=== PATIENT | male | born 1940 | race Caucasian/White ===

== ENCOUNTER 2016-06-05 10:30 | Outpatient (CLI) | payer MEDICARE, OTHER ==
[~2016-06-05 10:30] MED LIST: ALBU17IN2 PO; ALPHA PROTEINASE INHIBITOR IV ONE; ASPI1TAB PO; ATRO0.06; CALCTAB97 PO; CARD4TAB2 PO; DILUENT IV ONE; FURO20TA2 PO; NEXI1CAP4 PO; NITR4TASL SL; SING10TA32 PO; SODI5OPD OD; SODIUM CHLORIDE 0.9% INJ 10 ML SYR IV SCH; TIZA4CAP3 PO; ZOCO20TA PO; ZYRT10CA PO
== END 2016-06-05 11:30 | disposition home or self-care (01) ==
LOC: M INFU 10:30
PROVIDERS: ATTEND Internal Medicine Pulmonary Disease
DX: E88.01 Alpha-1-antitrypsin deficiency (principal)
CPT/HCPCS: 96374; J0256

== ENCOUNTER 2016-06-12 09:55 | Outpatient (CLI) | payer MEDICARE, OTHER | END 2016-06-12 10:45 | disposition home or self-care (01) | LOC: M INFU 09:55 | PROVIDERS: ATTEND Internal Medicine Pulmonary Disease | DX: E88.01 Alpha-1-antitrypsin deficiency (principal) | CPT/HCPCS: 96365; J0256 ==

== ENCOUNTER 2016-06-19 10:48 | Outpatient (CLI) | payer MEDICARE, OTHER ==
[~2016-06-19 10:48] MED LIST changes: -ALPHA PROTEINASE INHIBITOR IV ONE; -DILUENT IV ONE; +SODIUM CHLORIDE 0.9% INJ 10 ML SYR IV PRN
[2016-06-19] MEDS ORDERED: DILUENT IV ONE (11:00)
[2016-06-19] MEDS ORDERED: ALPHA PROTEINASE INHIBITOR IV ONE (11:00)
== END 2016-06-19 12:00 | disposition home or self-care (01) ==
LOC: M INFU 10:48
PROVIDERS: ATTEND Internal Medicine Pulmonary Disease
DX: E88.01 Alpha-1-antitrypsin deficiency (principal)
CPT/HCPCS: 96365; J0256

== ENCOUNTER 2016-06-26 10:49 | Outpatient (CLI) | payer MEDICARE ==
[2016-06-26] MEDS ORDERED: DILUENT IV ONE (11:00)
[2016-06-26] MEDS ORDERED: ALPHA PROTEINASE INHIBITOR IV ONE (11:00)
== END 2016-06-26 11:55 | disposition home or self-care (01) ==
LOC: M INFU 10:49
PROVIDERS: ATTEND Internal Medicine Pulmonary Disease
DX: E88.01 Alpha-1-antitrypsin deficiency (principal)
CPT/HCPCS: 96365; J0256

== ENCOUNTER 2016-07-03 10:53 | Outpatient (CLI) | payer MEDICARE ==
[~2016-07-03 10:53] MED LIST changes: +ALPHA PROTEINASE INHIBITOR IV ONE; +DILUENT IV ONE
== END 2016-07-03 11:45 | disposition home or self-care (01) ==
LOC: M INFU 10:53
PROVIDERS: ATTEND Internal Medicine Pulmonary Disease
DX: E88.01 Alpha-1-antitrypsin deficiency (principal)
CPT/HCPCS: 96365; J0256

== ENCOUNTER 2016-07-10 10:42 | Outpatient (CLI) | payer MEDICARE ==
[~2016-07-10] VITALS: Ht 170.2 cm; Wt 77.6 kg
[~2016-07-10 10:42] MED LIST changes: -SODIUM CHLORIDE 0.9% INJ 10 ML SYR IV PRN
== END 2016-07-10 11:45 | disposition home or self-care (01) ==
LOC: M INFU 10:42
PROVIDERS: ATTEND Internal Medicine Pulmonary Disease
DX: E88.01 Alpha-1-antitrypsin deficiency (principal)
CPT/HCPCS: 96365; J0256

== ENCOUNTER → 2016-07-14 | Outpatient (CLI) | payer MEDICARE, OTHER ==
[~2016-07-14] MED LIST changes: -ALPHA PROTEINASE INHIBITOR IV ONE; -DILUENT IV ONE; -SODIUM CHLORIDE 0.9% INJ 10 ML SYR IV SCH
--- NOTE | 2016-07-15 08:33 | REP ---
CHEST PA AND LATERAL: 07/14/2016. Clinical history: Acute bronchitis, unspecified. Known interstitial lung disease. Comparison 05/10/2015, portable chest 04/26/2015. Findings: Indwelling left subclavian catheter port with tip in SVC. Lungs are hyperinflated showing no pleural effusion. There is some fibrotic change in the mid and lower lung zones and some bullous emphysematous changes in the upper lung zones. Less severe bullous changes in the lower lung zones. I see no dense consolidation, parenchymal mass, pleural thickening, apical scarring or pneumothorax. No nodule or mass. The heart is not grossly enlarged on the frontal view but the left ventricle appears prominent on the lateral projection. Calcified tortuous aorta without aneurysm noted. Airway intact. There is no mediastinal or hilar mass. Pulmonary hypertension noted. Bones without acute compression deformity or focal lesion. Impression: 1. Some hyperinflation with COPD and fibrosis, pulmonary hypertension and an indwelling port catheter. No effusion, dense consolidation, parenchymal mass or other acute lung finding. 2. No gross cardiomegaly with some left ventricular enlargement on the lateral view. There is no venous hypertension, effusion or edema. 3. Calcified tortuous aorta at the arch without aneurysm. Signed by Han Whitlock MD 07/15/2016 06:53 P
== END ==
LOC: M WUC 14:21
PROVIDERS: ATTEND Physician Assistant
DX: J44.0 Chronic obstructive pulmonary disease with (acute) lower respiratory infection (principal); J84.112 Idiopathic pulmonary fibrosis

== ENCOUNTER 2016-07-17 10:57 | Outpatient (CLI) | payer MEDICARE ==
[~2016-07-17 10:57] MED LIST changes: +SODIUM CHLORIDE 0.9% INJ 10 ML SYR IV SCH
[2016-07-17] MEDS ORDERED: ALPHA PROTEINASE INHIBITOR IV ONE (11:00)
[2016-07-17] MEDS ORDERED: DILUENT IV ONE (11:00)
== END 2016-07-17 12:00 | disposition home or self-care (01) ==
LOC: M INFU 10:57
PROVIDERS: ATTEND Internal Medicine Pulmonary Disease
DX: E88.01 Alpha-1-antitrypsin deficiency (principal)
CPT/HCPCS: 96365; J0256

== ENCOUNTER 2016-07-24 10:54 | Outpatient (CLI) | payer MEDICARE ==
[~2016-07-24] VITALS: Ht 170.2 cm; Wt 77.6 kg
[~2016-07-24 10:54] MED LIST changes: +ALPHA PROTEINASE INHIBITOR IV ONE; +DILUENT IV ONE
== END 2016-07-24 11:45 | disposition home or self-care (01) ==
LOC: M INFU 10:54
PROVIDERS: ATTEND Internal Medicine Pulmonary Disease
DX: E88.01 Alpha-1-antitrypsin deficiency (principal)
CPT/HCPCS: 96365; J0256

== ENCOUNTER 2016-07-31 11:07 | Outpatient (CLI) | payer MEDICARE ==
[~2016-07-31] VITALS: Ht 170.2 cm; Wt 77.6 kg
== END 2016-07-31 11:50 | disposition home or self-care (01) ==
LOC: M INFU 11:07
PROVIDERS: ATTEND Internal Medicine Pulmonary Disease
DX: E88.01 Alpha-1-antitrypsin deficiency (principal)
CPT/HCPCS: 96365; J0256

== ENCOUNTER 2016-08-07 10:34 | Outpatient (CLI) | payer MEDICARE ==
[~2016-08-07] VITALS: Ht 170.2 cm; Wt 77.6 kg
== END 2016-08-07 11:15 | disposition home or self-care (01) ==
LOC: M INFU 10:34
PROVIDERS: ATTEND Internal Medicine Pulmonary Disease
DX: E88.01 Alpha-1-antitrypsin deficiency (principal)
CPT/HCPCS: 96365; J0256

== ENCOUNTER 2016-08-14 08:27 | Outpatient (CLI) | payer MEDICARE ==
[~2016-08-14] VITALS: Ht 170.2 cm; Wt 77.6 kg
[~2016-08-14 08:27] MED LIST changes: -SODIUM CHLORIDE 0.9% INJ 10 ML SYR IV SCH
[2016-08-14] MEDS ORDERED: SODIUM CHLORIDE 0.9% INJ 10 ML SYR IV SCH (09:00)
== END 2016-08-14 09:40 | disposition home or self-care (01) ==
LOC: M INFU 08:27
PROVIDERS: ATTEND Internal Medicine Pulmonary Disease
DX: Z00.00 Encounter for general adult medical examination without abnormal findings (principal); E88.01 Alpha-1-antitrypsin deficiency; E78.4 Other hyperlipidemia; E03.8 Other specified hypothyroidism; E55.9 Vitamin D deficiency, unspecified
CPT/HCPCS: 36591; 80053; 80061; 82306; 84439; 84443; 85025; 96365; J0256

== ENCOUNTER 2016-08-14 13:37 | Outpatient (CLI) | payer MEDICARE ==
[2016-08-14 09:14] LABS: BASO % 0.4 % (0.0-1.0); EOS # 0.1 K/mm3 (0.0-0.50); EOS % 1.1 % (0.0-3.0); LARGE UNSTAINED CELL # 0.2 K/mm3 (0.0-0.4); LYMPH # 4.3 K/mm3 (1.5-4.5); LYMPH % 40.7 % (24.0-44.0); MEAN CORPUSCULAR HEMOGLOBIN 32.1 pg (27.0-33.0); MEAN CORPUSCULAR HGB CONC 35.9 g/dl (32.0-36.5); MEAN CORPUSCULAR VOLUME 89.4 fl (80.0-96.0); MONO # 0.6 K/mm3 (0.0-0.8); MONO % 5.6 % (0.0-5.0); NEUTROPHILS # 5.3 K/mm3 (1.8-7.7); NEUTROPHILS % 50.2 % (36.0-66.0); PLATELET COUNT, AUTOMATED 246 k/mm3 (150-450); RED CELL DISTRIBUTION WIDTH 13.4 % (11.5-14.5); WHITE BLOOD COUNT 10.6 K/mm3 (4.0-10.0)
[2016-08-14 10:18] LABS: ALBUMIN 3.8 GM/DL (3.2-5.2); ALBUMIN/GLOBULIN RATIO 1.41 (1.00-1.93); ALKALINE PHOSPHATASE 58 U/L (45-117); ALT/SGPT 23 U/L (12-78); ANION GAP 10 MEQ/L (8-16); AST/SGOT 23 U/L (15-37); BILIRUBIN,TOTAL 0.4 MG/DL (0.2-1.0); BLOOD UREA NITROGEN 16 MG/DL (7-18); CALCIUM LEVEL 8.5 MG/DL (8.8-10.2); CARBON DIOXIDE LEVEL 28 MEQ/L (21-32); CHLORIDE LEVEL 106 MEQ/L (98-107); CHOLESTEROL LEVEL 177 MG/DL (<200); CREATININE FOR GFR 1.15 MG/DL (0.70-1.30); FREE T4 1.28 NG/DL (0.76-1.46); GLOMERULAR FILTRATION RATE > 60.0 (>42); GLUCOSE, FASTING 99 MG/DL (83-110); POTASSIUM SERUM 3.4 MEQ/L (3.5-5.1); SODIUM LEVEL 144 MEQ/L (136-145); TOTAL PROTEIN 6.5 GM/DL (6.4-8.2); TRIGLYCERIDES LEVEL 123 MG/DL (<150)
[~2016-08-14 13:37] MED LIST changes: -ALPHA PROTEINASE INHIBITOR IV ONE; -DILUENT IV ONE
== END 2016-08-14 13:42 | disposition home or self-care (01) ==
LOC: M INFU 13:37
PROVIDERS: ATTEND Family Medicine
DX: Z00.00 Encounter for general adult medical examination without abnormal findings (principal); E78.4 Other hyperlipidemia; E03.8 Other specified hypothyroidism; E55.9 Vitamin D deficiency, unspecified

== ENCOUNTER 2016-08-21 11:33 | Outpatient (CLI) | payer MEDICARE ==
[~2016-08-21] VITALS: Ht 170.2 cm; Wt 77.1 kg
[~2016-08-21 11:33] MED LIST changes: +ALPHA PROTEINASE INHIBITOR IV ONE; +DILUENT IV ONE; +SODIUM CHLORIDE 0.9% INJ 10 ML SYR IV SCH
== END 2016-08-21 12:15 | disposition home or self-care (01) ==
LOC: M INFU 11:33
PROVIDERS: ATTEND Internal Medicine Pulmonary Disease
DX: E88.01 Alpha-1-antitrypsin deficiency (principal)
CPT/HCPCS: 96365; J0256

== ENCOUNTER 2016-08-28 11:30 | Outpatient (CLI) | payer MEDICARE | END 2016-08-28 12:30 | disposition home or self-care (01) | LOC: M INFU 11:30 | PROVIDERS: ATTEND Internal Medicine Pulmonary Disease | DX: E88.01 Alpha-1-antitrypsin deficiency (principal) | CPT/HCPCS: 96365; J0256 ==

== ENCOUNTER 2016-09-04 12:15 | Emergency (ER) | payer MEDICARE ==
[~2016-09-04] VITALS: Ht 172.7 cm; Wt 72.6 kg
[~2016-09-04 12:15] MED LIST changes: -ALPHA PROTEINASE INHIBITOR IV ONE; -AZIT25TA PO; -BREO1INH INH; -CALC600T10 PO; -DALI1TAB2 PO; -DILUENT IV ONE; -ESOM1CAP5 PO; -FLON50SP; -HYDR12.55 PO; -HYDR25TAB PO; -INCR1INH INH; -IPRA6SP; -IPRASOL4 INH; -LEVA500T PO; -LEVO75TA4 PO; -NEUR300C PO; -SODIUM CHLORIDE 0.9% INJ 10 ML SYR IV SCH
[2016-09-04] MEDS ORDERED: INCR1INH INH (12:54)
[2016-09-04] MEDS ORDERED: HYDR12.55 PO (12:54)
[2016-09-04] MEDS ORDERED: NEUR300C PO (12:54)
[2016-09-04] MEDS ORDERED: LEVO75TA4 PO (12:54)
[2016-09-04] MEDS ORDERED: BREO1INH INH (12:54)
[2016-09-04] MEDS ORDERED: IPRATROPIUM 0.5MG/ALBUTEROL 2.5MG INH SOL UD 3ML (DUONEB)(J7620) NEB ONE (14:15)
--- NOTE | 2016-09-04 14:52 | REP ---
Chest two views HISTORY: Cough Comparison: 07/14/2016 The lungs are hyperinflated. An increase in interstitial markings is present in the lungs. Bullae are present in the upper lobes. The heart is normal in size. The pulmonary vasculature is normal in appearance. The bony structure is intact. An Zwbsjs-M-Ugib catheter is present. IMPRESSION: COPD. Signed by Brandt Fair MD 09/04/2016 02:43 P
[2016-09-04 15:25] VITALS: BP 140/71
--- NOTE | 2016-09-04 15:40 | REP ---
INGUINAL ULTRASOUND: Real-time sonographic evaluation of the inguinal regions performed both at rest and with the Valsalva maneuver. No inguinal hernia is seen bilaterally. There is no mass or fluid collection in either inguinal region. IMPRESSION: No sonographic evidence of inguinal hernia bilaterally. Signed by Panda Pillai MD 09/04/2016 04:42 P
== END 2016-09-04 15:28 | disposition home or self-care (01) ==
LOC: M ED 14:14
DX: J44.1 Chronic obstructive pulmonary disease with (acute) exacerbation (principal); R10.30 Lower abdominal pain, unspecified; R50.9 Fever, unspecified; I10 Essential (primary) hypertension; I51.9 Heart disease, unspecified; E78.5 Hyperlipidemia, unspecified; Z88.2 Allergy status to sulfonamides; Z79.82 Long term (current) use of aspirin; Z79.899 Other long term (current) drug therapy; Z79.51 Long term (current) use of inhaled steroids

== ENCOUNTER → 2016-09-04 | Outpatient (CLI) | payer MEDICARE ==
[~2016-09-04] MED LIST changes: +ALBU17IN2 INH; -ALBU17IN2 PO; +AZIT25TA PO; +BREO1INH INH; +CALC600T10 PO; +DALI1TAB2 PO; +ESOM1CAP5 PO; +FLON50SP; +HYDR12.55 PO; +HYDR25TAB PO; +INCR1INH INH; +IPRA6SP; +IPRASOL4 INH; +LEVA500T PO; +LEVO75TA4 PO; +NEUR300C PO
== END ==
LOC: M INFU 08:00
PROVIDERS: ATTEND Internal Medicine Pulmonary Disease
DX: E88.01 Alpha-1-antitrypsin deficiency (principal); Z53.8 Procedure and treatment not carried out for other reasons

== ENCOUNTER 2016-09-11 10:53 | Outpatient (CLI) | payer MEDICARE ==
[~2016-09-11] VITALS: Ht 170.2 cm; Wt 77.7 kg
[~2016-09-11 10:53] MED LIST changes: +BREO1INH INH; +HYDR12.55 PO; +INCR1INH INH; +LEVO75TA4 PO; +NEUR300C PO; +SODIUM CHLORIDE 0.9% INJ 10 ML SYR IV SCH
[2016-09-11] MEDS ORDERED: DILUENT IV ONE ×2 (11:15→11:26)
[2016-09-11] MEDS ORDERED: ALPHA PROTEINASE INHIBITOR IV ONE ×2 (11:15→11:26)
[2016-09-11] MEDS ORDERED: HYDR25TAB PO (14:55)
[2016-09-11] MEDS ORDERED: IPRA6SP (14:55)
[2016-09-11] MEDS ORDERED: ESOM1CAP5 PO (14:55)
[2016-09-11] MEDS ORDERED: CALC600T10 PO (14:55)
[2016-09-11] MEDS ORDERED: IPRASOL4 INH (14:55)
[2016-09-11] MEDS ORDERED: AZIT25TA PO (14:55)
[2016-09-11] MEDS ORDERED: FLON50SP (14:57)
[2016-09-11] MEDS ORDERED: DALI1TAB2 PO (14:57)
== END 2016-09-11 12:25 | disposition home or self-care (01) ==
LOC: M INFU 10:53
PROVIDERS: ATTEND Internal Medicine Pulmonary Disease
DX: E88.01 Alpha-1-antitrypsin deficiency (principal)

== ENCOUNTER 2016-09-11 12:39 | Inpatient (IN) | payer MEDICARE ==
[~2016-09-11] VITALS: Ht 172.7 cm; Wt 73.3 kg
[~2016-09-11 12:39] MED LIST changes: -SODIUM CHLORIDE 0.9% INJ 10 ML SYR IV SCH
[2016-09-11 13:36] LABS: BASO # 0.1 K/mm3 (0.0-0.2); BASO % 0.3 % (0.0-1.0); EOS # 0.1 K/mm3 (0.0-0.50); EOS % 0.6 % (0.0-3.0); LARGE UNSTAINED CELL # 0.2 K/mm3 (0.0-0.4); LARGE UNSTAINED CELL % 1.1 % (0.0-4.0); MEAN CORPUSCULAR HEMOGLOBIN 29.5 pg (27.0-33.0); MEAN CORPUSCULAR HGB CONC 33.6 g/dl (32.0-36.5); MEAN CORPUSCULAR VOLUME 87.8 fl (80.0-96.0); MONO % 4.5 % (0.0-5.0); NEUTROPHILS # 15.4 K/mm3 (1.8-7.7); NEUTROPHILS % 71.6 % (36.0-66.0); PLATELET COUNT, AUTOMATED 308 k/mm3 (150-450); RED CELL DISTRIBUTION WIDTH 13.4 % (11.5-14.5)
[2016-09-11 13:38] LABS: WHITE BLOOD COUNT 21.5 K/mm3 (4.0-10.0)
[2016-09-11 14:00] LABS: ANION GAP 5 MEQ/L (8-16); BLOOD UREA NITROGEN 18 MG/DL (7-18); CALCIUM LEVEL 8.7 MG/DL (8.8-10.2); CARBON DIOXIDE LEVEL 34 MEQ/L (21-32); CHLORIDE LEVEL 100 MEQ/L (98-107); CREATININE FOR GFR 1.07 MG/DL (0.70-1.30); GLOMERULAR FILTRATION RATE > 60.0 (>42); GLUCOSE, FASTING 101 MG/DL (83-110); POTASSIUM SERUM 3.1 MEQ/L (3.5-5.1); SODIUM LEVEL 139 MEQ/L (136-145)
[2016-09-11] MEDS ORDERED: ALBUTEROL SULFATE 2.5 MG/0.5 ML INH NEB SOLN INH ONE (14:15)
[2016-09-11] MEDS ORDERED: methylPREDNISolone INJ 125 MG/2 ML VIAL (J2930) IV ONE (14:15)
[2016-09-11] MEDS ORDERED: IPRATROPIUM 0.5MG/ALBUTEROL 2.5MG INH SOL UD 3ML (DUONEB)(J7620) NEB ONE (14:15)
[2016-09-11 14:17] LABS: ABG BASE EXCESS 6.9 (-2.0-2.0); ABG HCO3 30.3 MEQ/L (22.0-26.0); ABG PARTIAL PRESSURE CO2 38.7 mmHg (35.0-45.0); ABG PARTIAL PRESSURE O2 77.9 mmHg (75.0-100.0); ABG STANDARD HCO3 30.7 MEQ/L (22.0-26.0); ABG TOTAL CO2 31.4 MEQ/L (23.0-31.0); ABG pH (ARTERIAL) 7.511 UNITS (7.350-7.450)
[2016-09-11] MEDS ORDERED: ESOM1CAP5 PO (14:55)
[2016-09-11] MEDS ORDERED: IPRASOL4 INH (14:55)
[2016-09-11] MEDS ORDERED: CALC600T10 PO (14:55)
[2016-09-11] MEDS ORDERED: HYDR25TAB PO (14:55)
[2016-09-11] MEDS ORDERED: AZIT25TA PO (14:55)
[2016-09-11] MEDS ORDERED: IPRA6SP (14:55)
[2016-09-11] MEDS ORDERED: FLON50SP (14:57)
[2016-09-11] MEDS ORDERED: DALI1TAB2 PO (14:57)
[2016-09-11] MEDS ORDERED: VANCOMYCIN HCL 1,000 MG, VIAL MATE ADAPTER 1 EACH in D5W 250 ML IV ONE (15:00)
[2016-09-11] MEDS ORDERED: PIPERACILLIN/TAZOBACTAM SOD 3.375 GM in D5W MINI-BAG PLUS 50 ML IV ONE (15:00)
--- NOTE | 2016-09-11 15:24 | HPEPDOC ---
Medical History and Physical Date of Admission 09/11/16 History and Physical ATTENDING: Dr. Tirado PCP: Dr Eber Yanes Pulmonary: Dr Quan CC: Sob HPI: 75yoM with a past medical history significant for alpha 1 1 antitrypsin deficiency who follows with Dr. Quan. Patient states he was treated for a sinus infection approximately 1 month ago with Zithromax and has not been feeling well since then. He reports chest congestion, cough productive of whitish sputum, feeling feverish with temperature of 99, chills, and generalized fatigue. He has been feeling wheezy. He follows with pulmonary, Dr. Quan for also one anti-trypsin deficiency and receives infusions of alpha-1 proteinase inhibitor. He was at the infusion center today when he was not feeling well and subsequently came to the emergency department for evaluation. He states he is feeling better since he received nebulizer treatment in the emergency department. Denies any VILLANUEVA, palpitations, abdominal pain, N/V/D or changes in bowel or bladder habits. Upon presentation to the hospital the patient was found to have shortness of breath and wheezing, thus the hospitalist team was consulted. PMHx: Alpha-1 antitrypsin deficiency. Alpha-1 proteinase inhibitor infusion as per Dr. Quan COPD Allergic rhinitis Hypertension GERD Hyperlipidemia Lower extremity pain/peripheral neuropathy Hypothyroidism PSHX: Right inguinal hernia repair Port left chest SOCHX: Resides in: [facility] Marital Status: Kids: 5 Employment: Retired [employer] Tobacco use: Denies ETOH: Denies Illicit Drugs: Denies Recent travel: None Advanced directives: None FAMHX: Mother: , old age Father: , MVA Siblings: One brother [place] Children: Alive, one daughter with alpha-1 antitrypsin deficiency Unexpected deaths due to medical reasons: None. ROS: As noted in HPI, otherwise 11pt ROS of systems reviewed and unremarkable. PE: GEN: 75yoM, appears stated age. Well-nourished, well developed. No acute distress. Alert and oriented x 3. Pleasant, interactive. HEENT: Normocephalic, atraumatic. Pupils are equal, round, and reactive to light. Extraocular movements are intact. No nystagmus appreciated. Sclera are nonicteric. Conjunctiva without injection. Nose midline. Nasal turbinates without bogginess. EACs both patent BL. TMs both visualized and pace with good cone of light, no bulging or erythema. No facial asymmetry. Moist mucous membranes. Dentition fair. Pharynx pink and moist. Neck supple, trachea midline. No lymphadenopathy or thyromegaly appreciated. CHEST: Regular rate and rhythm, +S1, +S2 LUNGS: Decreased breath sounds bilaterally. Scattered expiratory wheezes noted bilaterally. No rales, or rhonchi. Breathing appears symmetric and easy. Patient is speaking in full sentences. No accessory muscle use. ABD: Round, soft, non-tender, non-distended. +Bowel sounds throughout. No rebound or guarding. No costovertebral angle tenderness. EXT: Pulses 2+ bilaterally dorsalis pedis and radial. No lower extremity edema appreciated. SKIN: [place], dry, warm. Capillary refill <2sec. No rashes. NEURO: Alert and oriented x 3. Cranial nerves III-XII are intact. No focal deficits appreciated. CXR: report pending EKG: Sinus rhythm, marked LAD, 93 bpm. BLOOD CULTURES: 2 pending Rapid flu negative. A&P: 75yoM with a past medical history significant for alpha 1 1 antitrypsin deficiency who follows with Dr. Quan. Patient states he was treated for a sinus infection approximately 1 month ago with Zithromax and has not been feeling well since then. He reports chest congestion, cough productive of whitish sputum, feeling feverish with temperature of 99, chills, and generalized fatigue. He has been feeling wheezy. He follows with pulmonary, Dr. Quan for also one anti-trypsin deficiency and receives infusions of alpha-1 proteinase inhibitor. He was at the infusion center today when he was not feeling well and subsequently came to the emergency department for evaluation. The patient will be admitted to / for at least [address] Tirado's service. Shortness of breath/ likely Pneumonia. BC/SC pending. Lactic acid pending. CXR report pending. IV Zosyn/Vanco initiated in the emergency department, to continue. O2/nebulizers. COPD/Asthma. Continue Singulair, Daliresp, nebulizers. Hypokalemia. Supplement by mouth 1. Recheck BMP at 8 PM. Check magnesium level. Alpha-1 antitrypsin deficiency. Patient follows with Dr. Quan. Receives routine infusions with alpha-1 proteinase inhibitor. Hypertension. Continue Cardura with hold parameters. Lasix/HCTZ on hold for now. GERD. Continue PPI. Hyperlipidemia. Continue statin Peripheral neuropathy. Continue gabapentin Hypothyroidism. Continue supplement DVT prophylaxis. The patient is a full code Vital Signs Vital Signs Date Time Temp Pulse Resp B/P Pulse Ox O2 Delivery O2 Flow Rate FiO2 09/11/16 14:25 97 16 09/11/16 13:35 Nasal Cannula 3 09/11/16 12:39 99.0 129/65 91 Laboratory Data Labs 24H Laboratory Tests 2 09/11/16 13:27: Anion Gap 5L, B-Type Natriuretic Peptide 32.5, White Blood Count 21.5H, Red Blood Count 3.92L, Hemoglobin 11.6L, Hematocrit 34.4L, Mean Corpuscular Volume 87.8, Mean Corpuscular Hemoglobin 29.5, Mean Corpuscular Hemoglobin Concent 33.6 , Red Cell Distribution Width 13.4, Platelet Count 308, Neutrophils (%) (Auto) 71.6H, Lymphocytes (%) (Auto) 22.0L, Monocytes (%) (Auto) 4.5, Eosinophils (%) ( Auto) 0.6, Basophils (%) (Auto) 0.3, Neutrophils # (Auto) 15.4H, Lymphocytes # ( Auto) 5.0H, Monocytes # (Auto) 1.0H, Eosinophils # (Auto) 0.1, Basophils # (Auto ) 0.1, Blood Urea Nitrogen 18, Creatinine 1.07, Sodium Level 139, Potassium Level 3.1L, Chloride Level 100, Carbon Dioxide Level 34H, Calcium Level 8.7L, Glomerular Filtration Rate > 60.0, Large Unclassified Cells # 0.2, Large Unclassified Cells % 1.1 09/11/16 14:06: Arterial Blood pH 7.511H, Arterial Blood Partial Pressure CO2 38.7, Arterial Blood Partial Pressure O2 77.9, Arterial Blood Total CO2 31.4H, Arterial Blood HCO3 30.3H, Arterial Blood Base Excess 6.9H, Arterial Blood Oxygen Saturation 95.9, Blood Gas Bicarbonate Standard 30.7H CBC/BMP Laboratory Tests 09/11/16 13:27 Calcium Level 8.7 L, Red Blood Count 3.92 L, Mean Corpuscular Volume 87.8, Mean Corpuscular Hemoglobin 29.5, Mean Corpuscular Hemoglobin Concent 33.6, Red Cell Distribution Width 13.4, Neutrophils (%) (Auto) 71.6 H, Lymphocytes (%) (Auto) 22.0 L, Monocytes (%) (Auto) 4.5, Eosinophils (%) (Auto) 0.6, Basophils (%) ( Auto) 0.3, Neutrophils # (Auto) 15.4 H, Lymphocytes # (Auto) 5.0 H, Monocytes # (Auto) 1.0 H, Eosinophils # (Auto) 0.1, Basophils # (Auto) 0.1 Microbiology Microbiology 09/11/16 Blood Culture, Received Pending 09/11/16 Blood Culture, Received Pending 09/11/16 Influenza Virus Type A Antigen - Final, Complete 09/11/16 Influenza Virus Type B Antigen - Final, Complete Home Medications Scheduled (Incruse Ellipta) 62.5 Mcg/Inh Inh 62.5 MCG INH DAILY (Esomeprazole Magnesium) 40 Mg Cap 40 MG PO DAILY (Flonase Allergy Relief Ch) 50 Mcg/Act Spr 2 SPRAYS NA QPM Aspirin (Aspirin 81) 81 Mg Tab 81 MG PO DAILY Azithromycin (Azithromycin) 250 Mg Tab 250 MG PO 2XW MON, THURS Calcium (Calcium) 600 Mg Tab 600 MG PO QPM Cetirizine HCl (Zyrtec Allergy) 10 Mg Cap 10 MG PO QPM Doxazosin Mesylate (Cardura) 4 Mg Tab 4 MG PO BID Fluticasone/Vilanterol (Breo Ellipta 100-25 Mcg/INH) 1 Inh Inh 1 PUFF INH DAILY Furosemide (Furosemide) 20 Mg Tab 20 MG PO QPM Gabapentin (Neurontin) 300 Mg Cap 600 MG PO QPM Hydrochlorothiazide (Hydrochlorothiazide) 25 Mg Tab 25 MG PO DAILY Ipratropium [place] (Ipratropium [place]) 165 [place]/15 Ml Naspr 2 SPRAY NA DAILY Levothyroxine Sodium (Synthroid) 75 Mcg Tab 75 MCG PO DAILY Montelukast Sodium (Singulair) 10 Mg Tab 10 MG PO QPM Roflumilast (Daliresp) 500 Mcg Tab 500 MCG PO DAILY Simvastatin (Zocor) 20 Mg Tab 20 MG PO QPM Tizanidine Hydrochloride (Tizanidine HCl) 4 Mg Cap 4 MG PO QPM Scheduled PRN Albuterol Sulfate (Proventil Hfa) 167 Puff/6.7 Gm Aers 2 PUFFS INH QID PRN PRN SHORTNESS OF BREATH Albuterol/Ipratropium (Ipratropium [place]/Albut 0.5-2.5 (3) mg/3Ml) 1 Maria Esther Maria Esther 1 MARIA ESTHER INH QID PRN PRN SHORTNESS OF BREATH Nitroglycerin (Nitrostat) 0.4 Mg Subl 0.4 MG SL Q5MP PRN PRN CHEST PAIN Allergies Coded Allergies: Sulfa Antibiotics (Verified Allergy, Unknown, 04/26/15) Sulfadiazine (Verified Allergy, Unknown, 07/26/15) Ashlee Leyva Sep 11, 2016 15:24
--- NOTE | 2016-09-11 15:37 | REP ---
Portable chest x-ray: Single view. History: Dyspnea and cough. Comparison chest x-ray September 04, 2016. Findings: A left subclavian Vokhzi-V-Fioi catheter is seen with its tip in the expected location of the superior vena cava. EKG monitoring electrodes and oxygen delivery tubing are seen. There are bibasilar linear opacities consistent with plate-like atelectasis. These are new when compared with the prior study. Interstitial markings are somewhat prominent in the bases as well suggesting some degree of interstitial fibrosis. Heart is not enlarged. Impression: Bibasilar plate-like atelectasis and prominent bibasilar interstitial markings. Wbvbuq-O-Gogq catheter in place. Signed by Ari Eldridge MD 09/11/2016 03:54 P
[2016-09-11] MEDS ORDERED: IPRATROPIUM 0.5MG/ALBUTEROL 2.5MG INH SOL UD 3ML (DUONEB)(J7620) NEB PRN (15:45)
[2016-09-11] MEDS: IPRATROPIUM 0.5MG/ALBUTEROL 2.5MG INH SOL UD 3ML (DUONEB)(J7620) NEB SCH ×2 (16:00→22:03)
[2016-09-11] MEDS ORDERED: POTASSIUM CHLORIDE 10 MEQ SR TABLET PO ONE (17:00)
--- NOTE | 2016-09-11 17:02 | ECGEPIP ---
Stationary ECG Study [facility] - ED Test Date: 2016-09-11 Pat Name: JOHN OROURKE Department: Room: - Gender: M Workers Compensation Claims Analyst: ct : 1940 Requested By: SHIKHA Gonzalez Order Number: [id number] Reading MD: Marianna Florez Measurements Intervals D[place]key Rate: 93 P: 62 VT: 148 QRS: -33 QRSD: 101 T: 49 QT: 357 QTc: 445 Interpretive Statements SINUS RHYTHM MARKED LEFT AXIS DEVIATION INFERIOR INFARCT, ?AGE NSTTW ABNORMALITY Electronically Signed On 09-11-2016 17:02:08 EDT by Marianna Florez
[2016-09-11 18:30] VITALS: BP 158/79
--- NOTE | 2016-09-11 18:50 | PHACANCOPD ---
PHARMACY VANCOMYCIN DOSING Pt Demographics Demographics Patient Age:75 , Weight:72.570 , Gender: male Adjusted Body Weight Date: 09/11/16, Adjusted Body Weight: [72.6] Kg Events Past 24 Hours Events Past 24 Hours: NO: Change in CrCl, Dialysis, Diuretic Therapy, Elevation in WBC, Fever, Other, Pending Diagnostics, Pending Procedures Vancomycin Vancomycin indication: PNEUMONIA Vancomycin Target Ranges: 15-20 mcg/ml Vancomycin Load Y/N: Yes Load Dose Date Time Vancomycin Load Dose: 1.5G Date: 09/11/16 Time: 15:30&1900 Vancomycin Dose Date: 09/11/16. Current Vancomycin Dose: [1G Q24H @ 15] Intermittent Dosing?: No Labs Labs Item Value Date Time White Blood Count 21.5 K/mm3 H 09/11/16 1327 Creatinine 1.07 MG/DL 09/11/16 1327 Micro Microbiology 09/11/16 Blood Culture, Received Pending 09/11/16 Blood Culture, Received Pending 09/11/16 Gram Stain, Received Pending 09/11/16 Sputum Culture, Received Pending 09/11/16 Influenza Virus Type A Antigen - Final, Complete 09/11/16 Influenza Virus Type B Antigen - Final, Complete Creatinine Clearance Date:09/11/16. Creatinine Clearance: [56.8ML/MIN]. Pending Labs GRAM STAIN, BLOOD CULTURE Assessment and Plan Maintaining Current Dose?: Yes Reason for dose change: No Dose Change Pharmacist Note Pharmacist Note Date: 09/11/16. Pharmacist note: PT is a 75 year old male being treated for pneumonia with no history of vancomycin therapy at [facility]. Pt was gave 1g in er at 15:30, then 500mg on the floor @19 to load pt. Maintenance dosing will begin @1500 1g iv q24h trough set for 09/14 @1400. We will continue to monitor pt and adjust dose as needed. ROSSY WIN [facility]ARMAC[facility] Sep 11, 2016 18:50
[2016-09-11] MEDS ORDERED: VANCOMYCIN HCL 500 MG in D5W MINI-BAG PLUS 100 ML IV ONE (19:00)
[2016-09-11] MEDS: SIMVASTATIN 20 MG TAB PO SCH (20:23)
[2016-09-11] MEDS: GABAPENTIN 300 MG CAP PO SCH (20:23)
[2016-09-11] MEDS: MONTELUKAST 10 MG TAB PO SCH (20:23)
[2016-09-11] MEDS: DOXAZOSIN MESYLATE 4 MG TAB PO SCH (20:24)
[2016-09-11] MEDS: tiZANidine 4 MG TAB PO SCH (20:24)
[2016-09-11] MEDS: PIPERACILLIN/TAZOBACTAM SOD 3.375 GM in D5W MINI-BAG PLUS 50 ML IV SCH (20:25)
[2016-09-11] MEDS: CETIRIZINE (ZyrTEC) 10 MG TAB PO SCH (20:25)
[2016-09-11] MEDS: FLUTICASONE PROP 0.05% NASAL SPRAY 16 GM (FLONASE) SCH (20:25)
[2016-09-11 21:10] LABS: INR 0.99
[2016-09-11 21:13] LABS: ALBUMIN 2.8 GM/DL (3.2-5.2); ALBUMIN/GLOBULIN RATIO 0.85 (1.00-1.93); ALKALINE PHOSPHATASE 68 U/L (45-117); ALT/SGPT 19 U/L (12-78); ANION GAP 12 MEQ/L (8-16); AST/SGOT 16 U/L (15-37); BILIRUBIN,TOTAL 0.4 MG/DL (0.2-1.0); BLOOD UREA NITROGEN 18 MG/DL (7-18); CALCIUM LEVEL 8.7 MG/DL (8.8-10.2); CARBON DIOXIDE LEVEL 27 MEQ/L (21-32); CHLORIDE LEVEL 98 MEQ/L (98-107); CREATININE FOR GFR 1.31 MG/DL (0.70-1.30); GLOMERULAR FILTRATION RATE 56.6 (>42); GLUCOSE, FASTING 244 MG/DL (83-110); MAGNESIUM LEVEL 2.3 MG/DL (1.8-2.4); POTASSIUM SERUM 3.7 MEQ/L (3.5-5.1); SODIUM LEVEL 137 MEQ/L (136-145); TOTAL PROTEIN 6.1 GM/DL (6.4-8.2)
[2016-09-11 21:14] LABS: BILIRUBIN,DIRECT < 0.1 MG/DL (0.0-0.2)
[2016-09-11 22:00] VITALS: BP 137/65
[2016-09-11] MEDS: SODIUM CHLORIDE 0.9% INJ 10 ML SYR IV PRN (23:06)
[2016-09-12 02:00] VITALS: BP 122/68
[2016-09-12] MEDS: PIPERACILLIN/TAZOBACTAM SOD 3.375 GM in D5W MINI-BAG PLUS 50 ML IV SCH ×4 (02:29→21:29)
[2016-09-12] MEDS: IPRATROPIUM 0.5MG/ALBUTEROL 2.5MG INH SOL UD 3ML (DUONEB)(J7620) NEB SCH ×6 (03:44→23:36)
[2016-09-12] MEDS: LEVOTHYROXINE 0.075 MG TAB (75 MCG) PO SCH (05:21)
[2016-09-12] MEDS: SODIUM CHLORIDE 0.9% INJ 10 ML SYR IV PRN ×2 (05:23→15:07)
[2016-09-12 05:35] LABS: MEAN CORPUSCULAR HEMOGLOBIN 29.8 pg (27.0-33.0); MEAN CORPUSCULAR HGB CONC 33.8 g/dl (32.0-36.5); MEAN CORPUSCULAR VOLUME 88.3 fl (80.0-96.0); RED CELL DISTRIBUTION WIDTH 13.1 % (11.5-14.5); WHITE BLOOD COUNT 17.9 K/mm3 (4.0-10.0)
[2016-09-12 06:00] VITALS: BP 132/82
[2016-09-12 06:38] LABS: ALBUMIN 2.7 GM/DL (3.2-5.2); ALBUMIN/GLOBULIN RATIO 0.79 (1.00-1.93); ALKALINE PHOSPHATASE 62 U/L (45-117); ALT/SGPT 19 U/L (12-78); ANION GAP 10 MEQ/L (8-16); AST/SGOT 15 U/L (15-37); BILIRUBIN,TOTAL 0.5 MG/DL (0.2-1.0); BLOOD UREA NITROGEN 18 MG/DL (7-18); CALCIUM LEVEL 8.3 MG/DL (8.8-10.2); CARBON DIOXIDE LEVEL 28 MEQ/L (21-32); CHLORIDE LEVEL 100 MEQ/L (98-107); CREATININE FOR GFR 1.07 MG/DL (0.70-1.30); GLOMERULAR FILTRATION RATE > 60.0 (>42); GLUCOSE, FASTING 155 MG/DL (83-110); MAGNESIUM LEVEL 2.4 MG/DL (1.8-2.4); POTASSIUM SERUM 3.9 MEQ/L (3.5-5.1); SODIUM LEVEL 138 MEQ/L (136-145); TOTAL PROTEIN 6.1 GM/DL (6.4-8.2)
[2016-09-12] MEDS: PANTOPRAZOLE 40MG TAB (PROTONIX) PO SCH (09:45)
[2016-09-12] MEDS: ASPIRIN 81 MG ENTERIC TAB PO SCH (09:45)
[2016-09-12] MEDS: DOXAZOSIN MESYLATE 4 MG TAB PO SCH ×2 (09:46→21:28)
[2016-09-12] MEDS: ROFLUMILAST 500 MCG TAB (DALIRESP) PO SCH (09:46)
[2016-09-12] MEDS: SODIUM CHLORIDE 0.9% INJ 10 ML SYR IV SCH (09:46)
[2016-09-12 10:00] VITALS: BP 139/64
[2016-09-12] MEDS: FIBER-CON 625 MG TAB PO SCH ×2 (12:39→21:28)
[2016-09-12] MEDS: IPRATROPIUM 0.06% NASAL SPRAY 15 ML (ATROVENT) SCH (12:39)
[2016-09-12 14:00] VITALS: BP 121/56
[2016-09-12] MEDS: VANCOMYCIN HCL 1,000 MG, VIAL MATE ADAPTER 1 EACH in D5W 250 ML IV SCH (15:07)
--- NOTE | 2016-09-12 15:30 | IPNPDOC ---
Text Note Date of Service The patient was seen on 09/12/16. NOTE Subjective: Patient is a 75 year old male with a PMHx of Alpha-1 antitrypsin deficiency (w/ A1 proteinase inhibitor infusions with Dr. Quan), COPD on 3L O2 , Allergic rhinitis, HTN, Hypothyroidism, DLP, Neuropathy and GERD who presented to the ER with complaints of shortness of breath, productive sputum, and chest congestion. He noted that he was treated for a sinus infection 1 month ago with Azithromycin. Patient has been admitted for a possible pneumonia. Patient was seen and examined at the bedside. Denies any new problems. Objective: Vitals (See below) General: Lying in bed, no acute distress, comfortable, AAOx3 HEENT: NC, AT CVS: RRR, +S1S2 Lungs: Poor inspiratory effort, mild wheezing on expiration, Abdomen: Soft, ND, NT, +BSx4 Extremities: +PPx4, - Edema, - Calf tenderness Assessment and plan: 1. Dyspnea - likely 2/2 pneumonia, less likely 2/2 COPD exacerbation - Presented with shortness of breath, productive cough - Physical reveals wheezing and decreased air entry bilaterally - Leukocytosis; mild improvement - CXR 09/11: Bibasilar plate-like atelectasis and prominent bibasilar interstitial markings. Jcfulb-E-Ptqq catheter in place. - Influenza negative, Blood cultures negative at 24 hours, Sputum cultures pending - c/w Vancomycin and Zosyn (Day #2) - c/w Duoneb inhaled therapy 2. COPD / Asthma - c/w inhaled therapy, Daliresp, Singulair, Duoneb 3. s/p Hypokalemia 4. Alpha-1 antitrypsin deficiency - follows with Dr. Quan as an outpatient - goes to infusion center for A1 protease inhibitor infusions 5. HTN - BP well controlled - c/w home meds with holding parameters 6. DLP - c/w simvastatin 7. Neuropathy - c/w gabapentin 8. Hypothyroidism - c/w levothyroxine 9. GERD - c/w protonix 10. DVT prophylaxis - Will start Heparin VS,Fishbone, I+O VS, Fishbone, I+O Laboratory Tests 09/11/16 20:19 09/12/16 05:17 Calcium Level 8.3 L, Aspartate Amino Transf (AST/SGOT) 15, Alanine Aminotransferase (ALT/SGPT) 19, Alkaline Phosphatase 62, Total Bilirubin 0.5, Total Protein 6.1 L, Albumin 2.7 L, Red Blood Count 3.70 L, Mean Corpuscular Volume 88.3, Mean Corpuscular Hemoglobin 29.8, Mean Corpuscular Hemoglobin Concent 33.8, Red Cell Distribution Width 13.1 Vital Signs Date Time Temp Pulse Resp B/P Pulse Ox O2 Delivery O2 Flow Rate FiO2 09/12/16 14:00 98.1 79 18 121/56 98 Nasal Cannula 3.0 I&O- Last 24 Hours up to 6 AM 09/12/16 06:00 Intake Total 830 ml Output Total 0 ml Balance 830 ml SAHIL PACE MD Sep 12, 2016 15:30
[2016-09-12] MEDS: HEPARIN SOD (PORCINE) 5000 UNITS/ML VIAL SQ SCH ×2 (16:15→21:27)
[2016-09-12 18:00] VITALS: BP 132/62
[2016-09-12] MEDS: CETIRIZINE (ZyrTEC) 10 MG TAB PO SCH (21:27)
[2016-09-12] MEDS: MONTELUKAST 10 MG TAB PO SCH (21:27)
[2016-09-12] MEDS: tiZANidine 4 MG TAB PO SCH (21:28)
[2016-09-12] MEDS: GABAPENTIN 300 MG CAP PO SCH (21:28)
[2016-09-12] MEDS: SIMVASTATIN 20 MG TAB PO SCH (21:28)
[2016-09-12] MEDS: FLUTICASONE PROP 0.05% NASAL SPRAY 16 GM (FLONASE) SCH (21:28)
[2016-09-12 22:00] VITALS: BP 137/63
[2016-09-13 02:00] VITALS: BP 130/71
[2016-09-13] MEDS: PIPERACILLIN/TAZOBACTAM SOD 3.375 GM in D5W MINI-BAG PLUS 50 ML IV SCH ×4 (02:41→20:59)
[2016-09-13] MEDS: IPRATROPIUM 0.5MG/ALBUTEROL 2.5MG INH SOL UD 3ML (DUONEB)(J7620) NEB SCH ×6 (03:58→23:49)
[2016-09-13] MEDS: SODIUM CHLORIDE 0.9% INJ 10 ML SYR IV PRN (05:26)
[2016-09-13] MEDS: HEPARIN SOD (PORCINE) 5000 UNITS/ML VIAL SQ SCH ×3 (05:26→21:00)
[2016-09-13] MEDS: LEVOTHYROXINE 0.075 MG TAB (75 MCG) PO SCH (05:26)
[2016-09-13 05:56] LABS: MEAN CORPUSCULAR HEMOGLOBIN 29.7 pg (27.0-33.0); MEAN CORPUSCULAR HGB CONC 33.7 g/dl (32.0-36.5); RED CELL DISTRIBUTION WIDTH 13.2 % (11.5-14.5); WHITE BLOOD COUNT 17.8 K/mm3 (4.0-10.0)
[2016-09-13 06:00] VITALS: BP 119/61
[2016-09-13 06:30] LABS: ALBUMIN 2.6 GM/DL (3.2-5.2); ALKALINE PHOSPHATASE 58 U/L (45-117); ALT/SGPT 28 U/L (12-78); ANION GAP 10 MEQ/L (8-16); AST/SGOT 25 U/L (15-37); BILIRUBIN,TOTAL 0.5 MG/DL (0.2-1.0); BLOOD UREA NITROGEN 17 MG/DL (7-18); CALCIUM LEVEL 8.6 MG/DL (8.8-10.2); CARBON DIOXIDE LEVEL 28 MEQ/L (21-32); CHLORIDE LEVEL 104 MEQ/L (98-107); CREATININE FOR GFR 1.13 MG/DL (0.70-1.30); GLOMERULAR FILTRATION RATE > 60.0 (>42); GLUCOSE, FASTING 91 MG/DL (83-110); MAGNESIUM LEVEL 2.5 MG/DL (1.8-2.4); POTASSIUM SERUM 3.6 MEQ/L (3.5-5.1); SODIUM LEVEL 142 MEQ/L (136-145); TOTAL PROTEIN 5.5 GM/DL (6.4-8.2)
[2016-09-13] MEDS: ROFLUMILAST 500 MCG TAB (DALIRESP) PO SCH (08:55)
[2016-09-13] MEDS: DOXAZOSIN MESYLATE 4 MG TAB PO SCH ×2 (08:55→21:05)
[2016-09-13] MEDS: PANTOPRAZOLE 40MG TAB (PROTONIX) PO SCH (08:55)
[2016-09-13] MEDS: FIBER-CON 625 MG TAB PO SCH ×2 (08:55→21:00)
[2016-09-13] MEDS: ASPIRIN 81 MG ENTERIC TAB PO SCH (08:55)
[2016-09-13] MEDS: IPRATROPIUM 0.06% NASAL SPRAY 15 ML (ATROVENT) SCH (08:56)
[2016-09-13] MEDS: SODIUM CHLORIDE 0.9% INJ 10 ML SYR IV SCH (08:56)
[2016-09-13 10:00] VITALS: BP 134/60
--- NOTE | 2016-09-13 11:57 | IPNPDOC ---
Text Note Date of Service The patient was seen on 09/13/16. NOTE Subjective: Patient is a 75 year old male with a PMHx of Alpha-1 antitrypsin deficiency (w/ A1 proteinase inhibitor infusions with Dr. Quan), COPD on 3L O2 , Allergic rhinitis, HTN, Hypothyroidism, DLP, Neuropathy and GERD who presented to the ER with complaints of shortness of breath, productive sputum, and chest congestion. He noted that he was treated for a sinus infection 1 month ago with Azithromycin. Patient has been admitted for a possible pneumonia. Patient was seen and examined at the bedside. Patient notes that he has still been having a productive cough. No shortness of breath or chest pain. Objective: Vitals (See below) General: Lying in bed, no acute distress, comfortable, AAOx3 HEENT: NC, AT CVS: RRR, +S1S2 Lungs: Poor inspiratory effort, mild wheezing on expiration, Abdomen: Soft, ND, NT, +BSx4 Extremities: +PPx4, - Edema, - Calf tenderness Assessment and plan: 1. Dyspnea - likely 2/2 pneumonia, less likely 2/2 COPD exacerbation - Presented with shortness of breath, productive cough - Physical reveals wheezing and decreased air entry bilaterally - Leukocytosis has been stable; will continue to monitor - CXR 09/11: Bibasilar plate-like atelectasis and prominent bibasilar interstitial markings. Hqayza-M-Zket catheter in place. - Influenza negative, Blood cultures negative at 24 hours, Sputum cultures pending - c/w Vancomycin and Zosyn (Day #3) - c/w Duoneb inhaled therapy 2. COPD / Asthma - c/w inhaled therapy, Daliresp, Singulair, Duoneb 3. s/p Hypokalemia 4. Alpha-1 antitrypsin deficiency - follows with Dr. Quan as an outpatient - goes to infusion center for A1 protease inhibitor infusions 5. HTN - BP well controlled - c/w home meds with holding parameters 6. DLP - c/w simvastatin 7. Neuropathy - c/w gabapentin 8. Hypothyroidism - c/w levothyroxine 9. GERD - c/w protonix 10. DVT prophylaxis - c/w Heparin Disposition: - Will wait for leukocytosis to improve prior to transitioning to oral antibiotics VS,Fishbone, I+O VS, Fishbone, I+O Laboratory Tests 09/13/16 05:29 Calcium Level 8.6 L, Aspartate Amino Transf (AST/SGOT) 25, Alanine Aminotransferase (ALT/SGPT) 28, Alkaline Phosphatase 58, Total Bilirubin 0.5, Total Protein 5.5 L, Albumin 2.6 L, Red Blood Count 3.68 L, Mean Corpuscular Volume 88.0, Mean Corpuscular Hemoglobin 29.7, Mean Corpuscular Hemoglobin Concent 33.7, Red Cell Distribution Width 13.2 Vital Signs Date Time Temp Pulse Resp B/P Pulse Ox O2 Delivery O2 Flow Rate FiO2 09/13/16 08:55 127/62 09/13/16 06:00 99.1 73 16 98 Room Air 09/12/16 21:30 3.0 I&O- Last 24 Hours up to 6 AM 09/13/16 06:00 Intake Total 1550 ml Output Total 2000 ml Balance -450 ml SAHIL PACE MD Sep 13, 2016 11:57
[2016-09-13 14:00] VITALS: BP 120/83
[2016-09-13] MEDS: VANCOMYCIN HCL 1,000 MG, VIAL MATE ADAPTER 1 EACH in D5W 250 ML IV SCH (14:37)
[2016-09-13 18:00] VITALS: BP 137/63
[2016-09-13] MEDS: GABAPENTIN 300 MG CAP PO SCH (21:00)
[2016-09-13] MEDS: SIMVASTATIN 20 MG TAB PO SCH (21:01)
[2016-09-13] MEDS: MONTELUKAST 10 MG TAB PO SCH (21:01)
[2016-09-13] MEDS: tiZANidine 4 MG TAB PO SCH (21:01)
[2016-09-13] MEDS: CETIRIZINE (ZyrTEC) 10 MG TAB PO SCH (21:02)
[2016-09-13] MEDS: FLUTICASONE PROP 0.05% NASAL SPRAY 16 GM (FLONASE) SCH (21:07)
[2016-09-13 22:00] VITALS: BP 139/60
[2016-09-14] VITALS (7 sets, daily range): BP systolic 119–145; BP diastolic 59–70
[2016-09-14] MEDS: PIPERACILLIN/TAZOBACTAM SOD 3.375 GM in D5W MINI-BAG PLUS 50 ML IV SCH ×4 (02:58→21:06)
[2016-09-14] MEDS: IPRATROPIUM 0.5MG/ALBUTEROL 2.5MG INH SOL UD 3ML (DUONEB)(J7620) NEB SCH ×6 (03:54→23:11)
[2016-09-14] MEDS: LEVOTHYROXINE 0.075 MG TAB (75 MCG) PO SCH (05:30)
[2016-09-14] MEDS: SODIUM CHLORIDE 0.9% INJ 10 ML SYR IV PRN ×3 (05:30→17:31)
[2016-09-14] MEDS: HEPARIN SOD (PORCINE) 5000 UNITS/ML VIAL SQ SCH ×3 (05:30→21:00)
[2016-09-14 06:09] LABS: MEAN CORPUSCULAR HEMOGLOBIN 29.9 pg (27.0-33.0); MEAN CORPUSCULAR HGB CONC 33.3 g/dl (32.0-36.5); MEAN CORPUSCULAR VOLUME 89.8 fl (80.0-96.0); RED CELL DISTRIBUTION WIDTH 13.3 % (11.5-14.5); WHITE BLOOD COUNT 17.1 K/mm3 (4.0-10.0)
[2016-09-14 06:52] LABS: ALBUMIN 2.5 GM/DL (3.2-5.2); ALBUMIN/GLOBULIN RATIO 0.86 (1.00-1.93); ALKALINE PHOSPHATASE 59 U/L (45-117); ALT/SGPT 30 U/L (12-78); ANION GAP 8 MEQ/L (8-16); AST/SGOT 20 U/L (15-37); BILIRUBIN,TOTAL 0.5 MG/DL (0.2-1.0); BLOOD UREA NITROGEN 14 MG/DL (7-18); CALCIUM LEVEL 8.4 MG/DL (8.8-10.2); CARBON DIOXIDE LEVEL 29 MEQ/L (21-32); CHLORIDE LEVEL 106 MEQ/L (98-107); GLOMERULAR FILTRATION RATE > 60.0 (>42); GLUCOSE, FASTING 90 MG/DL (83-110); MAGNESIUM LEVEL 2.3 MG/DL (1.8-2.4); POTASSIUM SERUM 3.4 MEQ/L (3.5-5.1); SODIUM LEVEL 143 MEQ/L (136-145); TOTAL PROTEIN 5.4 GM/DL (6.4-8.2)
[2016-09-14] MEDS ORDERED: POTASSIUM CHLORIDE 10 MEQ SR TABLET PO ONE (08:00)
[2016-09-14] MEDS: ROFLUMILAST 500 MCG TAB (DALIRESP) PO SCH (09:17)
[2016-09-14] MEDS: DOXAZOSIN MESYLATE 4 MG TAB PO SCH ×2 (09:17→21:06)
[2016-09-14] MEDS: PANTOPRAZOLE 40MG TAB (PROTONIX) PO SCH (09:17)
[2016-09-14] MEDS: ASPIRIN 81 MG ENTERIC TAB PO SCH (09:18)
[2016-09-14] MEDS: IPRATROPIUM 0.06% NASAL SPRAY 15 ML (ATROVENT) SCH (09:19)
[2016-09-14] MEDS: SODIUM CHLORIDE 0.9% INJ 10 ML SYR IV SCH (09:20)
[2016-09-14] MEDS: FIBER-CON 625 MG TAB PO SCH ×2 (09:29→21:05)
--- NOTE | 2016-09-14 10:36 | REP ---
Portable chest x-ray: Single view. History: Question worsening infiltrate. Comparison chest x-ray September 11, 2016. Comparison is also made with September 04, 2016 prior radiograph. Findings: There is a left subclavian vein Bzogkq-Z-Flct. Interstitial markings are increased in both bases. These are a little more prominent than on the September 04, 2016 study. No new infiltrate compared to the most recent study of September 11, 2016. Heart is not enlarged. Lungs are somewhat hyperinflated. Impression: Bibasilar increased interstitial markings essentially unchanged from the most recent prior study. Signed by Ari Eldridge MD 09/14/2016 11:22 A
--- NOTE | 2016-09-14 10:54 | IPNPDOC ---
Text Note Date of Service The patient was seen on 09/14/16. NOTE Subjective: Patient is a 75 year old male with a PMHx of Alpha-1 antitrypsin deficiency (w/ A1 proteinase inhibitor infusions with Dr. Quan), COPD on 3L O2 , Allergic rhinitis, HTN, Hypothyroidism, DLP, Neuropathy and GERD who presented to the ER with complaints of shortness of breath, productive sputum, and chest congestion. He noted that he was treated for a sinus infection 1 month ago with Azithromycin. Patient has been admitted for a possible pneumonia. Patient was seen and examined at the bedside. Reports improvement in cough and shortness of breath. No dysuria or diarrhea noted. Objective: Vitals (See below) General: Lying in bed, no acute distress, comfortable, AAOx3 HEENT: NC, AT CVS: RRR, +S1S2 Lungs: Poor inspiratory effort, no wheezing / rhonchi / rales appreciated Abdomen: Soft, ND, NT, +BSx4 Extremities: +PPx4, - Edema, - Calf tenderness Assessment and plan: 1. Dyspnea - likely 2/2 pneumonia, less likely 2/2 COPD exacerbation - Presented with shortness of breath, productive cough - Physical dose not reveal and wheezing / rhonchi - Leukocytosis has remained unchanged; will continue to monitor - CXR 09/17: Bibasilar increased interstitial markings essentially unchanged from the most recent prior study - Influenza negative, Blood cultures negative at 48 hours, Sputum cultures reveal no growth - c/w Vancomycin and Zosyn (Day #4) - c/w Duoneb inhaled therapy - Will consider transitioning antibiotics to oral by tomorrow 2. COPD / Asthma - c/w inhaled therapy, Daliresp, Singulair, Duoneb 3. s/p Hypokalemia 4. Alpha-1 antitrypsin deficiency - follows with Dr. Quan as an outpatient - goes to infusion center for A1 protease inhibitor infusions 5. HTN - BP well controlled - c/w home meds with holding parameters 6. DLP - c/w simvastatin 7. Neuropathy - c/w gabapentin 8. Hypothyroidism - c/w levothyroxine 9. GERD - c/w protonix 10. DVT prophylaxis - c/w Heparin Disposition: - Repeat imaging does not reveal any change in infiltrate - c/w IV Abx - Will transition to oral antibiotics for discharge home; likely tomorrow VS,[place], I+O VS, Fishbone, I+O Laboratory Tests 09/14/16 05:31 Calcium Level 8.4 L, Aspartate Amino Transf (AST/SGOT) 20, Alanine Aminotransferase (ALT/SGPT) 30, Alkaline Phosphatase 59, Total Bilirubin 0.5, Total Protein 5.4 L, Albumin 2.5 L, Red Blood Count 3.59 L, Mean Corpuscular Volume 89.8, Mean Corpuscular Hemoglobin 29.9, Mean Corpuscular Hemoglobin Concent 33.3, Red Cell Distribution Width 13.3 Vital Signs Date Time Temp Pulse Resp B/P Pulse Ox O2 Delivery O2 Flow Rate FiO2 09/14/16 10:00 99.6 96 20 122/66 95 Nasal Cannula 2.0 I&O- Last 24 Hours up to 6 AM 09/14/16 06:00 Intake Total 1670 ml Output Total 1600 ml Balance 70 ml SAHIL PACE MD Sep 14, 2016 10:54
[2016-09-14] MEDS: VANCOMYCIN HCL 1,000 MG, VIAL MATE ADAPTER 1 EACH in D5W 250 ML IV SCH (14:59)
[2016-09-14] MEDS: GABAPENTIN 300 MG CAP PO SCH (21:05)
[2016-09-14] MEDS: SIMVASTATIN 20 MG TAB PO SCH (21:06)
[2016-09-14] MEDS: tiZANidine 4 MG TAB PO SCH (21:06)
[2016-09-14] MEDS: CETIRIZINE (ZyrTEC) 10 MG TAB PO SCH (21:06)
[2016-09-14] MEDS: FLUTICASONE PROP 0.05% NASAL SPRAY 16 GM (FLONASE) SCH (21:07)
[2016-09-14] MEDS: MONTELUKAST 10 MG TAB PO SCH (21:07)
[2016-09-15] MEDS: PIPERACILLIN/TAZOBACTAM SOD 3.375 GM in D5W MINI-BAG PLUS 50 ML IV SCH ×2 (02:57→09:07)
[2016-09-15] MEDS: IPRATROPIUM 0.5MG/ALBUTEROL 2.5MG INH SOL UD 3ML (DUONEB)(J7620) NEB SCH ×3 (04:06→11:15)
[2016-09-15] MEDS: HEPARIN SOD (PORCINE) 5000 UNITS/ML VIAL SQ SCH (05:54)
[2016-09-15] MEDS: SODIUM CHLORIDE 0.9% INJ 10 ML SYR IV PRN (05:54)
[2016-09-15] MEDS: LEVOTHYROXINE 0.075 MG TAB (75 MCG) PO SCH (05:54)
[2016-09-15 06:21] LABS: MEAN CORPUSCULAR HEMOGLOBIN 28.7 pg (27.0-33.0); MEAN CORPUSCULAR HGB CONC 31.8 g/dl (32.0-36.5); MEAN CORPUSCULAR VOLUME 90.2 fl (80.0-96.0); RED CELL DISTRIBUTION WIDTH 13.3 % (11.5-14.5); WHITE BLOOD COUNT 16.3 K/mm3 (4.0-10.0)
[2016-09-15 07:13] LABS: ALKALINE PHOSPHATASE 60 U/L (45-117); ALT/SGPT 34 U/L (12-78); AST/SGOT 19 U/L (15-37); BILIRUBIN,TOTAL 0.4 MG/DL (0.2-1.0); BLOOD UREA NITROGEN 12 MG/DL (7-18); CALCIUM LEVEL 8.4 MG/DL (8.8-10.2); CARBON DIOXIDE LEVEL 26 MEQ/L (21-32); CHLORIDE LEVEL 82 MEQ/L (98-107); CREATININE FOR GFR 1.05 MG/DL (0.70-1.30); GLUCOSE, FASTING 97 MG/DL (83-110); MAGNESIUM LEVEL 2.1 MG/DL (1.8-2.4); TOTAL PROTEIN 5.3 GM/DL (6.4-8.2)
[2016-09-15 07:17] LABS: ANION GAP 38 MEQ/L (8-16); POTASSIUM SERUM 3.6 MEQ/L (3.5-5.1); SODIUM LEVEL 146 MEQ/L (136-145)
[2016-09-15 07:39] LABS: ALBUMIN 2.5 GM/DL (3.2-5.2); ALBUMIN/GLOBULIN RATIO 0.89 (1.00-1.93)
[2016-09-15] MEDS: IPRATROPIUM 0.06% NASAL SPRAY 15 ML (ATROVENT) SCH (09:00)
[2016-09-15] MEDS: PANTOPRAZOLE 40MG TAB (PROTONIX) PO SCH (09:07)
[2016-09-15] MEDS: FIBER-CON 625 MG TAB PO SCH (09:07)
[2016-09-15 09:08] VITALS: BP 132/67
[2016-09-15] MEDS: SODIUM CHLORIDE 0.9% INJ 10 ML SYR IV SCH (09:08)
[2016-09-15] MEDS: DOXAZOSIN MESYLATE 4 MG TAB PO SCH (09:08)
[2016-09-15] MEDS: ROFLUMILAST 500 MCG TAB (DALIRESP) PO SCH (09:08)
[2016-09-15] MEDS: ASPIRIN 81 MG ENTERIC TAB PO SCH (09:08)
[2016-09-15] MEDS ORDERED: LEVA500T PO (09:15)
[2016-09-15 10:00] VITALS: BP 134/60
[2016-09-15] MEDS ORDERED: VANCOMYCIN HCL 1,000 MG, VIAL MATE ADAPTER 1 EACH in D5W 250 ML IV SCH (10:00)
--- NOTE | 2016-09-15 12:57 | DSES ---
DATE OF ADMISSION: 09/11/2016 DATE OF DISCHARGE: 09/15/2016 ATTENDING PHYSICIAN; Dr. Georgiana Tirado PRIMARY CARE PHYSICIAN: Dr. Paula Dinh REFERRING PHYSICIAN: None. CONSULTING PHYSICIAN: None. CONDITION ON DISCHARGE: Stable. FINAL DIAGNOSIS: Health care associated pneumonia. PROCEDURES: None. HISTORY OF PRESENT ILLNESS: The patient is a 75-year-old male with a past medical history of alpha-1 antitrypsin deficiency with A1 proteinase inhibitor infusion s with Dr. Quan, chronic obstructive pulmonary disease (COPD) on 3 liters of oxygen at home, allergic rhinitis, hypertension, hypothyroidism, dyslipidemia, neuropathy and gastroesophageal reflux disease (GERD) who presented to the emergency room complaining of shortness of breath and productive cough as well as chest congestion. He noted that he was treated for a sinus infection one month ago with azithromycin. The patient had been admitted for possible pneumonia. HOSPITAL COURSE: 1. Dyspnea likely secondary to pneumonia and less likely secondary to chronic obstructive pulmonary disease (COPD) exacerbation. He presented with shortness of breath and productive cough. Physical does not reveal any wheezing or rhonchi. Leukocytosis has improved initially, but has remained stable. Chest x-ray on 09/17/2016 revealed bibasilar increased interstitial markings, essentially unchanged from most recent prior study. Influenza negative. Blood cultures negative at 48 hours. Sputum cultures revealed no growth. He has been on vancomycin and Zosyn for five days duration. He has been put on DuoNeb therapy. The patient has been transitioned to Levaquin by mouth. His QTc has been noted to be 445. He will complete an antibiotic course of 5 additional days for a total duration of 10 days. 2. COPD/asthma. Continue with inhaled therapy, Daliresp and Singulair, as well as DuoNeb inhaled therapy. 3. Status post hypokalemia. 4. Alpha-1 antitrypsin deficiency. Follows with Dr. Quan as an outpatient. Goes to the infusion center for A1 proteinase inhibitor infusions. 5. Hypertension. Blood pressure remains well controlled. Continue with home medication with hold parameters. 6. Dyslipidemia. Continue with simvastatin. 7. Neuropathy. Continue with gabapentin. 8. Hypothyroidism. Continue with levothyroxine. 9. GERD. Continue with Protonix. 10. Deep vein thrombosis prophylaxis. Continue with heparin. DISCHARGE MEDICATIONS: Patient will be discharged on the following medication list - albuterol 2 puffs inhaled four times a day as needed shortness of breath - aspirin 81 mg by mouth daily - calcium 600 mg by mouth every p.m. - cetirizine 10 mg by mouth every p.m. - doxazosin 4 mg by mouth twice a day - esomeprazole 40 mg by mouth daily - Flonase 2 sprays in each nostril every p.m. - fluticasone 1 puff inhaled daily - gabapentin 600 mg by mouth every p.m. - Incruse Ellipta 62.5 mcg inhaled daily - ipratropium bromide 2 sprays in each nostril daily - levothyroxine 75 mcg by mouth daily - Montelukast 10 mg by mouth every p.m. - nitroglycerin 0.4 mg sublingual to be taken as directed - Daliresp 500 mcg by mouth daily - simvastatin 20 mg by mouth every p.m. - tizanidine 4 mg by mouth every p.m. Stopped medications include azithromycin 250 mg by mouth twice a week, furosemide 20 mg by mouth every p.m., hydrochlorothiazide 25 mg by mouth daily. New medications include levofloxacin 500 mg by mouth daily for the next 5 days. DISCHARGE INSTRUCTIONS: Patient has been advised to follow up with his primary care provider and pulmonary within the next 3-5 days. He has been advised to remain compliant with treatment and medications and return to the emergency room if he experiences any problems. TIME SPENT ON DISCHARGE: 35 minutes.
== END 2016-09-15 11:36 | disposition home or self-care (01) | DRG 195 ==
LOC: M ED 14:13 → M ED INP 16:49 → M MSPAV 18:20
PROVIDERS: ADMIT Internal Medicine; ATTEND Internal Medicine
DX: J18.9 Pneumonia, unspecified organism (principal); E88.01 Alpha-1-antitrypsin deficiency; J44.9 Chronic obstructive pulmonary disease, unspecified; J30.9 Allergic rhinitis, unspecified; I10 Essential (primary) hypertension; K21.9 Gastro-esophageal reflux disease without esophagitis; E78.5 Hyperlipidemia, unspecified; E03.9 Hypothyroidism, unspecified; G62.9 Polyneuropathy, unspecified; E87.6 Hypokalemia; Z79.82 Long term (current) use of aspirin; Z79.899 Other long term (current) drug therapy; Z88.2 Allergy status to sulfonamides

== ENCOUNTER 2016-09-18 11:27 | Outpatient (CLI) | payer MEDICARE ==
[~2016-09-18] VITALS: Ht 170.2 cm; Wt 77.7 kg
[~2016-09-18 11:27] MED LIST changes: +AZIT25TA PO; +CALC600T10 PO; +DALI1TAB2 PO; +ESOM1CAP5 PO; +FLON50SP; +HYDR25TAB PO; +IPRA6SP; +IPRASOL4 INH; +LEVA500T PO; +SODIUM CHLORIDE 0.9% INJ 10 ML SYR IV SCH
[2016-09-18] MEDS ORDERED: DILUENT IV ONE (11:45)
[2016-09-18] MEDS ORDERED: ALPHA PROTEINASE INHIBITOR IV ONE (11:45)
== END 2016-09-18 12:45 | disposition home or self-care (01) ==
LOC: M INFU 11:27
PROVIDERS: ATTEND Internal Medicine Pulmonary Disease
DX: E88.01 Alpha-1-antitrypsin deficiency (principal)
CPT/HCPCS: 96365; J0256

== ENCOUNTER 2016-09-27 10:29 | Outpatient (CLI) | payer MEDICARE ==
[2016-09-27] MEDS ORDERED: ALPHA PROTEINASE INHIBITOR IV ONE (10:45)
[2016-09-27] MEDS ORDERED: DILUENT IV ONE (10:45)
== END 2016-09-27 11:45 | disposition home or self-care (01) ==
LOC: M INFU 10:29
PROVIDERS: ATTEND Internal Medicine Pulmonary Disease
DX: E88.01 Alpha-1-antitrypsin deficiency (principal)
CPT/HCPCS: 96365; J0256

== ENCOUNTER 2016-10-02 11:27 | Outpatient (CLI) | payer MEDICARE ==
[~2016-10-02] VITALS: Ht 170.2 cm; Wt 77.6 kg
[2016-10-02] MEDS ORDERED: DILUENT IV ONE (12:00)
[2016-10-02] MEDS ORDERED: ALPHA PROTEINASE INHIBITOR IV ONE (12:00)
[2016-10-02 12:11] LABS: BASO % 0.2 % (0.0-1.0); EOS # 0.1 K/mm3 (0.0-0.50); EOS % 0.6 % (0.0-3.0); LARGE UNSTAINED CELL # 0.3 K/mm3 (0.0-0.4); LARGE UNSTAINED CELL % 1.7 % (0.0-4.0); LYMPH % 25.9 % (24.0-44.0); MEAN CORPUSCULAR HEMOGLOBIN 30.2 pg (27.0-33.0); MEAN CORPUSCULAR HGB CONC 32.6 g/dl (32.0-36.5); MEAN CORPUSCULAR VOLUME 92.7 fl (80.0-96.0); MONO # 0.9 K/mm3 (0.0-0.8); MONO % 5.6 % (0.0-5.0); NEUTROPHILS # 10.2 K/mm3 (1.8-7.7); PLATELET COUNT, AUTOMATED 361 k/mm3 (150-450); RED CELL DISTRIBUTION WIDTH 14.2 % (11.5-14.5); WHITE BLOOD COUNT 15.4 K/mm3 (4.0-10.0)
[2016-10-02 12:42] LABS: ANION GAP 10 MEQ/L (8-16); BLOOD UREA NITROGEN 18 MG/DL (7-18); CARBON DIOXIDE LEVEL 29 MEQ/L (21-32); CHLORIDE LEVEL 99 MEQ/L (98-107); CREATININE FOR GFR 1.21 MG/DL (0.70-1.30); GLOMERULAR FILTRATION RATE > 60.0 (>42); GLUCOSE, FASTING 104 MG/DL (83-110); POTASSIUM SERUM 3.5 MEQ/L (3.5-5.1); SODIUM LEVEL 138 MEQ/L (136-145); TOTAL IRON BINDING CAPACITY 307 UG/DL (250-450)
[2016-10-02 13:21] LABS: VITAMIN B12 LEVEL 566 PG/ML
[2016-10-02 13:22] LABS: FOLATE > 24.0 NG/ML
== END 2016-10-02 12:50 | disposition home or self-care (01) ==
LOC: M INFU 11:27
PROVIDERS: ATTEND Internal Medicine Pulmonary Disease
DX: E88.01 Alpha-1-antitrypsin deficiency (principal); D64.9 Anemia, unspecified
CPT/HCPCS: 36591; 80048; 82607; 82746; 83550; 85025; 96365; J0256

== ENCOUNTER 2016-10-09 11:24 | Outpatient (CLI) | payer MEDICARE ==
[~2016-10-09] VITALS: Ht 172.7 cm; Wt 77.7 kg
[~2016-10-09 11:24] MED LIST changes: +ALPHA PROTEINASE INHIBITOR IV ONE; +DILUENT IV ONE
== END 2016-10-09 12:25 | disposition home or self-care (01) ==
LOC: M INFU 11:24
PROVIDERS: ATTEND Internal Medicine Pulmonary Disease
DX: E88.01 Alpha-1-antitrypsin deficiency (principal)
CPT/HCPCS: 96365; J0256

== ENCOUNTER 2016-10-16 10:53 | Outpatient (CLI) | payer MEDICARE | END 2016-10-16 11:45 | disposition home or self-care (01) | LOC: M INFU 10:53 | PROVIDERS: ATTEND Internal Medicine Pulmonary Disease | DX: E88.01 Alpha-1-antitrypsin deficiency (principal) | CPT/HCPCS: 96365; J0256 ==

== ENCOUNTER 2016-10-23 10:21 | Outpatient (CLI) | payer MEDICARE ==
[~2016-10-23] VITALS: Ht 170.2 cm; Wt 77.6 kg
== END 2016-10-23 11:20 | disposition home or self-care (01) ==
LOC: M INFU 10:21
PROVIDERS: ATTEND Internal Medicine Pulmonary Disease
DX: E88.01 Alpha-1-antitrypsin deficiency (principal)
CPT/HCPCS: 96365; J0256

== ENCOUNTER 2016-10-30 10:59 | Outpatient (CLI) | payer MEDICARE ==
[~2016-10-30 10:59] MED LIST changes: -ALPHA PROTEINASE INHIBITOR IV ONE; -DILUENT IV ONE
[2016-10-30] MEDS ORDERED: ALPHA PROTEINASE INHIBITOR IV ONE (11:00)
[2016-10-30] MEDS ORDERED: DILUENT IV ONE (11:00)
== END 2016-10-30 12:00 | disposition home or self-care (01) ==
LOC: M INFU 10:59
PROVIDERS: ATTEND Internal Medicine Pulmonary Disease
DX: E88.01 Alpha-1-antitrypsin deficiency (principal)
CPT/HCPCS: 96365; J0256

== ENCOUNTER 2016-11-06 11:19 | Outpatient (CLI) | payer MEDICARE ==
[~2016-11-06 11:19] MED LIST changes: +ALPHA PROTEINASE INHIBITOR IV ONE; +DILUENT IV ONE
== END 2016-11-06 12:25 | disposition home or self-care (01) ==
LOC: M INFU 11:19
PROVIDERS: ATTEND Internal Medicine Pulmonary Disease
DX: E88.01 Alpha-1-antitrypsin deficiency (principal)
CPT/HCPCS: 96365; J0256

== ENCOUNTER 2016-11-13 10:19 | Outpatient (CLI) | payer MEDICARE | END 2016-11-13 11:10 | disposition home or self-care (01) | LOC: M INFU 10:19 | PROVIDERS: ATTEND Internal Medicine Pulmonary Disease | DX: E88.01 Alpha-1-antitrypsin deficiency (principal) | CPT/HCPCS: 96365; J0256 ==

== ENCOUNTER 2016-11-20 10:23 | Outpatient (CLI) | payer MEDICARE ==
[~2016-11-20 10:23] MED LIST changes: -ALPHA PROTEINASE INHIBITOR IV ONE; -DILUENT IV ONE
[2016-11-20] MEDS ORDERED: DILUENT IV ONE (11:00)
[2016-11-20] MEDS ORDERED: ALPHA PROTEINASE INHIBITOR IV ONE (11:00)
== END 2016-11-20 11:30 | disposition home or self-care (01) ==
LOC: M INFU 10:23
PROVIDERS: ATTEND Internal Medicine Pulmonary Disease
DX: E88.01 Alpha-1-antitrypsin deficiency (principal); Z79.899 Other long term (current) drug therapy; Z79.82 Long term (current) use of aspirin; Z88.2 Allergy status to sulfonamides; Z88.1 Allergy status to other antibiotic agents
CPT/HCPCS: 96365; J0256

== ENCOUNTER 2016-11-27 10:51 | Outpatient (CLI) | payer MEDICARE ==
[~2016-11-27 10:51] MED LIST changes: +AZIT250T8 PO; -AZIT25TA PO; -CALC600T10 PO; +CALC600T31 PO; +LEVA1TAB2 PO; -LEVA500T PO
[2016-11-27] MEDS ORDERED: ALPHA PROTEINASE INHIBITOR IV ONE (11:00)
[2016-11-27] MEDS ORDERED: DILUENT IV ONE (11:00)
== END 2016-11-27 11:40 | disposition home or self-care (01) ==
LOC: M INFU 10:51
PROVIDERS: ATTEND Internal Medicine Pulmonary Disease
DX: E88.01 Alpha-1-antitrypsin deficiency (principal)
CPT/HCPCS: 96365; J0256

== ENCOUNTER 2016-12-05 10:24 | Outpatient (CLI) | payer MEDICARE ==
[2016-12-05] MEDS ORDERED: DILUENT IV ONE (11:00)
[2016-12-05] MEDS ORDERED: ALPHA PROTEINASE INHIBITOR IV ONE (11:00)
== END 2016-12-05 11:30 | disposition home or self-care (01) ==
LOC: M INFU 10:24
PROVIDERS: ATTEND Internal Medicine Pulmonary Disease
DX: E88.01 Alpha-1-antitrypsin deficiency (principal)
CPT/HCPCS: 96374; J0256

== ENCOUNTER 2016-12-11 11:26 | Outpatient (CLI) | payer MEDICARE ==
[~2016-12-11] VITALS: Ht 170.2 cm; Wt 77.7 kg
[~2016-12-11 11:26] MED LIST changes: +ALPHA PROTEINASE INHIBITOR IV ONE; +DILUENT IV ONE
== END 2016-12-11 12:40 | disposition home or self-care (01) ==
LOC: M INFU 11:26
PROVIDERS: ATTEND Internal Medicine Pulmonary Disease
DX: E88.01 Alpha-1-antitrypsin deficiency (principal); Z88.2 Allergy status to sulfonamides; Z88.1 Allergy status to other antibiotic agents; Z85.828 Personal history of other malignant neoplasm of skin; Z79.82 Long term (current) use of aspirin; Z79.899 Other long term (current) drug therapy
CPT/HCPCS: 96365; J0256

== ENCOUNTER 2016-12-18 10:26 | Outpatient (CLI) | payer MEDICARE | END 2016-12-18 11:25 | disposition home or self-care (01) | LOC: M INFU 10:26 | PROVIDERS: ATTEND Internal Medicine Pulmonary Disease | DX: E88.01 Alpha-1-antitrypsin deficiency (principal); Z85.828 Personal history of other malignant neoplasm of skin; Z88.2 Allergy status to sulfonamides; Z88.1 Allergy status to other antibiotic agents; Z79.82 Long term (current) use of aspirin; Z79.899 Other long term (current) drug therapy | CPT/HCPCS: 96365; J0256 ==

== ENCOUNTER → 2016-12-21 | Outpatient (REF) | payer MEDICARE ==
[~2016-12-21] MED LIST changes: -ALPHA PROTEINASE INHIBITOR IV ONE; -DILUENT IV ONE; -SODIUM CHLORIDE 0.9% INJ 10 ML SYR IV SCH
== END ==
LOC: M LAB REF 15:57
PROVIDERS: ATTEND Physician Assistant
DX: D48.5 Neoplasm of uncertain behavior of skin (principal)

== ENCOUNTER 2016-12-25 10:52 | Outpatient (CLI) | payer MEDICARE ==
[~2016-12-25] VITALS: Ht 170.2 cm; Wt 77.6 kg
[~2016-12-25 10:52] MED LIST changes: +SODIUM CHLORIDE 0.9% INJ 10 ML SYR IV PRN
[2016-12-25] MEDS ORDERED: DILUENT IV ONE (11:00)
[2016-12-25] MEDS ORDERED: ALPHA PROTEINASE INHIBITOR IV ONE (11:00)
[2016-12-26] MEDS ORDERED: SODIUM CHLORIDE 0.9% INJ 10 ML SYR IV SCH (09:00)
== END 2016-12-25 12:00 | disposition home or self-care (01) ==
LOC: M INFU 10:52
PROVIDERS: ATTEND Internal Medicine Pulmonary Disease
DX: E88.01 Alpha-1-antitrypsin deficiency (principal); Z88.2 Allergy status to sulfonamides; Z88.1 Allergy status to other antibiotic agents; Z79.899 Other long term (current) drug therapy
CPT/HCPCS: 96365; J0256

== ENCOUNTER 2017-01-01 09:57 | Outpatient (CLI) | payer MEDICARE ==
[~2017-01-01] VITALS: Ht 170.2 cm; Wt 78.0 kg
[~2017-01-01 09:57] MED LIST changes: -SODIUM CHLORIDE 0.9% INJ 10 ML SYR IV PRN; +SODIUM CHLORIDE 0.9% INJ 10 ML SYR IV SCH
[2017-01-01] MEDS ORDERED: ALPHA PROTEINASE INHIBITOR IV ONE (10:00)
[2017-01-01] MEDS ORDERED: DILUENT IV ONE (10:00)
== END 2017-01-01 11:00 | disposition home or self-care (01) ==
LOC: M INFU 09:57
PROVIDERS: ATTEND Internal Medicine Pulmonary Disease
DX: E88.01 Alpha-1-antitrypsin deficiency (principal); Z85.828 Personal history of other malignant neoplasm of skin; Z88.2 Allergy status to sulfonamides; Z88.1 Allergy status to other antibiotic agents; Z79.899 Other long term (current) drug therapy; Z79.82 Long term (current) use of aspirin
CPT/HCPCS: 96365; J0256

== ENCOUNTER 2017-01-08 10:25 | Outpatient (CLI) | payer MEDICARE ==
[~2017-01-08] VITALS: Ht 170.2 cm; Wt 77.6 kg
[~2017-01-08 10:25] MED LIST changes: +ALPHA PROTEINASE INHIBITOR IV ONE; +DILUENT IV ONE
== END 2017-01-08 11:30 | disposition home or self-care (01) ==
LOC: M INFU 10:25
PROVIDERS: ATTEND Internal Medicine Pulmonary Disease
DX: E88.01 Alpha-1-antitrypsin deficiency (principal); Z88.2 Allergy status to sulfonamides; Z88.1 Allergy status to other antibiotic agents; Z85.828 Personal history of other malignant neoplasm of skin; Z79.899 Other long term (current) drug therapy
CPT/HCPCS: 96365; J0256

== ENCOUNTER 2017-01-15 10:20 | Outpatient (CLI) | payer MEDICARE | END 2017-01-15 11:10 | disposition home or self-care (01) | LOC: M INFU 10:20 | PROVIDERS: ATTEND Internal Medicine Pulmonary Disease | DX: E88.01 Alpha-1-antitrypsin deficiency (principal); Z88.2 Allergy status to sulfonamides; Z88.1 Allergy status to other antibiotic agents; Z85.828 Personal history of other malignant neoplasm of skin; Z79.82 Long term (current) use of aspirin; Z79.899 Other long term (current) drug therapy | CPT/HCPCS: 96365; J0256 ==

== ENCOUNTER 2017-01-22 10:29 | Outpatient (CLI) | payer MEDICARE ==
[~2017-01-22 10:29] MED LIST changes: -ALPHA PROTEINASE INHIBITOR IV ONE; -DILUENT IV ONE
[2017-01-22] MEDS ORDERED: ALPHA PROTEINASE INHIBITOR IV ONE (11:00)
[2017-01-22] MEDS ORDERED: DILUENT IV ONE (11:00)
== END 2017-01-22 11:25 | disposition home or self-care (01) ==
LOC: M INFU 10:29
PROVIDERS: ATTEND Internal Medicine Pulmonary Disease
DX: E88.01 Alpha-1-antitrypsin deficiency (principal); Z85.828 Personal history of other malignant neoplasm of skin; Z88.2 Allergy status to sulfonamides; Z88.1 Allergy status to other antibiotic agents; Z79.82 Long term (current) use of aspirin; Z79.899 Other long term (current) drug therapy
CPT/HCPCS: 96365; J0256

== ENCOUNTER 2017-01-29 13:50 | Outpatient (CLI) | payer MEDICARE ==
[~2017-01-29] VITALS: Ht 170.2 cm; Wt 77.6 kg
[~2017-01-29 13:50] MED LIST changes: +ALPHA PROTEINASE INHIBITOR IV ONE; +DILUENT IV ONE
== END 2017-01-29 14:45 | disposition home or self-care (01) ==
LOC: M INFU 13:50
PROVIDERS: ATTEND Internal Medicine Pulmonary Disease
DX: E88.01 Alpha-1-antitrypsin deficiency (principal); Z85.828 Personal history of other malignant neoplasm of skin; Z88.2 Allergy status to sulfonamides; Z88.1 Allergy status to other antibiotic agents; Z79.82 Long term (current) use of aspirin; Z79.899 Other long term (current) drug therapy
CPT/HCPCS: 96365; J0256

== ENCOUNTER 2017-02-05 10:19 | Outpatient (CLI) | payer MEDICARE ==
[~2017-02-05 10:19] MED LIST changes: -ALPHA PROTEINASE INHIBITOR IV ONE; -DILUENT IV ONE
[2017-02-05] MEDS ORDERED: ALPHA PROTEINASE INHIBITOR IV ONE (11:00)
[2017-02-05] MEDS ORDERED: DILUENT IV ONE (11:00)
== END 2017-02-05 11:30 | disposition home or self-care (01) ==
LOC: M INFU 10:19
PROVIDERS: ATTEND Internal Medicine Pulmonary Disease
DX: E88.01 Alpha-1-antitrypsin deficiency (principal); I10 Essential (primary) hypertension; E78.00 Pure hypercholesterolemia, unspecified; J45.909 Unspecified asthma, uncomplicated; J43.9 Emphysema, unspecified; K21.9 Gastro-esophageal reflux disease without esophagitis; M19.90 Unspecified osteoarthritis, unspecified site; M54.2 Cervicalgia; Z88.2 Allergy status to sulfonamides; Z88.1 Allergy status to other antibiotic agents; Z79.82 Long term (current) use of aspirin; Z79.899 Other long term (current) drug therapy
CPT/HCPCS: 96365; J0256

== ENCOUNTER 2017-02-12 10:24 | Outpatient (CLI) | payer MEDICARE ==
[~2017-02-12] VITALS: Ht 170.2 cm; Wt 77.6 kg
[2017-02-12] MEDS ORDERED: DILUENT IV ONE (11:00)
[2017-02-12] MEDS ORDERED: ALPHA PROTEINASE INHIBITOR IV ONE (11:00)
== END 2017-02-12 11:35 | disposition home or self-care (01) ==
LOC: M INFU 10:24
PROVIDERS: ATTEND Internal Medicine Pulmonary Disease
DX: E88.01 Alpha-1-antitrypsin deficiency (principal); Z88.2 Allergy status to sulfonamides; Z88.1 Allergy status to other antibiotic agents; Z85.828 Personal history of other malignant neoplasm of skin; Z79.82 Long term (current) use of aspirin; Z79.899 Other long term (current) drug therapy
CPT/HCPCS: 96365; J0256

== ENCOUNTER 2017-02-19 08:26 | Outpatient (CLI) | payer MEDICARE ==
[~2017-02-19 08:26] MED LIST changes: +ALPHA PROTEINASE INHIBITOR IV ONE; +DILUENT IV ONE
[2017-02-19] MEDS ORDERED: SODIUM CHLORIDE 0.9% INJ 10 ML SYR IV SCH (09:00)
[2017-02-19 09:38] LABS: BASO % 0.2 % (0.0-1.0); EOS # 0.2 K/mm3 (0.0-0.50); EOS % 1.6 % (0.0-3.0); LARGE UNSTAINED CELL # 0.2 K/mm3 (0.0-0.4); LYMPH # 4.1 K/mm3 (1.5-4.5); LYMPH % 37.9 % (24.0-44.0); MEAN CORPUSCULAR HEMOGLOBIN 29.9 pg (27.0-33.0); MEAN CORPUSCULAR HGB CONC 34.8 g/dl (32.0-36.5); MEAN CORPUSCULAR VOLUME 85.9 fl (80.0-96.0); MONO # 0.6 K/mm3 (0.0-0.8); MONO % 5.4 % (0.0-5.0); NEUTROPHILS # 5.7 K/mm3 (1.8-7.7); PLATELET COUNT, AUTOMATED 264 k/mm3 (150-450); RED CELL DISTRIBUTION WIDTH 14.3 % (11.5-14.5); WHITE BLOOD COUNT 10.8 K/mm3 (4.0-10.0)
[2017-02-19 09:56] LABS: ANION GAP 10 MEQ/L (8-16); BLOOD UREA NITROGEN 15 MG/DL (7-18); CALCIUM LEVEL 9.1 MG/DL (8.8-10.2); CARBON DIOXIDE LEVEL 29 MEQ/L (21-32); CHLORIDE LEVEL 103 MEQ/L (98-107); CREATININE FOR GFR 0.99 MG/DL (0.70-1.30); GLOMERULAR FILTRATION RATE > 60.0 (>42); GLUCOSE, FASTING 95 MG/DL (83-110); PERCENT SATURATION 40.8 % (19.7-50.0); POTASSIUM SERUM 3.5 MEQ/L (3.5-5.1); SODIUM LEVEL 142 MEQ/L (136-145); TOTAL IRON BINDING CAPACITY 282 UG/DL (250-450)
[2017-02-19 10:00] LABS: FOLATE 16.7 NG/ML; VITAMIN B12 LEVEL 634 PG/ML
== END 2017-02-19 09:30 | disposition home or self-care (01) ==
LOC: M INFU 08:26
PROVIDERS: ATTEND Internal Medicine Pulmonary Disease
DX: E88.01 Alpha-1-antitrypsin deficiency (principal); D64.9 Anemia, unspecified; J44.9 Chronic obstructive pulmonary disease, unspecified; R05 Cough; Z88.2 Allergy status to sulfonamides; Z88.1 Allergy status to other antibiotic agents; Z79.82 Long term (current) use of aspirin; Z79.899 Other long term (current) drug therapy
CPT/HCPCS: 36415; 80048; 82607; 82746; 83550; 85025; 86331; 86602; 86606; 86671; 96365; J0256

== ENCOUNTER → 2017-02-19 | Outpatient (CLI) | payer MEDICARE ==
[~2017-02-19] MED LIST changes: -SODIUM CHLORIDE 0.9% INJ 10 ML SYR IV SCH
[2017-03-01 00:07] LABS: AUREOBASIDIUM PULLULANS Negative (Negative); MICROPOLYSPORA FAENI AB Negative (Negative); PIGEON SERUM AB Negative (Negative); THERMOACTINOMYCES SACCHARI Negative (Negative); THERMOACTINOMYCES VULGARIS Negative (Negative)
== END ==
LOC: M LAB 08:34
PROVIDERS: ATTEND Allergy & Immunology Allergy
DX: J44.9 Chronic obstructive pulmonary disease, unspecified (principal); R05 Cough

== ENCOUNTER 2017-02-26 10:25 | Outpatient (CLI) | payer MEDICARE ==
[~2017-02-26] VITALS: Ht 170.2 cm; Wt 77.6 kg
[~2017-02-26 10:25] MED LIST changes: +SODIUM CHLORIDE 0.9% INJ 10 ML SYR IV SCH
== END 2017-02-26 11:25 | disposition home or self-care (01) ==
LOC: M INFU 10:25
PROVIDERS: ATTEND Internal Medicine Pulmonary Disease
DX: E88.01 Alpha-1-antitrypsin deficiency (principal); M54.9 Dorsalgia, unspecified; M19.90 Unspecified osteoarthritis, unspecified site; Z85.828 Personal history of other malignant neoplasm of skin; Z79.82 Long term (current) use of aspirin; Z79.899 Other long term (current) drug therapy; Z88.2 Allergy status to sulfonamides; Z88.1 Allergy status to other antibiotic agents
CPT/HCPCS: 96365; J0256

== ENCOUNTER 2017-03-05 10:30 | Outpatient (CLI) | payer MEDICARE ==
[~2017-03-05] VITALS: Ht 170.2 cm; Wt 77.6 kg
[~2017-03-05 10:30] MED LIST changes: -ALPHA PROTEINASE INHIBITOR IV ONE; +ALPHA PROTEINASE INHIBITOR IV SCH; -DILUENT IV ONE; +DILUENT IV SCH
== END 2017-03-05 11:30 | disposition home or self-care (01) ==
LOC: M INFU 10:30
PROVIDERS: ATTEND Internal Medicine Pulmonary Disease
DX: E88.01 Alpha-1-antitrypsin deficiency (principal); E78.00 Pure hypercholesterolemia, unspecified; M54.9 Dorsalgia, unspecified; Z79.82 Long term (current) use of aspirin; Z79.899 Other long term (current) drug therapy; Z88.2 Allergy status to sulfonamides; Z88.1 Allergy status to other antibiotic agents
CPT/HCPCS: 96365; J0256

== ENCOUNTER 2017-03-12 10:54 | Outpatient (CLI) | payer MEDICARE | END 2017-03-12 11:55 | disposition home or self-care (01) | LOC: M INFU 10:54 | PROVIDERS: ATTEND Internal Medicine Pulmonary Disease | DX: E88.01 Alpha-1-antitrypsin deficiency (principal); Z85.828 Personal history of other malignant neoplasm of skin; Z88.2 Allergy status to sulfonamides; Z88.1 Allergy status to other antibiotic agents; Z79.82 Long term (current) use of aspirin; Z79.899 Other long term (current) drug therapy | CPT/HCPCS: 96365; J0256 ==

== ENCOUNTER 2017-03-19 10:58 | Outpatient (CLI) | payer MEDICARE ==
[~2017-03-19] VITALS: Ht 172.7 cm; Wt 77.7 kg
[~2017-03-19 10:58] MED LIST changes: -ALPHA PROTEINASE INHIBITOR IV SCH; -DILUENT IV SCH; -SODIUM CHLORIDE 0.9% INJ 10 ML SYR IV SCH
[2017-03-19] MEDS: ALPHA PROTEINASE INHIBITOR IV SCH (11:09)
[2017-03-19] MEDS: DILUENT IV SCH (11:09)
[2017-03-19] MEDS: SODIUM CHLORIDE 0.9% INJ 10 ML SYR IV SCH (11:13)
== END 2017-03-19 11:55 | disposition home or self-care (01) ==
LOC: M INFU 10:58
PROVIDERS: ATTEND Internal Medicine Pulmonary Disease
DX: E88.01 Alpha-1-antitrypsin deficiency (principal); Z85.828 Personal history of other malignant neoplasm of skin; Z88.2 Allergy status to sulfonamides; Z88.1 Allergy status to other antibiotic agents; Z79.82 Long term (current) use of aspirin; Z79.899 Other long term (current) drug therapy
CPT/HCPCS: 96365; J0256

== ENCOUNTER 2017-03-26 08:58 | Outpatient (CLI) | payer MEDICARE ==
[~2017-03-26] VITALS: Ht 170.2 cm; Wt 77.6 kg
[2017-03-26] MEDS ORDERED: ALPHA PROTEINASE INHIBITOR IV ONE (09:00)
[2017-03-26] MEDS ORDERED: SODIUM CHLORIDE 0.9% INJ 10 ML SYR IV SCH (09:00)
[2017-03-26] MEDS ORDERED: DILUENT IV ONE (09:00)
== END 2017-03-26 10:00 | disposition home or self-care (01) ==
LOC: M INFU 08:58
PROVIDERS: ATTEND Internal Medicine Pulmonary Disease
DX: E88.01 Alpha-1-antitrypsin deficiency (principal); M19.90 Unspecified osteoarthritis, unspecified site; M54.2 Cervicalgia; K21.9 Gastro-esophageal reflux disease without esophagitis; Z85.828 Personal history of other malignant neoplasm of skin; I10 Essential (primary) hypertension; E78.00 Pure hypercholesterolemia, unspecified; J45.909 Unspecified asthma, uncomplicated; J43.9 Emphysema, unspecified; Z79.82 Long term (current) use of aspirin; Z79.899 Other long term (current) drug therapy; Z88.1 Allergy status to other antibiotic agents; Z88.2 Allergy status to sulfonamides
CPT/HCPCS: 84154; 96365; J0256

== ENCOUNTER → 2017-03-26 | Outpatient (CLI) | payer MEDICARE ==
[2017-03-28 00:07] LABS: PSA % FREE 18.4 % (.); PSA FREE 0.81 ng/mL; PSA TOTAL 4.4 ng/mL (0.0-4.0)
== END ==
LOC: M LAB 09:53
PROVIDERS: ATTEND Urology
DX: D40.0 Neoplasm of uncertain behavior of prostate (principal)

== ENCOUNTER 2017-04-16 10:55 | Outpatient (CLI) | payer MEDICARE ==
[~2017-04-16] VITALS: Ht 170.2 cm; Wt 77.6 kg
[~2017-04-16 10:55] MED LIST changes: +SODIUM CHLORIDE 0.9% INJ 10 ML SYR IV SCH
[2017-04-16] MEDS ORDERED: DILUENT IV ONE (11:00)
[2017-04-16] MEDS ORDERED: ALPHA PROTEINASE INHIBITOR IV ONE (11:00)
== END 2017-04-16 11:55 | disposition home or self-care (01) ==
LOC: M INFU 10:55
PROVIDERS: ATTEND Internal Medicine Pulmonary Disease
DX: E88.01 Alpha-1-antitrypsin deficiency (principal); Z88.2 Allergy status to sulfonamides; Z88.1 Allergy status to other antibiotic agents; Z85.828 Personal history of other malignant neoplasm of skin; Z79.82 Long term (current) use of aspirin; Z79.899 Other long term (current) drug therapy
CPT/HCPCS: 96365; J0256

== ENCOUNTER 2017-04-24 10:00 | Outpatient (CLI) | payer MEDICARE ==
[~2017-04-24] VITALS: Ht 170.2 cm; Wt 77.6 kg
[2017-04-24] MEDS ORDERED: ALPHA PROTEINASE INHIBITOR IV ONE (11:00)
[2017-04-24] MEDS ORDERED: DILUENT IV ONE (11:00)
== END 2017-04-24 11:15 | disposition home or self-care (01) ==
LOC: M INFU 10:00
PROVIDERS: ATTEND Internal Medicine Pulmonary Disease
DX: E88.01 Alpha-1-antitrypsin deficiency (principal); Z85.828 Personal history of other malignant neoplasm of skin; Z88.2 Allergy status to sulfonamides; Z79.82 Long term (current) use of aspirin; Z79.899 Other long term (current) drug therapy
CPT/HCPCS: 96365; J0256

== ENCOUNTER 2017-04-30 09:59 | Outpatient (CLI) | payer MEDICARE ==
[~2017-04-30] VITALS: Ht 170.2 cm; Wt 77.6 kg
[~2017-04-30 09:59] MED LIST changes: +ALPHA PROTEINASE INHIBITOR IV SCH; +DILUENT IV SCH
== END 2017-04-30 11:10 | disposition home or self-care (01) ==
LOC: M INFU 09:59
PROVIDERS: ATTEND Internal Medicine Pulmonary Disease
DX: E88.01 Alpha-1-antitrypsin deficiency (principal); Z85.828 Personal history of other malignant neoplasm of skin; Z88.2 Allergy status to sulfonamides; Z88.1 Allergy status to other antibiotic agents; Z79.82 Long term (current) use of aspirin; Z79.899 Other long term (current) drug therapy
CPT/HCPCS: 96365; J0256

== ENCOUNTER 2017-05-07 10:29 | Outpatient (CLI) | payer MEDICARE | END 2017-05-07 11:25 | disposition home or self-care (01) | LOC: M INFU 10:29 | PROVIDERS: ATTEND Internal Medicine Pulmonary Disease | DX: E88.01 Alpha-1-antitrypsin deficiency (principal); Z85.828 Personal history of other malignant neoplasm of skin; Z88.2 Allergy status to sulfonamides; Z79.82 Long term (current) use of aspirin; Z79.899 Other long term (current) drug therapy | CPT/HCPCS: 96365; J0256 ==

== ENCOUNTER 2017-05-14 14:01 | Outpatient (CLI) | payer MEDICARE ==
[~2017-05-14] VITALS: Ht 170.2 cm; Wt 77.7 kg
[~2017-05-14 14:01] MED LIST changes: -ALPHA PROTEINASE INHIBITOR IV SCH; -DILUENT IV SCH
[2017-05-14] MEDS ORDERED: DILUENT IV ONE (14:30)
[2017-05-14] MEDS ORDERED: ALPHA PROTEINASE INHIBITOR IV ONE (14:30)
[2017-05-21] MEDS ORDERED: SODIUM CHLORIDE 0.9% INJ 10 ML SYR IV PRN (08:30)
== END 2017-05-14 15:20 | disposition home or self-care (01) ==
LOC: M INFU 14:01
PROVIDERS: ATTEND Internal Medicine Pulmonary Disease
DX: E88.01 Alpha-1-antitrypsin deficiency (principal); Z85.828 Personal history of other malignant neoplasm of skin; Z88.2 Allergy status to sulfonamides; Z88.1 Allergy status to other antibiotic agents; Z79.82 Long term (current) use of aspirin; Z79.899 Other long term (current) drug therapy
CPT/HCPCS: 96365; J0256

== ENCOUNTER 2017-05-21 08:53 | Outpatient (CLI) | payer MEDICARE ==
[~2017-05-21] VITALS: Ht 170.2 cm; Wt 77.6 kg
[~2017-05-21 08:53] MED LIST changes: -SODIUM CHLORIDE 0.9% INJ 10 ML SYR IV SCH
[2017-05-21] MEDS ORDERED: SODIUM CHLORIDE 0.9% INJ 10 ML SYR IV SCH (09:00)
[2017-05-21] MEDS ORDERED: DILUENT IV ONE (09:00)
[2017-05-21] MEDS ORDERED: SODIUM CHLORIDE 0.9% INJ 10 ML SYR IV PRN (09:00)
[2017-05-21] MEDS ORDERED: ALPHA PROTEINASE INHIBITOR IV ONE (09:00)
[2017-05-21 09:20] LABS: BASO % 0.3 % (0.0-1.0); EOS % 0.2 % (0.0-3.0); IMMATURE GRANULOCYTE % 0.3 % (0-0); LYMPH # 2.4 10^3/uL (1.5-4.5); LYMPH % 22.3 % (24.0-44.0); MEAN CORPUSCULAR HEMOGLOBIN 28.3 pg (27.0-33.0); MEAN CORPUSCULAR HGB CONC 32.7 g/dl (32.0-36.5); MEAN CORPUSCULAR VOLUME 86.7 fl (80.0-96.0); MONO # 1.3 10^3/uL (0.0-0.8); MONO % 11.7 % (0.0-5.0); NEUTROPHILS # 7.1 10^3/uL (1.8-7.7); NEUTROPHILS % 65.2 % (36.0-66.0); PLATELET COUNT, AUTOMATED 224 10^3/uL (150-450); RED CELL DISTRIBUTION WIDTH 15.5 % (11.5-14.5); WHITE BLOOD COUNT 10.9 10^3/uL (4.0-10.0)
[2017-05-21 09:58] LABS: ALBUMIN 3.8 GM/DL (3.2-5.2); ALBUMIN/GLOBULIN RATIO 1.41 (1.00-1.93); BILIRUBIN,TOTAL 0.3 MG/DL (0.2-1.0); CALCIUM LEVEL 8.4 MG/DL (8.8-10.2); CREATININE FOR GFR 1.25 MG/DL (0.70-1.30); GLOMERULAR FILTRATION RATE 59.6 (>42); POTASSIUM SERUM 3.6 MEQ/L (3.5-5.1); TOTAL PROTEIN 6.5 GM/DL (6.4-8.2)
== END 2017-05-21 10:00 | disposition home or self-care (01) ==
LOC: M INFU 08:53
PROVIDERS: ATTEND Internal Medicine Pulmonary Disease
DX: E88.01 Alpha-1-antitrypsin deficiency (principal); Z85.828 Personal history of other malignant neoplasm of skin; Z88.2 Allergy status to sulfonamides; Z88.1 Allergy status to other antibiotic agents; Z79.82 Long term (current) use of aspirin; Z79.899 Other long term (current) drug therapy
CPT/HCPCS: 80053; 80061; 85025; 96365; J0256

== ENCOUNTER 2017-05-30 13:42 | Outpatient (CLI) | payer MEDICARE ==
[2017-05-30] MEDS: DILUENT IV (14:21)
[2017-05-30] MEDS: ALPHA PROTEINASE INHIBITOR IV (14:21)
[2017-05-30] MEDS: SODIUM CHLORIDE 0.9% INJ 10 ML SYR IV (14:47)
== END 2017-05-30 14:55 | disposition home or self-care (01) ==
LOC: M INFU 13:42
DX: E88.01 Alpha-1-antitrypsin deficiency (principal); Z85.828 Personal history of other malignant neoplasm of skin; Z88.2 Allergy status to sulfonamides; Z79.82 Long term (current) use of aspirin; Z79.899 Other long term (current) drug therapy
CPT/HCPCS: 96365

== ENCOUNTER 2017-06-04 09:57 | Outpatient (CLI) | payer MEDICARE ==
[2017-06-04] MEDS: DILUENT IV (10:37)
[2017-06-04] MEDS: ALPHA PROTEINASE INHIBITOR IV (10:37)
[2017-06-04] MEDS: SODIUM CHLORIDE 0.9% INJ 10 ML SYR IV ×2 (11:13)
== END 2017-06-04 11:20 | disposition home or self-care (01) ==
LOC: M INFU 09:57
DX: E88.01 Alpha-1-antitrypsin deficiency (principal)
CPT/HCPCS: 96365

== ENCOUNTER 2017-06-11 10:30 | Outpatient (CLI) | payer MEDICARE ==
[~2017-06-11 10:30] MED LIST changes: -ALBU17IN2 INH; +ALPHA PROTEINASE INHIBITOR IV; -ASPI1TAB PO; -ATRO0.06; -AZIT250T8 PO; -BREO1INH INH; -CALC600T31 PO; -CALCTAB97 PO; -CARD4TAB2 PO; -DALI1TAB2 PO; +DILUENT IV; -ESOM1CAP5 PO; -FLON50SP; -FURO20TA2 PO; -HYDR12.55 PO; -HYDR25TAB PO; -INCR1INH INH; -IPRA6SP; -IPRASOL4 INH; -LEVA1TAB2 PO; -LEVO75TA4 PO; -NEUR300C PO; -NEXI1CAP4 PO; -NITR4TASL SL; -SING10TA32 PO; -SODI5OPD OD; -TIZA4CAP3 PO; -ZOCO20TA PO; -ZYRT10CA PO
[2017-06-11] MEDS: SODIUM CHLORIDE 0.9% INJ 10 ML SYR IV (11:03)
[2017-06-11] MEDS: ALPHA PROTEINASE INHIBITOR IV (11:10)
[2017-06-11] MEDS: DILUENT IV (11:10)
== END 2017-06-11 11:45 | disposition home or self-care (01) ==
LOC: M INFU 10:30
DX: E88.01 Alpha-1-antitrypsin deficiency (principal); Z79.899 Other long term (current) drug therapy; Z79.82 Long term (current) use of aspirin; Z88.1 Allergy status to other antibiotic agents; Z88.2 Allergy status to sulfonamides
CPT/HCPCS: 96365

== ENCOUNTER 2017-06-18 11:57 | Outpatient (CLI) | payer MEDICARE ==
[2017-06-18] MEDS: SODIUM CHLORIDE 0.9% INJ 10 ML SYR IV (12:39)
[2017-06-18] MEDS: ALPHA PROTEINASE INHIBITOR IV (12:41)
[2017-06-18] MEDS: DILUENT IV (12:41)
== END 2017-06-18 13:30 | disposition home or self-care (01) ==
LOC: M INFU 11:57
DX: E88.01 Alpha-1-antitrypsin deficiency (principal); I10 Essential (primary) hypertension; E78.00 Pure hypercholesterolemia, unspecified; K21.9 Gastro-esophageal reflux disease without esophagitis; M19.90 Unspecified osteoarthritis, unspecified site; J98.4 Other disorders of lung; Z79.82 Long term (current) use of aspirin; Z79.899 Other long term (current) drug therapy; Z88.2 Allergy status to sulfonamides; Z88.1 Allergy status to other antibiotic agents
CPT/HCPCS: 96365

== ENCOUNTER 2017-06-25 10:01 | Outpatient (CLI) | payer MEDICARE ==
[2017-06-25] MEDS: ALPHA PROTEINASE INHIBITOR IV (10:22)
[2017-06-25] MEDS: DILUENT IV (10:22)
[2017-06-25] MEDS: SODIUM CHLORIDE 0.9% INJ 10 ML SYR IV (10:27)
== END 2017-06-25 11:00 | disposition home or self-care (01) ==
LOC: M INFU 10:01
DX: E88.01 Alpha-1-antitrypsin deficiency (principal); Z85.828 Personal history of other malignant neoplasm of skin; Z88.2 Allergy status to sulfonamides; Z88.1 Allergy status to other antibiotic agents; Z79.82 Long term (current) use of aspirin; Z79.899 Other long term (current) drug therapy
CPT/HCPCS: 96365

== ENCOUNTER 2017-07-02 13:01 | Outpatient (CLI) | payer MEDICARE ==
[2017-07-02] MEDS: ALPHA PROTEINASE INHIBITOR IV (13:26)
[2017-07-02] MEDS: DILUENT IV (13:26)
[2017-07-02] MEDS: SODIUM CHLORIDE 0.9% INJ 10 ML SYR IV (13:30)
== END 2017-07-02 14:05 | disposition home or self-care (01) ==
LOC: M INFU 13:01
DX: E88.01 Alpha-1-antitrypsin deficiency (principal); Z85.828 Personal history of other malignant neoplasm of skin; Z88.2 Allergy status to sulfonamides; Z79.82 Long term (current) use of aspirin; Z79.899 Other long term (current) drug therapy
CPT/HCPCS: 96365

== ENCOUNTER 2017-07-09 09:56 | Outpatient (CLI) | payer MEDICARE ==
[2017-07-09] MEDS: DILUENT IV (10:41)
[2017-07-09] MEDS: ALPHA PROTEINASE INHIBITOR IV (10:41)
[2017-07-09] MEDS: SODIUM CHLORIDE 0.9% INJ 10 ML SYR IV ×2 (10:56)
== END 2017-07-09 11:30 | disposition home or self-care (01) ==
LOC: M INFU 09:56
DX: E88.01 Alpha-1-antitrypsin deficiency (principal); Z79.82 Long term (current) use of aspirin; Z79.899 Other long term (current) drug therapy; Z88.2 Allergy status to sulfonamides
CPT/HCPCS: J0256

== ENCOUNTER 2017-07-16 11:27 | Outpatient (CLI) | payer MEDICARE ==
[2017-07-16] MEDS: DILUENT IV (11:42)
[2017-07-16] MEDS: ALPHA PROTEINASE INHIBITOR IV (11:42)
[2017-07-16] MEDS: SODIUM CHLORIDE 0.9% INJ 10 ML SYR IV (12:12)
== END 2017-07-16 12:25 | disposition home or self-care (01) ==
LOC: M INFU 11:27
DX: E88.01 Alpha-1-antitrypsin deficiency (principal); Z79.82 Long term (current) use of aspirin; Z79.899 Other long term (current) drug therapy
CPT/HCPCS: J0256

== ENCOUNTER 2017-07-23 10:38 | Outpatient (CLI) | payer MEDICARE ==
[2017-07-23] MEDS: ALPHA PROTEINASE INHIBITOR IV (10:56)
[2017-07-23] MEDS: DILUENT IV (10:56)
[2017-07-23] MEDS: SODIUM CHLORIDE 0.9% INJ 10 ML SYR IV (11:16)
== END 2017-07-23 11:40 | disposition home or self-care (01) ==
LOC: M INFU 10:38
DX: E88.01 Alpha-1-antitrypsin deficiency (principal); J44.9 Chronic obstructive pulmonary disease, unspecified; M12.9 Arthropathy, unspecified; Z79.82 Long term (current) use of aspirin; Z79.899 Other long term (current) drug therapy; Z88.1 Allergy status to other antibiotic agents; Z88.2 Allergy status to sulfonamides
CPT/HCPCS: J0256

== ENCOUNTER 2017-07-30 11:24 | Outpatient (CLI) | payer MEDICARE ==
[2017-07-30] MEDS: ALPHA PROTEINASE INHIBITOR IV (12:03)
[2017-07-30] MEDS: DILUENT IV (12:03)
[2017-07-30] MEDS: SODIUM CHLORIDE 0.9% INJ 10 ML SYR IV (12:08)
== END 2017-07-30 12:40 | disposition home or self-care (01) ==
LOC: M INFU 11:24
DX: E88.01 Alpha-1-antitrypsin deficiency (principal); J44.9 Chronic obstructive pulmonary disease, unspecified; M12.9 Arthropathy, unspecified; Z79.82 Long term (current) use of aspirin; Z79.899 Other long term (current) drug therapy; Z88.2 Allergy status to sulfonamides; Z88.1 Allergy status to other antibiotic agents
CPT/HCPCS: J0256

== ENCOUNTER 2017-08-06 09:00 | Outpatient (CLI) | payer MEDICARE ==
[2017-08-06] MEDS: SODIUM CHLORIDE 0.9% INJ 10 ML SYR IV (09:18)
[2017-08-06] MEDS: ALPHA PROTEINASE INHIBITOR IV (09:18)
[2017-08-06] MEDS: DILUENT IV (09:18)
== END 2017-08-06 10:00 | disposition home or self-care (01) ==
LOC: M INFU 09:00
DX: E88.01 Alpha-1-antitrypsin deficiency (principal); Z88.2 Allergy status to sulfonamides; Z79.82 Long term (current) use of aspirin; Z79.899 Other long term (current) drug therapy
CPT/HCPCS: J0256

== ENCOUNTER 2017-08-13 10:55 | Outpatient (CLI) | payer MEDICARE ==
[2017-08-13] MEDS: ALPHA PROTEINASE INHIBITOR IV (11:17)
[2017-08-13] MEDS: DILUENT IV (11:17)
[2017-08-13] MEDS: SODIUM CHLORIDE 0.9% INJ 10 ML SYR IV (13:50)
[2017-08-14] MEDS ORDERED: SODIUM CHLORIDE 0.9% INJ 10 ML SYR IV (09:00)
[2017-09-12] MEDS ORDERED: SODIUM CHLORIDE 0.9% INJ 10 ML SYR IV (09:00)
== END 2017-08-13 12:05 | disposition home or self-care (01) ==
LOC: M INFU 10:55
DX: E88.01 Alpha-1-antitrypsin deficiency (principal); J44.9 Chronic obstructive pulmonary disease, unspecified; M54.9 Dorsalgia, unspecified; M54.2 Cervicalgia; M12.9 Arthropathy, unspecified; Z79.82 Long term (current) use of aspirin; Z79.899 Other long term (current) drug therapy; Z88.8 Allergy status to other drugs, medicaments and biological substances
CPT/HCPCS: J0256

== ENCOUNTER 2017-08-20 10:30 | Outpatient (CLI) | payer MEDICARE ==
[2017-08-20] MEDS: ALPHA PROTEINASE INHIBITOR IV (10:54)
[2017-08-20] MEDS: DILUENT IV (10:54)
[2017-08-20] MEDS: SODIUM CHLORIDE 0.9% INJ 10 ML SYR IV (11:07)
[2017-08-20 11:10] LABS: BASO % 0.3 % (0.0-1.0); EOS # 0.2 10^3/uL (0.0-0.50); EOS % 1.2 % (0.0-3.0); HEMATOCRIT 39.1 % (42.0-52.0); IMMATURE GRANULOCYTE % 0.4 % (0-3.0); LYMPH # 4.4 10^3/uL (1.5-4.5); LYMPH % 34.2 % (24.0-44.0); MEAN CORPUSCULAR HEMOGLOBIN 29.2 pg (27.0-33.0); MEAN CORPUSCULAR HGB CONC 33.2 g/dl (32.0-36.5); MEAN CORPUSCULAR VOLUME 87.9 fl (80.0-96.0); MONO # 1.2 10^3/uL (0.0-0.8); NEUTROPHILS % 54.9 % (36.0-66.0); PLATELET COUNT, AUTOMATED 228 10^3/uL (150-450); RED BLOOD COUNT 4.45 10^6/uL (4.30-6.10); RED CELL DISTRIBUTION WIDTH 14.1 % (11.5-14.5); WHITE BLOOD COUNT 12.8 10^3/uL (4.0-10.0)
[2017-08-20 11:46] LABS: ALBUMIN 3.8 GM/DL (3.2-5.2); ALBUMIN/GLOBULIN RATIO 1.46 (1.00-1.93); ALKALINE PHOSPHATASE 58 U/L (45-117); ALT/SGPT 28 U/L (12-78); ANION GAP 9 MEQ/L (8-16); AST/SGOT 21 U/L (7-37); BILIRUBIN,TOTAL 0.3 MG/DL (0.2-1.0); BLOOD UREA NITROGEN 13 MG/DL (7-18); CALCIUM LEVEL 8.5 MG/DL (8.8-10.2); CARBON DIOXIDE LEVEL 28 MEQ/L (21-32); CHLORIDE LEVEL 103 MEQ/L (98-107); CHOLESTEROL LEVEL 198 MG/DL (<200); CHOLESTEROL RISK RATIO 5.823 (<5); CREATININE FOR GFR 1.01 MG/DL (0.70-1.30); GLOMERULAR FILTRATION RATE > 60.0 (>42); GLUCOSE, FASTING 102 MG/DL (70-100); HDL CHOLESTEROL 34 MG/DL (>40); LDL CHOLESTEROL 116.8 MG/DL (<100); NON-HDL-C 164 MG/DL; SODIUM LEVEL 140 MEQ/L (136-145); TOTAL PROTEIN 6.4 GM/DL (6.4-8.2); TRIGLYCERIDES LEVEL 236 MG/DL (<150)
== END 2017-08-20 11:45 | disposition home or self-care (01) ==
LOC: M INFU 10:30
DX: E88.01 Alpha-1-antitrypsin deficiency (principal); I27.89 Other specified pulmonary heart diseases; D63.8 Anemia in other chronic diseases classified elsewhere; Z88.2 Allergy status to sulfonamides; Z88.1 Allergy status to other antibiotic agents; Z79.82 Long term (current) use of aspirin; Z79.899 Other long term (current) drug therapy
CPT/HCPCS: J0256

== ENCOUNTER 2017-08-27 11:54 | Outpatient (CLI) | payer MEDICARE ==
[2017-08-27] MEDS: ALPHA PROTEINASE INHIBITOR IV (12:14)
[2017-08-27] MEDS: DILUENT IV (12:14)
[2017-08-27] MEDS: SODIUM CHLORIDE 0.9% INJ 10 ML SYR IV (12:15)
== END 2017-08-27 13:00 | disposition home or self-care (01) ==
LOC: M INFU 11:54
DX: E88.01 Alpha-1-antitrypsin deficiency (principal); J44.9 Chronic obstructive pulmonary disease, unspecified; I10 Essential (primary) hypertension; E78.00 Pure hypercholesterolemia, unspecified; K21.9 Gastro-esophageal reflux disease without esophagitis; Z79.82 Long term (current) use of aspirin; Z79.899 Other long term (current) drug therapy; Z88.8 Allergy status to other drugs, medicaments and biological substances
CPT/HCPCS: J0256

== ENCOUNTER 2017-09-17 11:23 | Outpatient (CLI) | payer MEDICARE ==
[2017-09-17] MEDS: DILUENT IV (11:41)
[2017-09-17] MEDS: SODIUM CHLORIDE 0.9% INJ 10 ML SYR IV (11:41)
[2017-09-17] MEDS: ALPHA PROTEINASE INHIBITOR IV (11:41)
== END 2017-09-17 12:20 | disposition home or self-care (01) ==
LOC: M INFU 11:23
DX: E88.01 Alpha-1-antitrypsin deficiency (principal); Z79.82 Long term (current) use of aspirin; Z79.899 Other long term (current) drug therapy; Z88.8 Allergy status to other drugs, medicaments and biological substances
CPT/HCPCS: J0256

== ENCOUNTER 2017-09-24 11:24 | Outpatient (CLI) | payer MEDICARE ==
[~2017-09-24 11:24] MED LIST changes: -ALPHA PROTEINASE INHIBITOR IV; -DILUENT IV; +SODIUM CHLORIDE 0.9% INJ 10 ML SYR IV
[2017-09-24] MEDS: DILUENT IV (11:39)
[2017-09-24] MEDS: ALPHA PROTEINASE INHIBITOR IV (11:39)
[2017-09-24] MEDS: SODIUM CHLORIDE 0.9% INJ 10 ML SYR IV (11:40)
== END 2017-09-24 12:30 | disposition home or self-care (01) ==
LOC: M INFU 11:24
DX: E88.01 Alpha-1-antitrypsin deficiency (principal); I10 Essential (primary) hypertension; J45.909 Unspecified asthma, uncomplicated; M12.9 Arthropathy, unspecified; Z79.82 Long term (current) use of aspirin; Z79.899 Other long term (current) drug therapy
CPT/HCPCS: J0256

== ENCOUNTER 2017-10-01 09:27 | Outpatient (CLI) | payer MEDICARE ==
[2017-10-01] MEDS: DILUENT IV (09:53)
[2017-10-01] MEDS: SODIUM CHLORIDE 0.9% INJ 10 ML SYR IV (09:53)
[2017-10-01] MEDS: ALPHA PROTEINASE INHIBITOR IV (09:53)
== END 2017-10-01 10:25 | disposition home or self-care (01) ==
LOC: M INFU 09:27
DX: E88.01 Alpha-1-antitrypsin deficiency (principal); I10 Essential (primary) hypertension; J45.909 Unspecified asthma, uncomplicated; M12.9 Arthropathy, unspecified; Z79.82 Long term (current) use of aspirin; Z79.899 Other long term (current) drug therapy; Z88.8 Allergy status to other drugs, medicaments and biological substances
CPT/HCPCS: J0256

== ENCOUNTER 2017-10-08 11:18 | Outpatient (CLI) | payer MEDICARE ==
[2017-10-08] MEDS: DILUENT IV (11:36)
[2017-10-08] MEDS: ALPHA PROTEINASE INHIBITOR IV (11:36)
[2017-10-08] MEDS: SODIUM CHLORIDE 0.9% INJ 10 ML SYR IV (11:42)
== END 2017-10-08 12:20 | disposition home or self-care (01) ==
LOC: M INFU 11:18
DX: E88.01 Alpha-1-antitrypsin deficiency (principal); I10 Essential (primary) hypertension; J45.909 Unspecified asthma, uncomplicated; M12.9 Arthropathy, unspecified; Z79.899 Other long term (current) drug therapy; Z79.82 Long term (current) use of aspirin; Z88.8 Allergy status to other drugs, medicaments and biological substances
CPT/HCPCS: J0256

== ENCOUNTER 2017-10-15 11:21 | Outpatient (CLI) | payer MEDICARE ==
[2017-10-15] MEDS: DILUENT IV (12:09)
[2017-10-15] MEDS: ALPHA PROTEINASE INHIBITOR IV (12:09)
[2017-10-15] MEDS: SODIUM CHLORIDE 0.9% INJ 10 ML SYR IV (12:14)
== END 2017-10-15 12:55 | disposition home or self-care (01) ==
LOC: M INFU 11:21
DX: E88.01 Alpha-1-antitrypsin deficiency (principal); J45.909 Unspecified asthma, uncomplicated; K21.9 Gastro-esophageal reflux disease without esophagitis; M12.9 Arthropathy, unspecified; M54.2 Cervicalgia; Z79.82 Long term (current) use of aspirin; Z79.899 Other long term (current) drug therapy; Z88.8 Allergy status to other drugs, medicaments and biological substances; Z85.828 Personal history of other malignant neoplasm of skin
CPT/HCPCS: J0256

== ENCOUNTER 2017-10-22 11:22 | Outpatient (CLI) | payer MEDICARE ==
[2017-10-22] MEDS: ALPHA PROTEINASE INHIBITOR IV (11:42)
[2017-10-22] MEDS: DILUENT IV (11:42)
[2017-10-22] MEDS: SODIUM CHLORIDE 0.9% INJ 10 ML SYR IV (12:11)
== END 2017-10-22 12:30 | disposition home or self-care (01) ==
LOC: M INFU 11:22
DX: E88.01 Alpha-1-antitrypsin deficiency (principal); I10 Essential (primary) hypertension; J45.909 Unspecified asthma, uncomplicated; M12.9 Arthropathy, unspecified; Z79.82 Long term (current) use of aspirin; Z79.899 Other long term (current) drug therapy; Z88.8 Allergy status to other drugs, medicaments and biological substances
CPT/HCPCS: J0256

== ENCOUNTER 2017-10-29 11:56 | Outpatient (CLI) | payer MEDICARE ==
[2017-10-29] MEDS: DILUENT IV (12:09)
[2017-10-29] MEDS: ALPHA PROTEINASE INHIBITOR IV (12:09)
== END 2017-10-29 12:40 | disposition home or self-care (01) ==
LOC: M INFU 11:56
DX: E88.01 Alpha-1-antitrypsin deficiency (principal); Z85.828 Personal history of other malignant neoplasm of skin; Z88.2 Allergy status to sulfonamides; Z79.899 Other long term (current) drug therapy
CPT/HCPCS: J0256

== ENCOUNTER 2017-11-05 10:25 | Outpatient (CLI) | payer MEDICARE ==
[2017-11-05] MEDS: SODIUM CHLORIDE 0.9% INJ 10 ML SYR IV (10:44)
[2017-11-05] MEDS: ALPHA PROTEINASE INHIBITOR IV (10:44)
[2017-11-05] MEDS: DILUENT IV (10:44)
== END 2017-11-05 11:30 | disposition home or self-care (01) ==
LOC: M INFU 10:25
DX: E88.01 Alpha-1-antitrypsin deficiency (principal); I10 Essential (primary) hypertension; J45.909 Unspecified asthma, uncomplicated; M12.9 Arthropathy, unspecified; Z79.82 Long term (current) use of aspirin; Z79.899 Other long term (current) drug therapy; Z88.8 Allergy status to other drugs, medicaments and biological substances
CPT/HCPCS: J0256

== ENCOUNTER 2017-11-12 10:33 | Outpatient (CLI) | payer MEDICARE ==
[2017-11-12] MEDS: ALPHA PROTEINASE INHIBITOR IV (11:22)
[2017-11-12] MEDS: DILUENT IV (11:22)
[2017-11-12] MEDS: SODIUM CHLORIDE 0.9% INJ 10 ML SYR IV (12:00)
== END 2017-11-12 12:15 | disposition home or self-care (01) ==
LOC: M INFU 10:33
DX: E88.01 Alpha-1-antitrypsin deficiency (principal); Z85.828 Personal history of other malignant neoplasm of skin; Z88.2 Allergy status to sulfonamides; Z79.82 Long term (current) use of aspirin; Z79.899 Other long term (current) drug therapy
CPT/HCPCS: J0256

== ENCOUNTER 2017-11-19 10:52 | Outpatient (CLI) | payer MEDICARE ==
[2017-11-19] MEDS: ALPHA PROTEINASE INHIBITOR IV (11:08)
[2017-11-19] MEDS: DILUENT IV (11:08)
[2017-11-19] MEDS: SODIUM CHLORIDE 0.9% INJ 10 ML SYR IV (11:09)
== END 2017-11-19 12:00 | disposition home or self-care (01) ==
LOC: M INFU 10:52
DX: E88.01 Alpha-1-antitrypsin deficiency (principal); I10 Essential (primary) hypertension; M12.9 Arthropathy, unspecified; Z79.82 Long term (current) use of aspirin; Z79.899 Other long term (current) drug therapy; Z88.8 Allergy status to other drugs, medicaments and biological substances
CPT/HCPCS: J0256

== ENCOUNTER 2017-11-26 08:59 | Outpatient (CLI) | payer MEDICARE ==
[2017-11-26] MEDS: DILUENT IV (09:18)
[2017-11-26] MEDS: SODIUM CHLORIDE 0.9% INJ 10 ML SYR IV (09:18)
[2017-11-26] MEDS: ALPHA PROTEINASE INHIBITOR IV (09:18)
[2017-11-26 09:23] LABS: HEMATOCRIT 39.2 % (42.0-52.0); MEAN CORPUSCULAR HEMOGLOBIN 29.2 pg (27.0-33.0); MEAN CORPUSCULAR HGB CONC 33.2 g/dl (32.0-36.5); MEAN CORPUSCULAR VOLUME 88.1 fl (80.0-96.0); PLATELET COUNT, AUTOMATED 244 10^3/uL (150-450); RED BLOOD COUNT 4.45 10^6/uL (4.30-6.10); RED CELL DISTRIBUTION WIDTH 13.8 % (11.5-14.5)
[2017-11-26 09:29] LABS: ADD MANUAL DIFFER YES; DIFF SLIDE NUMBER 169; POSITIVE DIFF POS FLAG; WHITE BLOOD COUNT 12.8 10^3/uL (4.0-10.0)
[2017-11-26 10:06] LABS: VITAMIN B12 LEVEL 687 PG/ML
[2017-11-26 10:07] LABS: ALBUMIN 3.8 GM/DL (3.2-5.2); ALBUMIN/GLOBULIN RATIO 1.36 (1.00-1.93); ALKALINE PHOSPHATASE 67 U/L (45-117); ALT/SGPT 32 U/L (12-78); ANION GAP 9 MEQ/L (8-16); AST/SGOT 20 U/L (7-37); ATYPICAL LYMPH 5 % (0-5); BASOPHILS 1 % (0-4); BILIRUBIN,TOTAL 0.5 MG/DL (0.2-1.0); BLOOD UREA NITROGEN 16 MG/DL (7-18); CALCIUM LEVEL 8.5 MG/DL (8.8-10.2); CARBON DIOXIDE LEVEL 29 MEQ/L (21-32); CHLORIDE LEVEL 104 MEQ/L (98-107); CHOLESTEROL LEVEL 192 MG/DL (<200); CHOLESTEROL RISK RATIO 4.465 (<5); EOSINOPHILS 2 % (0-5); FERRITIN 113 NG/ML (26-388); FOLATE 16.5 NG/ML; FREE T4 1.06 NG/DL (0.76-1.46); GLOMERULAR FILTRATION RATE > 60.0 (>42); GLUCOSE, FASTING 101 MG/DL (70-100); HDL CHOLESTEROL 43 MG/DL (>40); IRON (FE) 82 UG/DL (65-175); LDL CHOLESTEROL 119.4 MG/DL (<100); LYMPHOCYTES 32 % (16-52); MONOCYTES 8 % (0-8); NEUTROPHILS 52 % (35-75); NON-HDL-C 149 MG/DL; PERCENT SATURATION 30.3 % (19.7-50.0); PLATELET ESTIMATE NORMAL (NORMAL); POTASSIUM SERUM 3.6 MEQ/L (3.5-5.1); SODIUM LEVEL 142 MEQ/L (136-145); TOTAL IRON BINDING CAPACITY 271 UG/DL (250-450); TOTAL PROTEIN 6.6 GM/DL (6.4-8.2); TRIGLYCERIDES LEVEL 148 MG/DL (<150)
== END 2017-11-26 10:05 | disposition home or self-care (01) ==
LOC: M INFU 08:59
DX: E88.01 Alpha-1-antitrypsin deficiency (principal); D64.9 Anemia, unspecified; E78.2 Mixed hyperlipidemia; J44.0 Chronic obstructive pulmonary disease with (acute) lower respiratory infection; E03.9 Hypothyroidism, unspecified; Z85.828 Personal history of other malignant neoplasm of skin; Z88.2 Allergy status to sulfonamides; Z79.82 Long term (current) use of aspirin; Z79.899 Other long term (current) drug therapy
CPT/HCPCS: J0256

== ENCOUNTER 2017-12-09 10:00 | Outpatient (CLI) | payer MEDICARE ==
[2017-12-09] MEDS: SODIUM CHLORIDE 0.9% INJ 10 ML SYR IV (09:00)
[2017-12-09] MEDS: DILUENT IV (10:28)
[2017-12-09] MEDS: ALPHA PROTEINASE INHIBITOR IV (10:28)
== END 2017-12-09 11:00 | disposition home or self-care (01) ==
LOC: M INFU 10:00
DX: E88.01 Alpha-1-antitrypsin deficiency (principal); M85.88 Other specified disorders of bone density and structure, other site; M50.30 Other cervical disc degeneration, unspecified cervical region; M25.78 Osteophyte, vertebrae; M85.811 Other specified disorders of bone density and structure, right shoulder; M19.011 Primary osteoarthritis, right shoulder; M25.511 Pain in right shoulder; S16.1XXA Strain of muscle, fascia and tendon at neck level, initial encounter; X58.XXXA Exposure to other specified factors, initial encounter; Y92.9 Unspecified place or not applicable
CPT/HCPCS: J0256

== ENCOUNTER → 2017-12-09 | Outpatient (CLI) | payer MEDICARE | LOC: M WUC 12:40 | DX: M85.88 Other specified disorders of bone density and structure, other site (principal); M50.30 Other cervical disc degeneration, unspecified cervical region; M25.78 Osteophyte, vertebrae; M85.811 Other specified disorders of bone density and structure, right shoulder; M19.011 Primary osteoarthritis, right shoulder; M25.511 Pain in right shoulder; S16.1XXA Strain of muscle, fascia and tendon at neck level, initial encounter; X58.XXXA Exposure to other specified factors, initial encounter; Y92.9 Unspecified place or not applicable ==

== ENCOUNTER 2017-12-17 13:55 | Outpatient (CLI) | payer MEDICARE ==
[2017-12-17] MEDS: ALPHA PROTEINASE INHIBITOR IV (15:04)
[2017-12-17] MEDS: DILUENT IV (15:04)
[2017-12-17] MEDS: SODIUM CHLORIDE 0.9% INJ 10 ML SYR IV (15:09)
== END 2017-12-17 15:40 | disposition home or self-care (01) ==
LOC: M INFU 13:55
DX: E88.01 Alpha-1-antitrypsin deficiency (principal); Z85.828 Personal history of other malignant neoplasm of skin; Z88.2 Allergy status to sulfonamides; Z79.82 Long term (current) use of aspirin; Z79.899 Other long term (current) drug therapy
CPT/HCPCS: J0256

== ENCOUNTER 2017-12-24 11:34 | Outpatient (CLI) | payer MEDICARE ==
[2017-12-24] MEDS: DILUENT IV (11:44)
[2017-12-24] MEDS: ALPHA PROTEINASE INHIBITOR IV (11:44)
== END 2017-12-24 12:30 | disposition home or self-care (01) ==
LOC: M INFU 11:34
DX: E88.01 Alpha-1-antitrypsin deficiency (principal); Z79.899 Other long term (current) drug therapy; Z79.82 Long term (current) use of aspirin; Z88.8 Allergy status to other drugs, medicaments and biological substances
CPT/HCPCS: J0256

== ENCOUNTER 2017-12-31 11:51 | Outpatient (CLI) | payer MEDICARE ==
[2017-12-31] MEDS: ALPHA PROTEINASE INHIBITOR IV (12:16)
[2017-12-31] MEDS: DILUENT IV (12:16)
== END 2017-12-31 12:45 ==
LOC: M INFU 11:51
DX: E88.01 Alpha-1-antitrypsin deficiency (principal); Z85.828 Personal history of other malignant neoplasm of skin; Z88.2 Allergy status to sulfonamides; Z79.899 Other long term (current) drug therapy; Z79.82 Long term (current) use of aspirin
CPT/HCPCS: J0256

== ENCOUNTER 2018-01-07 10:59 | Outpatient (CLI) | payer MEDICARE ==
[2018-01-07] MEDS ORDERED: DILUENT IV (11:00)
[2018-01-07] MEDS ORDERED: ALPHA PROTEINASE INHIBITOR IV (11:00)
== END 2018-01-07 11:55 | disposition home or self-care (01) ==
LOC: M INFU 10:59
DX: E88.01 Alpha-1-antitrypsin deficiency (principal); Z85.828 Personal history of other malignant neoplasm of skin; Z88.2 Allergy status to sulfonamides; Z79.82 Long term (current) use of aspirin; Z79.899 Other long term (current) drug therapy
CPT/HCPCS: 96365

== ENCOUNTER 2018-01-14 11:18 | Outpatient (CLI) | payer MEDICARE ==
[2018-01-14] MEDS: SODIUM CHLORIDE 0.9% INJ 10 ML SYR IV (11:46)
[2018-01-14] MEDS: ALPHA PROTEINASE INHIBITOR IV (11:47)
[2018-01-14] MEDS: DILUENT IV (11:47)
== END 2018-01-14 12:30 | disposition home or self-care (01) ==
LOC: M INFU 11:18
DX: E88.01 Alpha-1-antitrypsin deficiency (principal); Z85.828 Personal history of other malignant neoplasm of skin; Z88.2 Allergy status to sulfonamides; Z79.82 Long term (current) use of aspirin; Z79.899 Other long term (current) drug therapy
CPT/HCPCS: J0256

== ENCOUNTER 2018-01-21 11:19 | Outpatient (CLI) | payer MEDICARE ==
[2018-01-21] MEDS: SODIUM CHLORIDE 0.9% INJ 10 ML SYR IV (09:00)
[2018-01-21] MEDS: DILUENT IV (12:15)
[2018-01-21] MEDS: ALPHA PROTEINASE INHIBITOR IV (12:15)
== END 2018-01-21 13:15 | disposition home or self-care (01) ==
LOC: M INFU 11:19
DX: E88.01 Alpha-1-antitrypsin deficiency (principal); Z88.2 Allergy status to sulfonamides; Z79.82 Long term (current) use of aspirin; Z79.899 Other long term (current) drug therapy
CPT/HCPCS: J0256

== ENCOUNTER 2018-01-28 10:54 | Outpatient (CLI) | payer MEDICARE ==
[2018-01-28] MEDS: ALPHA PROTEINASE INHIBITOR IV (11:31)
[2018-01-28] MEDS: DILUENT IV (11:31)
[2018-01-28] MEDS: SODIUM CHLORIDE 0.9% INJ 10 ML SYR IV (11:32)
== END 2018-01-28 12:15 | disposition home or self-care (01) ==
LOC: M INFU 10:54
DX: E88.01 Alpha-1-antitrypsin deficiency (principal); E78.00 Pure hypercholesterolemia, unspecified; I10 Essential (primary) hypertension; J45.909 Unspecified asthma, uncomplicated; J44.9 Chronic obstructive pulmonary disease, unspecified; K21.9 Gastro-esophageal reflux disease without esophagitis; E03.9 Hypothyroidism, unspecified; M19.90 Unspecified osteoarthritis, unspecified site; Z88.2 Allergy status to sulfonamides; Z79.899 Other long term (current) drug therapy; Z79.82 Long term (current) use of aspirin
CPT/HCPCS: J0256

== ENCOUNTER 2018-02-04 10:51 | Outpatient (CLI) | payer MEDICARE ==
[2018-02-04] MEDS: ALPHA PROTEINASE INHIBITOR IV (11:08)
[2018-02-04] MEDS: DILUENT IV (11:08)
== END 2018-02-04 11:50 | disposition home or self-care (01) ==
LOC: M INFU 10:51
DX: E88.01 Alpha-1-antitrypsin deficiency (principal)
CPT/HCPCS: J0256

== ENCOUNTER 2018-02-11 14:21 | Outpatient (CLI) | payer MEDICARE ==
[2018-02-11] MEDS: ALPHA PROTEINASE INHIBITOR IV (15:19)
[2018-02-11] MEDS: DILUENT IV (15:19)
[2018-02-11] MEDS: SODIUM CHLORIDE 0.9% INJ 10 ML SYR IV (16:12)
== END 2018-02-11 16:25 | disposition home or self-care (01) ==
LOC: M INFU 14:21
DX: E88.01 Alpha-1-antitrypsin deficiency (principal); I10 Essential (primary) hypertension; E78.00 Pure hypercholesterolemia, unspecified; J44.9 Chronic obstructive pulmonary disease, unspecified; Z79.82 Long term (current) use of aspirin; Z79.899 Other long term (current) drug therapy; Z88.8 Allergy status to other drugs, medicaments and biological substances
CPT/HCPCS: J0256

== ENCOUNTER 2018-02-18 08:52 | Outpatient (CLI) | payer MEDICARE ==
[2018-02-18] MEDS: DILUENT IV (09:57)
[2018-02-18] MEDS: ALPHA PROTEINASE INHIBITOR IV (09:57)
[2018-02-18] MEDS: SODIUM CHLORIDE 0.9% INJ 10 ML SYR IV ×2 (10:08)
== END 2018-02-18 10:40 | disposition home or self-care (01) ==
LOC: M INFU 08:52
DX: E88.01 Alpha-1-antitrypsin deficiency (principal); J44.9 Chronic obstructive pulmonary disease, unspecified; E78.00 Pure hypercholesterolemia, unspecified; I10 Essential (primary) hypertension; K21.9 Gastro-esophageal reflux disease without esophagitis; E03.9 Hypothyroidism, unspecified; Z79.82 Long term (current) use of aspirin; Z79.899 Other long term (current) drug therapy; Z88.1 Allergy status to other antibiotic agents; Z88.2 Allergy status to sulfonamides; J30.89 Other allergic rhinitis
CPT/HCPCS: J0256

== ENCOUNTER 2018-02-25 10:54 | Outpatient (CLI) | payer MEDICARE ==
[2018-02-25] MEDS: DILUENT IV (11:50)
[2018-02-25] MEDS: ALPHA PROTEINASE INHIBITOR IV (11:50)
[2018-02-25] MEDS: SODIUM CHLORIDE 0.9% INJ 10 ML SYR IV (11:54)
== END 2018-02-25 12:20 | disposition home or self-care (01) ==
LOC: M INFU 10:54
DX: E88.01 Alpha-1-antitrypsin deficiency (principal)
CPT/HCPCS: J0256

== ENCOUNTER 2018-03-04 13:22 | Outpatient (CLI) | payer MEDICARE ==
[2018-03-04] MEDS: ALPHA PROTEINASE INHIBITOR IV (14:09)
[2018-03-04] MEDS: DILUENT IV (14:09)
[2018-03-04] MEDS: SODIUM CHLORIDE 0.9% INJ 10 ML SYR IV (14:14)
== END 2018-03-04 14:45 | disposition home or self-care (01) ==
LOC: M INFU 13:22
DX: E88.01 Alpha-1-antitrypsin deficiency (principal); E78.00 Pure hypercholesterolemia, unspecified; E03.9 Hypothyroidism, unspecified; I10 Essential (primary) hypertension; J44.9 Chronic obstructive pulmonary disease, unspecified; M12.9 Arthropathy, unspecified; Z79.899 Other long term (current) drug therapy; Z79.82 Long term (current) use of aspirin; J30.89 Other allergic rhinitis; Z88.8 Allergy status to other drugs, medicaments and biological substances
CPT/HCPCS: J0256

== ENCOUNTER 2018-03-11 10:50 | Outpatient (CLI) | payer MEDICARE ==
[2018-03-11] MEDS: ALPHA PROTEINASE INHIBITOR IV (11:39)
[2018-03-11] MEDS: SODIUM CHLORIDE 0.9% INJ 10 ML SYR IV (11:39)
[2018-03-11] MEDS: DILUENT IV (11:39)
== END 2018-03-11 12:30 | disposition home or self-care (01) ==
LOC: M INFU 10:50
DX: E88.01 Alpha-1-antitrypsin deficiency (principal)
CPT/HCPCS: J0256

== ENCOUNTER 2018-03-18 10:59 | Outpatient (CLI) | payer MEDICARE ==
[2018-03-18] MEDS: ALPHA PROTEINASE INHIBITOR IV (12:09)
[2018-03-18] MEDS: DILUENT IV (12:09)
== END 2018-03-18 13:00 | disposition home or self-care (01) ==
LOC: M INFU 10:59
DX: E88.01 Alpha-1-antitrypsin deficiency (principal)
CPT/HCPCS: J0256

== ENCOUNTER 2018-03-25 11:09 | Outpatient (CLI) | payer MEDICARE ==
[2018-03-25] MEDS: DILUENT IV (12:18)
[2018-03-25] MEDS: ALPHA PROTEINASE INHIBITOR IV (12:18)
[2018-03-25] MEDS: SODIUM CHLORIDE 0.9% INJ 10 ML SYR IV (12:57)
== END 2018-03-25 13:05 | disposition home or self-care (01) ==
LOC: M INFU 11:09
DX: E88.01 Alpha-1-antitrypsin deficiency (principal); Z79.82 Long term (current) use of aspirin; Z88.8 Allergy status to other drugs, medicaments and biological substances; J30.89 Other allergic rhinitis
CPT/HCPCS: J0256

== ENCOUNTER 2018-03-26 14:54 | Emergency (ER) | payer MEDICARE | END 2018-03-26 18:25 | disposition home or self-care (01) | LOC: M ED 14:54 | DX: S46.911A Strain of unspecified muscle, fascia and tendon at shoulder and upper arm level, right arm, initial encounter (principal); S41.101A Unspecified open wound of right upper arm, initial encounter; V89.0XXA Person injured in unspecified motor-vehicle accident, nontraffic, initial encounter; Y92.093 Driveway of other non-institutional residence as the place of occurrence of the external cause; Y93.9 Activity, unspecified; Y99.9 Unspecified external cause status; I10 Essential (primary) hypertension; E78.5 Hyperlipidemia, unspecified; K21.9 Gastro-esophageal reflux disease without esophagitis; E03.9 Hypothyroidism, unspecified; J44.9 Chronic obstructive pulmonary disease, unspecified; J30.89 Other allergic rhinitis; Z79.82 Long term (current) use of aspirin; Z79.899 Other long term (current) drug therapy; Z88.2 Allergy status to sulfonamides | CPT/HCPCS: 71111 ==

== ENCOUNTER 2018-04-01 11:18 | Outpatient (CLI) | payer MEDICARE ==
[2018-04-01] MEDS: SODIUM CHLORIDE 0.9% INJ 10 ML SYR IV (09:00)
[2018-04-01] MEDS: ALPHA PROTEINASE INHIBITOR IV (12:30)
[2018-04-01] MEDS: DILUENT IV (12:30)
== END 2018-04-01 13:00 | disposition home or self-care (01) ==
LOC: M INFU 11:18
DX: E88.01 Alpha-1-antitrypsin deficiency (principal)
CPT/HCPCS: J0256

== ENCOUNTER 2018-04-08 10:58 | Outpatient (CLI) | payer MEDICARE ==
[2018-04-08] MEDS: SODIUM CHLORIDE 0.9% INJ 10 ML SYR IV (09:00)
[2018-04-08] MEDS: DILUENT IV (11:40)
[2018-04-08] MEDS: ALPHA PROTEINASE INHIBITOR IV (11:40)
== END 2018-04-08 12:15 | disposition home or self-care (01) ==
LOC: M INFU 10:58
DX: E88.01 Alpha-1-antitrypsin deficiency (principal); Z79.82 Long term (current) use of aspirin; Z79.899 Other long term (current) drug therapy; Z88.2 Allergy status to sulfonamides; J30.89 Other allergic rhinitis
CPT/HCPCS: J0256

== ENCOUNTER 2018-04-15 11:01 | Outpatient (CLI) | payer MEDICARE ==
[2018-04-15] MEDS: ALPHA PROTEINASE INHIBITOR IV (12:20)
[2018-04-15] MEDS: DILUENT IV (12:20)
== END 2018-04-15 13:00 | disposition home or self-care (01) ==
LOC: M INFU 11:01
DX: E88.01 Alpha-1-antitrypsin deficiency (principal); Z79.82 Long term (current) use of aspirin; Z79.899 Other long term (current) drug therapy; J30.89 Other allergic rhinitis; Z88.8 Allergy status to other drugs, medicaments and biological substances
CPT/HCPCS: J0256

== ENCOUNTER 2018-04-22 11:18 | Outpatient (CLI) | payer MEDICARE ==
[2018-04-22] MEDS: ALPHA PROTEINASE INHIBITOR IV (12:14)
[2018-04-22] MEDS: DILUENT IV (12:14)
== END 2018-04-22 13:10 | disposition home or self-care (01) ==
LOC: M INFU 11:18
DX: E88.01 Alpha-1-antitrypsin deficiency (principal)
CPT/HCPCS: J0256

== ENCOUNTER 2018-04-29 10:55 | Outpatient (CLI) | payer MEDICARE ==
[2018-04-29] MEDS: DILUENT IV (11:42)
[2018-04-29] MEDS: ALPHA PROTEINASE INHIBITOR IV (11:42)
== END 2018-04-29 12:30 | disposition home or self-care (01) ==
LOC: M INFU 10:55
DX: E88.01 Alpha-1-antitrypsin deficiency (principal)
CPT/HCPCS: J0256

== ENCOUNTER 2018-05-06 10:02 | Outpatient (CLI) | payer MEDICARE ==
[2018-05-06] MEDS: DILUENT IV (10:40)
[2018-05-06] MEDS: ALPHA PROTEINASE INHIBITOR IV (10:40)
[2018-05-06] MEDS: SODIUM CHLORIDE 0.9% INJ 10 ML SYR IV (10:41)
== END 2018-05-06 11:20 | disposition home or self-care (01) ==
LOC: M INFU 10:02
DX: E88.01 Alpha-1-antitrypsin deficiency (principal)
CPT/HCPCS: J0256

== ENCOUNTER 2018-05-13 11:08 | Outpatient (CLI) | payer MEDICARE ==
[2018-05-13] MEDS: SODIUM CHLORIDE 0.9% INJ 10 ML SYR IV (09:00)
[2018-05-13] MEDS: DILUENT IV (12:21)
[2018-05-13] MEDS: ALPHA PROTEINASE INHIBITOR IV (12:21)
== END 2018-05-13 13:00 | disposition home or self-care (01) ==
LOC: M INFU 11:08
DX: E88.01 Alpha-1-antitrypsin deficiency (principal)
CPT/HCPCS: J0256

== ENCOUNTER 2018-05-20 11:22 | Outpatient (CLI) | payer MEDICARE ==
[~2018-05-20] VITALS: Ht 170.2 cm; Wt 78.6 kg
[~2018-05-20 11:22] MED LIST changes: +ALBU17IN2 INH; +ASPI1TAB PO; +ATRO0.06; +AZIT-10 PO; +BREO1INH INH; +CALC600T31 PO; +CALCTAB97 PO; +CARD4TAB2 PO; +DALI1TAB2 PO; +ESOM1CAP5 PO; +FLON50SP; +FURO20TA2 PO; +HYDR12.55 PO; +HYDR25TAB PO; +INCR1INH INH; +IPRA0.00 INH; +IPRA6SP; +LEVA1TAB2 PO; +LEVO75TA4 PO; +NEUR300C PO; +NEXI1CAP4 PO; +NITR4TASL SL; +SING10TA32 PO; +SODI5OPD OD; -SODIUM CHLORIDE 0.9% INJ 10 ML SYR IV; +SODIUM CHLORIDE 0.9% INJ 10 ML SYR IV SCH; +TIZA4CAP PO; +ZOCO20TA PO; +ZYRT10CA PO
[2018-05-20 11:34] VITALS: BP 141/66
[2018-05-20] MEDS ORDERED: DILUENT IV ONE (12:00)
[2018-05-20] MEDS ORDERED: ALPHA PROTEINASE INHIBITOR IV ONE (12:00)
[2018-05-20 13:04] VITALS: BP 160/65
== END 2018-05-20 13:00 | disposition home or self-care (01) ==
LOC: M INFU 11:22
PROVIDERS: ATTEND Internal Medicine Pulmonary Disease
DX: E88.01 Alpha-1-antitrypsin deficiency (principal)
CPT/HCPCS: 96365; J0256

== ENCOUNTER 2018-05-28 09:00 | Outpatient (CLI) | payer MEDICARE ==
[~2018-05-28] VITALS: Ht 170.2 cm; Wt 78.7 kg
[~2018-05-28 09:00] MED LIST changes: +ALPHA PROTEINASE INHIBITOR IV ONE; +DILUENT IV ONE
[2018-05-28 09:05] VITALS: BP 162/67
[2018-05-28 09:38] LABS: HEMATOCRIT 38.5 % (42.0-52.0); HEMOGLOBIN 12.6 g/dl (13.5-17.5); MEAN CORPUSCULAR HEMOGLOBIN 29.2 pg (27.0-33.0); MEAN CORPUSCULAR HGB CONC 32.7 g/dl (32.0-36.5); MEAN CORPUSCULAR VOLUME 89.3 fl (80.0-96.0); PLATELET COUNT, AUTOMATED 221 10^3/uL (150-450); RED BLOOD COUNT 4.31 10^6/uL (4.30-6.10); WHITE BLOOD COUNT 13.6 10^3/uL (4.0-10.0)
[2018-05-28 10:10] VITALS: BP 148/66
[2018-05-28 10:14] LABS: ATYPICAL LYMPH 2 % (0-5); EOSINOPHILS 1 % (0-5); LYMPHOCYTES 30 % (16-52); MONOCYTES 10 % (0-8); MYELOCYTES 1 % (0-0); NEUTROPHILS 56 % (35-75)
[2018-05-28 10:15] LABS: PLATELET ESTIMATE NORMAL (NORMAL)
[2018-05-28 10:16] LABS: ANISOCYTOSIS 1+; HYPOCHROMASIA 1+; MICROCYTOSIS 1+
[2018-05-28 10:19] LABS: ALBUMIN 3.7 GM/DL (3.2-5.2); ALT/SGPT 25 U/L (12-78); BILIRUBIN,TOTAL 0.4 MG/DL (0.2-1.0); BLOOD UREA NITROGEN 18 MG/DL (7-18); CALCIUM LEVEL 8.3 MG/DL (8.8-10.2); CARBON DIOXIDE LEVEL 30 MEQ/L (21-32); CHLORIDE LEVEL 104 MEQ/L (98-107); CHOLESTEROL LEVEL 170 MG/DL (<200); CHOLESTEROL RISK RATIO 4.146 (<5); CREATININE FOR GFR 1.06 MG/DL (0.70-1.30); FERRITIN 175 NG/ML (26-388); FREE T4 1.06 NG/DL (0.76-1.46); GLOMERULAR FILTRATION RATE > 60.0 (>42); GLUCOSE, FASTING 102 MG/DL (70-100); HDL CHOLESTEROL 41 MG/DL (>40); IRON (FE) 36 UG/DL (65-175); LDL CHOLESTEROL 109 MG/DL (<100); NON-HDL-C 129 MG/DL; PERCENT SATURATION 13.9 % (19.7-50.0); POTASSIUM SERUM 3.8 MEQ/L (3.5-5.1); SODIUM LEVEL 141 MEQ/L (136-145); TOTAL IRON BINDING CAPACITY 259 UG/DL (250-450); TOTAL PROTEIN 6.6 GM/DL (6.4-8.2); TRIGLYCERIDES LEVEL 98 MG/DL (<150)
[2018-05-29 14:13] LABS: PSA TOTAL 3.4 ng/mL (0.0-4.0)
== END 2018-05-28 10:10 | disposition home or self-care (01) ==
LOC: M INFU 09:00
PROVIDERS: ATTEND Internal Medicine Pulmonary Disease
DX: E88.01 Alpha-1-antitrypsin deficiency (principal)
CPT/HCPCS: 36415; 80053; 80061; 82728; 83550; 84154; 84439; 84443; 85025; 96365; J0256

== ENCOUNTER 2018-06-04 11:05 | Outpatient (CLI) | payer MEDICARE ==
[~2018-06-04] VITALS: Ht 170.2 cm; Wt 78.6 kg
[~2018-06-04 11:05] MED LIST changes: -ALPHA PROTEINASE INHIBITOR IV ONE; -DILUENT IV ONE
[2018-06-04 11:10] VITALS: BP 146/67
[2018-06-04] MEDS ORDERED: DILUENT IV ONE (12:00)
[2018-06-04] MEDS ORDERED: ALPHA PROTEINASE INHIBITOR IV ONE (12:00)
[2018-06-04 12:35] VITALS: BP 150/71
== END 2018-06-04 12:35 | disposition home or self-care (01) ==
LOC: M INFU 11:05
PROVIDERS: ATTEND Internal Medicine Pulmonary Disease
DX: E88.01 Alpha-1-antitrypsin deficiency (principal)
CPT/HCPCS: 96365; J0256

== ENCOUNTER 2018-06-10 11:14 | Outpatient (CLI) | payer MEDICARE ==
[~2018-06-10] VITALS: Ht 170.2 cm; Wt 78.6 kg
[~2018-06-10 11:14] MED LIST changes: +ALPHA PROTEINASE INHIBITOR IV ONE; +DILUENT IV ONE
[2018-06-10 11:31] VITALS: BP 143/66
[2018-06-10 12:40] VITALS: BP 158/73
== END 2018-06-10 12:40 | disposition home or self-care (01) ==
LOC: M INFU 11:14
PROVIDERS: ATTEND Internal Medicine Pulmonary Disease
DX: E88.01 Alpha-1-antitrypsin deficiency (principal)
CPT/HCPCS: 96365; J0256

== ENCOUNTER 2018-06-17 10:55 | Outpatient (CLI) | payer MEDICARE ==
[~2018-06-17] VITALS: Ht 170.2 cm; Wt 78.5 kg
[~2018-06-17 10:55] MED LIST changes: -ALPHA PROTEINASE INHIBITOR IV ONE; -DILUENT IV ONE
[2018-06-17 11:05] VITALS: BP 132/61
[2018-06-17] MEDS ORDERED: DILUENT IV ONE (12:00)
[2018-06-17] MEDS ORDERED: ALPHA PROTEINASE INHIBITOR IV ONE (12:00)
[2018-06-17 13:00] VITALS: BP 156/69
== END 2018-06-17 13:00 | disposition home or self-care (01) ==
LOC: M INFU 10:55
PROVIDERS: ATTEND Internal Medicine Pulmonary Disease
DX: E88.01 Alpha-1-antitrypsin deficiency (principal)
CPT/HCPCS: 96365; J0256

== ENCOUNTER 2018-06-24 10:55 | Outpatient (CLI) | payer MEDICARE ==
[~2018-06-24] VITALS: Ht 170.2 cm; Wt 77.7 kg
[~2018-06-24 10:55] MED LIST changes: +ALPHA PROTEINASE INHIBITOR IV ONE; +DILUENT IV ONE
[2018-06-24 11:00] VITALS: BP 159/64
[2018-06-24 12:30] VITALS: BP 142/66
== END 2018-06-24 12:30 | disposition home or self-care (01) ==
LOC: M INFU 10:55
PROVIDERS: ATTEND Internal Medicine Pulmonary Disease
DX: E88.01 Alpha-1-antitrypsin deficiency (principal)
CPT/HCPCS: 96365; J0256

== ENCOUNTER 2018-07-01 12:32 | Outpatient (CLI) | payer MEDICARE ==
[~2018-07-01] VITALS: Ht 165.1 cm; Wt 78.6 kg
[2018-07-01 12:30] VITALS: BP 149/59
[2018-07-01 14:14] VITALS: BP 145/67
== END 2018-07-01 14:15 | disposition home or self-care (01) ==
LOC: M INFU 12:32
PROVIDERS: ATTEND Internal Medicine Pulmonary Disease
DX: E88.01 Alpha-1-antitrypsin deficiency (principal)
CPT/HCPCS: 96365; J0256

== ENCOUNTER 2018-07-08 10:48 | Outpatient (CLI) | payer MEDICARE ==
[~2018-07-08] VITALS: Ht 170.2 cm; Wt 78.6 kg
[2018-07-08 11:00] VITALS: BP 129/64
[2018-07-08 13:00] VITALS: BP 126/70
== END 2018-07-08 13:00 | disposition home or self-care (01) ==
LOC: M INFU 10:48
PROVIDERS: ATTEND Internal Medicine Pulmonary Disease
DX: E88.01 Alpha-1-antitrypsin deficiency (principal)
CPT/HCPCS: 96365; J0256

== ENCOUNTER 2018-07-15 11:03 | Outpatient (CLI) | payer MEDICARE ==
[~2018-07-15] VITALS: Ht 167.6 cm; Wt 78.6 kg
[2018-07-15 11:16] VITALS: BP 149/70
[2018-07-15 12:31] VITALS: BP 152/70
== END 2018-07-15 12:30 | disposition home or self-care (01) ==
LOC: M INFU 11:03
PROVIDERS: ATTEND Internal Medicine Pulmonary Disease
DX: E88.01 Alpha-1-antitrypsin deficiency (principal); Z88.2 Allergy status to sulfonamides; J30.89 Other allergic rhinitis; Z79.82 Long term (current) use of aspirin; Z79.899 Other long term (current) drug therapy
CPT/HCPCS: 96365; J0256

== ENCOUNTER 2018-07-22 10:55 | Outpatient (CLI) | payer MEDICARE ==
[~2018-07-22] VITALS: Ht 170.2 cm; Wt 78.6 kg
[~2018-07-22 10:55] MED LIST changes: -ALPHA PROTEINASE INHIBITOR IV ONE; -DILUENT IV ONE
[2018-07-22 11:00] VITALS: BP 144/88
[2018-07-22] MEDS ORDERED: DILUENT IV ONE (11:30)
[2018-07-22] MEDS ORDERED: ALPHA PROTEINASE INHIBITOR IV ONE (11:30)
[2018-07-22 12:30] VITALS: BP 157/70
== END 2018-07-22 12:30 | disposition home or self-care (01) ==
LOC: M INFU 10:55
PROVIDERS: ATTEND Internal Medicine Pulmonary Disease
DX: E88.01 Alpha-1-antitrypsin deficiency (principal)
CPT/HCPCS: 96365; J0256

== ENCOUNTER 2018-07-29 10:56 | Outpatient (CLI) | payer MEDICARE ==
[~2018-07-29] VITALS: Ht 170.2 cm; Wt 78.5 kg
[2018-07-29 11:15] VITALS: BP 139/67
[2018-07-29] MEDS ORDERED: ALPHA PROTEINASE INHIBITOR IV ONE (11:30)
[2018-07-29] MEDS ORDERED: DILUENT IV ONE (11:30)
[2018-07-29 12:29] VITALS: BP 160/70
== END 2018-07-29 12:45 | disposition home or self-care (01) ==
LOC: M INFU 10:56
PROVIDERS: ATTEND Internal Medicine Pulmonary Disease
DX: E88.01 Alpha-1-antitrypsin deficiency (principal); Z88.2 Allergy status to sulfonamides
CPT/HCPCS: 96365; J0256

== ENCOUNTER 2018-08-05 10:59 | Outpatient (CLI) | payer MEDICARE ==
[~2018-08-05] VITALS: Ht 170.2 cm; Wt 78.6 kg
[2018-08-05 11:25] VITALS: BP 138/65
[2018-08-05] MEDS ORDERED: ALPHA PROTEINASE INHIBITOR IV ONE (11:30)
[2018-08-05] MEDS ORDERED: DILUENT IV ONE (11:30)
[2018-08-05] MEDS ORDERED: [UNRECOGNIZED DRUG - SUPPLY] XX ONE (11:30)
[2018-08-05 13:02] VITALS: BP 155/79
== END 2018-08-05 13:00 | disposition home or self-care (01) ==
LOC: M INFU 10:59
PROVIDERS: ATTEND Internal Medicine Pulmonary Disease
DX: E88.01 Alpha-1-antitrypsin deficiency (principal)
CPT/HCPCS: 96365; J0256

== ENCOUNTER 2018-08-12 10:52 | Outpatient (CLI) | payer MEDICARE ==
[~2018-08-12] VITALS: Ht 170.2 cm; Wt 78.5 kg
[2018-08-12 11:00] VITALS: BP 141/61
[2018-08-12] MEDS ORDERED: DILUENT IV ONE (11:30)
[2018-08-12] MEDS ORDERED: [UNRECOGNIZED DRUG - SUPPLY] XX ONE (11:30)
[2018-08-12] MEDS ORDERED: ALPHA PROTEINASE INHIBITOR IV ONE (11:30)
[2018-08-12 12:30] VITALS: BP 141/61
== END 2018-08-12 12:30 | disposition home or self-care (01) ==
LOC: M INFU 10:52
PROVIDERS: ATTEND Internal Medicine Pulmonary Disease
DX: E88.01 Alpha-1-antitrypsin deficiency (principal); Z88.2 Allergy status to sulfonamides
CPT/HCPCS: 96365; J0256

== ENCOUNTER 2018-09-02 08:56 | Outpatient (CLI) | payer MEDICARE ==
[~2018-09-02] VITALS: Ht 165.1 cm; Wt 78.6 kg
[~2018-09-02 08:56] MED LIST changes: -ASPI1TAB PO; +ASPI81TA26 PO; -SODIUM CHLORIDE 0.9% INJ 10 ML SYR IV SCH
[2018-09-02] MEDS ORDERED: SODIUM CHLORIDE 0.9% INJ 10 ML SYR IV SCH (09:00)
[2018-09-02 09:15] VITALS: BP 131/61
[2018-09-02] MEDS ORDERED: [UNRECOGNIZED DRUG - SUPPLY] XX ONE (09:15)
[2018-09-02] MEDS ORDERED: DILUENT IV ONE (09:15)
[2018-09-02] MEDS ORDERED: ALPHA PROTEINASE INHIBITOR IV ONE (09:15)
[2018-09-02 09:34] LABS: HEMATOCRIT 36.2 % (42.0-52.0); HEMOGLOBIN 11.8 g/dl (13.5-17.5); MEAN CORPUSCULAR HEMOGLOBIN 28.6 pg (27.0-33.0); MEAN CORPUSCULAR HGB CONC 32.6 g/dl (32.0-36.5); MEAN CORPUSCULAR VOLUME 87.9 fl (80.0-96.0); PLATELET COUNT, AUTOMATED 280 10^3/uL (150-450); RED BLOOD COUNT 4.12 10^6/uL (4.30-6.10); WHITE BLOOD COUNT 18.9 10^3/uL (4.0-10.0)
[2018-09-02 10:15] VITALS: BP 137/65
[2018-09-02 10:17] LABS: ALBUMIN 3.6 GM/DL (3.2-5.2); ALT/SGPT 24 U/L (12-78); ATYPICAL LYMPH 2 % (0-5); BILIRUBIN,TOTAL 0.6 MG/DL (0.2-1.0); BLOOD UREA NITROGEN 15 MG/DL (7-18); CALCIUM LEVEL 8.6 MG/DL (8.8-10.2); CARBON DIOXIDE LEVEL 28 MEQ/L (21-32); CHLORIDE LEVEL 105 MEQ/L (98-107); CHOLESTEROL LEVEL 153 MG/DL (<200); CHOLESTEROL RISK RATIO 3.477 (<5); CREATININE FOR GFR 1.06 MG/DL (0.70-1.30); EOSINOPHILS 1 % (0-5); GLOMERULAR FILTRATION RATE > 60.0 (>42); GLUCOSE, FASTING 102 MG/DL (70-100); HDL CHOLESTEROL 44 MG/DL (>40); LDL CHOLESTEROL 87 MG/DL (<100); LYMPHOCYTES 18 % (16-52); MONOCYTES 5 % (0-8); NEUTROPHILS 74 % (35-75); NON-HDL-C 109 MG/DL; PLATELET ESTIMATE NORMAL (NORMAL); POTASSIUM SERUM 3.5 MEQ/L (3.5-5.1); SODIUM LEVEL 140 MEQ/L (136-145); TOTAL PROTEIN 6.4 GM/DL (6.4-8.2); TRIGLYCERIDES LEVEL 111 MG/DL (<150)
[2018-09-02 10:18] LABS: ANISOCYTOSIS 1+; HYPOCHROMASIA 1+
== END 2018-09-02 10:15 | disposition home or self-care (01) ==
LOC: M INFU 08:56
PROVIDERS: ATTEND Internal Medicine Pulmonary Disease
DX: E88.01 Alpha-1-antitrypsin deficiency (principal); J30.89 Other allergic rhinitis; Z88.1 Allergy status to other antibiotic agents; Z88.2 Allergy status to sulfonamides; E03.9 Hypothyroidism, unspecified; E78.5 Hyperlipidemia, unspecified
CPT/HCPCS: 36591; 80053; 80061; 84439; 84443; 85025; 96365; J0256

== ENCOUNTER → 2018-09-05 | Outpatient (REF) | payer MEDICARE | LOC: M LAB REF 16:02 | PROVIDERS: ATTEND Physician Assistant | DX: E88.01 Alpha-1-antitrypsin deficiency (principal) ==

== ENCOUNTER → 2018-09-25 | Outpatient (CLI) | payer MEDICARE ==
[2018-09-25 13:45] LABS: HEMATOCRIT 39.9 % (42.0-52.0); HEMOGLOBIN 12.7 g/dl (13.5-17.5); MEAN CORPUSCULAR HEMOGLOBIN 28.7 pg (27.0-33.0); MEAN CORPUSCULAR HGB CONC 31.8 g/dl (32.0-36.5); MEAN CORPUSCULAR VOLUME 90.3 fl (80.0-96.0); PLATELET COUNT, AUTOMATED 279 10^3/uL (150-450); RED BLOOD COUNT 4.42 10^6/uL (4.30-6.10)
[2018-09-25 13:52] LABS: WHITE BLOOD COUNT 15.7 10^3/uL (4.0-10.0)
[2018-09-25 14:47] LABS: ATYPICAL LYMPH 9 % (0-5); EOSINOPHILS 1 % (0-5); LYMPHOCYTES 31 % (16-52); MONOCYTES 5 % (0-8); NEUTROPHILS 54 % (35-75)
[2018-09-25 14:48] LABS: ANISOCYTOSIS 1+; OVALOCYTES 1+; PLATELET ESTIMATE NORMAL (NORMAL); POIKILOCYTOSIS 1+
[2018-09-25 14:49] LABS: SMUDGE CELLS 1+
== END ==
LOC: M SMT 10:14
PROVIDERS: ATTEND Physician Assistant
DX: J43.1 Panlobular emphysema (principal)

== ENCOUNTER 2018-09-30 10:53 | Outpatient (CLI) | payer MEDICARE ==
[~2018-09-30] VITALS: Ht 170.2 cm; Wt 78.6 kg
[~2018-09-30 10:53] MED LIST changes: +SODIUM CHLORIDE 0.9% INJ 10 ML SYR IV SCH
[2018-09-30 10:55] VITALS: BP 144/67
[2018-09-30] MEDS ORDERED: DILUENT IV ONE (11:15)
[2018-09-30] MEDS ORDERED: [UNRECOGNIZED DRUG - SUPPLY] XX ONE (11:15)
[2018-09-30] MEDS ORDERED: ALPHA PROTEINASE INHIBITOR IV ONE (11:15)
[2018-09-30 12:25] VITALS: BP 136/62
== END 2018-09-30 12:30 | disposition home or self-care (01) ==
LOC: M INFU 10:53
PROVIDERS: ATTEND Internal Medicine Pulmonary Disease
DX: E88.01 Alpha-1-antitrypsin deficiency (principal)
CPT/HCPCS: 96365; J0256

== ENCOUNTER 2018-10-07 10:53 | Outpatient (CLI) | payer MEDICARE ==
[~2018-10-07] VITALS: Ht 170.2 cm; Wt 78.0 kg
[2018-10-07 11:00] VITALS: BP 160/85
[2018-10-07] MEDS ORDERED: DILUENT IV ONE (12:00)
[2018-10-07] MEDS ORDERED: [UNRECOGNIZED DRUG - SUPPLY] XX ONE (12:00)
[2018-10-07] MEDS ORDERED: ALPHA PROTEINASE INHIBITOR IV ONE (12:00)
[2018-10-07 12:05] VITALS: BP 147/70
== END 2018-10-07 12:35 | disposition home or self-care (01) ==
LOC: M INFU 10:53
PROVIDERS: ATTEND Internal Medicine Pulmonary Disease
DX: E88.01 Alpha-1-antitrypsin deficiency (principal)
CPT/HCPCS: 96365; J0256

== ENCOUNTER 2018-10-14 10:50 | Outpatient (CLI) | payer MEDICARE ==
[~2018-10-14] VITALS: Ht 165.1 cm; Wt 78.2 kg
[2018-10-14 11:10] VITALS: BP 138/63
[2018-10-14] MEDS ORDERED: [UNRECOGNIZED DRUG - SUPPLY] XX ONE (11:15)
[2018-10-14] MEDS ORDERED: ALPHA PROTEINASE INHIBITOR IV ONE (12:00)
[2018-10-14] MEDS ORDERED: DILUENT IV ONE (12:00)
[2018-10-14 12:15] VITALS: BP 152/79
== END 2018-10-14 12:35 | disposition home or self-care (01) ==
LOC: M INFU 10:50
PROVIDERS: ATTEND Internal Medicine Pulmonary Disease
DX: E88.01 Alpha-1-antitrypsin deficiency (principal)
CPT/HCPCS: 96365; J0256

== ENCOUNTER 2018-10-21 10:49 | Outpatient (CLI) | payer MEDICARE ==
[~2018-10-21] VITALS: Ht 170.2 cm; Wt 78.1 kg
[2018-10-21 11:00] VITALS: BP 130/63
[2018-10-21] MEDS ORDERED: ALPHA PROTEINASE INHIBITOR IV ONE ×2 (11:00→11:30)
[2018-10-21] MEDS ORDERED: [UNRECOGNIZED DRUG - SUPPLY] XX ONE (11:00)
[2018-10-21] MEDS ORDERED: DILUENT IV ONE ×2 (11:00→11:30)
[2018-10-21 12:50] VITALS: BP 143/67
== END 2018-10-21 12:50 | disposition home or self-care (01) ==
LOC: M INFU 10:49
PROVIDERS: ATTEND Internal Medicine Pulmonary Disease
DX: E88.1 Lipodystrophy, not elsewhere classified (principal)
CPT/HCPCS: 96365; J0256

== ENCOUNTER 2018-10-28 10:50 | Outpatient (CLI) | payer MEDICARE ==
[~2018-10-28] VITALS: Ht 170.2 cm; Wt 78.0 kg
[2018-10-28 11:08] VITALS: BP 143/64
[2018-10-28 11:20] VITALS: BP 133/71
[2018-10-28 12:00] VITALS: BP 143/63
[2018-10-28] MEDS ORDERED: DILUENT IV ONE (12:00)
[2018-10-28] MEDS ORDERED: [UNRECOGNIZED DRUG - SUPPLY] XX ONE (12:00)
[2018-10-28] MEDS ORDERED: ALPHA PROTEINASE INHIBITOR IV ONE (12:00)
[2018-10-28 12:30] VITALS: BP 141/67
== END 2018-10-28 12:30 | disposition home or self-care (01) ==
LOC: M INFU 10:50
PROVIDERS: ATTEND Internal Medicine Pulmonary Disease
DX: E88.01 Alpha-1-antitrypsin deficiency (principal)
CPT/HCPCS: 96365; J0256

== ENCOUNTER 2018-11-04 10:53 | Outpatient (CLI) | payer MEDICARE ==
[~2018-11-04] VITALS: Ht 170.2 cm; Wt 78.1 kg
[2018-11-04 11:00] VITALS: BP 139/65
[2018-11-04] MEDS ORDERED: DILUENT IV ONE (11:15)
[2018-11-04] MEDS ORDERED: [UNRECOGNIZED DRUG - SUPPLY] XX ONE (11:15)
[2018-11-04] MEDS ORDERED: ALPHA PROTEINASE INHIBITOR IV ONE (11:15)
[2018-11-04 12:20] VITALS: BP 133/63
== END 2018-11-04 12:25 | disposition home or self-care (01) ==
LOC: M INFU 10:53
PROVIDERS: ATTEND Internal Medicine Pulmonary Disease
DX: E88.01 Alpha-1-antitrypsin deficiency (principal)
CPT/HCPCS: 96365; J0256

== ENCOUNTER 2018-11-11 11:05 | Outpatient (CLI) | payer MEDICARE ==
[~2018-11-11] VITALS: Ht 172.7 cm; Wt 78.2 kg
[2018-11-11 11:10] VITALS: BP 136/60
[2018-11-11] MEDS ORDERED: [UNRECOGNIZED DRUG - SUPPLY] XX ONE (11:30)
[2018-11-11] MEDS ORDERED: DILUENT IV ONE (11:30)
[2018-11-11] MEDS ORDERED: ALPHA PROTEINASE INHIBITOR IV ONE (11:30)
[2018-11-11 12:51] VITALS: BP 167/70
== END 2018-11-11 13:00 | disposition home or self-care (01) ==
LOC: M INFU 11:05
PROVIDERS: ATTEND Internal Medicine Pulmonary Disease
DX: E88.01 Alpha-1-antitrypsin deficiency (principal)
CPT/HCPCS: 96365; J0256

== ENCOUNTER 2018-11-18 10:48 | Outpatient (CLI) | payer MEDICARE ==
[~2018-11-18] VITALS: Ht 170.2 cm; Wt 78.0 kg
[2018-11-18 10:50] VITALS: BP 118/65
[2018-11-18] MEDS ORDERED: DILUENT IV ONE (12:00)
[2018-11-18] MEDS ORDERED: ALPHA PROTEINASE INHIBITOR IV ONE (12:00)
== END 2018-11-18 13:10 | disposition home or self-care (01) ==
LOC: M INFU 10:48
PROVIDERS: ATTEND Internal Medicine Pulmonary Disease
DX: E88.01 Alpha-1-antitrypsin deficiency (principal)
CPT/HCPCS: 96365; J0256

== ENCOUNTER 2018-11-25 10:49 | Outpatient (CLI) | payer MEDICARE ==
[~2018-11-25] VITALS: Ht 170.2 cm; Wt 78.1 kg
[2018-11-25 10:58] VITALS: BP 125/62
[2018-11-25] MEDS ORDERED: DILUENT IV ONE (12:00)
[2018-11-25] MEDS ORDERED: ALPHA PROTEINASE INHIBITOR IV ONE (12:00)
[2018-11-25 12:25] VITALS: BP 147/65
== END 2018-11-25 12:25 | disposition home or self-care (01) ==
LOC: M INFU 10:49
PROVIDERS: ATTEND Internal Medicine Pulmonary Disease
DX: E88.01 Alpha-1-antitrypsin deficiency (principal)
CPT/HCPCS: 96365; J0256

== ENCOUNTER 2018-12-02 10:53 | Outpatient (CLI) | payer MEDICARE ==
[~2018-12-02] VITALS: Ht 170.2 cm; Wt 78.2 kg
[2018-12-02] MEDS: SODIUM CHLORIDE 0.9% INJ 10 ML SYR IV SCH ×2 (09:00→12:13)
[~2018-12-02 10:53] MED LIST changes: -SODIUM CHLORIDE 0.9% INJ 10 ML SYR IV SCH
[2018-12-02] MEDS ORDERED: ALPHA PROTEINASE INHIBITOR IV ONE (11:00)
[2018-12-02] MEDS ORDERED: DILUENT IV ONE (11:00)
[2018-12-02] MEDS ORDERED: [UNRECOGNIZED DRUG - SUPPLY] XX ONE (11:00)
[2018-12-02] MEDS ORDERED: SYMB80INH INH (11:01)
[2018-12-02 11:03] VITALS: BP 124/57
[2018-12-02 12:25] VITALS: BP 137/64
== END 2018-12-02 12:25 | disposition home or self-care (01) ==
LOC: M INFU 10:53
PROVIDERS: ATTEND Internal Medicine Pulmonary Disease
DX: E88.01 Alpha-1-antitrypsin deficiency (principal)
CPT/HCPCS: 96365; J0256

== ENCOUNTER → 2018-12-04 | Outpatient (REF) | payer MEDICARE ==
[~2018-12-04] MED LIST changes: +SYMB80INH INH
== END ==
LOC: M LAB REF 11:11
PROVIDERS: ATTEND Family Medicine
DX: J44.0 Chronic obstructive pulmonary disease with (acute) lower respiratory infection (principal)

== ENCOUNTER 2018-12-09 10:53 | Outpatient (CLI) | payer MEDICARE ==
[~2018-12-09] VITALS: Ht 170.2 cm; Wt 78.2 kg
[~2018-12-09 10:53] MED LIST changes: +SODIUM CHLORIDE 0.9% INJ 10 ML SYR IV SCH
[2018-12-09 10:55] VITALS: BP 127/60
[2018-12-09] MEDS ORDERED: [UNRECOGNIZED DRUG - SUPPLY] XX ONE (11:30)
[2018-12-09] MEDS ORDERED: DILUENT IV ONE (11:30)
[2018-12-09] MEDS ORDERED: ALPHA PROTEINASE INHIBITOR IV ONE (11:30)
[2018-12-09 12:10] VITALS: BP 139/71
== END 2018-12-09 12:30 | disposition home or self-care (01) ==
LOC: M INFU 10:53
PROVIDERS: ATTEND Internal Medicine Pulmonary Disease
DX: E88.01 Alpha-1-antitrypsin deficiency (principal)
CPT/HCPCS: 96365; J0256

== ENCOUNTER → 2018-12-11 | Outpatient (CLI) | payer MEDICARE ==
[~2018-12-11] MED LIST changes: -SODIUM CHLORIDE 0.9% INJ 10 ML SYR IV SCH
--- NOTE | 2018-12-11 16:18 | REP ---
Chest x-ray: Two views: History: Yanez lobular emphysema. Comparison chest x-rays from March 26, 2018. Findings: There is a left-sided Ohorqf-W-[id number] catheter again noted in place. The lungs are symmetrically aerated. There is mild bibasilar interstitial fibrosis unchanged. No acute infiltrate is seen. The heart is not enlarged. Pulmonary vasculature is not increased. There are degenerative changes in the thoracic spine and aorta. Impression: Mild bibasilar fibrosis changes. [id number] catheter in place. Otherwise no acute disease. Electronically Signed by Ari Eldridge MD 12/11/2018 05:15 P
== END ==
LOC: M SMT 10:16
PROVIDERS: ATTEND Physician Assistant
DX: J43.1 Panlobular emphysema (principal)

== ENCOUNTER 2018-12-16 10:55 | Outpatient (CLI) | payer MEDICARE ==
[~2018-12-16] VITALS: Ht 170.2 cm; Wt 72.8 kg
[~2018-12-16 10:55] MED LIST changes: +ALPHA PROTEINASE INHIBITOR IV ONE; +SODIUM CHLORIDE 0.9% INJ 10 ML SYR IV SCH; +[UNRECOGNIZED DRUG - SUPPLY] XX ONE
[2018-12-16 11:00] VITALS: BP 130/69
[2018-12-16 12:32] VITALS: BP 150/66
== END 2018-12-16 12:30 | disposition home or self-care (01) ==
LOC: M INFU 10:55
PROVIDERS: ATTEND Internal Medicine Pulmonary Disease
DX: E88.01 Alpha-1-antitrypsin deficiency (principal)
CPT/HCPCS: 96365; J0256

== ENCOUNTER 2018-12-23 10:47 | Outpatient (CLI) | payer MEDICARE ==
[~2018-12-23] VITALS: Ht 170.2 cm; Wt 78.2 kg
[~2018-12-23 10:47] MED LIST changes: -ALPHA PROTEINASE INHIBITOR IV ONE; -[UNRECOGNIZED DRUG - SUPPLY] XX ONE
[2018-12-23] MEDS ORDERED: [UNRECOGNIZED DRUG - SUPPLY] XX ONE (11:00)
[2018-12-23] MEDS ORDERED: DILUENT IV ONE (11:00)
[2018-12-23] MEDS ORDERED: ALPHA PROTEINASE INHIBITOR IV ONE (11:00)
[2018-12-23 11:14] VITALS: BP 134/64
[2018-12-23 12:30] VITALS: BP 162/69
== END 2018-12-23 12:30 | disposition home or self-care (01) ==
LOC: M INFU 10:47
PROVIDERS: ATTEND Internal Medicine Pulmonary Disease
DX: E88.01 Alpha-1-antitrypsin deficiency (principal)
CPT/HCPCS: 96365; J0256

== ENCOUNTER 2018-12-30 10:53 | Outpatient (CLI) | payer MEDICARE ==
[~2018-12-30] VITALS: Ht 170.2 cm; Wt 78.2 kg
[~2018-12-30 10:53] MED LIST changes: +ALPHA PROTEINASE INHIBITOR IV ONE; +DILUENT IV ONE; +SODIUM CHLORIDE 0.9% INJ 10 ML SYR IV SCH; +[UNRECOGNIZED DRUG - SUPPLY] XX ONE
[2018-12-30 11:00] VITALS: BP 120/60
[2018-12-30 11:50] VITALS: BP 132/61
[2018-12-30 12:30] VITALS: BP 155/67
== END 2018-12-30 12:30 | disposition home or self-care (01) ==
LOC: M INFU 10:53
PROVIDERS: ATTEND Internal Medicine Pulmonary Disease
DX: E88.01 Alpha-1-antitrypsin deficiency (principal); I27.23 Pulmonary hypertension due to lung diseases and hypoxia
CPT/HCPCS: 36415; 80048; 96365; J0256

== ENCOUNTER → 2018-12-30 | Outpatient (CLI) | payer MEDICARE ==
[~2018-12-30] MED LIST changes: -SODIUM CHLORIDE 0.9% INJ 10 ML SYR IV SCH
[2018-12-30 12:17] LABS: BLOOD UREA NITROGEN 25 MG/DL (7-18); CALCIUM LEVEL 8.6 MG/DL (8.8-10.2); CARBON DIOXIDE LEVEL 33 MEQ/L (21-32); CHLORIDE LEVEL 92 MEQ/L (98-107); CREATININE FOR GFR 1.08 MG/DL (0.70-1.30); GLOMERULAR FILTRATION RATE > 60.0 (>42); GLUCOSE, FASTING 119 MG/DL (70-100); POTASSIUM SERUM 2.9 MEQ/L (3.5-5.1); SODIUM LEVEL 133 MEQ/L (136-145)
== END ==
LOC: M LAB 11:03
PROVIDERS: ATTEND Family Medicine
DX: I27.23 Pulmonary hypertension due to lung diseases and hypoxia (principal)

== ENCOUNTER 2019-01-06 10:51 | Outpatient (CLI) | payer MEDICARE ==
[~2019-01-06] VITALS: Ht 170.2 cm; Wt 78.1 kg
[~2019-01-06 10:51] MED LIST changes: +SODIUM CHLORIDE 0.9% INJ 10 ML SYR IV SCH
[2019-01-06 11:00] VITALS: BP 133/63
[2019-01-06] MEDS ORDERED: [UNRECOGNIZED DRUG - SUPPLY] XX ONE (11:00)
[2019-01-06] MEDS ORDERED: DILUENT IV ONE (11:00)
[2019-01-06] MEDS ORDERED: ALPHA PROTEINASE INHIBITOR IV ONE (11:00)
[2019-01-06 12:00] VITALS: BP 148/65
== END 2019-01-06 12:30 ==
LOC: M INFU 10:51
PROVIDERS: ATTEND Internal Medicine Pulmonary Disease
DX: E88.01 Alpha-1-antitrypsin deficiency (principal); E87.6 Hypokalemia
CPT/HCPCS: 36415; 80048; 83735; 96365; J0256

== ENCOUNTER → 2019-01-06 | Outpatient (CLI) | payer MEDICARE ==
[~2019-01-06] MED LIST changes: -ALPHA PROTEINASE INHIBITOR IV ONE; -DILUENT IV ONE; -SODIUM CHLORIDE 0.9% INJ 10 ML SYR IV SCH; -[UNRECOGNIZED DRUG - SUPPLY] XX ONE
[2019-01-06 17:38] LABS: BLOOD UREA NITROGEN 17 MG/DL (7-18); CALCIUM LEVEL 8.7 MG/DL (8.8-10.2); CARBON DIOXIDE LEVEL 35 MEQ/L (21-32); CHLORIDE LEVEL 100 MEQ/L (98-107); CREATININE FOR GFR 0.88 MG/DL (0.70-1.30); GLOMERULAR FILTRATION RATE > 60.0 (>42); GLUCOSE, FASTING 83 MG/DL (70-100); MAGNESIUM LEVEL 2.1 MG/DL (1.8-2.4); POTASSIUM SERUM 3.7 MEQ/L (3.5-5.1); SODIUM LEVEL 140 MEQ/L (136-145)
== END ==
LOC: M SMT 14:40
PROVIDERS: ATTEND Family Medicine
DX: E87.6 Hypokalemia (principal)

== ENCOUNTER 2019-01-13 10:51 | Outpatient (CLI) | payer MEDICARE ==
[~2019-01-13] VITALS: Ht 170.2 cm; Wt 78.0 kg
[2019-01-13 11:15] VITALS: BP 110/55
[2019-01-13] MEDS ORDERED: DILUENT IV ONE (11:45)
[2019-01-13] MEDS ORDERED: [UNRECOGNIZED DRUG - SUPPLY] XX ONE (11:45)
[2019-01-13] MEDS ORDERED: ALPHA PROTEINASE INHIBITOR IV ONE (11:45)
[2019-01-13 12:26] VITALS: BP 142/65
== END 2019-01-13 12:30 | disposition home or self-care (01) ==
LOC: M INFU 10:51
PROVIDERS: ATTEND Internal Medicine Pulmonary Disease
DX: E88.01 Alpha-1-antitrypsin deficiency (principal)
CPT/HCPCS: 96365; J0256

== ENCOUNTER 2019-01-20 10:52 | Outpatient (CLI) | payer MEDICARE ==
[~2019-01-20] VITALS: Ht 170.2 cm; Wt 75.3 kg
[~2019-01-20 10:52] MED LIST changes: -SODIUM CHLORIDE 0.9% INJ 10 ML SYR IV SCH
[2019-01-20 10:55] VITALS: BP 127/60
[2019-01-20] MEDS: ALPHA PROTEINASE INHIBITOR IV ONE (11:29)
[2019-01-20] MEDS: DILUENT IV ONE (11:29)
[2019-01-20] MEDS: SODIUM CHLORIDE 0.9% INJ 10 ML SYR IV SCH (11:58)
[2019-01-20] MEDS: [UNRECOGNIZED DRUG - SUPPLY] XX ONE (11:58)
[2019-01-20 12:15] VITALS: BP 145/67
== END 2019-01-20 12:15 | disposition home or self-care (01) ==
LOC: M INFU 10:52
PROVIDERS: ATTEND Internal Medicine Pulmonary Disease
DX: E88.01 Alpha-1-antitrypsin deficiency (principal); Z79.82 Long term (current) use of aspirin; Z79.899 Other long term (current) drug therapy
CPT/HCPCS: 96365; J0256

== ENCOUNTER 2019-01-27 10:52 | Outpatient (CLI) | payer MEDICARE ==
[~2019-01-27] VITALS: Ht 170.2 cm; Wt 75.5 kg
[~2019-01-27 10:52] MED LIST changes: +SODIUM CHLORIDE 0.9% INJ 10 ML SYR IV SCH
[2019-01-27 11:00] VITALS: BP 139/60
[2019-01-27] MEDS ORDERED: ALPHA PROTEINASE INHIBITOR IV ONE (11:00)
[2019-01-27] MEDS ORDERED: [UNRECOGNIZED DRUG - SUPPLY] XX ONE (11:30)
[2019-01-27 12:15] VITALS: BP 133/64
== END 2019-01-27 12:15 | disposition home or self-care (01) ==
LOC: M INFU 10:52
PROVIDERS: ATTEND Internal Medicine Pulmonary Disease
DX: E88.01 Alpha-1-antitrypsin deficiency (principal); Z79.899 Other long term (current) drug therapy
CPT/HCPCS: 96365; J0256

== ENCOUNTER 2019-02-03 10:58 | Outpatient (CLI) | payer MEDICARE ==
[~2019-02-03] VITALS: Ht 170.2 cm; Wt 75.4 kg
[2019-02-03 11:00] VITALS: BP 149/68
[2019-02-03] MEDS ORDERED: ALPHA PROTEINASE INHIBITOR IV ONE (11:00)
[2019-02-03] MEDS ORDERED: DILUENT IV ONE (11:00)
[2019-02-03] MEDS ORDERED: [UNRECOGNIZED DRUG - SUPPLY] XX ONE (11:00)
[2019-02-03 12:30] VITALS: BP 146/70
== END 2019-02-03 12:30 | disposition home or self-care (01) ==
LOC: M INFU 10:58
PROVIDERS: ATTEND Internal Medicine Pulmonary Disease
DX: E88.01 Alpha-1-antitrypsin deficiency (principal); Z79.82 Long term (current) use of aspirin; Z79.899 Other long term (current) drug therapy
CPT/HCPCS: 96365; J0256

== ENCOUNTER → 2019-02-06 | Outpatient (CLI) | payer MEDICARE ==
[~2019-02-06] MED LIST changes: -SODIUM CHLORIDE 0.9% INJ 10 ML SYR IV SCH
[2019-02-06 18:44] LABS: HEMATOCRIT 39.4 % (42.0-52.0); HEMOGLOBIN 12.4 g/dl (13.5-17.5); MEAN CORPUSCULAR HEMOGLOBIN 29.6 pg (27.0-33.0); MEAN CORPUSCULAR HGB CONC 31.5 g/dl (32.0-36.5); PLATELET COUNT, AUTOMATED 237 10^3/uL (150-450); RED BLOOD COUNT 4.19 10^6/uL (4.30-6.10)
[2019-02-06 18:48] LABS: ALBUMIN 3.9 GM/DL (3.2-5.2); ALT/SGPT 29 U/L (12-78); AMYLASE 83 U/L (25-115); BILIRUBIN,TOTAL 0.3 MG/DL (0.2-1.0); BLOOD UREA NITROGEN 19 MG/DL (7-18); CALCIUM LEVEL 9.4 MG/DL (8.8-10.2); CARBON DIOXIDE LEVEL 33 MEQ/L (21-32); CHLORIDE LEVEL 100 MEQ/L (98-107); GLOMERULAR FILTRATION RATE > 60.0 (>42); GLUCOSE, FASTING 88 MG/DL (70-100); LIPASE 194 U/L (73-393); POTASSIUM SERUM 4.2 MEQ/L (3.5-5.1); SODIUM LEVEL 138 MEQ/L (136-145); TOTAL PROTEIN 6.9 GM/DL (6.4-8.2)
[2019-02-06 19:39] LABS: ATYPICAL LYMPH 4 % (0-5); EOSINOPHILS 2 % (0-3); LYMPHOCYTES 50 % (16-44); MONOCYTES 4 % (0-5); NEUTROPHILS 39 % (28-66); PLATELET ESTIMATE NORMAL (NORMAL)
[2019-02-06 19:40] LABS: ANISOCYTOSIS 1+
== END ==
LOC: M SMT 14:20
PROVIDERS: ATTEND Family Medicine
DX: R10.32 Left lower quadrant pain (principal)

== ENCOUNTER 2019-02-10 10:47 | Outpatient (CLI) | payer MEDICARE ==
[~2019-02-10] VITALS: Ht 170.2 cm; Wt 75.5 kg
[~2019-02-10 10:47] MED LIST changes: +SODIUM CHLORIDE 0.9% INJ 10 ML SYR IV SCH; +[UNRECOGNIZED DRUG - SUPPLY] XX ONE
[2019-02-10 10:57] VITALS: BP 125/82
[2019-02-10] MEDS ORDERED: DILUENT IV ONE (11:00)
[2019-02-10] MEDS ORDERED: ALPHA PROTEINASE INHIBITOR IV ONE (11:00)
[2019-02-10 12:12] VITALS: BP 135/63
== END 2019-02-10 12:15 | disposition home or self-care (01) ==
LOC: M INFU 10:47
PROVIDERS: ATTEND Internal Medicine Pulmonary Disease
DX: E88.01 Alpha-1-antitrypsin deficiency (principal); Z79.82 Long term (current) use of aspirin; Z79.899 Other long term (current) drug therapy
CPT/HCPCS: 96365; J0256

== ENCOUNTER 2019-02-17 10:48 | Outpatient (CLI) | payer MEDICARE ==
[~2019-02-17] VITALS: Ht 170.2 cm; Wt 75.4 kg
[~2019-02-17 10:48] MED LIST changes: -[UNRECOGNIZED DRUG - SUPPLY] XX ONE
[2019-02-17 10:50] VITALS: BP 134/61
[2019-02-17] MEDS ORDERED: ALPHA PROTEINASE INHIBITOR IV ONE (11:00)
[2019-02-17] MEDS ORDERED: [UNRECOGNIZED DRUG - SUPPLY] XX ONE (11:00)
[2019-02-17 12:15] VITALS: BP 137/65
== END 2019-02-17 12:15 | disposition home or self-care (01) ==
LOC: M INFU 10:48
PROVIDERS: ATTEND Internal Medicine Pulmonary Disease
DX: E88.01 Alpha-1-antitrypsin deficiency (principal)
CPT/HCPCS: 96365; J0256

== ENCOUNTER 2019-02-24 10:56 | Outpatient (CLI) | payer MEDICARE ==
[~2019-02-24] VITALS: Ht 170.2 cm; Wt 75.5 kg
[2019-02-24 11:00] VITALS: BP 135/64
[2019-02-24] MEDS ORDERED: ALPHA PROTEINASE INHIBITOR IV ONE (11:00)
[2019-02-24] MEDS ORDERED: [UNRECOGNIZED DRUG - SUPPLY] XX ONE (11:00)
[2019-02-24] MEDS ORDERED: DILUENT IV ONE (11:00)
[2019-02-24 12:30] VITALS: BP 156/68
== END 2019-02-24 12:30 | disposition home or self-care (01) ==
LOC: M INFU 10:56
PROVIDERS: ATTEND Internal Medicine Pulmonary Disease
DX: E88.01 Alpha-1-antitrypsin deficiency (principal)
CPT/HCPCS: 96365; J0256

== ENCOUNTER 2019-03-03 10:49 | Outpatient (CLI) | payer MEDICARE ==
[~2019-03-03] VITALS: Ht 170.2 cm; Wt 75.4 kg
[~2019-03-03 10:49] MED LIST changes: +ALPHA PROTEINASE INHIBITOR IV ONE; +[UNRECOGNIZED DRUG - SUPPLY] XX ONE
[2019-03-03 10:55] VITALS: BP 136/63
[2019-03-03 13:10] VITALS: BP 142/70
== END 2019-03-03 13:10 | disposition home or self-care (01) ==
LOC: M INFU 10:49
PROVIDERS: ATTEND Internal Medicine Pulmonary Disease
DX: E88.01 Alpha-1-antitrypsin deficiency (principal); Z79.82 Long term (current) use of aspirin; Z79.899 Other long term (current) drug therapy
CPT/HCPCS: 96365; J0256

== ENCOUNTER 2019-03-10 10:50 | Outpatient (CLI) | payer MEDICARE ==
[~2019-03-10] VITALS: Ht 170.2 cm; Wt 75.0 kg
[~2019-03-10 10:50] MED LIST changes: -ALPHA PROTEINASE INHIBITOR IV ONE; -[UNRECOGNIZED DRUG - SUPPLY] XX ONE
[2019-03-10 10:55] VITALS: BP 133/65
[2019-03-10] MEDS ORDERED: ALPHA PROTEINASE INHIBITOR IV ONE (11:30)
[2019-03-10] MEDS ORDERED: [UNRECOGNIZED DRUG - SUPPLY] XX ONE (11:30)
[2019-03-10 12:15] VITALS: BP 137/80
== END 2019-03-10 12:15 | disposition home or self-care (01) ==
LOC: M INFU 10:50
PROVIDERS: ATTEND Internal Medicine Pulmonary Disease
DX: E88.01 Alpha-1-antitrypsin deficiency (principal); Z79.82 Long term (current) use of aspirin; Z79.899 Other long term (current) drug therapy; Z88.1 Allergy status to other antibiotic agents; Z88.2 Allergy status to sulfonamides
CPT/HCPCS: 96365; J0256

== ENCOUNTER 2019-03-17 10:50 | Outpatient (CLI) | payer MEDICARE ==
[~2019-03-17] VITALS: Ht 170.2 cm; Wt 75.5 kg
[2019-03-17 11:00] VITALS: BP 149/67
[2019-03-17] MEDS ORDERED: [UNRECOGNIZED DRUG - SUPPLY] XX ONE (11:15)
[2019-03-17] MEDS ORDERED: ALPHA PROTEINASE INHIBITOR IV ONE (11:30)
[2019-03-17 12:00] VITALS: BP 148/72
[2019-03-17 12:39] LABS: BLOOD UREA NITROGEN 18 MG/DL (7-18); CALCIUM LEVEL 8.5 MG/DL (8.8-10.2); CARBON DIOXIDE LEVEL 28 MEQ/L (21-32); CHLORIDE LEVEL 105 MEQ/L (98-107); CREATININE FOR GFR 1.17 MG/DL (0.70-1.30); GLOMERULAR FILTRATION RATE > 60.0 (>42); GLUCOSE, FASTING 99 MG/DL (70-100); POTASSIUM SERUM 4.5 MEQ/L (3.5-5.1); SODIUM LEVEL 138 MEQ/L (136-145)
== END 2019-03-17 12:00 | disposition home or self-care (01) ==
LOC: M INFU 10:50
PROVIDERS: ATTEND Internal Medicine Pulmonary Disease
DX: E88.01 Alpha-1-antitrypsin deficiency (principal); Z79.82 Long term (current) use of aspirin; Z79.899 Other long term (current) drug therapy; Z88.1 Allergy status to other antibiotic agents; Z88.2 Allergy status to sulfonamides
CPT/HCPCS: 36415; 80048; 96365; J0256

== ENCOUNTER 2019-03-24 10:51 | Outpatient (CLI) | payer MEDICARE ==
[~2019-03-24] VITALS: Ht 170.2 cm; Wt 75.5 kg
[2019-03-24] MEDS ORDERED: ALPHA PROTEINASE INHIBITOR IV ONE (11:00)
[2019-03-24] MEDS ORDERED: [UNRECOGNIZED DRUG - SUPPLY] XX ONE (11:00)
[2019-03-24 11:09] VITALS: BP 141/69
[2019-03-24 12:28] VITALS: BP 148/62
== END 2019-03-24 12:30 | disposition home or self-care (01) ==
LOC: M INFU 10:51
PROVIDERS: ATTEND Internal Medicine Pulmonary Disease
DX: E88.01 Alpha-1-antitrypsin deficiency (principal); Z79.82 Long term (current) use of aspirin; Z79.899 Other long term (current) drug therapy; Z88.1 Allergy status to other antibiotic agents; Z88.2 Allergy status to sulfonamides

== ENCOUNTER 2019-03-31 10:48 | Outpatient (CLI) | payer MEDICARE ==
[~2019-03-31] VITALS: Ht 170.2 cm; Wt 75.3 kg
[2019-03-31 10:50] VITALS: BP 144/65
[2019-03-31] MEDS ORDERED: ALPHA PROTEINASE INHIBITOR IV ONE (11:30)
[2019-03-31] MEDS ORDERED: [UNRECOGNIZED DRUG - SUPPLY] XX ONE (11:30)
[2019-03-31 12:00] VITALS: BP 152/69
== END 2019-03-31 12:15 | disposition home or self-care (01) ==
LOC: M INFU 10:48
PROVIDERS: ATTEND Internal Medicine Pulmonary Disease
DX: E88.01 Alpha-1-antitrypsin deficiency (principal); Z79.899 Other long term (current) drug therapy; Z88.1 Allergy status to other antibiotic agents; Z88.2 Allergy status to sulfonamides
CPT/HCPCS: 96365; J0256

== ENCOUNTER 2019-04-07 10:47 | Outpatient (CLI) | payer MEDICARE ==
[~2019-04-07] VITALS: Ht 167.6 cm; Wt 75.5 kg
[2019-04-07 10:57] VITALS: BP 129/69
[2019-04-07] MEDS ORDERED: ALPHA PROTEINASE INHIBITOR IV ONE (11:00)
[2019-04-07] MEDS ORDERED: [UNRECOGNIZED DRUG - SUPPLY] XX ONE (11:00)
[2019-04-07 12:00] VITALS: BP 137/66
[2019-04-07 12:30] VITALS: BP 137/66
== END 2019-04-07 12:30 | disposition home or self-care (01) ==
LOC: M INFU 10:47
PROVIDERS: ATTEND Internal Medicine Pulmonary Disease
DX: E88.01 Alpha-1-antitrypsin deficiency (principal); Z88.1 Allergy status to other antibiotic agents; Z88.2 Allergy status to sulfonamides; Z79.899 Other long term (current) drug therapy
CPT/HCPCS: 96365; J0256

== ENCOUNTER 2019-04-21 10:43 | Outpatient (CLI) | payer MEDICARE ==
[~2019-04-21] VITALS: Ht 170.2 cm; Wt 75.5 kg
[~2019-04-21 10:43] MED LIST changes: +[UNRECOGNIZED DRUG - SUPPLY] XX ONE
[2019-04-21 10:50] VITALS: BP 133/65
[2019-04-21] MEDS ORDERED: ALPHA PROTEINASE INHIBITOR IV ONE (11:00)
[2019-04-21 12:00] VITALS: BP 115/68
== END 2019-04-21 12:00 | disposition home or self-care (01) ==
LOC: M INFU 10:43
PROVIDERS: ATTEND Internal Medicine Pulmonary Disease
DX: E88.01 Alpha-1-antitrypsin deficiency (principal); Z88.2 Allergy status to sulfonamides; Z88.1 Allergy status to other antibiotic agents; Z79.899 Other long term (current) drug therapy
CPT/HCPCS: 96365; J0256

== ENCOUNTER 2019-04-28 11:05 | Outpatient (CLI) | payer MEDICARE ==
[~2019-04-28] VITALS: Ht 170.2 cm; Wt 75.4 kg
[~2019-04-28 11:05] MED LIST changes: -[UNRECOGNIZED DRUG - SUPPLY] XX ONE
[2019-04-28 11:15] VITALS: BP 130/60
[2019-04-28] MEDS ORDERED: ALPHA PROTEINASE INHIBITOR IV ONE (11:15)
[2019-04-28] MEDS ORDERED: [UNRECOGNIZED DRUG - SUPPLY] XX ONE (11:15)
[2019-04-28 12:00] VITALS: BP 148/68
== END 2019-04-28 12:00 | disposition home or self-care (01) ==
LOC: M INFU 11:05
PROVIDERS: ATTEND Internal Medicine Pulmonary Disease
DX: E88.01 Alpha-1-antitrypsin deficiency (principal); Z79.899 Other long term (current) drug therapy; Z88.1 Allergy status to other antibiotic agents; Z88.2 Allergy status to sulfonamides
CPT/HCPCS: 96365; J0256

== ENCOUNTER 2019-05-05 10:56 | Outpatient (CLI) | payer MEDICARE ==
[~2019-05-05] VITALS: Ht 170.2 cm; Wt 75.4 kg
[2019-05-05 11:00] VITALS: BP 145/65
[2019-05-05] MEDS ORDERED: ALPHA PROTEINASE INHIBITOR IV ONE (11:15)
[2019-05-05] MEDS ORDERED: [UNRECOGNIZED DRUG - SUPPLY] XX ONE (11:15)
[2019-05-05 12:20] VITALS: BP 144/66
== END 2019-05-05 12:20 | disposition home or self-care (01) ==
LOC: M INFU 10:56
PROVIDERS: ATTEND Internal Medicine Pulmonary Disease
DX: E88.01 Alpha-1-antitrypsin deficiency (principal); Z79.899 Other long term (current) drug therapy; Z88.1 Allergy status to other antibiotic agents; Z88.2 Allergy status to sulfonamides
CPT/HCPCS: 96365; J0256

== ENCOUNTER 2019-05-12 11:00 | Outpatient (CLI) | payer MEDICARE ==
[~2019-05-12] VITALS: Ht 170.2 cm; Wt 75.4 kg
[2019-05-12 11:00] VITALS: BP 131/79
[2019-05-12] MEDS ORDERED: [UNRECOGNIZED DRUG - SUPPLY] XX ONE (11:15)
[2019-05-12] MEDS ORDERED: ALPHA PROTEINASE INHIBITOR IV ONE (11:30)
[2019-05-12 12:30] VITALS: BP 156/70
== END 2019-05-12 12:30 | disposition home or self-care (01) ==
LOC: M INFU 11:00
PROVIDERS: ATTEND Internal Medicine Pulmonary Disease
DX: E88.01 Alpha-1-antitrypsin deficiency (principal); Z88.2 Allergy status to sulfonamides
CPT/HCPCS: 96365; J0256

== ENCOUNTER 2019-05-19 10:48 | Outpatient (CLI) | payer MEDICARE ==
[~2019-05-19] VITALS: Ht 170.2 cm; Wt 75.5 kg
[2019-05-19 11:00] VITALS: BP 130/61
[2019-05-19] MEDS ORDERED: ALPHA PROTEINASE INHIBITOR IV ONE (11:00)
[2019-05-19 12:20] VITALS: BP 156/70
== END 2019-05-19 12:20 | disposition home or self-care (01) ==
LOC: M INFU 10:48
PROVIDERS: ATTEND Internal Medicine Pulmonary Disease
DX: E88.01 Alpha-1-antitrypsin deficiency (principal); Z91.048 Other nonmedicinal substance allergy status; Z88.2 Allergy status to sulfonamides
CPT/HCPCS: 96365; J0256

== ENCOUNTER 2019-05-26 10:48 | Outpatient (CLI) | payer MEDICARE ==
[~2019-05-26] VITALS: Ht 170.2 cm; Wt 75.3 kg
[~2019-05-26 10:48] MED LIST changes: -SODIUM CHLORIDE 0.9% INJ 10 ML SYR IV SCH
[2019-05-26 10:50] VITALS: BP 151/67
[2019-05-26] MEDS ORDERED: ALPHA PROTEINASE INHIBITOR IV ONE (11:30)
[2019-05-26] MEDS ORDERED: SODIUM CHLORIDE 0.9% INJ 10 ML SYR IV ONE (12:00)
== END 2019-05-26 12:08 | disposition home or self-care (01) ==
LOC: M INFU 10:48
PROVIDERS: ATTEND Internal Medicine Pulmonary Disease
DX: E88.01 Alpha-1-antitrypsin deficiency (principal); Z91.048 Other nonmedicinal substance allergy status; Z88.2 Allergy status to sulfonamides; Z79.899 Other long term (current) drug therapy
CPT/HCPCS: 96365; J0256

== ENCOUNTER 2019-06-02 10:55 | Outpatient (CLI) | payer MEDICARE ==
[~2019-06-02] VITALS: Ht 170.2 cm; Wt 75.5 kg
[~2019-06-02 10:55] MED LIST changes: +ALPHA PROTEINASE INHIBITOR IV ONE; +SODIUM CHLORIDE 0.9% INJ 10 ML SYR IV SCH
[2019-06-02 11:00] VITALS: BP 147/69
[2019-06-02 12:00] VITALS: BP 153/73
== END 2019-06-02 12:15 | disposition home or self-care (01) ==
LOC: M INFU 10:55
PROVIDERS: ATTEND Internal Medicine Pulmonary Disease
DX: Z79.899 Other long term (current) drug therapy (principal); Z88.2 Allergy status to sulfonamides
CPT/HCPCS: 96365; J0256

== ENCOUNTER 2019-06-09 11:05 | Outpatient (CLI) | payer MEDICARE ==
[~2019-06-09] VITALS: Ht 170.2 cm; Wt 75.5 kg
[~2019-06-09 11:05] MED LIST changes: -ALPHA PROTEINASE INHIBITOR IV ONE
[2019-06-09 11:22] VITALS: BP 142/94
[2019-06-09] MEDS ORDERED: ALPHA PROTEINASE INHIBITOR IV ONE ×2 (11:30→12:00)
[2019-06-09 12:15] VITALS: BP 144/67
== END 2019-06-09 12:15 | disposition home or self-care (01) ==
LOC: M INFU 11:05
PROVIDERS: ATTEND Internal Medicine Pulmonary Disease
DX: E88.01 Alpha-1-antitrypsin deficiency (principal); Z91.048 Other nonmedicinal substance allergy status; Z88.2 Allergy status to sulfonamides
CPT/HCPCS: 96365; J0256

== ENCOUNTER 2019-06-16 10:58 | Outpatient (CLI) | payer MEDICARE ==
[~2019-06-16] VITALS: Ht 170.2 cm; Wt 75.3 kg
[2019-06-16] MEDS ORDERED: ALPHA PROTEINASE INHIBITOR IV ONE (11:00)
[2019-06-16 11:02] VITALS: BP 134/97
[2019-06-16 12:00] VITALS: BP 128/60
== END 2019-06-16 12:00 | disposition home or self-care (01) ==
LOC: M INFU 10:58
PROVIDERS: ATTEND Internal Medicine Pulmonary Disease
DX: E88.01 Alpha-1-antitrypsin deficiency (principal); Z88.2 Allergy status to sulfonamides; Z91.048 Other nonmedicinal substance allergy status
CPT/HCPCS: 96365; J0256

== ENCOUNTER 2019-06-23 10:52 | Outpatient (CLI) | payer MEDICARE ==
[~2019-06-23] VITALS: Ht 167.6 cm; Wt 75.5 kg
[~2019-06-23 10:52] MED LIST changes: +ALPHA PROTEINASE INHIBITOR IV ONE; +SODIUM CHLORIDE 0.9% INJ 10 ML SYR IV SCH
[2019-06-23 11:03] VITALS: BP 136/62
[2019-06-23 12:29] VITALS: BP 129/76
== END 2019-06-23 12:30 | disposition home or self-care (01) ==
LOC: M INFU 10:52
PROVIDERS: ATTEND Internal Medicine Pulmonary Disease
DX: E88.1 Lipodystrophy, not elsewhere classified (principal); E03.9 Hypothyroidism, unspecified; J44.0 Chronic obstructive pulmonary disease with (acute) lower respiratory infection; I27.23 Pulmonary hypertension due to lung diseases and hypoxia; R35.1 Nocturia; Z88.2 Allergy status to sulfonamides; Z91.048 Other nonmedicinal substance allergy status
CPT/HCPCS: 36591; 80053; 80061; 84154; 84439; 84443; 85025; 96365; J0256

== ENCOUNTER → 2019-06-23 | Outpatient (CLI) | payer MEDICARE ==
[~2019-06-23] MED LIST changes: -SODIUM CHLORIDE 0.9% INJ 10 ML SYR IV SCH
[2019-06-23 12:13] LABS: HEMATOCRIT 38.5 % (42.0-52.0); HEMOGLOBIN 12.4 g/dl (13.5-17.5); MEAN CORPUSCULAR HGB CONC 32.2 g/dl (32.0-36.5); PLATELET COUNT, AUTOMATED 214 10^3/uL (150-450); RED BLOOD COUNT 4.14 10^6/uL (4.30-6.10)
[2019-06-23 12:17] LABS: WHITE BLOOD COUNT 17.4 10^3/uL (4.0-10.0)
[2019-06-23 12:35] LABS: LYMPHOCYTES 47 % (16-44); MONOCYTES 6 % (0-5); NEUTROPHILS 45 % (28-66)
[2019-06-23 12:36] LABS: ANISOCYTOSIS 1+; PLATELET ESTIMATE NORMAL (NORMAL)
[2019-06-23 13:18] LABS: ALBUMIN 4.1 GM/DL (3.2-5.2); ALT/SGPT 21 U/L (12-78); BILIRUBIN,TOTAL 0.3 MG/DL (0.2-1.0); BLOOD UREA NITROGEN 25 MG/DL (7-18); CARBON DIOXIDE LEVEL 28 MEQ/L (21-32); CHLORIDE LEVEL 105 MEQ/L (98-107); CHOLESTEROL LEVEL 188 MG/DL (<200); CREATININE FOR GFR 1.19 MG/DL (0.70-1.30); FREE T4 0.97 NG/DL (0.76-1.46); GLOMERULAR FILTRATION RATE > 60.0 (>42); GLUCOSE, FASTING 109 MG/DL (70-100); HDL CHOLESTEROL 39 MG/DL (>40); LDL CHOLESTEROL 102 MG/DL (<100); NON-HDL-C 149 MG/DL; POTASSIUM SERUM 4.6 MEQ/L (3.5-5.1); SODIUM LEVEL 138 MEQ/L (136-145); TOTAL PROTEIN 6.8 GM/DL (6.4-8.2); TRIGLYCERIDES LEVEL 233 MG/DL (<150)
[2019-06-24 14:31] LABS: PSA TOTAL 3.1 ng/mL (0.0-4.0)
== END ==
LOC: M LAB 11:30
PROVIDERS: ATTEND Family Medicine
DX: E03.9 Hypothyroidism, unspecified (principal); J44.0 Chronic obstructive pulmonary disease with (acute) lower respiratory infection; I27.23 Pulmonary hypertension due to lung diseases and hypoxia; R35.1 Nocturia

== ENCOUNTER → 2019-06-25 | Outpatient (CLI) | payer MEDICARE ==
[~2019-06-25] MED LIST changes: -ALPHA PROTEINASE INHIBITOR IV ONE; -SODIUM CHLORIDE 0.9% INJ 10 ML SYR IV SCH
[2019-06-25 13:37] LABS: HEMATOCRIT 39.5 % (42.0-52.0); HEMOGLOBIN 12.7 g/dl (13.5-17.5); MEAN CORPUSCULAR HGB CONC 32.2 g/dl (32.0-36.5); MEAN CORPUSCULAR VOLUME 93.2 fl (80.0-96.0); PLATELET COUNT, AUTOMATED 237 10^3/uL (150-450); RED BLOOD COUNT 4.24 10^6/uL (4.30-6.10)
[2019-06-25 13:48] LABS: WHITE BLOOD COUNT 16.7 10^3/uL (4.0-10.0)
[2019-06-25 14:27] LABS: ATYPICAL LYMPH 5 % (0-5); LYMPHOCYTES 41 % (16-44); MONOCYTES 13 % (0-5); NEUTROPHILS 41 % (28-66)
[2019-06-25 14:28] LABS: ANISOCYTOSIS 1+; PLATELET ESTIMATE NORMAL (NORMAL)
== END ==
LOC: M PLALAB 12:12
PROVIDERS: ATTEND Physician Assistant
DX: D72.820 Lymphocytosis (symptomatic) (principal); N62 Hypertrophy of breast

== ENCOUNTER 2019-06-30 10:55 | Outpatient (CLI) | payer MEDICARE ==
[~2019-06-30] VITALS: Ht 170.2 cm; Wt 75.2 kg
[~2019-06-30 10:55] MED LIST changes: +SODIUM CHLORIDE 0.9% INJ 10 ML SYR IV SCH
[2019-06-30 11:00] VITALS: BP 137/65
[2019-06-30] MEDS ORDERED: ALPHA PROTEINASE INHIBITOR IV ONE (11:30)
[2019-06-30 12:00] VITALS: BP 152/70
== END 2019-06-30 12:00 | disposition home or self-care (01) ==
LOC: M INFU 10:55
PROVIDERS: ATTEND Internal Medicine Pulmonary Disease
DX: E88.01 Alpha-1-antitrypsin deficiency (principal); Z88.2 Allergy status to sulfonamides; Z91.048 Other nonmedicinal substance allergy status
CPT/HCPCS: 96365; J0256; J1642

== ENCOUNTER 2019-07-07 10:54 | Outpatient (CLI) | payer MEDICARE ==
[~2019-07-07] VITALS: Ht 170.2 cm; Wt 75.3 kg
[2019-07-07 11:00] VITALS: BP 146/66
[2019-07-07] MEDS ORDERED: ALPHA PROTEINASE INHIBITOR IV ONE (12:00)
[2019-07-07 12:20] VITALS: BP 136/65
== END 2019-07-07 12:20 | disposition home or self-care (01) ==
LOC: M INFU 10:54
PROVIDERS: ATTEND Internal Medicine Pulmonary Disease
DX: E88.01 Alpha-1-antitrypsin deficiency (principal); Z88.2 Allergy status to sulfonamides; Z91.048 Other nonmedicinal substance allergy status
CPT/HCPCS: 96365; J0256; J1642

== ENCOUNTER 2019-07-14 10:53 | Outpatient (CLI) | payer MEDICARE ==
[~2019-07-14] VITALS: Ht 170.2 cm; Wt 75.5 kg
[2019-07-14] MEDS ORDERED: ALPHA PROTEINASE INHIBITOR IV ONE (11:15)
[2019-07-14 11:27] VITALS: BP 143/66
[2019-07-14 12:35] VITALS: BP 154/70
== END 2019-07-14 12:35 | disposition home or self-care (01) ==
LOC: M INFU 10:53
PROVIDERS: ATTEND Internal Medicine Pulmonary Disease
DX: E88.01 Alpha-1-antitrypsin deficiency (principal); Z88.2 Allergy status to sulfonamides; Z91.048 Other nonmedicinal substance allergy status
CPT/HCPCS: 96365; J0256; J1642

== ENCOUNTER 2019-07-21 10:57 | Outpatient (CLI) | payer MEDICARE ==
[~2019-07-21] VITALS: Ht 170.2 cm; Wt 73.4 kg
[~2019-07-21 10:57] MED LIST changes: -SODIUM CHLORIDE 0.9% INJ 10 ML SYR IV SCH
[2019-07-21 11:07] VITALS: BP 111/59
[2019-07-21] MEDS ORDERED: ALPHA PROTEINASE INHIBITOR IV ONE (12:00)
[2019-07-21] MEDS ORDERED: SODIUM CHLORIDE 0.9% INJ 10 ML SYR IV ONE (12:00)
[2019-07-21 12:18] VITALS: BP 140/64
== END 2019-07-21 12:15 | disposition home or self-care (01) ==
LOC: M INFU 10:57
PROVIDERS: ATTEND Internal Medicine Pulmonary Disease
DX: E88.01 Alpha-1-antitrypsin deficiency (principal); Z88.2 Allergy status to sulfonamides; Z91.048 Other nonmedicinal substance allergy status
CPT/HCPCS: 96365; J0256; J1642

== ENCOUNTER 2019-07-28 10:56 | Outpatient (CLI) | payer MEDICARE ==
[~2019-07-28] VITALS: Ht 170.2 cm; Wt 74.0 kg
[~2019-07-28 10:56] MED LIST changes: +SODIUM CHLORIDE 0.9% INJ 10 ML SYR IV SCH
[2019-07-28] MEDS ORDERED: ALPHA PROTEINASE INHIBITOR IV ONE (11:00)
[2019-07-28 11:06] VITALS: BP 140/62
[2019-07-28 12:16] VITALS: BP 152/92
== END 2019-07-28 12:15 | disposition home or self-care (01) ==
LOC: M INFU 10:56
PROVIDERS: ATTEND Internal Medicine Pulmonary Disease
DX: E88.01 Alpha-1-antitrypsin deficiency (principal); Z88.0 Allergy status to penicillin; Z91.048 Other nonmedicinal substance allergy status
CPT/HCPCS: 96365; J0256; J1642

== ENCOUNTER 2019-08-04 10:54 | Outpatient (CLI) | payer MEDICARE ==
[~2019-08-04] VITALS: Ht 170.2 cm; Wt 73.6 kg
[2019-08-04 11:00] VITALS: BP 141/68
[2019-08-04] MEDS ORDERED: ALPHA PROTEINASE INHIBITOR IV ONE (12:00)
[2019-08-04 12:40] VITALS: BP 133/78
== END 2019-08-04 12:40 | disposition home or self-care (01) ==
LOC: M INFU 10:54
PROVIDERS: ATTEND Internal Medicine Pulmonary Disease
DX: E88.01 Alpha-1-antitrypsin deficiency (principal); Z88.0 Allergy status to penicillin; Z91.048 Other nonmedicinal substance allergy status
CPT/HCPCS: 96365; J0256; J1642

== ENCOUNTER 2019-08-11 11:23 | Outpatient (CLI) | payer MEDICARE ==
[~2019-08-11] VITALS: Ht 170.2 cm; Wt 73.6 kg
[2019-08-11 11:25] VITALS: BP 135/63
[2019-08-11] MEDS ORDERED: ALPHA PROTEINASE INHIBITOR IV ONE (12:00)
[2019-08-11 13:00] VITALS: BP 143/66
[2019-08-14] MEDS ORDERED: DALI1TAB2 PO (10:25)
[2019-08-14] MEDS ORDERED: FURO20TA2 PO (10:25)
[2019-08-14] MEDS ORDERED: ALBU8.5H IH (10:25)
[2019-08-14] MEDS ORDERED: NEUR300C PO (10:25)
[2019-08-14] MEDS ORDERED: AZIT-12 PO (10:25)
[2019-08-14] MEDS ORDERED: ALL10TAB3 PO (10:25)
[2019-08-14] MEDS ORDERED: SIMV40TA20 PO (10:25)
[2019-08-14] MEDS ORDERED: FISH1000 PO (10:25)
[2019-08-14] MEDS ORDERED: CALC-218 PO (10:25)
== END 2019-08-11 13:00 | disposition home or self-care (01) ==
LOC: M INFU 11:23
PROVIDERS: ATTEND Internal Medicine Pulmonary Disease
DX: E88.01 Alpha-1-antitrypsin deficiency (principal); Z88.2 Allergy status to sulfonamides; Z91.048 Other nonmedicinal substance allergy status
CPT/HCPCS: 96365; J0256; J1642

== ENCOUNTER 2019-08-18 10:46 | Outpatient (CLI) | payer MEDICARE ==
[~2019-08-18] VITALS: Ht 172.7 cm; Wt 73.6 kg
[~2019-08-18 10:46] MED LIST changes: +ALBU8.5H IH; +ALL10TAB3 PO; +AZIT-12 PO; +CALC-218 PO; +FISH1000 PO; +SIMV40TA20 PO
[2019-08-18 10:50] VITALS: BP 132/64
[2019-08-18] MEDS ORDERED: ALPHA PROTEINASE INHIBITOR IV ONE (11:00)
[2019-08-18 12:18] VITALS: BP 145/63
== END 2019-08-18 12:15 | disposition home or self-care (01) ==
LOC: M INFU 10:46
PROVIDERS: ATTEND Internal Medicine Pulmonary Disease
DX: E88.01 Alpha-1-antitrypsin deficiency (principal); Z88.2 Allergy status to sulfonamides; Z88.8 Allergy status to other drugs, medicaments and biological substances; Z91.048 Other nonmedicinal substance allergy status
CPT/HCPCS: 36415; 84550; 85027; 85549; 88300; 96365; J0256; J1642

== ENCOUNTER 2019-09-29 10:50 | Outpatient (CLI) | payer MEDICARE ==
[~2019-09-29] VITALS: Ht 170.2 cm; Wt 73.6 kg
[2019-09-29] MEDS ORDERED: ALPHA PROTEINASE INHIBITOR IV ONE (11:00)
[2019-09-29 11:01] VITALS: BP 135/62
[2019-09-29 11:51] VITALS: BP 157/66
== END 2019-09-29 12:00 | disposition home or self-care (01) ==
LOC: M INFU 10:50
PROVIDERS: ATTEND Internal Medicine Pulmonary Disease
DX: E88.01 Alpha-1-antitrypsin deficiency (principal); Z79.899 Other long term (current) drug therapy; Z88.2 Allergy status to sulfonamides
CPT/HCPCS: 96365; J0256; J1642

== ENCOUNTER 2019-10-06 10:22 | Outpatient (CLI) | payer MEDICARE ==
[~2019-10-06] VITALS: Ht 170.2 cm; Wt 73.6 kg
[2019-10-06 10:25] VITALS: BP 131/68
[2019-10-06] MEDS ORDERED: ALPHA PROTEINASE INHIBITOR IV ONE (10:30)
[2019-10-06 11:20] VITALS: BP 152/70
[2019-10-07] MEDS ORDERED: SPIR50TA4 PO (10:56)
== END 2019-10-06 11:20 | disposition home or self-care (01) ==
LOC: M INFU 10:22
PROVIDERS: ATTEND Internal Medicine Pulmonary Disease
DX: E88.01 Alpha-1-antitrypsin deficiency (principal); Z79.82 Long term (current) use of aspirin; Z79.899 Other long term (current) drug therapy; Z88.1 Allergy status to other antibiotic agents; Z88.2 Allergy status to sulfonamides
CPT/HCPCS: 96365; J0256; J1642

== ENCOUNTER 2019-10-13 11:00 | Outpatient (CLI) | payer MEDICARE ==
[~2019-10-13] VITALS: Ht 170.2 cm; Wt 73.6 kg
[~2019-10-13 11:00] MED LIST changes: -SODIUM CHLORIDE 0.9% INJ 10 ML SYR IV SCH; +SPIR50TA4 PO
[2019-10-13 11:15] VITALS: BP 155/65
[2019-10-13] MEDS ORDERED: ALPHA PROTEINASE INHIBITOR IV ONE (11:15)
[2019-10-13] MEDS ORDERED: SODIUM CHLORIDE 0.9% INJ 10 ML SYR IV PRN (11:15)
[2019-10-13 11:59] VITALS: BP 141/72
[2019-10-14] MEDS ORDERED: SODIUM CHLORIDE 0.9% INJ 10 ML SYR IV SCH (09:00)
== END 2019-10-13 12:00 | disposition home or self-care (01) ==
LOC: M INFU 11:00
PROVIDERS: ATTEND Internal Medicine Pulmonary Disease
DX: E88.01 Alpha-1-antitrypsin deficiency (principal); Z79.82 Long term (current) use of aspirin; Z79.899 Other long term (current) drug therapy; Z88.1 Allergy status to other antibiotic agents; Z88.2 Allergy status to sulfonamides
CPT/HCPCS: 96365; J0256; J1642

== ENCOUNTER 2019-10-20 10:55 | Outpatient (CLI) | payer MEDICARE ==
[~2019-10-20] VITALS: Ht 170.2 cm; Wt 73.6 kg
[~2019-10-20 10:55] MED LIST changes: +SODIUM CHLORIDE 0.9% INJ 10 ML SYR IV SCH
[2019-10-20] MEDS ORDERED: ALPHA PROTEINASE INHIBITOR IV ONE (11:15)
[2019-10-20 12:06] VITALS: BP 154/83
== END 2019-10-20 12:06 | disposition home or self-care (01) ==
LOC: M INFU 10:55
PROVIDERS: ATTEND Internal Medicine Pulmonary Disease
DX: E88.01 Alpha-1-antitrypsin deficiency (principal); Z79.82 Long term (current) use of aspirin; Z79.899 Other long term (current) drug therapy; Z88.1 Allergy status to other antibiotic agents; Z88.8 Allergy status to other drugs, medicaments and biological substances
CPT/HCPCS: 96365; J0256; J1642

== ENCOUNTER 2019-10-27 11:19 | Outpatient (CLI) | payer MEDICARE ==
[~2019-10-27] VITALS: Ht 170.2 cm; Wt 73.6 kg
[~2019-10-27 11:19] MED LIST changes: +ALPHA PROTEINASE INHIBITOR IV ONE
[2019-10-27 11:43] VITALS: BP 148/70
[2019-10-27 12:03] VITALS: BP 148/67
== END 2019-10-27 12:05 | disposition home or self-care (01) ==
LOC: M INFU 11:19
PROVIDERS: ATTEND Internal Medicine Pulmonary Disease
DX: E88.01 Alpha-1-antitrypsin deficiency (principal); Z79.82 Long term (current) use of aspirin; Z79.899 Other long term (current) drug therapy; Z88.1 Allergy status to other antibiotic agents; Z88.2 Allergy status to sulfonamides
CPT/HCPCS: 96365; J0256; J1642

== ENCOUNTER 2019-11-03 10:54 | Outpatient (CLI) | payer MEDICARE ==
[~2019-11-03] VITALS: Ht 170.2 cm; Wt 73.6 kg
[~2019-11-03 10:54] MED LIST changes: -ALPHA PROTEINASE INHIBITOR IV ONE
[2019-11-03 11:00] VITALS: BP 138/77
[2019-11-03] MEDS ORDERED: ALPHA PROTEINASE INHIBITOR IV ONE (11:15)
[2019-11-03 12:00] VITALS: BP 148/70
== END 2019-11-03 12:15 | disposition home or self-care (01) ==
LOC: M INFU 10:54
PROVIDERS: ATTEND Internal Medicine Pulmonary Disease
DX: E88.01 Alpha-1-antitrypsin deficiency (principal); Z79.899 Other long term (current) drug therapy; Z88.1 Allergy status to other antibiotic agents; Z88.2 Allergy status to sulfonamides
CPT/HCPCS: 96365; J0256; J1642

== ENCOUNTER 2019-11-10 10:49 | Outpatient (CLI) | payer MEDICARE ==
[~2019-11-10] VITALS: Ht 167.6 cm; Wt 73.6 kg
[~2019-11-10 10:49] MED LIST changes: +SODIUM CHLORIDE 0.9% INJ 10 ML SYR IV PRN; -SODIUM CHLORIDE 0.9% INJ 10 ML SYR IV SCH
[2019-11-10 11:00] VITALS: BP 120/58
[2019-11-10] MEDS ORDERED: ALPHA PROTEINASE INHIBITOR IV ONE (11:00)
[2019-11-10 11:45] VITALS: BP 146/69
[2019-11-11] MEDS ORDERED: SODIUM CHLORIDE 0.9% INJ 10 ML SYR IV SCH (09:00)
== END 2019-11-10 11:45 | disposition home or self-care (01) ==
LOC: M INFU 10:49
PROVIDERS: ATTEND Internal Medicine Pulmonary Disease
DX: E88.01 Alpha-1-antitrypsin deficiency (principal); Z79.82 Long term (current) use of aspirin; Z79.899 Other long term (current) drug therapy; Z88.2 Allergy status to sulfonamides; Z88.8 Allergy status to other drugs, medicaments and biological substances
CPT/HCPCS: 96365; J0256; J1642

== ENCOUNTER 2019-11-17 10:55 | Outpatient (CLI) | payer MEDICARE ==
[~2019-11-17] VITALS: Ht 170.2 cm; Wt 74.0 kg
[~2019-11-17 10:55] MED LIST changes: +HYDR-3490 PO; -HYDR25TAB PO
[2019-11-17 11:03] VITALS: BP 140/63
[2019-11-17] MEDS ORDERED: ALPHA PROTEINASE INHIBITOR IV ONE (11:15)
[2019-11-17 12:02] VITALS: BP 142/68
[2019-11-18] MEDS ORDERED: SODIUM CHLORIDE 0.9% INJ 10 ML SYR IV SCH (09:00)
== END 2019-11-17 12:00 | disposition home or self-care (01) ==
LOC: M INFU 10:55
PROVIDERS: ATTEND Internal Medicine Pulmonary Disease
DX: E88.01 Alpha-1-antitrypsin deficiency (principal)
CPT/HCPCS: 96365; J0256; J1642

== ENCOUNTER 2019-11-24 10:48 | Outpatient (CLI) | payer MEDICARE ==
[~2019-11-24] VITALS: Ht 170.2 cm; Wt 73.6 kg
[~2019-11-24 10:48] MED LIST changes: -HYDR-3490 PO; +HYDR25TAB PO; -SODIUM CHLORIDE 0.9% INJ 10 ML SYR IV PRN; +SODIUM CHLORIDE 0.9% INJ 10 ML SYR IV SCH
[2019-11-24] MEDS ORDERED: SODIUM CHLORIDE 0.9% INJ 10 ML SYR IV PRN (11:00)
[2019-11-24] MEDS ORDERED: ALPHA PROTEINASE INHIBITOR IV ONE (11:00)
[2019-11-24 11:16] VITALS: BP 139/72
[2019-11-24 12:00] VITALS: BP 151/68
== END 2019-11-24 12:00 | disposition home or self-care (01) ==
LOC: M INFU 10:48
PROVIDERS: ATTEND Internal Medicine Pulmonary Disease
DX: E88.01 Alpha-1-antitrypsin deficiency (principal); Z79.82 Long term (current) use of aspirin; Z79.899 Other long term (current) drug therapy; Z88.1 Allergy status to other antibiotic agents; Z88.2 Allergy status to sulfonamides
CPT/HCPCS: 96365; J0256; J1642

== ENCOUNTER 2019-12-01 10:52 | Outpatient (CLI) | payer MEDICARE ==
[~2019-12-01] VITALS: Ht 170.2 cm; Wt 73.6 kg
[2019-12-01 11:00] VITALS: BP 151/70
[2019-12-01] MEDS ORDERED: ALPHA PROTEINASE INHIBITOR IV ONE (12:00)
[2019-12-01 12:12] VITALS: BP 161/68
== END 2019-12-01 12:17 | disposition home or self-care (01) ==
LOC: M INFU 10:52
PROVIDERS: ATTEND Internal Medicine Pulmonary Disease
DX: E88.01 Alpha-1-antitrypsin deficiency (principal); Z79.82 Long term (current) use of aspirin; Z79.899 Other long term (current) drug therapy; Z88.2 Allergy status to sulfonamides; Z88.8 Allergy status to other drugs, medicaments and biological substances
CPT/HCPCS: 96365; J0256; J1642

== ENCOUNTER 2019-12-08 10:55 | Outpatient (CLI) | payer MEDICARE ==
[~2019-12-08] VITALS: Ht 170.2 cm; Wt 73.5 kg
[2019-12-08] MEDS ORDERED: ALPHA PROTEINASE INHIBITOR IV ONE (11:30)
[2019-12-08 11:47] VITALS: BP 140/71
[2019-12-08 12:05] VITALS: BP 149/64
== END 2019-12-08 12:10 | disposition home or self-care (01) ==
LOC: M INFU 10:55
PROVIDERS: ATTEND Internal Medicine Pulmonary Disease
DX: E88.01 Alpha-1-antitrypsin deficiency (principal)
CPT/HCPCS: 96365; J0256; J1642

== ENCOUNTER 2019-12-15 08:47 | Outpatient (CLI) | payer MEDICARE ==
[~2019-12-15] VITALS: Ht 170.2 cm; Wt 73.6 kg
[2019-12-15] MEDS ORDERED: ALPHA PROTEINASE INHIBITOR IV ONE (09:00)
[2019-12-15] MEDS ORDERED: SODIUM CHLORIDE 0.9% INJ 10 ML SYR IV SCH (09:00)
[2019-12-15 09:33] VITALS: BP 154/81
[2019-12-15 10:05] VITALS: BP 145/64
== END 2019-12-15 10:10 | disposition home or self-care (01) ==
LOC: M INFU 08:47
PROVIDERS: ATTEND Internal Medicine Pulmonary Disease
DX: E88.01 Alpha-1-antitrypsin deficiency (principal); E03.9 Hypothyroidism, unspecified; J44.9 Chronic obstructive pulmonary disease, unspecified
CPT/HCPCS: 36591; 80053; 80061; 84439; 84443; 85025; 96365; J0256; J1642

== ENCOUNTER → 2019-12-15 | Outpatient (CLI) | payer MEDICARE ==
[~2019-12-15] MED LIST changes: -SODIUM CHLORIDE 0.9% INJ 10 ML SYR IV SCH
[2019-12-15 09:40] LABS: BASO # 0.1 10^3/uL (0.0-0.2); BASO % 0.4 % (0.0-1.0); EOS # 0.1 10^3/uL (0.0-0.5); EOS % 0.7 % (0.0-3.0); HEMATOCRIT 39.8 % (42.0-52.0); HEMOGLOBIN 12.6 g/dl (13.5-17.5); LYMPH # 9.9 10^3/uL (1.5-5.0); LYMPH % 51.8 % (24.0-44.0); MEAN CORPUSCULAR HEMOGLOBIN 29.4 pg (27.0-33.0); MEAN CORPUSCULAR HGB CONC 31.7 g/dl (32.0-36.5); MONO % 5.3 % (0.0-5.0); NEUTROPHILS # 7.9 10^3/uL (1.5-8.5); NEUTROPHILS % 41.4 % (36.0-66.0); PLATELET COUNT, AUTOMATED 261 10^3/uL (150-450); RED BLOOD COUNT 4.28 10^6/uL (4.30-6.10)
[2019-12-15 09:59] LABS: WHITE BLOOD COUNT 19.1 10^3/uL (4.0-10.0)
[2019-12-15 11:11] LABS: ALBUMIN 3.9 GM/DL (3.2-5.2); ALT/SGPT 31 U/L (12-78); BILIRUBIN,TOTAL 0.4 MG/DL (0.2-1.0); BLOOD UREA NITROGEN 21 MG/DL (7-18); CALCIUM LEVEL 8.8 MG/DL (8.8-10.2); CARBON DIOXIDE LEVEL 26 MEQ/L (21-32); CHLORIDE LEVEL 107 MEQ/L (98-107); CHOLESTEROL LEVEL 190 MG/DL (<200); CREATININE FOR GFR 1.22 MG/DL (0.70-1.30); FREE T4 0.98 NG/DL (0.76-1.46); GLOMERULAR FILTRATION RATE > 60.0 (>35); GLUCOSE, FASTING 94 MG/DL (70-100); HDL CHOLESTEROL 38 MG/DL (>40); LDL CHOLESTEROL 105 MG/DL (<100); NON-HDL-C 152 MG/DL; POTASSIUM SERUM 4.6 MEQ/L (3.5-5.1); SODIUM LEVEL 140 MEQ/L (136-145); TOTAL PROTEIN 7.1 GM/DL (6.4-8.2); TRIGLYCERIDES LEVEL 236 MG/DL (<150)
== END ==
LOC: M LAB 08:51
PROVIDERS: ATTEND Family Medicine
DX: E88.01 Alpha-1-antitrypsin deficiency (principal); E03.9 Hypothyroidism, unspecified; J44.9 Chronic obstructive pulmonary disease, unspecified

== ENCOUNTER 2019-12-22 10:51 | Outpatient (CLI) | payer MEDICARE ==
[~2019-12-22] VITALS: Ht 170.2 cm; Wt 73.6 kg
[~2019-12-22 10:51] MED LIST changes: +SODIUM CHLORIDE 0.9% INJ 10 ML SYR IV SCH
[2019-12-22] MEDS ORDERED: ALPHA PROTEINASE INHIBITOR IV ONE (11:30)
[2019-12-22 12:25] VITALS: BP 146/68
== END 2019-12-22 12:30 | disposition home or self-care (01) ==
LOC: M INFU 10:51
PROVIDERS: ATTEND Internal Medicine Pulmonary Disease
DX: E88.01 Alpha-1-antitrypsin deficiency (principal)
CPT/HCPCS: 96365; J0256; J1642

== ENCOUNTER 2019-12-29 10:00 | Outpatient (CLI) | payer MEDICARE ==
[~2019-12-29 10:00] MED LIST changes: -SODIUM CHLORIDE 0.9% INJ 10 ML SYR IV SCH
[2019-12-29] MEDS ORDERED: ALPHA PROTEINASE INHIBITOR ONE (23:00)
== END 2019-12-29 12:30 | disposition home or self-care (01) ==
LOC: M INFU 10:00
PROVIDERS: ATTEND Internal Medicine Pulmonary Disease
DX: E88.01 Alpha-1-antitrypsin deficiency (principal)
CPT/HCPCS: 96365; J0256; J1642

== ENCOUNTER 2020-01-05 11:00 | Outpatient (CLI) | payer MEDICARE ==
[~2020-01-05 11:00] MED LIST changes: +ALPHA PROTEINASE INHIBITOR ONE
== END 2020-01-05 12:15 | disposition home or self-care (01) ==
LOC: M INFU 11:00
PROVIDERS: ATTEND Internal Medicine Pulmonary Disease
DX: E88.01 Alpha-1-antitrypsin deficiency (principal)
CPT/HCPCS: 96365; J0256; J1642

== ENCOUNTER 2020-01-12 11:00 | Outpatient (CLI) | payer MEDICARE | END 2020-01-12 12:00 | disposition home or self-care (01) | LOC: M INFU 11:00 | PROVIDERS: ATTEND Internal Medicine Pulmonary Disease | DX: E88.01 Alpha-1-antitrypsin deficiency (principal) | CPT/HCPCS: 96365; J0256; J1642 ==

== ENCOUNTER 2020-01-19 11:00 | Outpatient (CLI) | payer MEDICARE | END 2020-01-19 12:00 | disposition home or self-care (01) | LOC: M INFU 11:00 | PROVIDERS: ATTEND Internal Medicine Pulmonary Disease | DX: E88.01 Alpha-1-antitrypsin deficiency (principal) | CPT/HCPCS: 96365; J0256; J1642 ==

== ENCOUNTER 2020-01-26 10:49 | Outpatient (CLI) | payer MEDICARE ==
[~2020-01-26] VITALS: Ht 170.2 cm; Wt 77.0 kg
[~2020-01-26 10:49] MED LIST changes: -ALPHA PROTEINASE INHIBITOR ONE; +SODIUM CHLORIDE 0.9% INJ 10 ML SYR IV PRN; +SODIUM CHLORIDE 0.9% INJ 10 ML SYR IV SCH
[2020-01-26] MEDS ORDERED: ALPHA PROTEINASE INHIBITOR IV ONE (11:00)
[2020-01-26 11:47] VITALS: BP 118/74
[2020-01-26 12:00] VITALS: BP 176/72
== END 2020-01-26 12:00 | disposition home or self-care (01) ==
LOC: M INFU 10:49
PROVIDERS: ATTEND Internal Medicine Pulmonary Disease
DX: E88.01 Alpha-1-antitrypsin deficiency (principal)
CPT/HCPCS: 96365; J0256

== ENCOUNTER 2020-02-02 11:24 | Outpatient (CLI) | payer MEDICARE ==
[~2020-02-02] VITALS: Ht 170.2 cm; Wt 77.0 kg
[~2020-02-02 11:24] MED LIST changes: -SODIUM CHLORIDE 0.9% INJ 10 ML SYR IV PRN
[2020-02-02] MEDS ORDERED: ALPHA PROTEINASE INHIBITOR IV ONE (11:30)
[2020-02-02 11:40] VITALS: BP 140/69
[2020-02-02 12:30] VITALS: BP 142/75
== END 2020-02-02 12:30 | disposition home or self-care (01) ==
LOC: M INFU 11:24
PROVIDERS: ATTEND Internal Medicine Pulmonary Disease
DX: E88.01 Alpha-1-antitrypsin deficiency (principal)
CPT/HCPCS: 96365; J0256

== ENCOUNTER 2020-02-09 10:36 | Outpatient (CLI) | payer MEDICARE ==
[~2020-02-09] VITALS: Ht 172.7 cm; Wt 77.0 kg
[2020-02-09 10:45] VITALS: BP 141/64
[2020-02-09] MEDS ORDERED: ALPHA PROTEINASE INHIBITOR IV ONE (11:00)
[2020-02-09 12:00] VITALS: BP 170/74
== END 2020-02-09 12:00 | disposition home or self-care (01) ==
LOC: M INFU 10:36
PROVIDERS: ATTEND Internal Medicine Pulmonary Disease
DX: E88.01 Alpha-1-antitrypsin deficiency (principal); Z88.2 Allergy status to sulfonamides; Z88.8 Allergy status to other drugs, medicaments and biological substances; Z88.1 Allergy status to other antibiotic agents
CPT/HCPCS: 96365; J0256

== ENCOUNTER 2020-02-16 10:49 | Outpatient (CLI) | payer MEDICARE ==
[~2020-02-16] VITALS: Ht 172.7 cm; Wt 77.0 kg
[2020-02-16] MEDS ORDERED: ALPHA PROTEINASE INHIBITOR IV ONE (11:00)
[2020-02-16 11:02] VITALS: BP 137/65
[2020-02-16 11:53] VITALS: BP 153/70
== END 2020-02-16 11:55 | disposition home or self-care (01) ==
LOC: M INFU 10:49
PROVIDERS: ATTEND Internal Medicine Pulmonary Disease
DX: E88.01 Alpha-1-antitrypsin deficiency (principal); Z88.2 Allergy status to sulfonamides; Z88.8 Allergy status to other drugs, medicaments and biological substances; Z91.048 Other nonmedicinal substance allergy status
CPT/HCPCS: 96365; J0256

== ENCOUNTER 2020-02-23 10:46 | Outpatient (CLI) | payer MEDICARE ==
[~2020-02-23] VITALS: Ht 170.2 cm; Wt 77.0 kg
[2020-02-23] MEDS ORDERED: ALPHA PROTEINASE INHIBITOR IV ONE (11:00)
[2020-02-23 11:01] VITALS: BP 136/81
[2020-02-23 11:45] VITALS: BP 146/72
== END 2020-02-23 11:45 | disposition home or self-care (01) ==
LOC: M INFU 10:46
PROVIDERS: ATTEND Internal Medicine Pulmonary Disease
DX: E88.01 Alpha-1-antitrypsin deficiency (principal); Z88.2 Allergy status to sulfonamides; Z88.8 Allergy status to other drugs, medicaments and biological substances; Z91.048 Other nonmedicinal substance allergy status
CPT/HCPCS: 96365; J0256

== ENCOUNTER 2020-03-01 10:55 | Outpatient (CLI) | payer MEDICARE ==
[~2020-03-01] VITALS: Ht 170.2 cm; Wt 77.3 kg
[2020-03-01] MEDS ORDERED: ALPHA PROTEINASE INHIBITOR IV ONE (11:00)
[2020-03-01 11:22] VITALS: BP 133/63
[2020-03-01 12:00] VITALS: BP 152/80
== END 2020-03-01 12:00 | disposition home or self-care (01) ==
LOC: M INFU 10:55
PROVIDERS: ATTEND Internal Medicine Pulmonary Disease
DX: E88.01 Alpha-1-antitrypsin deficiency (principal)
CPT/HCPCS: 96365; J0256; J1642

== ENCOUNTER 2020-03-08 10:52 | Outpatient (CLI) | payer MEDICARE ==
[~2020-03-08] VITALS: Ht 170.2 cm; Wt 77.3 kg
[~2020-03-08 10:52] MED LIST changes: -SODIUM CHLORIDE 0.9% INJ 10 ML SYR IV SCH
[2020-03-08 11:00] VITALS: BP 137/70
[2020-03-08] MEDS: ALPHA PROTEINASE INHIBITOR IV ONE (11:17)
[2020-03-08] MEDS: SODIUM CHLORIDE 0.9% INJ 10 ML SYR IV SCH (11:19)
[2020-03-08 12:05] VITALS: BP 151/71
== END 2020-03-08 12:00 | disposition home or self-care (01) ==
LOC: M INFU 10:52
PROVIDERS: ATTEND Internal Medicine Pulmonary Disease
DX: E88.01 Alpha-1-antitrypsin deficiency (principal)
CPT/HCPCS: 96365; J0256; J1642

== ENCOUNTER 2020-03-15 08:25 | Outpatient (CLI) | payer MEDICARE ==
[~2020-03-15] VITALS: Ht 170.2 cm; Wt 77.3 kg
[2020-03-15] MEDS ORDERED: ALPHA PROTEINASE INHIBITOR IV ONE (08:30)
[2020-03-15 08:47] VITALS: BP 121/72
[2020-03-15] MEDS ORDERED: SODIUM CHLORIDE 0.9% INJ 10 ML SYR IV SCH (09:00)
[2020-03-15 09:29] VITALS: BP 151/66
== END 2020-03-15 09:30 | disposition home or self-care (01) ==
LOC: M INFU 08:25
PROVIDERS: ATTEND Internal Medicine Pulmonary Disease
DX: E88.01 Alpha-1-antitrypsin deficiency (principal); C91.10 Chronic lymphocytic leukemia of B-cell type not having achieved remission; E03.9 Hypothyroidism, unspecified; J44.9 Chronic obstructive pulmonary disease, unspecified; Z88.1 Allergy status to other antibiotic agents; Z88.2 Allergy status to sulfonamides; Z79.899 Other long term (current) drug therapy
CPT/HCPCS: 36591; 80053; 84439; 84443; 85025; 96365; J0256; J1642

== ENCOUNTER → 2020-03-15 | Outpatient (CLI) | payer MEDICARE ==
[2020-03-15 09:15] LABS: HEMATOCRIT 38.3 % (42.0-52.0); HEMOGLOBIN 12.1 g/dl (13.5-17.5); MEAN CORPUSCULAR HEMOGLOBIN 29.6 pg (27.0-33.0); MEAN CORPUSCULAR HGB CONC 31.6 g/dl (32.0-36.5); MEAN CORPUSCULAR VOLUME 93.6 fl (80.0-96.0); PLATELET COUNT, AUTOMATED 247 10^3/uL (150-450); RED BLOOD COUNT 4.09 10^6/uL (4.30-6.10)
[2020-03-15 09:24] LABS: WHITE BLOOD COUNT 19.2 10^3/uL (4.0-10.0)
[2020-03-15 10:11] LABS: LYMPHOCYTES 58 % (16-44); MONOCYTES 6 % (0-5); NEUTROPHILS 36 % (28-66)
[2020-03-15 10:15] LABS: SMUDGE CELLS 1+
[2020-03-15 10:16] LABS: PLATELET ESTIMATE NORMAL (NORMAL)
[2020-03-15 10:17] LABS: HYPOCHROMASIA 1+
[2020-03-15 10:33] LABS: ALBUMIN 3.9 GM/DL (3.2-5.2); ALT/SGPT 29 U/L (12-78); BILIRUBIN,TOTAL 0.4 MG/DL (0.2-1.0); BLOOD UREA NITROGEN 22 MG/DL (7-18); CALCIUM LEVEL 8.8 MG/DL (8.8-10.2); CARBON DIOXIDE LEVEL 27 MEQ/L (21-32); CHLORIDE LEVEL 105 MEQ/L (98-107); CREATININE FOR GFR 1.23 MG/DL (0.70-1.30); FREE T4 1.01 NG/DL (0.76-1.46); GLOMERULAR FILTRATION RATE > 60.0 (>35); GLUCOSE, FASTING 95 MG/DL (70-100); POTASSIUM SERUM 4.5 MEQ/L (3.5-5.1); SODIUM LEVEL 138 MEQ/L (136-145)
== END ==
LOC: M LAB 08:27
PROVIDERS: ATTEND Family Medicine
DX: C91.10 Chronic lymphocytic leukemia of B-cell type not having achieved remission (principal); E03.9 Hypothyroidism, unspecified; J44.9 Chronic obstructive pulmonary disease, unspecified

== ENCOUNTER 2020-03-22 10:54 | Outpatient (CLI) | payer MEDICARE ==
[~2020-03-22] VITALS: Ht 170.2 cm; Wt 77.3 kg
[~2020-03-22 10:54] MED LIST changes: +SODIUM CHLORIDE 0.9% INJ 10 ML SYR IV PRN; +SODIUM CHLORIDE 0.9% INJ 10 ML SYR IV SCH
[2020-03-22] MEDS ORDERED: ALPHA PROTEINASE INHIBITOR IV ONE (11:00)
[2020-03-22 11:18] VITALS: BP 132/61
[2020-03-22 11:58] VITALS: BP 145/65
== END 2020-03-22 12:00 | disposition home or self-care (01) ==
LOC: M INFU 10:54
PROVIDERS: ATTEND Internal Medicine Pulmonary Disease
DX: E88.01 Alpha-1-antitrypsin deficiency (principal); Z88.2 Allergy status to sulfonamides; Z88.8 Allergy status to other drugs, medicaments and biological substances
CPT/HCPCS: 96365; J0256; J1642

== ENCOUNTER 2020-03-29 10:52 | Outpatient (CLI) | payer MEDICARE ==
[~2020-03-29] VITALS: Ht 170.2 cm; Wt 77.1 kg
[~2020-03-29 10:52] MED LIST changes: -SODIUM CHLORIDE 0.9% INJ 10 ML SYR IV PRN
[2020-03-29] MEDS ORDERED: ALPHA PROTEINASE INHIBITOR IV ONE (11:00)
[2020-03-29 11:05] VITALS: BP 139/73
[2020-03-29 11:47] VITALS: BP 144/73
== END 2020-03-29 12:15 | disposition home or self-care (01) ==
LOC: M INFU 10:52
PROVIDERS: ATTEND Internal Medicine Pulmonary Disease
DX: E88.01 Alpha-1-antitrypsin deficiency (principal); Z88.2 Allergy status to sulfonamides
CPT/HCPCS: 96365; J0256; J1642

== ENCOUNTER 2020-04-05 10:59 | Outpatient (CLI) | payer MEDICARE ==
[~2020-04-05] VITALS: Ht 170.2 cm; Wt 77.3 kg
[2020-04-05] MEDS ORDERED: ALPHA PROTEINASE INHIBITOR IV ONE (11:00)
[2020-04-05 11:04] VITALS: BP 135/67
[2020-04-05 11:54] VITALS: BP 145/84
== END 2020-04-05 11:55 | disposition home or self-care (01) ==
LOC: M INFU 10:59
PROVIDERS: ATTEND Internal Medicine Pulmonary Disease
DX: E88.01 Alpha-1-antitrypsin deficiency (principal); Z88.2 Allergy status to sulfonamides; Z88.8 Allergy status to other drugs, medicaments and biological substances
CPT/HCPCS: 96365; J0256; J1642

== ENCOUNTER 2020-04-12 10:52 | Outpatient (CLI) | payer MEDICARE ==
[~2020-04-12] VITALS: Ht 170.2 cm; Wt 77.3 kg
[2020-04-12] MEDS ORDERED: ALPHA PROTEINASE INHIBITOR IV ONE (11:00)
[2020-04-12 11:16] VITALS: BP 132/63
[2020-04-12 12:30] VITALS: BP 145/74
== END 2020-04-12 12:30 | disposition home or self-care (01) ==
LOC: M INFU 10:52
PROVIDERS: ATTEND Internal Medicine Pulmonary Disease
DX: E88.01 Alpha-1-antitrypsin deficiency (principal); Z88.2 Allergy status to sulfonamides; Z88.8 Allergy status to other drugs, medicaments and biological substances
CPT/HCPCS: 96365; J0256; J1642

== ENCOUNTER 2020-04-19 10:59 | Outpatient (CLI) | payer MEDICARE ==
[~2020-04-19] VITALS: Ht 170.2 cm; Wt 77.3 kg
[~2020-04-19 10:59] MED LIST changes: +SODIUM CHLORIDE 0.9% INJ 10 ML SYR IV PRN
[2020-04-19] MEDS ORDERED: ALPHA PROTEINASE INHIBITOR IV ONE (11:00)
[2020-04-19 11:34] VITALS: BP 152/71
[2020-04-19 12:00] VITALS: BP 137/65
== END 2020-04-19 12:00 | disposition home or self-care (01) ==
LOC: M INFU 10:59
PROVIDERS: ATTEND Internal Medicine Pulmonary Disease
DX: E88.01 Alpha-1-antitrypsin deficiency (principal); Z88.2 Allergy status to sulfonamides; Z88.8 Allergy status to other drugs, medicaments and biological substances; Z91.09 Other allergy status, other than to drugs and biological substances
CPT/HCPCS: 96365; J0256; J1642

== ENCOUNTER 2020-04-26 11:02 | Outpatient (CLI) | payer MEDICARE ==
[~2020-04-26] VITALS: Ht 170.2 cm; Wt 77.0 kg
[~2020-04-26 11:02] MED LIST changes: +ALPHA PROTEINASE INHIBITOR IV ONE; -SODIUM CHLORIDE 0.9% INJ 10 ML SYR IV PRN
[2020-04-26 11:29] VITALS: BP 136/68
[2020-04-26 12:09] VITALS: BP 147/72
== END 2020-04-26 12:10 | disposition home or self-care (01) ==
LOC: M INFU 11:02
PROVIDERS: ATTEND Internal Medicine Pulmonary Disease
DX: E88.01 Alpha-1-antitrypsin deficiency (principal); Z88.2 Allergy status to sulfonamides; Z88.8 Allergy status to other drugs, medicaments and biological substances
CPT/HCPCS: 96365; J0256; J1642

== ENCOUNTER 2020-05-03 10:59 | Outpatient (CLI) | payer MEDICARE ==
[~2020-05-03] VITALS: Ht 170.2 cm; Wt 77.3 kg
[~2020-05-03 10:59] MED LIST changes: -ALPHA PROTEINASE INHIBITOR IV ONE
[2020-05-03] MEDS ORDERED: ALPHA PROTEINASE INHIBITOR IV ONE (11:00)
[2020-05-03 11:13] VITALS: BP 135/66
[2020-05-03 12:05] VITALS: BP 145/71
== END 2020-05-03 12:05 | disposition home or self-care (01) ==
LOC: M INFU 10:59
PROVIDERS: ATTEND Internal Medicine Pulmonary Disease
DX: E88.01 Alpha-1-antitrypsin deficiency (principal); Z88.2 Allergy status to sulfonamides; Z88.8 Allergy status to other drugs, medicaments and biological substances
CPT/HCPCS: 96365; J0256; J1642

== ENCOUNTER 2020-05-10 10:57 | Outpatient (CLI) | payer MEDICARE ==
[~2020-05-10] VITALS: Ht 170.2 cm; Wt 77.3 kg
[2020-05-10] MEDS ORDERED: ALPHA PROTEINASE INHIBITOR IV ONE (11:00)
[2020-05-10 11:18] VITALS: BP 142/70
[2020-05-10 12:17] VITALS: BP 137/73
== END 2020-05-10 12:20 | disposition home or self-care (01) ==
LOC: M INFU 10:57
PROVIDERS: ATTEND Internal Medicine Pulmonary Disease
DX: E88.01 Alpha-1-antitrypsin deficiency (principal); Z88.2 Allergy status to sulfonamides; Z88.8 Allergy status to other drugs, medicaments and biological substances
CPT/HCPCS: 96365; J0256; J1642

== ENCOUNTER → 2020-05-12 | Outpatient (REF) | payer MEDICARE ==
[~2020-05-12] MED LIST changes: -SODIUM CHLORIDE 0.9% INJ 10 ML SYR IV SCH
== END ==
LOC: M LAB REF 16:55
PROVIDERS: ATTEND Internal Medicine Pulmonary Disease
DX: J43.1 Panlobular emphysema (principal)

== ENCOUNTER 2020-05-17 11:02 | Outpatient (CLI) | payer MEDICARE ==
[~2020-05-17] VITALS: Ht 170.2 cm; Wt 77.0 kg
[~2020-05-17 11:02] MED LIST changes: +ALPHA PROTEINASE INHIBITOR IV ONE; +SODIUM CHLORIDE 0.9% INJ 10 ML SYR IV PRN; +SODIUM CHLORIDE 0.9% INJ 10 ML SYR IV SCH
[2020-05-17 11:13] VITALS: BP 109/58
[2020-05-17 12:08] VITALS: BP 133/63
== END 2020-05-17 12:10 | disposition home or self-care (01) ==
LOC: M INFU 11:02
PROVIDERS: ATTEND Internal Medicine Pulmonary Disease
DX: E88.01 Alpha-1-antitrypsin deficiency (principal); Z88.2 Allergy status to sulfonamides; Z88.8 Allergy status to other drugs, medicaments and biological substances
CPT/HCPCS: 96365; J0256; J1642

== ENCOUNTER 2020-05-24 10:57 | Outpatient (CLI) | payer MEDICARE ==
[~2020-05-24] VITALS: Ht 170.2 cm; Wt 77.3 kg
[~2020-05-24 10:57] MED LIST changes: -ALPHA PROTEINASE INHIBITOR IV ONE; -SODIUM CHLORIDE 0.9% INJ 10 ML SYR IV PRN
[2020-05-24] MEDS ORDERED: ALPHA PROTEINASE INHIBITOR IV ONE ×4 (11:00)
[2020-05-24 11:08] VITALS: BP 140/70
[2020-05-24 12:02] VITALS: BP 139/84
== END 2020-05-24 12:05 | disposition home or self-care (01) ==
LOC: M INFU 10:57
PROVIDERS: ATTEND Internal Medicine Pulmonary Disease
DX: E88.01 Alpha-1-antitrypsin deficiency (principal); Z88.2 Allergy status to sulfonamides; Z88.8 Allergy status to other drugs, medicaments and biological substances
CPT/HCPCS: 96365; J0256; J1642

== ENCOUNTER 2020-05-31 10:57 | Outpatient (CLI) | payer MEDICARE ==
[~2020-05-31] VITALS: Ht 170.2 cm; Wt 77.3 kg
[2020-05-31] MEDS ORDERED: ALPHA PROTEINASE INHIBITOR IV ONE (11:00)
[2020-05-31 11:14] VITALS: BP 140/89
[2020-05-31 12:05] VITALS: BP 132/81
== END 2020-05-31 12:05 | disposition home or self-care (01) ==
LOC: M INFU 10:57
PROVIDERS: ATTEND Internal Medicine Pulmonary Disease
DX: E88.01 Alpha-1-antitrypsin deficiency (principal)
CPT/HCPCS: 96365; J0256; J1642

== ENCOUNTER 2020-06-07 10:58 | Outpatient (CLI) | payer MEDICARE ==
[~2020-06-07] VITALS: Ht 170.2 cm; Wt 77.3 kg
[2020-06-07 10:55] VITALS: BP 134/75
[2020-06-07] MEDS ORDERED: ALPHA PROTEINASE INHIBITOR IV ONE (11:00)
[2020-06-07 12:15] VITALS: BP 145/82
== END 2020-06-07 12:15 | disposition home or self-care (01) ==
LOC: M INFU 10:58
PROVIDERS: ATTEND Internal Medicine Pulmonary Disease
DX: E88.01 Alpha-1-antitrypsin deficiency (principal); Z88.2 Allergy status to sulfonamides; Z88.8 Allergy status to other drugs, medicaments and biological substances
CPT/HCPCS: 96365; J0256; J1642

== ENCOUNTER 2020-06-14 10:59 | Outpatient (CLI) | payer MEDICARE ==
[~2020-06-14] VITALS: Ht 170.2 cm; Wt 77.3 kg
[2020-06-14] MEDS ORDERED: ALPHA PROTEINASE INHIBITOR IV ONE (11:00)
[2020-06-14 11:17] VITALS: BP 127/78
[2020-06-14 12:06] VITALS: BP 152/72
== END 2020-06-14 12:10 | disposition home or self-care (01) ==
LOC: M INFU 10:59
PROVIDERS: ATTEND Internal Medicine Pulmonary Disease
DX: E88.01 Alpha-1-antitrypsin deficiency (principal); Z88.2 Allergy status to sulfonamides; Z88.8 Allergy status to other drugs, medicaments and biological substances
CPT/HCPCS: 96365; J0256; J1642

== ENCOUNTER 2020-06-21 08:47 | Outpatient (CLI) | payer MEDICARE ==
[~2020-06-21] VITALS: Ht 170.2 cm; Wt 77.3 kg
[2020-06-21] MEDS ORDERED: SODIUM CHLORIDE 0.9% INJ 10 ML SYR IV SCH (09:00)
[2020-06-21] MEDS ORDERED: ALPHA PROTEINASE INHIBITOR IV ONE ×2 (09:15→09:30)
[2020-06-21 09:49] VITALS: BP 127/66
[2020-06-21 10:20] VITALS: BP 131/67
== END 2020-06-21 10:20 | disposition home or self-care (01) ==
LOC: M INFU 08:47
PROVIDERS: ATTEND Internal Medicine Pulmonary Disease
DX: E88.01 Alpha-1-antitrypsin deficiency (principal); Z88.2 Allergy status to sulfonamides; Z88.8 Allergy status to other drugs, medicaments and biological substances; C91.10 Chronic lymphocytic leukemia of B-cell type not having achieved remission; E03.9 Hypothyroidism, unspecified; I27.20 Pulmonary hypertension, unspecified
CPT/HCPCS: 36591; 80053; 80061; 83735; 84439; 84443; 85025; 96365; J0256; J1642

== ENCOUNTER → 2020-06-21 | Outpatient (CLI) | payer MEDICARE ==
[~2020-06-21] MED LIST changes: +HYDR-3490 PO; -HYDR25TAB PO; -SODIUM CHLORIDE 0.9% INJ 10 ML SYR IV SCH
[2020-06-21 09:59] LABS: HEMATOCRIT 37.6 % (42.0-52.0); HEMOGLOBIN 12.1 g/dl (13.5-17.5); MEAN CORPUSCULAR HEMOGLOBIN 29.7 pg (27.0-33.0); MEAN CORPUSCULAR HGB CONC 32.2 g/dl (32.0-36.5); MEAN CORPUSCULAR VOLUME 92.4 fl (80.0-96.0); PLATELET COUNT, AUTOMATED 289 10^3/uL (150-450); RED BLOOD COUNT 4.07 10^6/uL (4.30-6.10)
[2020-06-21 10:05] LABS: WHITE BLOOD COUNT 17.5 10^3/uL (4.0-10.0)
[2020-06-21 10:27] LABS: ATYPICAL LYMPH 3 % (0-5); LYMPHOCYTES 53 % (16-44); MONOCYTES 5 % (0-5); NEUTROPHILS 39 % (28-66); PLATELET ESTIMATE NORMAL (NORMAL); SMUDGE CELLS 1+
[2020-06-21 11:18] LABS: ALBUMIN 3.9 GM/DL (3.2-5.2); BILIRUBIN,TOTAL 0.2 MG/DL (0.2-1.0); CHOLESTEROL RISK RATIO 3.869 (<5); CREATININE FOR GFR 1.24 MG/DL (0.70-1.30); FREE T4 0.95 NG/DL (0.76-1.46); GLOMERULAR FILTRATION RATE 59.7 (>35); MAGNESIUM LEVEL 2.3 MG/DL (1.8-2.4); POTASSIUM SERUM 4.5 MEQ/L (3.5-5.1); THYROID STIMULATING HORMONE 3.12 uIU/ML (0.358-3.740); TOTAL PROTEIN 6.5 GM/DL (6.4-8.2)
== END ==
LOC: M LAB 08:55
PROVIDERS: ATTEND Physician Assistant
DX: C91.10 Chronic lymphocytic leukemia of B-cell type not having achieved remission (principal); E03.9 Hypothyroidism, unspecified; E88.01 Alpha-1-antitrypsin deficiency; I27.20 Pulmonary hypertension, unspecified

== ENCOUNTER 2020-06-28 10:58 | Outpatient (CLI) | payer MEDICARE ==
[~2020-06-28] VITALS: Ht 170.2 cm; Wt 77.3 kg
[~2020-06-28 10:58] MED LIST changes: +SODIUM CHLORIDE 0.9% INJ 10 ML SYR IV SCH
[2020-06-28] MEDS ORDERED: ALPHA PROTEINASE INHIBITOR IV ONE ×2 (11:00→11:11)
[2020-06-28 11:07] VITALS: BP 140/80
[2020-06-28 12:03] VITALS: BP 139/67
== END 2020-06-28 12:00 | disposition home or self-care (01) ==
LOC: M INFU 10:58
PROVIDERS: ATTEND Internal Medicine Pulmonary Disease
DX: E88.01 Alpha-1-antitrypsin deficiency (principal); Z88.2 Allergy status to sulfonamides; Z88.8 Allergy status to other drugs, medicaments and biological substances
CPT/HCPCS: 96365; J0256; J1642

== ENCOUNTER 2020-07-05 10:57 | Outpatient (CLI) | payer MEDICARE ==
[~2020-07-05] VITALS: Ht 170.2 cm; Wt 77.0 kg
[~2020-07-05 10:57] MED LIST changes: -HYDR-3490 PO; +HYDR25TAB PO
[2020-07-05] MEDS ORDERED: ALPHA PROTEINASE INHIBITOR IV ONE (11:00)
[2020-07-05 11:40] VITALS: BP 141/74
[2020-07-05 12:00] VITALS: BP 138/79
== END 2020-07-05 12:00 | disposition home or self-care (01) ==
LOC: M INFU 10:57
PROVIDERS: ATTEND Internal Medicine Pulmonary Disease
DX: E88.01 Alpha-1-antitrypsin deficiency (principal); Z88.2 Allergy status to sulfonamides; Z88.8 Allergy status to other drugs, medicaments and biological substances
CPT/HCPCS: 96365; J0256; J1642

== ENCOUNTER 2020-07-12 11:01 | Outpatient (CLI) | payer MEDICARE ==
[~2020-07-12] VITALS: Ht 170.2 cm; Wt 77.0 kg
[~2020-07-12 11:01] MED LIST changes: +ALPHA PROTEINASE INHIBITOR IV ONE; +HYDR-3490 PO; -HYDR25TAB PO
[2020-07-12 11:15] VITALS: BP 139/75
[2020-07-12 12:10] VITALS: BP 161/71
== END 2020-07-12 12:10 | disposition home or self-care (01) ==
LOC: M INFU 11:01
PROVIDERS: ATTEND Internal Medicine Pulmonary Disease
DX: E88.01 Alpha-1-antitrypsin deficiency (principal); Z88.2 Allergy status to sulfonamides; Z88.8 Allergy status to other drugs, medicaments and biological substances
CPT/HCPCS: 96365; J0256; J1642

== ENCOUNTER 2020-07-19 11:02 | Outpatient (CLI) | payer MEDICARE ==
[~2020-07-19] VITALS: Ht 170.2 cm; Wt 77.3 kg
[2020-07-19 11:23] VITALS: BP 155/68
[2020-07-19] MEDS ORDERED: ALPHA PROTEINASE INHIBITOR IV ONE (12:00)
[2020-07-19 12:17] VITALS: BP 142/73
== END 2020-07-19 12:15 | disposition home or self-care (01) ==
LOC: M INFU 11:02
PROVIDERS: ATTEND Internal Medicine Pulmonary Disease
DX: E88.01 Alpha-1-antitrypsin deficiency (principal); Z88.2 Allergy status to sulfonamides; Z88.8 Allergy status to other drugs, medicaments and biological substances
CPT/HCPCS: 96365; J0256; J1642

== ENCOUNTER 2020-07-26 11:04 | Outpatient (CLI) | payer MEDICARE ==
[~2020-07-26] VITALS: Ht 170.2 cm; Wt 78.6 kg
[2020-07-26 11:15] VITALS: BP 135/94
[2020-07-26 12:10] VITALS: BP 151/66
== END 2020-07-26 12:10 | disposition home or self-care (01) ==
LOC: M INFU 11:04
PROVIDERS: ATTEND Internal Medicine Pulmonary Disease
DX: E88.01 Alpha-1-antitrypsin deficiency (principal); Z88.2 Allergy status to sulfonamides; Z88.8 Allergy status to other drugs, medicaments and biological substances
CPT/HCPCS: 96365; J0256; J1642

== ENCOUNTER 2020-08-02 11:01 | Outpatient (CLI) | payer MEDICARE ==
[~2020-08-02] VITALS: Ht 170.2 cm; Wt 78.4 kg
[2020-08-02 11:00] VITALS: BP 145/79
[2020-08-02 12:04] VITALS: BP 139/80
== END 2020-08-02 12:05 | disposition home or self-care (01) ==
LOC: M INFU 11:01
PROVIDERS: ATTEND Internal Medicine Pulmonary Disease
DX: E88.01 Alpha-1-antitrypsin deficiency (principal); Z88.2 Allergy status to sulfonamides; Z88.8 Allergy status to other drugs, medicaments and biological substances
CPT/HCPCS: 96365; J0256; J1642

== ENCOUNTER 2020-08-09 10:52 | Outpatient (CLI) | payer MEDICARE ==
[~2020-08-09] VITALS: Ht 170.2 cm; Wt 78.6 kg
[~2020-08-09 10:52] MED LIST changes: -ALPHA PROTEINASE INHIBITOR IV ONE
[2020-08-09] MEDS ORDERED: ALPHA PROTEINASE INHIBITOR IV ONE (11:00)
[2020-08-09 11:06] VITALS: BP 141/66
[2020-08-09 12:04] VITALS: BP 136/71
== END 2020-08-09 12:00 | disposition home or self-care (01) ==
LOC: M INFU 10:52
PROVIDERS: ATTEND Internal Medicine Pulmonary Disease
DX: E88.01 Alpha-1-antitrypsin deficiency (principal); Z88.2 Allergy status to sulfonamides; Z88.8 Allergy status to other drugs, medicaments and biological substances
CPT/HCPCS: 96365; J0256; J1642

== ENCOUNTER 2020-08-16 10:54 | Outpatient (CLI) | payer MEDICARE ==
[~2020-08-16] VITALS: Ht 170.2 cm; Wt 77.6 kg
[2020-08-16] MEDS ORDERED: ALPHA PROTEINASE INHIBITOR IV ONE ×2 (11:00→11:15)
[2020-08-16 11:40] VITALS: BP 151/75
[2020-08-16 12:13] VITALS: BP 157/78
== END 2020-08-16 12:15 | disposition home or self-care (01) ==
LOC: M INFU 10:54
PROVIDERS: ATTEND Internal Medicine Pulmonary Disease
DX: E88.01 Alpha-1-antitrypsin deficiency (principal); Z88.2 Allergy status to sulfonamides; Z88.8 Allergy status to other drugs, medicaments and biological substances
CPT/HCPCS: 96365; J0256; J1642

== ENCOUNTER 2020-08-23 11:00 | Outpatient (CLI) | payer MEDICARE ==
[~2020-08-23] VITALS: Ht 170.2 cm; Wt 78.5 kg
[~2020-08-23 11:00] MED LIST changes: +ALPHA PROTEINASE INHIBITOR IV ONE
[2020-08-23 11:11] VITALS: BP 136/68
[2020-08-23 11:57] VITALS: BP 141/71
== END 2020-08-23 12:00 | disposition home or self-care (01) ==
LOC: M INFU 11:00
PROVIDERS: ATTEND Internal Medicine Pulmonary Disease
DX: E88.01 Alpha-1-antitrypsin deficiency (principal); Z88.2 Allergy status to sulfonamides; Z88.8 Allergy status to other drugs, medicaments and biological substances
CPT/HCPCS: 96365; J0256; J1642

== ENCOUNTER 2020-08-30 10:54 | Outpatient (CLI) | payer MEDICARE ==
[~2020-08-30] VITALS: Ht 170.2 cm; Wt 78.5 kg
[~2020-08-30 10:54] MED LIST changes: -ALPHA PROTEINASE INHIBITOR IV ONE
[2020-08-30] MEDS ORDERED: ALPHA PROTEINASE INHIBITOR IV ONE ×4 (11:00)
[2020-08-30 11:03] VITALS: BP 143/84
[2020-08-30 12:00] VITALS: BP 134/91
== END 2020-08-30 12:00 | disposition home or self-care (01) ==
LOC: M INFU 10:54
PROVIDERS: ATTEND Internal Medicine Pulmonary Disease
DX: E88.01 Alpha-1-antitrypsin deficiency (principal); Z88.2 Allergy status to sulfonamides; Z88.8 Allergy status to other drugs, medicaments and biological substances
CPT/HCPCS: 96365; J0256; J1642

== ENCOUNTER 2020-09-06 10:51 | Outpatient (CLI) | payer MEDICARE ==
[~2020-09-06] VITALS: Ht 170.2 cm; Wt 79.5 kg
[~2020-09-06 10:51] MED LIST changes: +SODIUM CHLORIDE 0.9% INJ 10 ML SYR IV PRN
[2020-09-06 10:55] VITALS: BP 144/85
[2020-09-06] MEDS ORDERED: ALPHA PROTEINASE INHIBITOR IV ONE (11:00)
[2020-09-06 12:30] VITALS: BP 150/70
== END 2020-09-06 12:30 | disposition home or self-care (01) ==
LOC: M INFU 10:51
PROVIDERS: ATTEND Internal Medicine Pulmonary Disease
DX: E88.01 Alpha-1-antitrypsin deficiency (principal); Z88.2 Allergy status to sulfonamides; Z88.8 Allergy status to other drugs, medicaments and biological substances
CPT/HCPCS: 96365; 96523; J0256; J1642

== ENCOUNTER 2020-09-13 10:53 | Outpatient (CLI) | payer MEDICARE ==
[~2020-09-13] VITALS: Ht 170.2 cm; Wt 78.6 kg
[~2020-09-13 10:53] MED LIST changes: -SODIUM CHLORIDE 0.9% INJ 10 ML SYR IV PRN
[2020-09-13] MEDS ORDERED: ALPHA PROTEINASE INHIBITOR IV ONE ×2 (11:00→11:15)
[2020-09-13 11:17] VITALS: BP 137/76
[2020-09-13 12:05] VITALS: BP 152/72
== END 2020-09-13 12:07 | disposition home or self-care (01) ==
LOC: M INFU 10:53
PROVIDERS: ATTEND Internal Medicine Pulmonary Disease
DX: E88.01 Alpha-1-antitrypsin deficiency (principal); Z88.2 Allergy status to sulfonamides; Z88.8 Allergy status to other drugs, medicaments and biological substances
CPT/HCPCS: 96365; 96523; J0256; J1642

== ENCOUNTER → 2020-09-19 | Outpatient (REF) | payer MEDICARE ==
[~2020-09-19] MED LIST changes: -SODIUM CHLORIDE 0.9% INJ 10 ML SYR IV SCH
== END ==
LOC: M LAB REF 16:54
PROVIDERS: ATTEND Physician Assistant
DX: J43.1 Panlobular emphysema (principal)

== ENCOUNTER 2020-09-20 08:31 | Outpatient (CLI) | payer MEDICARE ==
[~2020-09-20] VITALS: Ht 170.2 cm; Wt 78.6 kg
[~2020-09-20 08:31] MED LIST changes: +ALPHA PROTEINASE INHIBITOR IV ONE
[2020-09-20] MEDS ORDERED: SODIUM CHLORIDE 0.9% INJ 10 ML SYR IV SCH (09:00)
[2020-09-20 09:15] VITALS: BP 143/73
[2020-09-20 10:00] VITALS: BP 136/68
== END 2020-09-20 10:00 | disposition home or self-care (01) ==
LOC: M INFU 08:31
PROVIDERS: ATTEND Internal Medicine Pulmonary Disease
DX: C91.10 Chronic lymphocytic leukemia of B-cell type not having achieved remission (principal)

== ENCOUNTER → 2020-09-20 | Outpatient (CLI) | payer MEDICARE ==
[2020-09-20 10:16] LABS: HEMATOCRIT 37.4 % (42.0-52.0); MEAN CORPUSCULAR HGB CONC 32.1 g/dl (32.0-36.5); MEAN CORPUSCULAR VOLUME 93.5 fl (80.0-96.0); PLATELET COUNT, AUTOMATED 251 10^3/uL (150-450); WHITE BLOOD COUNT 21.3 10^3/uL (4.0-10.0)
[2020-09-20 10:41] LABS: LYMPHOCYTES 47 % (16-44); MONOCYTES 6 % (0-5); NEUTROPHILS 47 % (28-66); PLATELET ESTIMATE NORMAL (NORMAL)
[2020-09-20 10:50] LABS: BLOOD UREA NITROGEN 28 MG/DL (7-18); CALCIUM LEVEL 9.2 MG/DL (8.8-10.2); CARBON DIOXIDE LEVEL 27 MEQ/L (21-32); CHLORIDE LEVEL 105 MEQ/L (98-107); CHOLESTEROL LEVEL 183 MG/DL (<200); CHOLESTEROL RISK RATIO 3.388 (<5); CREATININE FOR GFR 1.12 MG/DL (0.70-1.30); FREE T4 0.98 NG/DL (0.76-1.46); GLOMERULAR FILTRATION RATE > 60.0 (>35); GLUCOSE, FASTING 98 MG/DL (70-100); HDL CHOLESTEROL 54 MG/DL (>40); LDL CHOLESTEROL 106 MG/DL (<100); NON-HDL-C 129 MG/DL; POTASSIUM SERUM 4.2 MEQ/L (3.5-5.1); SODIUM LEVEL 138 MEQ/L (136-145); TRIGLYCERIDES LEVEL 113 MG/DL (<150)
== END ==
LOC: M LAB 08:49
PROVIDERS: ATTEND Physician Assistant
DX: C91.10 Chronic lymphocytic leukemia of B-cell type not having achieved remission (principal); E03.9 Hypothyroidism, unspecified; E88.01 Alpha-1-antitrypsin deficiency; I27.20 Pulmonary hypertension, unspecified
CPT/HCPCS: 36591; 80048; 80061; 84439; 84443; 85025; 96365; 96523; J0256; J1642

== ENCOUNTER 2020-09-27 10:57 | Outpatient (CLI) | payer MEDICARE ==
[~2020-09-27] VITALS: Ht 170.2 cm; Wt 78.6 kg
[~2020-09-27 10:57] MED LIST changes: -ALPHA PROTEINASE INHIBITOR IV ONE; +SODIUM CHLORIDE 0.9% INJ 10 ML SYR IV SCH
[2020-09-27] MEDS ORDERED: ALPHA PROTEINASE INHIBITOR IV ONE (11:00)
[2020-09-27 11:13] VITALS: BP 177/75
[2020-09-27 12:21] VITALS: BP 178/84
== END 2020-09-27 12:25 | disposition home or self-care (01) ==
LOC: M INFU 10:57
PROVIDERS: ATTEND Internal Medicine Pulmonary Disease
DX: E88.01 Alpha-1-antitrypsin deficiency (principal); Z88.2 Allergy status to sulfonamides; Z88.8 Allergy status to other drugs, medicaments and biological substances
CPT/HCPCS: 96365; 96523; J0256; J1642

== ENCOUNTER 2020-10-04 10:57 | Outpatient (CLI) | payer MEDICARE ==
[~2020-10-04] VITALS: Ht 170.2 cm; Wt 78.4 kg
[2020-10-04] MEDS ORDERED: ALPHA PROTEINASE INHIBITOR IV ONE (11:00)
[2020-10-04 11:12] VITALS: BP 141/84
[2020-10-04 12:28] VITALS: BP 170/81
== END 2020-10-04 12:30 | disposition home or self-care (01) ==
LOC: M INFU 10:57
PROVIDERS: ATTEND Internal Medicine Pulmonary Disease
DX: E88.01 Alpha-1-antitrypsin deficiency (principal); Z88.2 Allergy status to sulfonamides; Z88.8 Allergy status to other drugs, medicaments and biological substances
CPT/HCPCS: 96365; 96523; J0256; J1642

== ENCOUNTER 2020-10-11 10:56 | Outpatient (CLI) | payer MEDICARE ==
[~2020-10-11] VITALS: Ht 170.2 cm; Wt 78.4 kg
[2020-10-11 10:59] VITALS: BP 133/75
[2020-10-11] MEDS ORDERED: ALPHA PROTEINASE INHIBITOR IV ONE (11:00)
== END 2020-10-11 12:05 | disposition home or self-care (01) ==
LOC: M INFU 10:56
PROVIDERS: ATTEND Internal Medicine Pulmonary Disease
DX: E88.01 Alpha-1-antitrypsin deficiency (principal); Z88.2 Allergy status to sulfonamides
CPT/HCPCS: 96365; 96523; J0256; J1642

== ENCOUNTER 2020-10-18 10:53 | Outpatient (CLI) | payer MEDICARE ==
[~2020-10-18] VITALS: Ht 170.2 cm; Wt 78.6 kg
[2020-10-18] MEDS ORDERED: ALPHA PROTEINASE INHIBITOR IV ONE ×5 (11:00)
[2020-10-18] MEDS ORDERED: SODIUM CHLORIDE 0.9% INJ 10 ML SYR IV PRN (11:00)
[2020-10-18 11:09] VITALS: BP 133/60
[2020-10-18 11:58] VITALS: BP 138/66
[2020-10-19] MEDS ORDERED: SODIUM CHLORIDE 0.9% INJ 10 ML SYR IV SCH (09:00)
== END 2020-10-18 12:00 | disposition home or self-care (01) ==
LOC: M INFU 10:53
PROVIDERS: ATTEND Internal Medicine Pulmonary Disease
DX: E88.01 Alpha-1-antitrypsin deficiency (principal); Z88.2 Allergy status to sulfonamides; Z88.8 Allergy status to other drugs, medicaments and biological substances
CPT/HCPCS: 96365; 96523; J0256; J1642

== ENCOUNTER 2020-10-25 10:58 | Outpatient (CLI) | payer MEDICARE ==
[~2020-10-25] VITALS: Ht 170.2 cm; Wt 78.6 kg
[2020-10-25] MEDS ORDERED: ALPHA PROTEINASE INHIBITOR IV ONE (11:00)
[2020-10-25 11:25] VITALS: BP 131/66
[2020-10-25 12:25] VITALS: BP 146/70
== END 2020-10-25 12:25 | disposition home or self-care (01) ==
LOC: M INFU 10:58
PROVIDERS: ATTEND Internal Medicine Pulmonary Disease
DX: E88.01 Alpha-1-antitrypsin deficiency (principal); Z88.2 Allergy status to sulfonamides; Z88.8 Allergy status to other drugs, medicaments and biological substances
CPT/HCPCS: 96365; 96523; J0256; J1642

== ENCOUNTER 2020-11-01 08:32 | Outpatient (CLI) | payer MEDICARE ==
[~2020-11-01] VITALS: Ht 170.2 cm; Wt 78.5 kg
[~2020-11-01 08:32] MED LIST changes: +ALPHA PROTEINASE INHIBITOR IV ONE; -SODIUM CHLORIDE 0.9% INJ 10 ML SYR IV SCH
[2020-11-01 08:45] VITALS: BP 152/72
[2020-11-01] MEDS ORDERED: SODIUM CHLORIDE 0.9% INJ 10 ML SYR IV SCH (09:00)
[2020-11-01 09:29] VITALS: BP 135/70
== END 2020-11-01 09:30 | disposition home or self-care (01) ==
LOC: M INFU 08:32
PROVIDERS: ATTEND Internal Medicine Pulmonary Disease
DX: E88.01 Alpha-1-antitrypsin deficiency (principal); Z88.2 Allergy status to sulfonamides; Z88.8 Allergy status to other drugs, medicaments and biological substances
CPT/HCPCS: 96365; 96523; J0256; J1642

== ENCOUNTER 2020-11-08 10:53 | Outpatient (CLI) | payer MEDICARE ==
[~2020-11-08] VITALS: Ht 170.2 cm; Wt 78.5 kg
[~2020-11-08 10:53] MED LIST changes: +SODIUM CHLORIDE 0.9% INJ 10 ML SYR IV SCH
[2020-11-08] MEDS ORDERED: SODIUM CHLORIDE 0.9% INJ 10 ML SYR IV PRN (11:00)
[2020-11-08] MEDS ORDERED: ALPHA PROTEINASE INHIBITOR IV ONE (11:00)
[2020-11-08 11:11] VITALS: BP 138/64
[2020-11-08 12:10] VITALS: BP 137/90
== END 2020-11-08 12:00 | disposition home or self-care (01) ==
LOC: M INFU 10:53
PROVIDERS: ATTEND Internal Medicine Pulmonary Disease
DX: E88.01 Alpha-1-antitrypsin deficiency (principal)
CPT/HCPCS: 96365; 96523; J0256; J1642

== ENCOUNTER 2020-11-15 11:04 | Outpatient (CLI) | payer MEDICARE ==
[~2020-11-15] VITALS: Ht 170.2 cm; Wt 78.4 kg
[2020-11-15 11:17] VITALS: BP 127/82
[2020-11-15 12:05] VITALS: BP 139/77
== END 2020-11-15 12:10 | disposition home or self-care (01) ==
LOC: M INFU 11:04
PROVIDERS: ATTEND Internal Medicine Pulmonary Disease
DX: E88.01 Alpha-1-antitrypsin deficiency (principal)
CPT/HCPCS: 96365; 96523; J0256; J1642

== ENCOUNTER → 2020-11-21 | Outpatient (REF) | payer MEDICARE ==
[~2020-11-21] MED LIST changes: -ALPHA PROTEINASE INHIBITOR IV ONE; -SODIUM CHLORIDE 0.9% INJ 10 ML SYR IV SCH
== END ==
LOC: M LAB REF 14:12
PROVIDERS: ATTEND Physician Assistant
DX: C44.529 Squamous cell carcinoma of skin of other part of trunk (principal)
CPT/HCPCS: 11102; 17000; 17003; 88305; G0463

== ENCOUNTER 2020-11-22 11:04 | Outpatient (CLI) | payer MEDICARE ==
[~2020-11-22] VITALS: Ht 170.2 cm; Wt 78.5 kg
[~2020-11-22 11:04] MED LIST changes: +ALPHA PROTEINASE INHIBITOR IV ONE; +SODIUM CHLORIDE 0.9% INJ 10 ML SYR IV SCH
[2020-11-22 11:40] VITALS: BP 148/72
[2020-11-22 12:15] VITALS: BP 148/78
== END 2020-11-22 12:20 | disposition home or self-care (01) ==
LOC: M INFU 11:04
PROVIDERS: ATTEND Internal Medicine Pulmonary Disease
DX: E88.01 Alpha-1-antitrypsin deficiency (principal); Z88.2 Allergy status to sulfonamides; Z88.8 Allergy status to other drugs, medicaments and biological substances
CPT/HCPCS: 96365; J0256; J1642

== ENCOUNTER 2020-11-29 11:16 | Outpatient (CLI) | payer MEDICARE ==
[~2020-11-29] VITALS: Ht 170.2 cm; Wt 78.0 kg
[2020-11-29 11:34] VITALS: BP 120/69
[2020-11-29 12:30] VITALS: BP 142/74
== END 2020-11-29 12:30 | disposition home or self-care (01) ==
LOC: M INFU 11:16
PROVIDERS: ATTEND Internal Medicine Pulmonary Disease
DX: E88.01 Alpha-1-antitrypsin deficiency (principal)
CPT/HCPCS: 96365; 96523; J0256; J1642

== ENCOUNTER 2020-12-06 11:00 | Outpatient (CLI) | payer MEDICARE ==
[~2020-12-06] VITALS: Ht 170.2 cm; Wt 78.4 kg
[2020-12-06 11:38] VITALS: BP 124/85
[2020-12-06 12:25] VITALS: BP 148/78
== END 2020-12-06 12:25 | disposition home or self-care (01) ==
LOC: M INFU 11:00
PROVIDERS: ATTEND Internal Medicine Pulmonary Disease
DX: E88.01 Alpha-1-antitrypsin deficiency (principal); Z88.2 Allergy status to sulfonamides; Z88.8 Allergy status to other drugs, medicaments and biological substances
CPT/HCPCS: 96365; J0256; J1642

== ENCOUNTER 2020-12-13 11:11 | Outpatient (CLI) | payer MEDICARE ==
[~2020-12-13] VITALS: Ht 170.2 cm; Wt 78.4 kg
[~2020-12-13 11:11] MED LIST changes: +SODIUM CHLORIDE 0.9% INJ 10 ML SYR IV PRN
[2020-12-13 11:22] VITALS: BP 133/74
[2020-12-13 12:11] VITALS: BP 147/69
== END 2020-12-13 12:15 | disposition home or self-care (01) ==
LOC: M INFU 11:11
PROVIDERS: ATTEND Internal Medicine Pulmonary Disease
DX: E88.01 Alpha-1-antitrypsin deficiency (principal); Z88.2 Allergy status to sulfonamides; Z88.8 Allergy status to other drugs, medicaments and biological substances
CPT/HCPCS: 96365; J0256; J1642

== ENCOUNTER 2020-12-20 11:14 | Outpatient (CLI) | payer MEDICARE ==
[~2020-12-20] VITALS: Ht 170.2 cm; Wt 78.6 kg
[~2020-12-20 11:14] MED LIST changes: -SODIUM CHLORIDE 0.9% INJ 10 ML SYR IV PRN
[2020-12-20 11:23] VITALS: BP 122/66
[2020-12-20 12:14] VITALS: BP 134/72
== END 2020-12-20 12:15 | disposition home or self-care (01) ==
LOC: M INFU 11:14
PROVIDERS: ATTEND Internal Medicine Pulmonary Disease
DX: E88.01 Alpha-1-antitrypsin deficiency (principal); Z88.2 Allergy status to sulfonamides; Z88.8 Allergy status to other drugs, medicaments and biological substances
CPT/HCPCS: 96365; 96523; J0256; J1642

== ENCOUNTER 2020-12-27 11:08 | Outpatient (CLI) | payer MEDICARE ==
[~2020-12-27] VITALS: Ht 170.2 cm; Wt 78.4 kg
[2020-12-27 11:42] VITALS: BP 137/64
[2020-12-27 11:49] VITALS: BP 137/64
[2020-12-27 11:59] VITALS: BP 141/67
== END 2020-12-27 12:05 | disposition home or self-care (01) ==
LOC: M INFU 11:08
PROVIDERS: ATTEND Internal Medicine Pulmonary Disease
DX: E88.01 Alpha-1-antitrypsin deficiency (principal); Z88.2 Allergy status to sulfonamides; Z88.8 Allergy status to other drugs, medicaments and biological substances
CPT/HCPCS: 96365; J0256; J1642

== ENCOUNTER 2021-01-03 11:09 | Outpatient (CLI) | payer MEDICARE ==
[~2021-01-03] VITALS: Ht 170.2 cm; Wt 78.6 kg
[2021-01-03 11:15] VITALS: BP 130/65
[2021-01-03 12:00] VITALS: BP 150/70
[2021-03-09] MEDS ORDERED: ALEN70TA82 PO (11:52)
[2021-03-09] MEDS ORDERED: FISH1000 PO (11:52)
[2021-03-09] MEDS ORDERED: FURO20TA2 PO (11:52)
[2021-03-09] MEDS ORDERED: PROV108A INH (11:52)
[2021-03-09] MEDS ORDERED: DALI1TAB2 PO (11:52)
== END 2021-01-03 12:00 | disposition home or self-care (01) ==
LOC: M INFU 11:09
PROVIDERS: ATTEND Internal Medicine Pulmonary Disease
DX: E88.01 Alpha-1-antitrypsin deficiency (principal); Z88.2 Allergy status to sulfonamides
CPT/HCPCS: 96365; J0256; J1642

== ENCOUNTER 2021-01-10 11:05 | Outpatient (CLI) | payer MEDICARE ==
[~2021-01-10] VITALS: Ht 170.2 cm; Wt 78.0 kg
[2021-01-10] MEDS ORDERED: ALPHA PROTEINASE INHIBITOR IV ONE (11:30)
[2021-01-10 11:35] VITALS: BP 139/68
[2021-01-10 11:55] VITALS: BP 155/74
== END 2021-01-10 11:55 | disposition home or self-care (01) ==
LOC: M INFU 11:05
PROVIDERS: ATTEND Internal Medicine Pulmonary Disease
DX: E88.01 Alpha-1-antitrypsin deficiency (principal); Z88.2 Allergy status to sulfonamides; Z88.8 Allergy status to other drugs, medicaments and biological substances
CPT/HCPCS: 96365; J0256; J1642

== ENCOUNTER 2021-01-17 09:31 | Outpatient (CLI) | payer MEDICARE ==
[~2021-01-17] VITALS: Ht 170.2 cm; Wt 78.6 kg
[~2021-01-17 09:31] MED LIST changes: -ALPHA PROTEINASE INHIBITOR IV ONE
[2021-01-17 09:50] VITALS: BP 155/76
[2021-01-17 10:27] VITALS: BP 164/74
[2021-01-17] MEDS ORDERED: ALPHA PROTEINASE INHIBITOR IV ONE (11:00)
== END 2021-01-17 10:30 | disposition home or self-care (01) ==
LOC: M INFU 09:31
PROVIDERS: ATTEND Internal Medicine Pulmonary Disease
DX: E88.01 Alpha-1-antitrypsin deficiency (principal); Z88.2 Allergy status to sulfonamides; Z88.8 Allergy status to other drugs, medicaments and biological substances
CPT/HCPCS: 36591; 96365; J0256; J1642

== ENCOUNTER 2021-01-24 11:00 | Outpatient (CLI) | payer MEDICARE ==
[~2021-01-24] VITALS: Ht 170.2 cm; Wt 78.6 kg
[~2021-01-24 11:00] MED LIST changes: +ALPHA PROTEINASE INHIBITOR IV ONE
[2021-01-24 11:05] VITALS: BP 156/70
[2021-01-24 11:57] VITALS: BP 146/70
== END 2021-01-24 12:00 | disposition home or self-care (01) ==
LOC: M INFU 11:00
PROVIDERS: ATTEND Internal Medicine Pulmonary Disease
DX: E88.01 Alpha-1-antitrypsin deficiency (principal); Z88.2 Allergy status to sulfonamides; Z88.8 Allergy status to other drugs, medicaments and biological substances
CPT/HCPCS: 96365; J0256; J1642

== ENCOUNTER 2021-01-31 10:55 | Outpatient (CLI) | payer MEDICARE ==
[~2021-01-31] VITALS: Ht 170.2 cm; Wt 78.6 kg
[~2021-01-31 10:55] MED LIST changes: +SODIUM CHLORIDE 0.9% INJ 10 ML SYR IV PRN
[2021-01-31] MEDS ORDERED: ALPHA PROTEINASE INHIBITOR IV ONE (11:00)
[2021-01-31 11:15] VITALS: BP 127/72
[2021-01-31 11:59] VITALS: BP 147/67
== END 2021-01-31 12:00 | disposition home or self-care (01) ==
LOC: M INFU 10:55
PROVIDERS: ATTEND Internal Medicine Pulmonary Disease
DX: E88.01 Alpha-1-antitrypsin deficiency (principal); Z88.2 Allergy status to sulfonamides; Z88.8 Allergy status to other drugs, medicaments and biological substances
CPT/HCPCS: 96365; J0256; J1642

== ENCOUNTER 2021-02-07 11:01 | Outpatient (CLI) | payer MEDICARE ==
[~2021-02-07] VITALS: Ht 170.2 cm; Wt 78.6 kg
[2021-02-07 11:22] VITALS: BP 156/74
[2021-02-07 12:30] VITALS: BP 126/78
== END 2021-02-07 12:45 | disposition home or self-care (01) ==
LOC: M INFU 11:01
PROVIDERS: ATTEND Internal Medicine Pulmonary Disease
DX: E88.01 Alpha-1-antitrypsin deficiency (principal); Z88.2 Allergy status to sulfonamides; Z88.8 Allergy status to other drugs, medicaments and biological substances
CPT/HCPCS: 96365; J0256; J1642

== ENCOUNTER → 2021-02-10 | Outpatient (REF) | payer MEDICARE ==
[~2021-02-10] MED LIST changes: -ALPHA PROTEINASE INHIBITOR IV ONE; -SODIUM CHLORIDE 0.9% INJ 10 ML SYR IV PRN; -SODIUM CHLORIDE 0.9% INJ 10 ML SYR IV SCH
== END ==
LOC: M LAB REF 17:15
PROVIDERS: ATTEND Dermatology
DX: C44.529 Squamous cell carcinoma of skin of other part of trunk (principal)

== ENCOUNTER 2021-02-14 10:49 | Outpatient (CLI) | payer MEDICARE ==
[~2021-02-14] VITALS: Ht 170.2 cm; Wt 78.5 kg
[~2021-02-14 10:49] MED LIST changes: +SODIUM CHLORIDE 0.9% INJ 10 ML SYR IV PRN; +SODIUM CHLORIDE 0.9% INJ 10 ML SYR IV SCH
[2021-02-14] MEDS ORDERED: ALPHA PROTEINASE INHIBITOR IV ONE (11:00)
[2021-02-14 11:02] VITALS: BP 152/68
[2021-02-14 12:18] VITALS: BP 151/77
== END 2021-02-14 12:13 | disposition home or self-care (01) ==
LOC: M INFU 10:49
PROVIDERS: ATTEND Internal Medicine Pulmonary Disease
DX: E88.01 Alpha-1-antitrypsin deficiency (principal); Z88.2 Allergy status to sulfonamides
CPT/HCPCS: 36592; 96365; J0256; J1642

== ENCOUNTER 2021-02-21 10:54 | Outpatient (CLI) | payer MEDICARE ==
[~2021-02-21] VITALS: Ht 170.2 cm; Wt 78.4 kg
[2021-02-21] MEDS ORDERED: ALPHA PROTEINASE INHIBITOR IV ONE (11:00)
[2021-02-21 11:13] VITALS: BP 134/66
[2021-02-21 12:26] VITALS: BP 161/72
== END 2021-02-21 16:13 | disposition home or self-care (01) ==
LOC: M INFU 10:54
PROVIDERS: ATTEND Internal Medicine Pulmonary Disease
DX: E88.01 Alpha-1-antitrypsin deficiency (principal); Z88.2 Allergy status to sulfonamides; Z88.8 Allergy status to other drugs, medicaments and biological substances
CPT/HCPCS: 96365; J0256; J1642

== ENCOUNTER 2021-02-28 11:06 | Outpatient (CLI) | payer MEDICARE ==
[~2021-02-28] VITALS: Ht 170.2 cm; Wt 78.4 kg
[~2021-02-28 11:06] MED LIST changes: +ALPHA PROTEINASE INHIBITOR IV ONE
[2021-02-28 11:10] VITALS: BP 141/68
[2021-02-28 12:05] VITALS: BP 150/74
== END 2021-02-28 12:00 | disposition home or self-care (01) ==
LOC: M INFU 11:06
PROVIDERS: ATTEND Internal Medicine Pulmonary Disease
DX: E88.01 Alpha-1-antitrypsin deficiency (principal); Z88.2 Allergy status to sulfonamides
CPT/HCPCS: 96365; J0256; J1642

== ENCOUNTER 2021-03-07 10:53 | Outpatient (CLI) | payer MEDICARE ==
[~2021-03-07] VITALS: Ht 170.2 cm; Wt 78.0 kg
[~2021-03-07 10:53] MED LIST changes: -ALPHA PROTEINASE INHIBITOR IV ONE
[2021-03-07] MEDS ORDERED: ALPHA PROTEINASE INHIBITOR IV ONE (11:00)
[2021-03-07 11:38] VITALS: BP 123/68
[2021-03-07 12:00] VITALS: BP 148/67
[2021-03-08] MEDS ORDERED: SODIUM CHLORIDE 0.9% INJ 10 ML SYR IV SCH (09:00)
[2021-03-09] MEDS ORDERED: DALI1TAB2 PO (11:52)
[2021-03-09] MEDS ORDERED: ALEN70TA82 PO (11:52)
[2021-03-09] MEDS ORDERED: FURO20TA2 PO (11:52)
[2021-03-09] MEDS ORDERED: PROV108A INH (11:52)
[2021-03-09] MEDS ORDERED: FISH1000 PO (11:52)
== END 2021-03-07 12:10 | disposition home or self-care (01) ==
LOC: M INFU 10:53
PROVIDERS: ATTEND Internal Medicine Pulmonary Disease
DX: E88.01 Alpha-1-antitrypsin deficiency (principal); Z88.2 Allergy status to sulfonamides; Z88.8 Allergy status to other drugs, medicaments and biological substances
CPT/HCPCS: 96365; J0256; J1642

== ENCOUNTER 2021-03-14 10:56 | Outpatient (CLI) | payer MEDICARE ==
[~2021-03-14] VITALS: Ht 170.2 cm; Wt 78.0 kg
[~2021-03-14 10:56] MED LIST changes: +ALEN70TA82 PO; +PROV108A INH; -SODIUM CHLORIDE 0.9% INJ 10 ML SYR IV PRN
[2021-03-14] MEDS ORDERED: SODIUM CHLORIDE 0.9% INJ 10 ML SYR IV PRN (11:00)
[2021-03-14] MEDS ORDERED: ALPHA PROTEINASE INHIBITOR IV ONE (11:00)
[2021-03-14 11:13] VITALS: BP 140/76
[2021-03-14 12:35] VITALS: BP 163/76
== END 2021-03-14 12:20 | disposition home or self-care (01) ==
LOC: M INFU 10:56
PROVIDERS: ATTEND Internal Medicine Pulmonary Disease
DX: E88.01 Alpha-1-antitrypsin deficiency (principal); Z88.2 Allergy status to sulfonamides; Z88.8 Allergy status to other drugs, medicaments and biological substances
CPT/HCPCS: 96365; J0256; J1642

== ENCOUNTER 2021-03-21 10:53 | Outpatient (CLI) | payer MEDICARE ==
[~2021-03-21] VITALS: Ht 170.2 cm; Wt 77.0 kg
[~2021-03-21 10:53] MED LIST changes: +ALPHA PROTEINASE INHIBITOR IV ONE; +SODIUM CHLORIDE 0.9% INJ 10 ML SYR IV PRN
[2021-03-21 11:34] VITALS: BP 157/72
[2021-03-21 12:09] VITALS: BP 155/74
== END 2021-03-21 12:10 | disposition home or self-care (01) ==
LOC: M INFU 10:53
PROVIDERS: ATTEND Internal Medicine Pulmonary Disease
DX: E88.01 Alpha-1-antitrypsin deficiency (principal); Z88.2 Allergy status to sulfonamides; Z88.8 Allergy status to other drugs, medicaments and biological substances
CPT/HCPCS: 96365; J0256; J1642

== ENCOUNTER 2021-03-28 08:47 | Outpatient (CLI) | payer MEDICARE ==
[~2021-03-28] VITALS: Ht 170.2 cm; Wt 77.0 kg
[~2021-03-28 08:47] MED LIST changes: +ALPHA PROTEINASE INHIBITOR IV ONE
[2021-03-28] MEDS ORDERED: ALPHA PROTEINASE INHIBITOR IV ONE (09:00)
[2021-03-28] MEDS ORDERED: SODIUM CHLORIDE 0.9% INJ 10 ML SYR IV SCH (09:00)
[2021-03-28 09:06] VITALS: BP 146/70
[2021-03-28 10:10] VITALS: BP 133/67
== END 2021-03-28 10:15 | disposition home or self-care (01) ==
LOC: M INFU 08:47
PROVIDERS: ATTEND Internal Medicine Pulmonary Disease
DX: E88.01 Alpha-1-antitrypsin deficiency (principal); Z88.2 Allergy status to sulfonamides; Z88.8 Allergy status to other drugs, medicaments and biological substances; Z79.899 Other long term (current) drug therapy
CPT/HCPCS: 36591; 80053; 80061; 84439; 84443; 85025; 96365; J0256; J1642

== ENCOUNTER → 2021-03-28 | Outpatient (CLI) | payer MEDICARE ==
[~2021-03-28] MED LIST changes: -ALPHA PROTEINASE INHIBITOR IV ONE; -SODIUM CHLORIDE 0.9% INJ 10 ML SYR IV PRN; -SODIUM CHLORIDE 0.9% INJ 10 ML SYR IV SCH
[2021-03-28 09:23] LABS: HEMATOCRIT 36.1 % (42.0-52.0); HEMOGLOBIN 11.7 g/dl (13.5-17.5); MEAN CORPUSCULAR HEMOGLOBIN 29.9 pg (27.0-33.0); MEAN CORPUSCULAR HGB CONC 32.4 g/dl (32.0-36.5); MEAN CORPUSCULAR VOLUME 92.3 fl (80.0-96.0); PLATELET COUNT, AUTOMATED 244 10^3/uL (150-450); RED BLOOD COUNT 3.91 10^6/uL (4.30-6.10); WHITE BLOOD COUNT 19.6 10^3/uL (4.0-10.0)
[2021-03-28 10:01] LABS: ALBUMIN 3.9 GM/DL (3.2-5.2); BILIRUBIN,TOTAL 0.3 MG/DL (0.2-1.0); CALCIUM LEVEL 9.2 MG/DL (8.8-10.2); CHOLESTEROL RISK RATIO 3.822 (<5); CREATININE FOR GFR 1.43 MG/DL (0.70-1.30); FREE T4 0.98 NG/DL (0.76-1.46); GLOMERULAR FILTRATION RATE 50.5 (>35); POTASSIUM SERUM 5.1 MEQ/L (3.5-5.1); THYROID STIMULATING HORMONE 2.92 uIU/ML (0.358-3.740); TOTAL PROTEIN 6.7 GM/DL (6.4-8.2)
[2021-03-28 10:04] LABS: ATYPICAL LYMPH 2 % (0-5); HYPOCHROMASIA 1+; LYMPHOCYTES 43 % (16-44); MONOCYTES 4 % (0-5); NEUTROPHILS 51 % (28-66); PLATELET ESTIMATE NORMAL (NORMAL)
== END ==
LOC: M LAB 08:51
PROVIDERS: ATTEND Family Medicine
DX: E03.9 Hypothyroidism, unspecified (principal); C91.10 Chronic lymphocytic leukemia of B-cell type not having achieved remission; I27.23 Pulmonary hypertension due to lung diseases and hypoxia

== ENCOUNTER 2021-04-04 11:05 | Outpatient (CLI) | payer MEDICARE ==
[~2021-04-04] VITALS: Ht 170.2 cm; Wt 78.6 kg
[~2021-04-04 11:05] MED LIST changes: +SODIUM CHLORIDE 0.9% INJ 10 ML SYR IV SCH
[2021-04-04 11:10] VITALS: BP 133/66
[2021-04-04 12:05] VITALS: BP 155/67
== END 2021-04-04 12:05 | disposition home or self-care (01) ==
LOC: M INFU 11:05
PROVIDERS: ATTEND Internal Medicine Pulmonary Disease
DX: E88.01 Alpha-1-antitrypsin deficiency (principal); Z88.2 Allergy status to sulfonamides
CPT/HCPCS: 96365; J0256; J1642

== ENCOUNTER 2021-04-11 10:11 | Outpatient (CLI) | payer MEDICARE ==
[~2021-04-11] VITALS: Ht 170.2 cm; Wt 78.6 kg
[~2021-04-11 10:11] MED LIST changes: +SODIUM CHLORIDE 0.9% INJ 10 ML SYR IV SCH
[2021-04-11 10:58] VITALS: BP 146/66
[2021-04-11] MEDS ORDERED: ALPHA PROTEINASE INHIBITOR IV ONE ×2 (11:00)
[2021-04-11] MEDS ORDERED: SODIUM CHLORIDE 0.9% INJ 10 ML SYR IV PRN (11:00)
[2021-04-11 11:25] VITALS: BP 143/73
== END 2021-04-11 11:30 | disposition home or self-care (01) ==
LOC: M INFU 10:11
PROVIDERS: ATTEND Internal Medicine Pulmonary Disease
DX: E88.01 Alpha-1-antitrypsin deficiency (principal); Z88.2 Allergy status to sulfonamides; Z88.8 Allergy status to other drugs, medicaments and biological substances
CPT/HCPCS: 76775; 96365; J0256; J1642

== ENCOUNTER → 2021-04-11 | Outpatient (CLI) | payer MEDICARE ==
[~2021-04-11] MED LIST changes: -ALPHA PROTEINASE INHIBITOR IV ONE; -SODIUM CHLORIDE 0.9% INJ 10 ML SYR IV SCH
--- NOTE | 2021-04-11 13:57 | REP ---
INDICATION: CKD STAGE 3. COMPARISON: None TECHNIQUE: Real-time sonographic evaluation with Doppler FINDINGS: Multiple ultrasonographic images of the right kidney show the right kidney to measure 8.7 x 5.2 x 4.3 cm. The renal cortical echotexture is somewhat increased. The renal cortex is thinned. There are no masses. There is good corticomedullary differentiation. There is no hydronephrosis. There are no perinephric fluid collections. Multiple ultrasonographic images of the left kidney show the left kidney to measure 10 x 4.8 x 4 cm. The renal cortical echotexture is somewhat increased. The renal cortex is thinned. There are no masses. There is good corticomedullary differentiation. There is no hydronephrosis. There are no perinephric fluid collections. IMPRESSION: Age-related changes and or medical renal disease correlate clinically. <Electronically signed by Alberto Mcclendon > 04/11/21 [id number]
== END ==
LOC: M RAD 10:10
PROVIDERS: ATTEND Physician Assistant
DX: N18.30 Chronic kidney disease, stage 3 unspecified (principal)

== ENCOUNTER 2021-04-18 10:48 | Outpatient (CLI) | payer MEDICARE ==
[~2021-04-18] VITALS: Ht 172.7 cm; Wt 78.6 kg
[2021-04-18] MEDS ORDERED: ALPHA PROTEINASE INHIBITOR IV ONE (11:00)
[2021-04-18 11:04] VITALS: BP 143/80
[2021-04-18 11:51] VITALS: BP 159/83
== END 2021-04-18 11:55 | disposition home or self-care (01) ==
LOC: M INFU 10:48
PROVIDERS: ATTEND Internal Medicine Pulmonary Disease
DX: E88.01 Alpha-1-antitrypsin deficiency (principal); Z88.2 Allergy status to sulfonamides; Z91.048 Other nonmedicinal substance allergy status
CPT/HCPCS: 96365; J0256; J1642

== ENCOUNTER 2021-04-25 11:03 | Outpatient (CLI) | payer MEDICARE ==
[~2021-04-25] VITALS: Ht 172.7 cm; Wt 78.6 kg
[~2021-04-25 11:03] MED LIST changes: +ALPHA PROTEINASE INHIBITOR IV ONE; +SODIUM CHLORIDE 0.9% INJ 10 ML SYR IV PRN; -SODIUM CHLORIDE 0.9% INJ 10 ML SYR IV SCH
[2021-04-25 11:15] VITALS: BP 139/65
[2021-04-25 12:04] VITALS: BP 142/76
[2021-04-26] MEDS ORDERED: SODIUM CHLORIDE 0.9% INJ 10 ML SYR IV SCH (09:00)
== END 2021-04-25 12:10 | disposition home or self-care (01) ==
LOC: M INFU 11:03
PROVIDERS: ATTEND Internal Medicine Pulmonary Disease
DX: E88.01 Alpha-1-antitrypsin deficiency (principal); Z88.2 Allergy status to sulfonamides; Z88.8 Allergy status to other drugs, medicaments and biological substances
CPT/HCPCS: 96365; J0256; J1642

== ENCOUNTER 2021-05-02 11:07 | Outpatient (CLI) | payer MEDICARE ==
[~2021-05-02] VITALS: Ht 172.7 cm; Wt 78.6 kg
[~2021-05-02 11:07] MED LIST changes: -SODIUM CHLORIDE 0.9% INJ 10 ML SYR IV PRN; +SODIUM CHLORIDE 0.9% INJ 10 ML SYR IV SCH
[2021-05-02 11:15] VITALS: BP 139/65
[2021-05-02 12:28] VITALS: BP 155/70
== END 2021-05-02 12:30 | disposition home or self-care (01) ==
LOC: M INFU 11:07
PROVIDERS: ATTEND Internal Medicine Pulmonary Disease
DX: E88.01 Alpha-1-antitrypsin deficiency (principal); Z88.2 Allergy status to sulfonamides; Z91.048 Other nonmedicinal substance allergy status
CPT/HCPCS: 96365; J0256; J1642

== ENCOUNTER → 2021-05-05 | Outpatient (CLI) | payer MEDICARE ==
[~2021-05-05] MED LIST changes: -ALPHA PROTEINASE INHIBITOR IV ONE; -SODIUM CHLORIDE 0.9% INJ 10 ML SYR IV SCH
--- NOTE | 2021-05-05 14:16 | REP ---
INDICATION: LUMBAGO WITH SCIATICA, LEFT SIDE. COMPARISON: None TECHNIQUE: Multiple views of the lumbosacral spine. FINDINGS: There are small bilateral marginal osteophytes at every level. There is degenerative disc space narrowing at every level. There is anterior lipping at every level. There are degenerative facet joint changes seen bilaterally at every level. Bending views show no instability. There is no evidence of spondylolysis or spondylolisthesis. The bones are demineralized. IMPRESSION: Chronic changes <Electronically signed by Alberto Mcclendon > 05/05/21 [id number]
--- NOTE | 2021-05-05 14:18 | REP ---
INDICATION: LUMBAGO WITH SCIATICA, LEFT SIDE. TECHNIQUE: AP pelvis two views each hip FINDINGS: The hip joint spaces are asymmetrically narrowed moderate on the left and moderate to severe on the right. The bones are demineralized. The femoral heads are spherical in shape and symmetric in appearance. There is a ring osteophyte bilaterally. There is no acute fracture, dislocation, or subluxation. There is no significant buttressing. IMPRESSION: Chronic changes as described above. <Electronically signed by Alberto Mcclendon > 05/05/21 [id number]
== END ==
LOC: M PLALAB 11:14
PROVIDERS: ATTEND Family Medicine
DX: M54.42 Lumbago with sciatica, left side (principal); M25.78 Osteophyte, vertebrae

== ENCOUNTER 2021-05-09 10:56 | Outpatient (CLI) | payer MEDICARE ==
[~2021-05-09] VITALS: Ht 170.2 cm; Wt 77.6 kg
[~2021-05-09 10:56] MED LIST changes: +SODIUM CHLORIDE 0.9% INJ 10 ML SYR IV SCH
[2021-05-09] MEDS ORDERED: ALPHA PROTEINASE INHIBITOR IV ONE (11:00)
[2021-05-09 11:16] VITALS: BP 144/60
[2021-05-09 12:20] VITALS: BP 164/83
== END 2021-05-09 12:20 | disposition home or self-care (01) ==
LOC: M INFU 10:56
PROVIDERS: ATTEND Internal Medicine Pulmonary Disease
DX: E88.01 Alpha-1-antitrypsin deficiency (principal); Z88.2 Allergy status to sulfonamides; Z88.8 Allergy status to other drugs, medicaments and biological substances
CPT/HCPCS: 96365; J0256; J1642

== ENCOUNTER 2021-05-16 10:45 | Outpatient (CLI) | payer MEDICARE ==
[~2021-05-16] VITALS: Ht 170.2 cm; Wt 78.6 kg
[2021-05-16 11:00] VITALS: BP 138/79
[2021-05-16] MEDS ORDERED: ALPHA PROTEINASE INHIBITOR IV ONE (11:00)
[2021-05-16 11:45] VITALS: BP 128/97
== END 2021-05-16 11:55 | disposition home or self-care (01) ==
LOC: M INFU 10:45
PROVIDERS: ATTEND Internal Medicine Pulmonary Disease
DX: E88.01 Alpha-1-antitrypsin deficiency (principal); Z88.2 Allergy status to sulfonamides; Z88.8 Allergy status to other drugs, medicaments and biological substances
CPT/HCPCS: 96365; J0256; J1642

== ENCOUNTER 2021-05-23 10:48 | Outpatient (CLI) | payer MEDICARE ==
[~2021-05-23] VITALS: Ht 170.2 cm; Wt 78.6 kg
[2021-05-23] MEDS ORDERED: ALPHA PROTEINASE INHIBITOR IV ONE (11:00)
[2021-05-23 11:06] VITALS: BP 143/62
[2021-05-23 12:06] VITALS: BP 142/65
== END 2021-05-23 12:05 | disposition home or self-care (01) ==
LOC: M INFU 10:48
PROVIDERS: ATTEND Internal Medicine Pulmonary Disease
DX: E88.01 Alpha-1-antitrypsin deficiency (principal); Z88.2 Allergy status to sulfonamides; Z88.8 Allergy status to other drugs, medicaments and biological substances
CPT/HCPCS: 96365; J0256; J1642

== ENCOUNTER 2021-05-30 10:48 | Outpatient (CLI) | payer MEDICARE ==
[~2021-05-30] VITALS: Ht 170.2 cm; Wt 78.6 kg
[2021-05-30] MEDS ORDERED: ALPHA PROTEINASE INHIBITOR IV ONE ×2 (11:00→11:35)
[2021-05-30 11:22] VITALS: BP 139/63
[2021-05-30 12:30] VITALS: BP 141/65
== END 2021-05-30 12:30 | disposition home or self-care (01) ==
LOC: M INFU 10:48
PROVIDERS: ATTEND Internal Medicine Pulmonary Disease
DX: E88.01 Alpha-1-antitrypsin deficiency (principal); Z88.2 Allergy status to sulfonamides; Z88.8 Allergy status to other drugs, medicaments and biological substances
CPT/HCPCS: 96365; J0256; J1642

== ENCOUNTER 2021-06-06 11:00 | Outpatient (CLI) | payer MEDICARE ==
[~2021-06-06] VITALS: Ht 170.2 cm; Wt 78.0 kg
[~2021-06-06 11:00] MED LIST changes: +ALPHA PROTEINASE INHIBITOR IV ONE
[2021-06-06 11:18] VITALS: BP 144/93
[2021-06-06 12:16] VITALS: BP 175/81
== END 2021-06-06 12:20 | disposition home or self-care (01) ==
LOC: M INFU 11:00
PROVIDERS: ATTEND Internal Medicine Pulmonary Disease
DX: E88.01 Alpha-1-antitrypsin deficiency (principal); Z88.2 Allergy status to sulfonamides; Z88.8 Allergy status to other drugs, medicaments and biological substances
CPT/HCPCS: 96365; J0256; J1642

== ENCOUNTER 2021-06-13 10:50 | Outpatient (CLI) | payer MEDICARE ==
[~2021-06-13] VITALS: Ht 170.2 cm; Wt 78.0 kg
[~2021-06-13 10:50] MED LIST changes: -ALPHA PROTEINASE INHIBITOR IV ONE
[2021-06-13] MEDS ORDERED: ALPHA PROTEINASE INHIBITOR IV ONE (11:00)
[2021-06-13 11:23] VITALS: BP 112/73
[2021-06-13 12:00] VITALS: BP 135/66
== END 2021-06-13 12:00 | disposition home or self-care (01) ==
LOC: M INFU 10:50
PROVIDERS: ATTEND Internal Medicine Pulmonary Disease
DX: E88.01 Alpha-1-antitrypsin deficiency (principal); E88.2 Lipomatosis, not elsewhere classified; Z88.8 Allergy status to other drugs, medicaments and biological substances
CPT/HCPCS: 96365; J0256; J1642

== ENCOUNTER 2021-06-20 11:07 | Outpatient (CLI) | payer MEDICARE ==
[~2021-06-20] VITALS: Ht 170.2 cm; Wt 78.0 kg
[~2021-06-20 11:07] MED LIST changes: +ALPHA PROTEINASE INHIBITOR IV ONE
[2021-06-20 11:24] VITALS: BP 123/91
[2021-06-20 12:09] VITALS: BP 157/70
== END 2021-06-20 12:15 | disposition home or self-care (01) ==
LOC: M INFU 11:07
PROVIDERS: ATTEND Internal Medicine Pulmonary Disease
DX: E88.01 Alpha-1-antitrypsin deficiency (principal); Z88.2 Allergy status to sulfonamides; Z88.8 Allergy status to other drugs, medicaments and biological substances
CPT/HCPCS: 96365; J0256; J1642

== ENCOUNTER 2021-06-27 08:46 | Outpatient (CLI) | payer MEDICARE ==
[~2021-06-27] VITALS: Ht 170.2 cm; Wt 78.0 kg
[2021-06-27] MEDS ORDERED: SODIUM CHLORIDE 0.9% INJ 10 ML SYR IV SCH (09:00)
[2021-06-27 09:43] VITALS: BP 142/63
[2021-06-27 10:04] VITALS: BP 141/63
[2021-06-27] MEDS ORDERED: ALPHA PROTEINASE INHIBITOR IV ONE (11:00)
== END 2021-06-27 10:10 | disposition home or self-care (01) ==
LOC: M INFU 08:46
PROVIDERS: ATTEND Internal Medicine Pulmonary Disease
DX: E88.01 Alpha-1-antitrypsin deficiency (principal); N18.30 Chronic kidney disease, stage 3 unspecified; I27.23 Pulmonary hypertension due to lung diseases and hypoxia; E03.9 Hypothyroidism, unspecified; Z88.2 Allergy status to sulfonamides; Z88.8 Allergy status to other drugs, medicaments and biological substances
CPT/HCPCS: 36591; 80048; 80061; 84439; 84443; 96365; J0256; J1642

== ENCOUNTER → 2021-06-27 | Outpatient (CLI) | payer MEDICARE ==
[~2021-06-27] MED LIST changes: -ALPHA PROTEINASE INHIBITOR IV ONE; -SODIUM CHLORIDE 0.9% INJ 10 ML SYR IV SCH
[2021-06-27 10:57] LABS: BLOOD UREA NITROGEN 27 MG/DL (7-18); CALCIUM LEVEL 9.1 MG/DL (8.8-10.2); CARBON DIOXIDE LEVEL 26 MEQ/L (21-32); CHLORIDE LEVEL 108 MEQ/L (98-107); CHOLESTEROL LEVEL 150 MG/DL (<200); CREATININE FOR GFR 1.15 MG/DL (0.70-1.30); GLOMERULAR FILTRATION RATE > 60.0 (>35); GLUCOSE, FASTING 103 MG/DL (70-100); HDL CHOLESTEROL 40 MG/DL (>40); POTASSIUM SERUM 4.8 MEQ/L (3.5-5.1); SODIUM LEVEL 141 MEQ/L (136-145); TRIGLYCERIDES LEVEL 152 MG/DL (<150)
[2021-06-27 10:58] LABS: FREE T4 1.05 NG/DL (0.76-1.46); LDL CHOLESTEROL 80 MG/DL (<100); NON-HDL-C 110 MG/DL
== END ==
LOC: M LAB 08:53 → M INFU 08:53
PROVIDERS: ATTEND Physician Assistant
DX: N18.30 Chronic kidney disease, stage 3 unspecified (principal); I27.23 Pulmonary hypertension due to lung diseases and hypoxia; E03.9 Hypothyroidism, unspecified

== ENCOUNTER 2021-07-04 11:02 | Outpatient (CLI) | payer MEDICARE ==
[~2021-07-04] VITALS: Ht 170.2 cm; Wt 78.9 kg
[~2021-07-04 11:02] MED LIST changes: +ALPHA PROTEINASE INHIBITOR IV ONE; +SODIUM CHLORIDE 0.9% INJ 10 ML SYR IV SCH
[2021-07-04 11:24] VITALS: BP 177/77
[2021-07-04 11:55] VITALS: BP 127/58
== END 2021-07-04 12:00 | disposition home or self-care (01) ==
LOC: M INFU 11:02
PROVIDERS: ATTEND Internal Medicine Pulmonary Disease
DX: E88.01 Alpha-1-antitrypsin deficiency (principal); Z88.2 Allergy status to sulfonamides; Z88.8 Allergy status to other drugs, medicaments and biological substances
CPT/HCPCS: 96365; J0256; J1642

== ENCOUNTER 2021-07-11 10:52 | Outpatient (CLI) | payer MEDICARE ==
[~2021-07-11] VITALS: Ht 170.2 cm; Wt 78.9 kg
[~2021-07-11 10:52] MED LIST changes: -ALPHA PROTEINASE INHIBITOR IV ONE; -SODIUM CHLORIDE 0.9% INJ 10 ML SYR IV SCH
[2021-07-11] MEDS ORDERED: SODIUM CHLORIDE 0.9% INJ 10 ML SYR IV SCH (11:00)
[2021-07-11] MEDS ORDERED: ALPHA PROTEINASE INHIBITOR IV ONE (11:00)
[2021-07-11 11:04] VITALS: BP 157/75
[2021-07-11 12:30] VITALS: BP 154/74
== END 2021-07-11 12:30 | disposition home or self-care (01) ==
LOC: M INFU 10:52
PROVIDERS: ATTEND Internal Medicine Pulmonary Disease
DX: E88.01 Alpha-1-antitrypsin deficiency (principal); Z88.2 Allergy status to sulfonamides; Z88.8 Allergy status to other drugs, medicaments and biological substances
CPT/HCPCS: 96365; J0256; J1642

== ENCOUNTER 2021-07-18 11:10 | Outpatient (CLI) | payer MEDICARE ==
[~2021-07-18] VITALS: Ht 172.7 cm; Wt 78.9 kg
[~2021-07-18 11:10] MED LIST changes: +ALPHA PROTEINASE INHIBITOR IV ONE; +SODIUM CHLORIDE 0.9% INJ 10 ML SYR IV PRN; +SODIUM CHLORIDE 0.9% INJ 10 ML SYR IV SCH
[2021-07-18 11:22] VITALS: BP 140/75
[2021-07-18 12:08] VITALS: BP 136/76
== END 2021-07-18 12:10 | disposition home or self-care (01) ==
LOC: M INFU 11:10
PROVIDERS: ATTEND Internal Medicine Pulmonary Disease
DX: E88.01 Alpha-1-antitrypsin deficiency (principal); Z88.2 Allergy status to sulfonamides; Z88.8 Allergy status to other drugs, medicaments and biological substances
CPT/HCPCS: 96365; J0256; J1642

== ENCOUNTER 2021-07-25 11:21 | Outpatient (CLI) | payer MEDICARE ==
[~2021-07-25] VITALS: Ht 170.2 cm; Wt 78.0 kg
[~2021-07-25 11:21] MED LIST changes: -SODIUM CHLORIDE 0.9% INJ 10 ML SYR IV PRN
[2021-07-25 11:51] VITALS: BP 146/85
[2021-07-25 12:45] VITALS: BP 158/81
== END 2021-07-25 12:45 | disposition home or self-care (01) ==
LOC: M INFU 11:21
PROVIDERS: ATTEND Internal Medicine Pulmonary Disease
DX: E88.01 Alpha-1-antitrypsin deficiency (principal); Z88.2 Allergy status to sulfonamides; Z88.8 Allergy status to other drugs, medicaments and biological substances
CPT/HCPCS: 96365; J0256; J1642

== ENCOUNTER 2021-08-01 10:54 | Outpatient (CLI) | payer MEDICARE ==
[~2021-08-01] VITALS: Ht 170.2 cm; Wt 78.0 kg
[~2021-08-01 10:54] MED LIST changes: -ALPHA PROTEINASE INHIBITOR IV ONE; +SODIUM CHLORIDE 0.9% INJ 10 ML SYR IV PRN
[2021-08-01] MEDS ORDERED: ALPHA PROTEINASE INHIBITOR IV ONE (11:00)
[2021-08-01 11:42] VITALS: BP 144/67
[2021-08-01 12:07] VITALS: BP 138/77
== END 2021-08-01 12:10 | disposition home or self-care (01) ==
LOC: M INFU 10:54
PROVIDERS: ATTEND Internal Medicine Pulmonary Disease
DX: E88.01 Alpha-1-antitrypsin deficiency (principal); Z88.2 Allergy status to sulfonamides; Z88.8 Allergy status to other drugs, medicaments and biological substances
CPT/HCPCS: 96365; J0256; J1642

== ENCOUNTER 2021-08-08 10:58 | Outpatient (CLI) | payer MEDICARE ==
[~2021-08-08] VITALS: Ht 170.2 cm; Wt 78.0 kg
[~2021-08-08 10:58] MED LIST changes: -SODIUM CHLORIDE 0.9% INJ 10 ML SYR IV PRN
[2021-08-08] MEDS ORDERED: ALPHA PROTEINASE INHIBITOR IV ONE (11:00)
[2021-08-08 11:26] VITALS: BP 155/78
[2021-08-08 13:04] VITALS: BP 140/76
== END 2021-08-08 13:05 | disposition home or self-care (01) ==
LOC: M INFU 10:58
PROVIDERS: ATTEND Internal Medicine Pulmonary Disease
DX: E88.01 Alpha-1-antitrypsin deficiency (principal); Z88.2 Allergy status to sulfonamides; Z88.8 Allergy status to other drugs, medicaments and biological substances
CPT/HCPCS: 96365; J0256; J1642

== ENCOUNTER 2021-08-15 10:46 | Outpatient (CLI) | payer MEDICARE ==
[~2021-08-15] VITALS: Ht 170.2 cm; Wt 78.9 kg
[2021-08-15] MEDS ORDERED: ALPHA PROTEINASE INHIBITOR IV ONE ×2 (11:00)
[2021-08-15 11:06] VITALS: BP 143/63
[2021-08-15 11:39] VITALS: BP 161/90
== END 2021-08-15 11:45 | disposition home or self-care (01) ==
LOC: M INFU 10:46
PROVIDERS: ATTEND Internal Medicine Pulmonary Disease
DX: E88.01 Alpha-1-antitrypsin deficiency (principal); Z88.2 Allergy status to sulfonamides; Z88.8 Allergy status to other drugs, medicaments and biological substances
CPT/HCPCS: 96365; J0256; J1642

== ENCOUNTER 2021-08-22 10:43 | Outpatient (CLI) | payer MEDICARE ==
[~2021-08-22] VITALS: Ht 170.2 cm; Wt 78.0 kg
[2021-08-22 10:53] VITALS: BP 143/64
[2021-08-22] MEDS ORDERED: ALPHA PROTEINASE INHIBITOR IV ONE (11:00)
[2021-08-22 11:39] VITALS: BP 143/68
== END 2021-08-22 11:40 | disposition home or self-care (01) ==
LOC: M INFU 10:43
PROVIDERS: ATTEND Internal Medicine Pulmonary Disease
DX: E88.01 Alpha-1-antitrypsin deficiency (principal); Z88.2 Allergy status to sulfonamides; Z88.8 Allergy status to other drugs, medicaments and biological substances
CPT/HCPCS: 96365; J0256; J1642

== ENCOUNTER 2021-08-29 10:54 | Outpatient (CLI) | payer MEDICARE ==
[~2021-08-29] VITALS: Ht 170.2 cm; Wt 79.0 kg
[2021-08-29 11:00] VITALS: BP 155/86
[2021-08-29] MEDS ORDERED: ALPHA PROTEINASE INHIBITOR IV ONE (11:00)
[2021-08-29 11:48] VITALS: BP 151/72
== END 2021-08-29 11:50 | disposition home or self-care (01) ==
LOC: M INFU 10:54
PROVIDERS: ATTEND Internal Medicine Pulmonary Disease
DX: E88.01 Alpha-1-antitrypsin deficiency (principal); Z88.2 Allergy status to sulfonamides; Z88.8 Allergy status to other drugs, medicaments and biological substances
CPT/HCPCS: 96365; J0256; J1642

== ENCOUNTER 2021-09-05 10:51 | Outpatient (CLI) | payer MEDICARE ==
[~2021-09-05] VITALS: Ht 170.2 cm; Wt 79.1 kg
[2021-09-05] MEDS ORDERED: ALPHA PROTEINASE INHIBITOR IV ONE (11:00)
[2021-09-05 11:14] VITALS: BP 144/67
[2021-09-05 12:22] VITALS: BP 136/91
== END 2021-09-05 12:15 | disposition home or self-care (01) ==
LOC: M INFU 10:51
PROVIDERS: ATTEND Internal Medicine Pulmonary Disease
DX: E88.01 Alpha-1-antitrypsin deficiency (principal); Z88.2 Allergy status to sulfonamides; Z88.8 Allergy status to other drugs, medicaments and biological substances
CPT/HCPCS: 96365; J0256; J1642

== ENCOUNTER 2021-09-19 10:59 | Outpatient (CLI) | payer MEDICARE ==
[~2021-09-19] VITALS: Ht 170.2 cm; Wt 78.9 kg
[2021-09-19] MEDS ORDERED: ALPHA PROTEINASE INHIBITOR IV ONE (11:00)
[2021-09-19 11:24] VITALS: BP 142/64
[2021-09-19 12:30] VITALS: BP 139/68
== END 2021-09-19 12:30 | disposition home or self-care (01) ==
LOC: M INFU 10:59
PROVIDERS: ATTEND Internal Medicine Pulmonary Disease
DX: E88.01 Alpha-1-antitrypsin deficiency (principal); Z88.2 Allergy status to sulfonamides; Z88.8 Allergy status to other drugs, medicaments and biological substances
CPT/HCPCS: 96365; J0256; J1642

== ENCOUNTER 2021-09-26 11:09 | Outpatient (CLI) | payer MEDICARE ==
[~2021-09-26] VITALS: Ht 170.2 cm; Wt 78.0 kg
[~2021-09-26 11:09] MED LIST changes: +ALPHA PROTEINASE INHIBITOR IV ONE; +SODIUM CHLORIDE 0.9% INJ 10 ML SYR IV PRN
[2021-09-26 11:17] VITALS: BP 139/68
[2021-09-26 12:15] VITALS: BP 167/76
== END 2021-09-26 12:15 | disposition home or self-care (01) ==
LOC: M INFU 11:09
PROVIDERS: ATTEND Internal Medicine Pulmonary Disease
DX: E88.01 Alpha-1-antitrypsin deficiency (principal); Z88.2 Allergy status to sulfonamides; Z88.8 Allergy status to other drugs, medicaments and biological substances
CPT/HCPCS: 96365; J0256; J1642

== ENCOUNTER 2021-10-03 10:57 | Outpatient (CLI) | payer MEDICARE ==
[~2021-10-03] VITALS: Ht 172.7 cm; Wt 78.0 kg
[~2021-10-03 10:57] MED LIST changes: -ALPHA PROTEINASE INHIBITOR IV ONE; -SODIUM CHLORIDE 0.9% INJ 10 ML SYR IV PRN
[2021-10-03] MEDS ORDERED: ALPHA PROTEINASE INHIBITOR IV ONE (11:00)
[2021-10-03] MEDS ORDERED: SODIUM CHLORIDE 0.9% INJ 10 ML SYR IV PRN (11:00)
[2021-10-03 11:14] VITALS: BP 164/66
[2021-10-03 11:58] VITALS: BP 145/83
== END 2021-10-03 12:00 | disposition home or self-care (01) ==
LOC: M INFU 10:57
PROVIDERS: ATTEND Internal Medicine Pulmonary Disease
DX: E88.01 Alpha-1-antitrypsin deficiency (principal); Z88.2 Allergy status to sulfonamides; Z88.8 Allergy status to other drugs, medicaments and biological substances
CPT/HCPCS: 96365; J0256; J1642

== ENCOUNTER → 2021-10-04 | Outpatient (CLI) | payer MEDICARE ==
[~2021-10-04] MED LIST changes: -SODIUM CHLORIDE 0.9% INJ 10 ML SYR IV SCH
[2021-10-04 13:43] LABS: BASO # 0.1 10^3/uL (0.0-0.2); BASO % 0.3 % (0.0-1.0); EOS # 0.1 10^3/uL (0.0-0.5); EOS % 0.4 % (0.0-3.0); HEMOGLOBIN 11.8 g/dl (13.5-17.5); LYMPH # 7.2 10^3/uL (1.5-5.0); LYMPH % 41.1 % (24.0-44.0); MEAN CORPUSCULAR HGB CONC 31.9 g/dl (32.0-36.5); MEAN CORPUSCULAR VOLUME 94.1 fl (80.0-96.0); MONO % 5.9 % (2.0-8.0); NEUTROPHILS % 51.8 % (36.0-66.0); PLATELET COUNT, AUTOMATED 260 10^3/uL (150-450); RED BLOOD COUNT 3.93 10^6/uL (4.30-6.10); WHITE BLOOD COUNT 17.4 10^3/uL (4.0-10.0)
== END ==
LOC: M PLALAB 11:57
PROVIDERS: ATTEND Nurse Practitioner Adult Health
DX: J44.9 Chronic obstructive pulmonary disease, unspecified (principal)

== ENCOUNTER 2021-10-17 10:58 | Outpatient (CLI) | payer MEDICARE ==
[~2021-10-17] VITALS: Ht 170.2 cm; Wt 79.0 kg
[~2021-10-17 10:58] MED LIST changes: +SODIUM CHLORIDE 0.9% INJ 10 ML SYR IV PRN
[2021-10-17] MEDS ORDERED: ALPHA PROTEINASE INHIBITOR IV ONE (11:00)
[2021-10-17] MEDS: SODIUM CHLORIDE 0.9% INJ 10 ML SYR IV SCH ×2 (11:14→11:26)
[2021-10-17 11:16] VITALS: BP 140/69
[2021-10-17 12:16] VITALS: BP 144/78
== END 2021-10-17 12:15 | disposition home or self-care (01) ==
LOC: M INFU 10:58
PROVIDERS: ATTEND Internal Medicine Pulmonary Disease
DX: E88.01 Alpha-1-antitrypsin deficiency (principal); Z88.2 Allergy status to sulfonamides; Z88.8 Allergy status to other drugs, medicaments and biological substances
CPT/HCPCS: 96365; J0256; J1642

== ENCOUNTER 2021-10-24 11:17 | Outpatient (CLI) | payer MEDICARE ==
[~2021-10-24] VITALS: Ht 170.2 cm; Wt 79.0 kg
[2021-10-24 10:55] VITALS: BP 124/58
[~2021-10-24 11:17] MED LIST changes: +ALPHA PROTEINASE INHIBITOR IV ONE
[2021-10-24 11:20] VITALS: BP 124/58
[2021-10-24] MEDS ORDERED: SODIUM CHLORIDE 0.9% INJ 10 ML SYR IV SCH (11:37)
[2021-10-24] MEDS ORDERED: SODIUM CHLORIDE 0.9% INJ 10 ML SYR IV PRN (12:00)
[2021-10-24 12:35] VITALS: BP 118/58
== END 2021-10-24 11:25 | disposition home or self-care (01) ==
LOC: M INFU 11:17
PROVIDERS: ATTEND Internal Medicine Pulmonary Disease
DX: E88.01 Alpha-1-antitrypsin deficiency (principal); Z88.2 Allergy status to sulfonamides; Z88.8 Allergy status to other drugs, medicaments and biological substances
CPT/HCPCS: 96365; J0256; J1642

== ENCOUNTER 2021-10-31 10:57 | Outpatient (CLI) | payer MEDICARE ==
[~2021-10-31 10:57] MED LIST changes: -ALPHA PROTEINASE INHIBITOR IV ONE; -SODIUM CHLORIDE 0.9% INJ 10 ML SYR IV PRN
[2021-10-31 11:00] VITALS: BP 138/65
[2021-10-31] MEDS ORDERED: SODIUM CHLORIDE 0.9% INJ 10 ML SYR IV PRN (11:00)
[2021-10-31] MEDS ORDERED: ALPHA PROTEINASE INHIBITOR IV ONE (11:00)
[2021-10-31 12:00] VITALS: BP 155/75
== END 2021-10-31 12:15 | disposition home or self-care (01) ==
LOC: M INFU 10:57
PROVIDERS: ATTEND Internal Medicine Pulmonary Disease
DX: E88.01 Alpha-1-antitrypsin deficiency (principal); Z88.2 Allergy status to sulfonamides; J30.89 Other allergic rhinitis
CPT/HCPCS: 96365; J0256; J1642

== ENCOUNTER 2021-11-07 11:12 | Outpatient (CLI) | payer MEDICARE ==
[~2021-11-07] VITALS: Ht 172.7 cm; Wt 79.1 kg
[~2021-11-07 11:12] MED LIST changes: +ALPHA PROTEINASE INHIBITOR IV ONE; +SODIUM CHLORIDE 0.9% INJ 10 ML SYR IV SCH
[2021-11-07 11:54] VITALS: BP 139/73
[2021-11-07 12:36] VITALS: BP 153/69
== END 2021-11-07 12:35 | disposition home or self-care (01) ==
LOC: M INFU 11:12
PROVIDERS: ATTEND Internal Medicine Pulmonary Disease
DX: E88.01 Alpha-1-antitrypsin deficiency (principal); Z88.2 Allergy status to sulfonamides; Z88.8 Allergy status to other drugs, medicaments and biological substances
CPT/HCPCS: 96365; J0256; J1642

== ENCOUNTER 2021-11-14 10:55 | Outpatient (CLI) | payer MEDICARE ==
[~2021-11-14] VITALS: Ht 172.7 cm; Wt 78.9 kg
[~2021-11-14 10:55] MED LIST changes: -ALPHA PROTEINASE INHIBITOR IV ONE; +SODIUM CHLORIDE 0.9% INJ 10 ML SYR IV PRN
[2021-11-14] MEDS ORDERED: ALPHA PROTEINASE INHIBITOR IV ONE (11:00)
[2021-11-14 11:05] VITALS: BP 133/63
[2021-11-14 12:03] VITALS: BP 138/77
== END 2021-11-14 12:10 | disposition home or self-care (01) ==
LOC: M INFU 10:55
PROVIDERS: ATTEND Internal Medicine Pulmonary Disease
DX: E88.01 Alpha-1-antitrypsin deficiency (principal); Z88.2 Allergy status to sulfonamides; Z88.8 Allergy status to other drugs, medicaments and biological substances
CPT/HCPCS: 96365; J0256; J1642

== ENCOUNTER 2021-11-21 09:50 | Outpatient (CLI) | payer MEDICARE ==
[~2021-11-21] VITALS: Ht 170.2 cm; Wt 79.1 kg
[~2021-11-21 09:50] MED LIST changes: -SODIUM CHLORIDE 0.9% INJ 10 ML SYR IV PRN
[2021-11-21 10:14] VITALS: BP 146/89
[2021-11-21 10:45] VITALS: BP 138/86
[2021-11-21] MEDS ORDERED: ALPHA PROTEINASE INHIBITOR IV ONE (11:00)
== END 2021-11-21 10:45 | disposition home or self-care (01) ==
LOC: M INFU 09:50
PROVIDERS: ATTEND Internal Medicine Pulmonary Disease
DX: E88.01 Alpha-1-antitrypsin deficiency (principal); Z88.2 Allergy status to sulfonamides; Z88.8 Allergy status to other drugs, medicaments and biological substances
CPT/HCPCS: 96365; J0256; J1642

== ENCOUNTER 2021-11-28 11:00 | Outpatient (CLI) | payer MEDICARE ==
[~2021-11-28] VITALS: Ht 170.2 cm; Wt 78.9 kg
[~2021-11-28 11:00] MED LIST changes: +ALPHA PROTEINASE INHIBITOR IV ONE
[2021-11-28 11:10] VITALS: BP 141/67
[2021-11-28 11:56] VITALS: BP 143/69
== END 2021-11-28 12:00 | disposition home or self-care (01) ==
LOC: M INFU 11:00
PROVIDERS: ATTEND Internal Medicine Pulmonary Disease
DX: E88.01 Alpha-1-antitrypsin deficiency (principal); Z88.2 Allergy status to sulfonamides
CPT/HCPCS: 96365; J0256; J1642

== ENCOUNTER 2021-12-05 11:15 | Outpatient (CLI) | payer MEDICARE ==
[~2021-12-05] VITALS: Ht 170.2 cm; Wt 78.0 kg
[2021-12-05 11:41] VITALS: BP 129/57
[2021-12-05 12:20] VITALS: BP 139/89
== END 2021-12-05 12:15 ==
LOC: M INFU 11:15
PROVIDERS: ATTEND Internal Medicine Pulmonary Disease
DX: E88.01 Alpha-1-antitrypsin deficiency (principal); Z88.2 Allergy status to sulfonamides; Z88.8 Allergy status to other drugs, medicaments and biological substances
CPT/HCPCS: 96365; J0256; J1642

== ENCOUNTER 2021-12-12 11:00 | Outpatient (CLI) | payer MEDICARE ==
[~2021-12-12] VITALS: Ht 170.2 cm; Wt 78.0 kg
[2021-12-12 11:09] VITALS: BP 142/66
[2021-12-12 12:13] VITALS: BP 158/68
== END 2021-12-12 12:15 | disposition home or self-care (01) ==
LOC: M INFU 11:00
PROVIDERS: ATTEND Internal Medicine Pulmonary Disease
DX: E88.01 Alpha-1-antitrypsin deficiency (principal); Z88.2 Allergy status to sulfonamides; Z88.8 Allergy status to other drugs, medicaments and biological substances
CPT/HCPCS: 96365; J0256; J1642

== ENCOUNTER 2021-12-19 10:50 | Outpatient (CLI) | payer MEDICARE ==
[~2021-12-19] VITALS: Ht 172.7 cm; Wt 77.0 kg
[~2021-12-19 10:50] MED LIST changes: -ALPHA PROTEINASE INHIBITOR IV ONE; -SODIUM CHLORIDE 0.9% INJ 10 ML SYR IV SCH
[2021-12-19 10:52] VITALS: BP 139/63
[2021-12-19] MEDS ORDERED: SODIUM CHLORIDE 0.9% INJ 10 ML SYR IV PRN (11:00)
[2021-12-19] MEDS ORDERED: SODIUM CHLORIDE 0.9% INJ 10 ML SYR IV SCH (11:00)
[2021-12-19] MEDS ORDERED: ALPHA PROTEINASE INHIBITOR IV ONE (11:00)
[2021-12-19 12:30] VITALS: BP 129/67
== END 2021-12-19 12:30 | disposition home or self-care (01) ==
LOC: M INFU 10:50
PROVIDERS: ATTEND Internal Medicine Pulmonary Disease
DX: E88.01 Alpha-1-antitrypsin deficiency (principal); Z88.2 Allergy status to sulfonamides; Z88.8 Allergy status to other drugs, medicaments and biological substances
CPT/HCPCS: 96365; J0256; J1642

== ENCOUNTER 2021-12-26 09:04 | Outpatient (CLI) | payer MEDICARE ==
[~2021-12-26] VITALS: Ht 172.7 cm; Wt 75.0 kg
[~2021-12-26 09:04] MED LIST changes: +SODIUM CHLORIDE 0.9% INJ 10 ML SYR IV SCH
[2021-12-26 09:05] VITALS: BP 122/58
[2021-12-26 10:30] VITALS: BP 143/63
[2021-12-26] MEDS ORDERED: ALPHA PROTEINASE INHIBITOR IV ONE (11:00)
== END 2021-12-26 10:30 | disposition home or self-care (01) ==
LOC: M INFU 09:04
PROVIDERS: ATTEND Internal Medicine Pulmonary Disease
DX: E88.01 Alpha-1-antitrypsin deficiency (principal); Z88.2 Allergy status to sulfonamides; Z88.8 Allergy status to other drugs, medicaments and biological substances; I27.23 Pulmonary hypertension due to lung diseases and hypoxia; E03.9 Hypothyroidism, unspecified; C91.10 Chronic lymphocytic leukemia of B-cell type not having achieved remission
CPT/HCPCS: 36591; 80053; 80061; 82306; 84439; 84443; 85025; 96365; J0256; J1642

== ENCOUNTER → 2021-12-26 | Outpatient (CLI) | payer MEDICARE ==
[2021-12-26 09:34] LABS: HEMATOCRIT 36.4 % (42.0-52.0); HEMOGLOBIN 11.8 g/dl (13.5-17.5); MEAN CORPUSCULAR HEMOGLOBIN 29.5 pg (27.0-33.0); MEAN CORPUSCULAR HGB CONC 32.4 g/dl (32.0-36.5); PLATELET COUNT, AUTOMATED 232 10^3/uL (150-450); WHITE BLOOD COUNT 17.2 10^3/uL (4.0-10.0)
[2021-12-26 10:39] LABS: ATYPICAL LYMPH 2 % (0-5); LYMPHOCYTES 48 % (16-44); MONOCYTES 5 % (0-5); NEUTROPHILS 45 % (28-66); PLATELET ESTIMATE NORMAL (NORMAL)
[2021-12-26 10:41] LABS: ANISOCYTOSIS 1+
[2021-12-26 14:08] LABS: ALBUMIN 3.7 GM/DL (3.2-5.2); ALT/SGPT 25 U/L (12-78); BILIRUBIN,TOTAL 0.3 MG/DL (0.2-1.0); BLOOD UREA NITROGEN 28 MG/DL (7-18); CALCIUM LEVEL 9.3 MG/DL (8.8-10.2); CARBON DIOXIDE LEVEL 25 MEQ/L (21-32); CHLORIDE LEVEL 110 MEQ/L (98-107); CHOLESTEROL LEVEL 159 MG/DL (<200); CHOLESTEROL RISK RATIO 3.975 (<5); CREATININE FOR GFR 1.14 MG/DL (0.70-1.30); FREE T4 0.95 NG/DL (0.76-1.46); GLOMERULAR FILTRATION RATE > 60.0 (>35); GLUCOSE, FASTING 99 MG/DL (70-100); HDL CHOLESTEROL 40 MG/DL (>40); LDL CHOLESTEROL 88 MG/DL (<100); NON-HDL-C 119 MG/DL; POTASSIUM SERUM 4.6 MEQ/L (3.5-5.1); SODIUM LEVEL 141 MEQ/L (136-145); TOTAL PROTEIN 6.6 GM/DL (6.4-8.2); TRIGLYCERIDES LEVEL 154 MG/DL (<150)
== END ==
LOC: M LAB 09:06
PROVIDERS: ATTEND Nurse Practitioner Adult Health
DX: I27.23 Pulmonary hypertension due to lung diseases and hypoxia (principal); E03.9 Hypothyroidism, unspecified; C91.10 Chronic lymphocytic leukemia of B-cell type not having achieved remission

== ENCOUNTER 2022-01-02 11:05 | Outpatient (CLI) | payer MEDICARE ==
[~2022-01-02] VITALS: Ht 170.2 cm; Wt 79.0 kg
[2022-01-02 11:05] VITALS: BP 149/67
[~2022-01-02 11:05] MED LIST changes: +ALPHA PROTEINASE INHIBITOR IV ONE; +SIMV-253 PO; +SODIUM CHLORIDE 0.9% INJ 10 ML SYR IV PRN; -ZOCO20TA PO
[2022-01-02 12:10] VITALS: BP 145/76
== END 2022-01-02 12:10 | disposition home or self-care (01) ==
LOC: M INFU 11:05
PROVIDERS: ATTEND Internal Medicine Pulmonary Disease
DX: E88.01 Alpha-1-antitrypsin deficiency (principal); Z88.2 Allergy status to sulfonamides; Z88.8 Allergy status to other drugs, medicaments and biological substances
CPT/HCPCS: 96365; J0256; J1642

== ENCOUNTER 2022-01-09 10:55 | Outpatient (CLI) | payer MEDICARE ==
[~2022-01-09] VITALS: Ht 170.2 cm; Wt 78.9 kg
[~2022-01-09 10:55] MED LIST changes: -ALPHA PROTEINASE INHIBITOR IV ONE; -SODIUM CHLORIDE 0.9% INJ 10 ML SYR IV PRN
[2022-01-09] MEDS ORDERED: ALPHA PROTEINASE INHIBITOR IV ONE (11:00)
[2022-01-09 11:07] VITALS: BP 144/80
[2022-01-09 11:41] VITALS: BP 166/84
== END 2022-01-09 12:05 | disposition home or self-care (01) ==
LOC: M INFU 10:55
PROVIDERS: ATTEND Internal Medicine Pulmonary Disease
DX: E88.01 Alpha-1-antitrypsin deficiency (principal); Z88.2 Allergy status to sulfonamides
CPT/HCPCS: 96365; 99195; J0256; J1642

== ENCOUNTER 2022-01-16 11:00 | Outpatient (CLI) | payer MEDICARE ==
[~2022-01-16 11:00] MED LIST changes: +ALPHA PROTEINASE INHIBITOR IV ONE; +SODIUM CHLORIDE 0.9% INJ 10 ML SYR IV PRN
[2022-01-16 11:08] VITALS: BP 133/61
[2022-01-16 12:14] VITALS: BP 175/74
== END 2022-01-16 12:15 | disposition home or self-care (01) ==
LOC: M INFU 11:00
PROVIDERS: ATTEND Internal Medicine Pulmonary Disease
DX: E88.01 Alpha-1-antitrypsin deficiency (principal); Z88.2 Allergy status to sulfonamides
CPT/HCPCS: 96365; J0256; J1642

== ENCOUNTER 2022-01-23 10:55 | Outpatient (CLI) | payer MEDICARE ==
[~2022-01-23] VITALS: Ht 170.2 cm; Wt 78.9 kg
[~2022-01-23 10:55] MED LIST changes: -ALPHA PROTEINASE INHIBITOR IV ONE; -SODIUM CHLORIDE 0.9% INJ 10 ML SYR IV PRN
[2022-01-23] MEDS ORDERED: ALPHA PROTEINASE INHIBITOR IV ONE (11:00)
[2022-01-23 11:17] VITALS: BP 131/91
[2022-01-23 12:07] VITALS: BP 142/69
== END 2022-01-23 12:10 | disposition home or self-care (01) ==
LOC: M INFU 10:55
PROVIDERS: ATTEND Internal Medicine Pulmonary Disease
DX: E88.01 Alpha-1-antitrypsin deficiency (principal); Z88.2 Allergy status to sulfonamides
CPT/HCPCS: 96365; J0256; J1642

== ENCOUNTER 2022-01-30 10:55 | Outpatient (CLI) | payer MEDICARE ==
[~2022-01-30] VITALS: Ht 170.2 cm; Wt 78.9 kg
[2022-01-30] MEDS ORDERED: ALPHA PROTEINASE INHIBITOR IV ONE (11:00)
[2022-01-30 11:46] VITALS: BP 145/78
== END 2022-01-30 12:00 | disposition home or self-care (01) ==
LOC: M INFU 10:55
PROVIDERS: ATTEND Internal Medicine Pulmonary Disease
DX: E88.01 Alpha-1-antitrypsin deficiency (principal); Z88.2 Allergy status to sulfonamides
CPT/HCPCS: 96365; J0256; J1642

== ENCOUNTER → 2022-02-06 | Outpatient (CLI) | payer MEDICARE ==
[~2022-02-06] VITALS: Ht 170.2 cm; Wt 78.9 kg
[~2022-02-06] MED LIST changes: +ALBU6.7H6 INH; +ALPHA PROTEINASE INHIBITOR IV ONE; -PROV108A INH
[2022-02-06 11:00] VITALS: BP 155/68
[2022-02-06 11:50] VITALS: BP 137/58
== END ==
LOC: M INFU 11:00
PROVIDERS: ATTEND Internal Medicine Pulmonary Disease
DX: E88.01 Alpha-1-antitrypsin deficiency (principal); Z88.2 Allergy status to sulfonamides
CPT/HCPCS: 96365; J0256; J1642

== ENCOUNTER 2022-02-13 10:55 | Outpatient (CLI) | payer MEDICARE ==
[~2022-02-13] VITALS: Ht 170.2 cm; Wt 78.9 kg
[~2022-02-13 10:55] MED LIST changes: -ALPHA PROTEINASE INHIBITOR IV ONE
[2022-02-13] MEDS ORDERED: ALPHA PROTEINASE INHIBITOR IV ONE (11:00)
[2022-02-13 11:09] VITALS: BP 133/71
[2022-02-13 12:14] VITALS: BP 147/71
== END 2022-02-13 12:10 | disposition home or self-care (01) ==
LOC: M INFU 10:55
PROVIDERS: ATTEND Internal Medicine Pulmonary Disease
DX: E88.01 Alpha-1-antitrypsin deficiency (principal); Z88.2 Allergy status to sulfonamides
CPT/HCPCS: 96365; J0256; J1642

== ENCOUNTER 2022-02-20 10:00 | Outpatient (CLI) | payer MEDICARE ==
[~2022-02-20] VITALS: Ht 170.2 cm; Wt 78.9 kg
[~2022-02-20 10:00] MED LIST changes: +ALPHA PROTEINASE INHIBITOR IV ONE
[2022-02-20 10:18] VITALS: BP 146/72
[2022-02-20 11:28] VITALS: BP 155/76
== END 2022-02-20 11:40 | disposition home or self-care (01) ==
LOC: M INFU 10:00
PROVIDERS: ATTEND Internal Medicine Pulmonary Disease
DX: E88.01 Alpha-1-antitrypsin deficiency (principal); Z88.2 Allergy status to sulfonamides
CPT/HCPCS: 96365; J0256; J1642

== ENCOUNTER 2022-02-27 10:55 | Outpatient (CLI) | payer MEDICARE ==
[~2022-02-27] VITALS: Ht 172.7 cm; Wt 76.0 kg
[~2022-02-27 10:55] MED LIST changes: -ALPHA PROTEINASE INHIBITOR IV ONE
[2022-02-27] MEDS ORDERED: ALPHA PROTEINASE INHIBITOR IV ONE (11:00)
[2022-02-27 11:05] VITALS: BP 168/68
[2022-02-27 11:49] VITALS: BP 149/69
== END 2022-02-27 12:00 | disposition home or self-care (01) ==
LOC: M INFU 10:55
PROVIDERS: ATTEND Internal Medicine Pulmonary Disease
DX: E88.01 Alpha-1-antitrypsin deficiency (principal); Z88.2 Allergy status to sulfonamides
CPT/HCPCS: 96365; J0256; J1642

== ENCOUNTER 2022-03-06 11:00 | Outpatient (CLI) | payer MEDICARE ==
[~2022-03-06] VITALS: Ht 172.7 cm; Wt 76.0 kg
[~2022-03-06 11:00] MED LIST changes: +ALPHA PROTEINASE INHIBITOR IV ONE
[2022-03-06 11:08] VITALS: BP 137/76
[2022-03-06 12:10] VITALS: BP 169/70
== END 2022-03-06 12:10 | disposition home or self-care (01) ==
LOC: M INFU 11:00
PROVIDERS: ATTEND Internal Medicine Pulmonary Disease
DX: E88.01 Alpha-1-antitrypsin deficiency (principal); Z88.2 Allergy status to sulfonamides
CPT/HCPCS: 96365; J0256; J1642

== ENCOUNTER 2022-03-13 11:00 | Outpatient (CLI) | payer MEDICARE ==
[~2022-03-13] VITALS: Ht 172.7 cm; Wt 72.7 kg
[2022-03-13 11:00] VITALS: BP 137/65
[~2022-03-13 11:00] MED LIST changes: +SODIUM CHLORIDE 0.9% INJ 10 ML SYR IV PRN
[2022-03-13 12:10] VITALS: BP 140/84
== END 2022-03-13 12:10 | disposition home or self-care (01) ==
LOC: M INFU 11:00
PROVIDERS: ATTEND Internal Medicine Pulmonary Disease
DX: E88.01 Alpha-1-antitrypsin deficiency (principal); Z88.2 Allergy status to sulfonamides
CPT/HCPCS: 96365; J0256; J1642

== ENCOUNTER 2022-03-20 10:55 | Outpatient (CLI) | payer MEDICARE ==
[~2022-03-20] VITALS: Ht 172.7 cm; Wt 73.0 kg
[~2022-03-20 10:55] MED LIST changes: -ALPHA PROTEINASE INHIBITOR IV ONE; -SODIUM CHLORIDE 0.9% INJ 10 ML SYR IV PRN
[2022-03-20] MEDS ORDERED: ALPHA PROTEINASE INHIBITOR IV ONE (11:00)
[2022-03-20 11:14] VITALS: BP 145/68
[2022-03-20 11:58] VITALS: BP 130/94
== END 2022-03-20 12:00 | disposition home or self-care (01) ==
LOC: M INFU 10:55
PROVIDERS: ATTEND Internal Medicine Pulmonary Disease
DX: E88.01 Alpha-1-antitrypsin deficiency (principal); Z88.2 Allergy status to sulfonamides
CPT/HCPCS: 96365; J0256

== ENCOUNTER 2022-03-27 10:55 | Outpatient (CLI) | payer MEDICARE ==
[2022-03-27] MEDS ORDERED: ALPHA PROTEINASE INHIBITOR IV ONE (11:00)
[2022-03-27 12:05] VITALS: BP 157/80
== END 2022-03-27 12:05 | disposition home or self-care (01) ==
LOC: M INFU 10:55
PROVIDERS: ATTEND Internal Medicine Pulmonary Disease
DX: E88.01 Alpha-1-antitrypsin deficiency (principal); Z88.2 Allergy status to sulfonamides
CPT/HCPCS: 96365; J0256; J1642

== ENCOUNTER 2022-04-03 11:05 | Outpatient (CLI) | payer MEDICARE ==
[~2022-04-03] VITALS: Ht 170.2 cm; Wt 76.0 kg
[~2022-04-03 11:05] MED LIST changes: +ALPHA PROTEINASE INHIBITOR IV ONE
[2022-04-03 11:15] VITALS: BP 133/63
[2022-04-03 11:59] VITALS: BP 160/69
== END 2022-04-03 12:00 | disposition home or self-care (01) ==
LOC: M INFU 11:05
PROVIDERS: ATTEND Internal Medicine Pulmonary Disease
DX: E88.01 Alpha-1-antitrypsin deficiency (principal); Z88.2 Allergy status to sulfonamides; Z91.048 Other nonmedicinal substance allergy status
CPT/HCPCS: 96365; J0256; J1642

== ENCOUNTER 2022-04-10 10:55 | Outpatient (CLI) | payer MEDICARE ==
[~2022-04-10] VITALS: Ht 170.2 cm; Wt 79.0 kg
[~2022-04-10 10:55] MED LIST changes: -ALPHA PROTEINASE INHIBITOR IV ONE
[2022-04-10] MEDS ORDERED: ALPHA PROTEINASE INHIBITOR IV ONE (11:00)
[2022-04-10 11:14] VITALS: BP 141/68
[2022-04-10 12:10] VITALS: BP 164/85
== END 2022-04-10 12:15 | disposition home or self-care (01) ==
LOC: M INFU 10:55
PROVIDERS: ATTEND Internal Medicine Pulmonary Disease
DX: E88.01 Alpha-1-antitrypsin deficiency (principal); Z88.2 Allergy status to sulfonamides; Z91.048 Other nonmedicinal substance allergy status
CPT/HCPCS: 96365; J0256; J1642

== ENCOUNTER 2022-04-17 11:00 | Outpatient (CLI) | payer MEDICARE ==
[~2022-04-17] VITALS: Ht 175.3 cm; Wt 72.0 kg
[2022-04-17 11:00] VITALS: BP 124/76
[~2022-04-17 11:00] MED LIST changes: +ALPHA PROTEINASE INHIBITOR IV ONE
== END 2022-04-17 12:15 | disposition home or self-care (01) ==
LOC: M INFU 11:00
PROVIDERS: ATTEND Internal Medicine Pulmonary Disease
DX: E88.01 Alpha-1-antitrypsin deficiency (principal); Z88.2 Allergy status to sulfonamides
CPT/HCPCS: 96365; J0256; J1642

== ENCOUNTER 2022-04-24 10:30 | Outpatient (CLI) | payer MEDICARE ==
[~2022-04-24] VITALS: Ht 170.2 cm; Wt 77.0 kg
[2022-04-24 10:32] VITALS: BP 133/65
[2022-04-24 11:37] VITALS: BP 161/72
== END 2022-04-24 11:35 | disposition home or self-care (01) ==
LOC: M INFU 10:30
PROVIDERS: ATTEND Internal Medicine Pulmonary Disease
DX: E88.01 Alpha-1-antitrypsin deficiency (principal); Z88.2 Allergy status to sulfonamides
CPT/HCPCS: 96365; J0256; J1642

== ENCOUNTER 2022-05-01 11:00 | Outpatient (CLI) | payer MEDICARE ==
[~2022-05-01] VITALS: Ht 172.7 cm; Wt 77.0 kg
[2022-05-01 11:10] VITALS: BP 140/63
[2022-05-01 12:12] VITALS: BP 138/64
== END 2022-05-01 12:15 | disposition home or self-care (01) ==
LOC: M INFU 11:00
PROVIDERS: ATTEND Internal Medicine Pulmonary Disease
DX: E88.01 Alpha-1-antitrypsin deficiency (principal); Z88.2 Allergy status to sulfonamides
CPT/HCPCS: 96365; J0256; J1642

== ENCOUNTER 2022-05-08 10:55 | Outpatient (CLI) | payer MEDICARE ==
[~2022-05-08] VITALS: Ht 172.7 cm; Wt 77.0 kg
[~2022-05-08 10:55] MED LIST changes: -ALPHA PROTEINASE INHIBITOR IV ONE; +SODIUM CHLORIDE 0.9% INJ 10 ML SYR IV PRN; -SODIUM CHLORIDE 0.9% INJ 10 ML SYR IV SCH
[2022-05-08] MEDS ORDERED: ALPHA PROTEINASE INHIBITOR IV ONE (11:00)
[2022-05-08 11:12] VITALS: BP 145/67
[2022-05-08 12:05] VITALS: BP 151/71
[2022-05-09] MEDS ORDERED: SODIUM CHLORIDE 0.9% INJ 10 ML SYR IV SCH (09:00)
== END 2022-05-08 12:05 | disposition home or self-care (01) ==
LOC: M INFU 10:55
PROVIDERS: ATTEND Internal Medicine Pulmonary Disease
DX: E88.01 Alpha-1-antitrypsin deficiency (principal); Z88.2 Allergy status to sulfonamides
CPT/HCPCS: 96365; J0256; J1642

== ENCOUNTER 2022-05-15 11:00 | Outpatient (CLI) | payer MEDICARE ==
[~2022-05-15] VITALS: Ht 167.6 cm; Wt 74.0 kg
[~2022-05-15 11:00] MED LIST changes: +ALPHA PROTEINASE INHIBITOR IV ONE; +SODIUM CHLORIDE 0.9% INJ 10 ML SYR IV SCH
[2022-05-15 11:08] VITALS: BP 146/69
[2022-05-15 12:10] VITALS: BP 154/99
== END 2022-05-15 12:15 | disposition home or self-care (01) ==
LOC: M INFU 11:00
PROVIDERS: ATTEND Internal Medicine Pulmonary Disease
DX: E88.01 Alpha-1-antitrypsin deficiency (principal); Z88.2 Allergy status to sulfonamides
CPT/HCPCS: 96365; J0256; J1642

== ENCOUNTER 2022-05-22 11:00 | Outpatient (CLI) | payer MEDICARE ==
[~2022-05-22] VITALS: Ht 170.2 cm; Wt 78.9 kg
[2022-05-22 11:00] VITALS: BP 151/84
[~2022-05-22 11:00] MED LIST changes: -SODIUM CHLORIDE 0.9% INJ 10 ML SYR IV PRN
[2022-05-22 12:25] VITALS: BP 154/73
== END 2022-05-22 12:30 | disposition home or self-care (01) ==
LOC: M INFU 11:00
PROVIDERS: ATTEND Internal Medicine Pulmonary Disease
DX: E88.01 Alpha-1-antitrypsin deficiency (principal); Z88.2 Allergy status to sulfonamides; Z88.8 Allergy status to other drugs, medicaments and biological substances
CPT/HCPCS: 96365; J0256; J1642

== ENCOUNTER 2022-05-29 11:05 | Outpatient (CLI) | payer MEDICARE ==
[~2022-05-29] VITALS: Ht 170.2 cm; Wt 78.0 kg
[2022-05-29 11:16] VITALS: BP 159/71
[2022-05-29] MEDS ORDERED: ALPHA PROTEINASE INHIBITOR IV ONE (11:30)
[2022-05-29 12:09] VITALS: BP 137/89
== END 2022-05-29 12:05 ==
LOC: M INFU 11:05
PROVIDERS: ATTEND Internal Medicine Pulmonary Disease
DX: E88.01 Alpha-1-antitrypsin deficiency (principal); Z88.2 Allergy status to sulfonamides
CPT/HCPCS: 96365; J0256; J1642

== ENCOUNTER 2022-06-05 10:55 | Outpatient (CLI) | payer MEDICARE ==
[~2022-06-05] VITALS: Ht 172.7 cm; Wt 77.0 kg
[~2022-06-05 10:55] MED LIST changes: -ALPHA PROTEINASE INHIBITOR IV ONE
[2022-06-05 11:19] VITALS: BP 150/70
[2022-06-05] MEDS ORDERED: ALPHA PROTEINASE INHIBITOR IV ONE (11:30)
[2022-06-05 12:07] VITALS: BP 154/67
== END 2022-06-05 12:10 | disposition home or self-care (01) ==
LOC: M INFU 10:55
PROVIDERS: ATTEND Internal Medicine Pulmonary Disease
DX: E88.01 Alpha-1-antitrypsin deficiency (principal); Z88.2 Allergy status to sulfonamides
CPT/HCPCS: 96365; J0256

== ENCOUNTER 2022-06-12 10:55 | Outpatient (CLI) | payer MEDICARE ==
[~2022-06-12] VITALS: Ht 170.2 cm; Wt 77.0 kg
[2022-06-12] MEDS ORDERED: ALPHA PROTEINASE INHIBITOR IV ONE (11:00)
[2022-06-12 11:04] VITALS: BP 137/63
[2022-06-12 12:25] VITALS: BP 151/77
== END 2022-06-12 12:30 | disposition home or self-care (01) ==
LOC: M INFU 10:55
PROVIDERS: ATTEND Internal Medicine Pulmonary Disease
DX: E88.01 Alpha-1-antitrypsin deficiency (principal); Z88.2 Allergy status to sulfonamides
CPT/HCPCS: 96365; J0256

== ENCOUNTER 2022-06-19 11:00 | Outpatient (CLI) | payer MEDICARE ==
[~2022-06-19] VITALS: Ht 170.2 cm; Wt 77.0 kg
[~2022-06-19 11:00] MED LIST changes: +ALPHA PROTEINASE INHIBITOR IV ONE; +SODIUM CHLORIDE 0.9% INJ 10 ML SYR IV PRN
[2022-06-19 11:18] VITALS: BP 161/75
[2022-06-19 12:24] VITALS: BP 163/68
== END 2022-06-19 12:30 | disposition home or self-care (01) ==
LOC: M INFU 11:00
PROVIDERS: ATTEND Internal Medicine Pulmonary Disease
DX: E88.01 Alpha-1-antitrypsin deficiency (principal); Z88.2 Allergy status to sulfonamides
CPT/HCPCS: 96365; J0256

== ENCOUNTER 2022-06-26 11:10 | Outpatient (CLI) | payer MEDICARE ==
[~2022-06-26] VITALS: Ht 172.7 cm; Wt 77.0 kg
[~2022-06-26 11:10] MED LIST changes: -SODIUM CHLORIDE 0.9% INJ 10 ML SYR IV SCH
[2022-06-26 11:41] VITALS: BP 168/75
[2022-06-26 12:24] VITALS: BP 139/69
== END 2022-06-26 12:30 | disposition home or self-care (01) ==
LOC: M INFU 11:10
PROVIDERS: ATTEND Internal Medicine Pulmonary Disease
DX: E88.01 Alpha-1-antitrypsin deficiency (principal); Z88.2 Allergy status to sulfonamides
CPT/HCPCS: 96365; J0256; J1642

== ENCOUNTER 2022-07-03 10:55 | Outpatient (CLI) | payer MEDICARE ==
[~2022-07-03] VITALS: Ht 170.2 cm; Wt 79.0 kg
[~2022-07-03 10:55] MED LIST changes: -ALPHA PROTEINASE INHIBITOR IV ONE; +MONT-5 PO; -SING10TA32 PO; -SODIUM CHLORIDE 0.9% INJ 10 ML SYR IV PRN; +SODIUM CHLORIDE 0.9% INJ 10 ML SYR IV SCH
[2022-07-03] MEDS ORDERED: ALPHA PROTEINASE INHIBITOR IV ONE ×2 (11:00)
[2022-07-03 11:11] VITALS: BP 132/71
[2022-07-03 12:30] VITALS: BP 142/74
== END 2022-07-03 12:40 | disposition home or self-care (01) ==
LOC: M INFU 10:55
PROVIDERS: ATTEND Internal Medicine Pulmonary Disease
DX: E88.01 Alpha-1-antitrypsin deficiency (principal); Z88.2 Allergy status to sulfonamides
CPT/HCPCS: 17000; 17003; 96365; G0463; J0256; J1642

== ENCOUNTER 2022-07-10 11:05 | Outpatient (CLI) | payer MEDICARE ==
[~2022-07-10] VITALS: Ht 172.7 cm; Wt 77.0 kg
[~2022-07-10 11:05] MED LIST changes: +ALPHA PROTEINASE INHIBITOR IV ONE; -MONT-5 PO; +SING10TA32 PO
[2022-07-10 11:15] VITALS: BP 123/83
[2022-07-10 12:06] VITALS: BP 174/78
== END 2022-07-10 12:15 | disposition home or self-care (01) ==
LOC: M INFU 11:05
PROVIDERS: ATTEND Internal Medicine Pulmonary Disease
DX: E88.01 Alpha-1-antitrypsin deficiency (principal); Z88.2 Allergy status to sulfonamides; Z91.048 Other nonmedicinal substance allergy status
CPT/HCPCS: 96365; 96367; J0256; J1642

== ENCOUNTER 2022-07-17 10:55 | Outpatient (CLI) | payer MEDICARE ==
[2022-07-17 10:55] VITALS: BP 145/76
[~2022-07-17 10:55] MED LIST changes: -ALPHA PROTEINASE INHIBITOR IV ONE; -SODIUM CHLORIDE 0.9% INJ 10 ML SYR IV SCH
[2022-07-17] MEDS ORDERED: SODIUM CHLORIDE 0.9% INJ 10 ML SYR IV SCH (11:00)
[2022-07-17] MEDS ORDERED: ALPHA PROTEINASE INHIBITOR IV ONE (11:00)
[2022-07-17 12:15] VITALS: BP 141/67
== END 2022-07-17 12:15 | disposition home or self-care (01) ==
LOC: M INFU 10:55
PROVIDERS: ATTEND Internal Medicine Pulmonary Disease
DX: E88.01 Alpha-1-antitrypsin deficiency (principal); Z88.2 Allergy status to sulfonamides
CPT/HCPCS: 96365; J0256; J1642

== ENCOUNTER 2022-07-24 11:00 | Outpatient (CLI) | payer MEDICARE ==
[~2022-07-24] VITALS: Ht 172.7 cm; Wt 77.0 kg
[2022-07-24 11:00] VITALS: BP 143/79
[~2022-07-24 11:00] MED LIST changes: +ALPHA PROTEINASE INHIBITOR IV ONE; +MONT-5 PO; -SING10TA32 PO
[2022-07-24] MEDS: SODIUM CHLORIDE 0.9% INJ 10 ML SYR IV SCH ×2 (11:07→11:18)
[2022-07-24 12:15] VITALS: BP 151/71
== END 2022-07-24 12:20 | disposition home or self-care (01) ==
LOC: M INFU 11:00
PROVIDERS: ATTEND Internal Medicine Pulmonary Disease
DX: E88.01 Alpha-1-antitrypsin deficiency (principal); Z88.2 Allergy status to sulfonamides
CPT/HCPCS: 96365; J0256; J1642

== ENCOUNTER 2022-07-31 10:55 | Outpatient (CLI) | payer MEDICARE ==
[~2022-07-31] VITALS: Ht 172.7 cm; Wt 77.0 kg
[~2022-07-31 10:55] MED LIST changes: -ALPHA PROTEINASE INHIBITOR IV ONE; +SODIUM CHLORIDE 0.9% INJ 10 ML SYR IV SCH
[2022-07-31] MEDS ORDERED: ALPHA PROTEINASE INHIBITOR IV ONE (11:00)
[2022-07-31 11:14] VITALS: BP 138/69
[2022-07-31 12:03] VITALS: BP 135/74
== END 2022-07-31 12:10 | disposition home or self-care (01) ==
LOC: M INFU 10:55
PROVIDERS: ATTEND Internal Medicine Pulmonary Disease
DX: E88.01 Alpha-1-antitrypsin deficiency (principal); Z88.2 Allergy status to sulfonamides
CPT/HCPCS: 96365; J0256; J1642

== ENCOUNTER 2022-08-07 08:55 | Outpatient (CLI) | payer MEDICARE ==
[~2022-08-07] VITALS: Ht 167.6 cm; Wt 77.0 kg
[2022-08-07] MEDS ORDERED: SODIUM CHLORIDE 0.9% INJ 10 ML SYR IV SCH ×2 (09:00)
[2022-08-07 09:19] VITALS: BP 153/70
[2022-08-07 09:56] VITALS: BP 142/70
[2022-08-07] MEDS ORDERED: ALPHA PROTEINASE INHIBITOR IV ONE (11:00)
== END 2022-08-07 09:55 | disposition home or self-care (01) ==
LOC: M INFU 08:55
PROVIDERS: ATTEND Internal Medicine Pulmonary Disease
DX: E88.01 Alpha-1-antitrypsin deficiency (principal); Z88.2 Allergy status to sulfonamides; E03.9 Hypothyroidism, unspecified; C91.10 Chronic lymphocytic leukemia of B-cell type not having achieved remission; J44.9 Chronic obstructive pulmonary disease, unspecified; I27.23 Pulmonary hypertension due to lung diseases and hypoxia
CPT/HCPCS: 36591; 80053; 80061; 82306; 84439; 84443; 85025; 96365; J0256; J1642

== ENCOUNTER → 2022-08-07 | Outpatient (CLI) | payer MEDICARE ==
[~2022-08-07] MED LIST changes: -SODIUM CHLORIDE 0.9% INJ 10 ML SYR IV SCH
[2022-08-07 09:25] LABS: BASO # 0.1 10^3/uL (0.0-0.2); BASO % 0.3 % (0.0-1.0); EOS # 0.1 10^3/uL (0.0-0.5); EOS % 0.7 % (0.0-3.0); HEMATOCRIT 35.9 % (42.0-52.0); HEMOGLOBIN 11.5 g/dl (13.5-17.5); LYMPH # 9.7 10^3/uL (1.5-5.0); LYMPH % 50.1 % (24.0-44.0); MEAN CORPUSCULAR HEMOGLOBIN 30.2 pg (27.0-33.0); MEAN CORPUSCULAR VOLUME 94.2 fl (80.0-96.0); MONO % 5.3 % (2.0-8.0); NEUTROPHILS # 8.4 10^3/uL (1.5-8.5); NEUTROPHILS % 43.1 % (36.0-66.0); PLATELET COUNT, AUTOMATED 203 10^3/uL (150-450); RED BLOOD COUNT 3.81 10^6/uL (4.30-6.10); WHITE BLOOD COUNT 19.4 10^3/uL (4.0-10.0)
[2022-08-07 09:54] LABS: BILIRUBIN,TOTAL 0.4 MG/DL (0.3-1.2); CALCIUM LEVEL 8.9 MG/DL (8.3-10.6); CHOLESTEROL RISK RATIO 4.29 (<5); CREATININE FOR GFR 1.3 MG/DL (0.70-1.30); GLOMERULAR FILTRATION RATE 56.3 (>35); HDL CHOLESTEROL 35.6 MG/DL (>40); POTASSIUM SERUM 4.8 MMOL/L (3.5-5.1); TOTAL PROTEIN 6.6 G/DL (5.7-8.2)
[2022-08-07 09:57] LABS: FREE T4 0.94 NG/DL (0.89-1.76)
[2022-08-07 09:58] LABS: THYROID STIMULATING HORMONE 2.941 uIU/ML (0.55-4.78); TOTAL 25(OH) VITAMIN D 23.8 NG/ML (20.0-100.0)
== END ==
LOC: M LAB 08:42
PROVIDERS: ATTEND Nurse Practitioner Adult Health
DX: E03.9 Hypothyroidism, unspecified (principal); C91.10 Chronic lymphocytic leukemia of B-cell type not having achieved remission; J44.9 Chronic obstructive pulmonary disease, unspecified; I27.23 Pulmonary hypertension due to lung diseases and hypoxia

== ENCOUNTER 2022-08-14 11:05 | Outpatient (CLI) | payer MEDICARE ==
[~2022-08-14] VITALS: Ht 172.7 cm; Wt 77.0 kg
[~2022-08-14 11:05] MED LIST changes: +ALPHA PROTEINASE INHIBITOR IV ONE; +SODIUM CHLORIDE 0.9% INJ 10 ML SYR IV SCH
[2022-08-14 11:33] VITALS: BP 146/69
[2022-08-14 12:12] VITALS: BP 145/71
== END 2022-08-14 12:20 | disposition home or self-care (01) ==
LOC: M INFU 11:05
PROVIDERS: ATTEND Internal Medicine Pulmonary Disease
DX: E88.01 Alpha-1-antitrypsin deficiency (principal); Z88.2 Allergy status to sulfonamides
CPT/HCPCS: 96365; J0256; J1642

== ENCOUNTER 2022-08-21 10:50 | Outpatient (CLI) | payer MEDICARE ==
[~2022-08-21 10:50] MED LIST changes: -ALPHA PROTEINASE INHIBITOR IV ONE
[2022-08-21 11:00] VITALS: BP 131/59
[2022-08-21] MEDS ORDERED: ALPHA PROTEINASE INHIBITOR IV ONE (11:00)
[2022-08-21 12:00] VITALS: BP 145/72
== END 2022-08-21 12:00 | disposition home or self-care (01) ==
LOC: M INFU 10:50
PROVIDERS: ATTEND Internal Medicine Pulmonary Disease
DX: E88.01 Alpha-1-antitrypsin deficiency (principal); Z88.2 Allergy status to sulfonamides
CPT/HCPCS: 96365; J0256; J1642

== ENCOUNTER 2022-09-04 11:13 | Outpatient (CLI) | payer MEDICARE ==
[~2022-09-04] VITALS: Ht 170.2 cm; Wt 77.0 kg
[~2022-09-04 11:13] MED LIST changes: +ALPHA PROTEINASE INHIBITOR IV ONE
[2022-09-04 11:25] VITALS: BP 168/72
[2022-09-04 12:03] VITALS: BP 132/77
[2022-09-06] MEDS ORDERED: DICL20GE TP (10:37)
[2022-09-06] MEDS ORDERED: NEUR300C PO (10:37)
[2022-09-06] MEDS ORDERED: PRED20TA (10:37)
[2022-09-06] MEDS ORDERED: AMOX500T2 (10:37)
== END 2022-09-04 12:00 | disposition home or self-care (01) ==
LOC: M INFU 11:13
PROVIDERS: ATTEND Internal Medicine Pulmonary Disease
DX: E88.01 Alpha-1-antitrypsin deficiency (principal); Z88.2 Allergy status to sulfonamides
CPT/HCPCS: 96365; J0256

== ENCOUNTER → 2022-09-05 | Outpatient (CLI) | payer MEDICARE ==
[~2022-09-05] MED LIST changes: -ALPHA PROTEINASE INHIBITOR IV ONE; +AMOX500T2; +DICL20GE TP; +PRED20TA; -SODIUM CHLORIDE 0.9% INJ 10 ML SYR IV SCH
== END ==
LOC: M WHC 10:30
PROVIDERS: ATTEND Family Medicine
DX: M81.0 Age-related osteoporosis without current pathological fracture (principal)

== ENCOUNTER 2022-09-11 10:55 | Outpatient (CLI) | payer MEDICARE ==
[~2022-09-11] VITALS: Ht 170.2 cm; Wt 77.7 kg
[~2022-09-11 10:55] MED LIST changes: +SODI1SOL4 OD; -SODI5OPD OD; +SODIUM CHLORIDE 0.9% INJ 10 ML SYR IV SCH
[2022-09-11 11:00] VITALS: BP 164/81
[2022-09-11] MEDS ORDERED: ALPHA PROTEINASE INHIBITOR IV ONE (11:00)
[2022-09-11 12:12] VITALS: BP 158/72
== END 2022-09-11 12:15 | disposition home or self-care (01) ==
LOC: M INFU 10:55
PROVIDERS: ATTEND Internal Medicine Pulmonary Disease
DX: E88.01 Alpha-1-antitrypsin deficiency (principal); Z88.2 Allergy status to sulfonamides
CPT/HCPCS: 96365; J0256

== ENCOUNTER 2022-09-18 11:00 | Outpatient (CLI) | payer MEDICARE ==
[~2022-09-18] VITALS: Ht 170.2 cm; Wt 77.0 kg
[~2022-09-18 11:00] MED LIST changes: +ALPHA PROTEINASE INHIBITOR IV ONE
[2022-09-18 11:27] VITALS: BP 161/73
[2022-09-18 12:10] VITALS: BP 168/78
== END 2022-09-18 12:30 | disposition home or self-care (01) ==
LOC: M INFU 11:00
PROVIDERS: ATTEND Internal Medicine Pulmonary Disease
DX: E88.01 Alpha-1-antitrypsin deficiency (principal); Z88.2 Allergy status to sulfonamides
CPT/HCPCS: 96365; J0256

== ENCOUNTER 2022-09-25 11:00 | Outpatient (CLI) | payer MEDICARE ==
[~2022-09-25] VITALS: Ht 170.2 cm; Wt 77.5 kg
[~2022-09-25 11:00] MED LIST changes: -ALBU8.5H IH; +ALBU8.5H INH; +DICL20GE TOP; -DICL20GE TP
[2022-09-25 11:14] VITALS: BP 118/80
[2022-09-25 12:14] VITALS: BP 144/79
== END 2022-09-25 12:20 | disposition home or self-care (01) ==
LOC: M INFU 11:00
PROVIDERS: ATTEND Internal Medicine Pulmonary Disease
DX: E88.01 Alpha-1-antitrypsin deficiency (principal); Z88.2 Allergy status to sulfonamides

== ENCOUNTER 2022-09-27 15:24 | Inpatient (IN) | payer MEDICARE ==
[~2022-09-27] VITALS: Ht 172.7 cm; Wt 79.6 kg
[~2022-09-27 15:24] MED LIST changes: -ALPHA PROTEINASE INHIBITOR IV ONE; -CARD4TAB2 PO; +DOXA4TAB94 PO; -SODIUM CHLORIDE 0.9% INJ 10 ML SYR IV SCH
[2022-09-27] MEDS ORDERED: AMPICILLIN SOD/SULBACTAM SOD 3 GM in D5W MINI-BAG PLUS 100 ML IV ONE (16:20)
[2022-09-27 17:16] LABS: HEMATOCRIT 34.3 % (42.0-52.0); MEAN CORPUSCULAR HEMOGLOBIN 29.6 pg (27.0-33.0); MEAN CORPUSCULAR HGB CONC 32.1 g/dl (32.0-36.5); MEAN CORPUSCULAR VOLUME 92.2 fl (80.0-96.0); PLATELET COUNT, AUTOMATED 163 10^3/uL (150-450); RED BLOOD COUNT 3.72 10^6/uL (4.30-6.10); WHITE BLOOD COUNT 25.7 10^3/uL (4.0-10.0)
[2022-09-27 17:34] LABS: ALBUMIN 3.4 G/DL (3.2-5.2); ALKALINE PHOSPHATASE 55 U/L (46-116); ALT/SGPT 20 U/L (7.0-40); AST/SGOT 21 U/L (<34); BILIRUBIN,DIRECT < 0.1 MG/DL (<0.4); BILIRUBIN,TOTAL 0.3 MG/DL (0.3-1.2); BLOOD UREA NITROGEN 22 MG/DL (9-23); CALCIUM LEVEL 8.3 MG/DL (8.3-10.6); CARBON DIOXIDE LEVEL 25 MMOL/L (20-31); CHLORIDE LEVEL 94 MMOL/L (98-107); CREATININE FOR GFR 1.13 MG/DL (0.70-1.30); GLOMERULAR FILTRATION RATE > 60.0 (>35); GLUCOSE, FASTING 131 MG/DL (74-106); INR 0.94; POTASSIUM SERUM 5.3 MMOL/L (3.5-5.1); PROTHROMBIN TIME 12.8 SECONDS (12.5-14.5); SODIUM LEVEL 126 MMOL/L (136-145); TOTAL PROTEIN 6.3 G/DL (5.7-8.2)
[2022-09-27 17:35] LABS: PARTIAL THROMBOPLASTIN TIME 30.9 SECONDS (24.8-34.2)
[2022-09-27 17:45] LABS: ERYTHROCYTE SEDIMENTATION RATE 85 mm/hr (0-20)
[2022-09-27 17:46] LABS: RSV AMPLIFICATION NEGATIVE (NEGATIVE)
[2022-09-27 18:15] LABS: ATYPICAL LYMPH 1 % (0-5); LYMPHOCYTES 30 % (16-44); METAMYELOCYTES 1 % (0-0); MONOCYTES 7 % (0-5); NEUTROPHILS 61 % (28-66); PLATELET ESTIMATE NORMAL (NORMAL)
[2022-09-27 19:09] LABS: RSV AMPLIFICATION NEGATIVE (NEGATIVE)
[2022-09-27] MEDS ORDERED: ACETAMINOPHEN TAB 650MG DOSE (2X325MG) PO PRN (19:15)
[2022-09-27] MEDS ORDERED: PERCOCET 5MG/325MG TAB PO PRN (19:15)
[2022-09-27] MEDS ORDERED: KETOROLAC 30 MG/ML 1ML VIAL IV PRN (19:15)
[2022-09-27] MEDS: NS 1,000 ML IV SCH (20:31)
[2022-09-27] MEDS: DOXYCYCLINE HYCLATE 100MG TABLET PO SCH (21:07)
[2022-09-27 21:33] VITALS: BP 119/89
[2022-09-27] MEDS ORDERED: TIZA10TA PO (21:34)
[2022-09-27] MEDS ORDERED: FLUT50SP17 (21:34)
[2022-09-27] MEDS ORDERED: SFHIBU200 PO (21:34)
[2022-09-27] MEDS ORDERED: CETI10TA PO (21:34)
[2022-09-27] MEDS ORDERED: MUCI600T31 PO (21:34)
[2022-09-27] MEDS ORDERED: GABA-282 PO ×2 (21:34)
[2022-09-27] MEDS ORDERED: CLEO300C2 PO (21:34)
[2022-09-27] MEDS ORDERED: ALEN70TA82 PO (21:34)
[2022-09-27] MEDS ORDERED: CLEO150C PO (21:34)
[2022-09-27] MEDS ORDERED: HOME MED LIST COMPLETE! XX SCH (21:35)
[2022-09-27] MEDS ORDERED: tiZANidine 4 MG TAB PO PRN (22:00)
[2022-09-27] MEDS ORDERED: ALBUTEROL 90 MCG/ACT 8GM HFA INHALER INH PRN (22:00)
[2022-09-27] MEDS ORDERED: FLUTICASONE PROP 0.05% NASAL SPRAY 16 GM (FLONASE) PRN (22:00)
[2022-09-27] MEDS ORDERED: guaiFENesin ER 600 MG TAB PO PRN (22:00)
[2022-09-27] MEDS: GABAPENTIN 300 MG CAP PO SCH (22:35)
[2022-09-27] MEDS: MONTELUKAST 10 MG TAB PO SCH (22:36)
[2022-09-27] MEDS: CETIRIZINE (ZyrTEC) 10 MG TAB PO SCH (22:36)
[2022-09-27] MEDS: SIMVASTATIN 40 MG TAB PO SCH (22:36)
[2022-09-27] MEDS: SPIRONOLACTONE 50 MG TAB PO SCH (22:36)
[2022-09-27] MEDS: AMPICILLIN SOD/SULBACTAM SOD 3 GM in D5W MINI-BAG PLUS 100 ML IV SCH (22:37)
[2022-09-27] MEDS: IPRATROPIUM 0.5MG/ALBUTEROL 2.5MG INH SOL UD 3ML (DUONEB) INH PRN (22:50)
[2022-09-27] MEDS: DOXAZOSIN MESYLATE 4 MG TAB PO SCH (23:05)
[2022-09-28 01:40] LABS: BLOOD UREA NITROGEN 22 MG/DL (9-23); CARBON DIOXIDE LEVEL 25 MMOL/L (20-31); CHLORIDE LEVEL 97 MMOL/L (98-107); CREATININE FOR GFR 1.12 MG/DL (0.70-1.30); GLOMERULAR FILTRATION RATE > 60.0 (>35); GLUCOSE, FASTING 115 MG/DL (74-106); POTASSIUM SERUM 4.6 MMOL/L (3.5-5.1); SODIUM LEVEL 128 MMOL/L (136-145)
[2022-09-28] MEDS: NS 1,000 ML IV SCH ×2 (03:15→14:05)
[2022-09-28] MEDS: AMPICILLIN SOD/SULBACTAM SOD 3 GM in D5W MINI-BAG PLUS 100 ML IV SCH ×4 (05:59→22:39)
[2022-09-28 06:00] VITALS: BP 136/70
[2022-09-28] MEDS: LEVOTHYROXINE 75MCG TABLET (0.075MG) PO SCH (06:00)
[2022-09-28 06:55] LABS: HEMATOCRIT 32.7 % (42.0-52.0); HEMOGLOBIN 10.8 g/dl (13.5-17.5); MEAN CORPUSCULAR HEMOGLOBIN 30.3 pg (27.0-33.0); MEAN CORPUSCULAR VOLUME 91.6 fl (80.0-96.0); PLATELET COUNT, AUTOMATED 161 10^3/uL (150-450); RED BLOOD COUNT 3.57 10^6/uL (4.30-6.10); WHITE BLOOD COUNT 21.2 10^3/uL (4.0-10.0)
[2022-09-28 07:28] LABS: BLOOD UREA NITROGEN 19 MG/DL (9-23); CALCIUM LEVEL 8.6 MG/DL (8.3-10.6); CARBON DIOXIDE LEVEL 23 MMOL/L (20-31); CHLORIDE LEVEL 100 MMOL/L (98-107); CREATININE FOR GFR 1.07 MG/DL (0.70-1.30); GLOMERULAR FILTRATION RATE > 60.0 (>35); GLUCOSE, FASTING 86 MG/DL (74-106); POTASSIUM SERUM 4.7 MMOL/L (3.5-5.1); SODIUM LEVEL 132 MMOL/L (136-145)
[2022-09-28] MEDS: ADVAIR HFA 45/21MCG INHALER INH SCH ×2 (07:28→21:06)
[2022-09-28] MEDS: TIOTROPIUM INHALER/CAPSULE (SPIRIVA) INH SCH (07:28)
[2022-09-28] MEDS: ASPIRIN 81MG ENTERIC TABLET PO SCH (10:02)
[2022-09-28] MEDS: GABAPENTIN 300 MG CAP PO SCH ×3 (10:03→20:44)
[2022-09-28] MEDS: SPIRONOLACTONE 50 MG TAB PO SCH ×2 (10:03→20:44)
[2022-09-28] MEDS: OMEPRAZOLE 20MG CAP PO SCH (10:03)
[2022-09-28] MEDS: DOXAZOSIN MESYLATE 4 MG TAB PO SCH ×2 (10:04→20:44)
[2022-09-28] MEDS: DOXYCYCLINE HYCLATE 100MG TABLET PO SCH (10:04)
[2022-09-28] MEDS: ENOXAPARIN 40MG/0.4ML SYRINGE (J1650 PER 10MG) SC SCH (10:04)
[2022-09-28] MEDS: IPRATROPIUM 0.5MG/ALBUTEROL 2.5MG INH SOL UD 3ML (DUONEB) INH PRN ×2 (10:15→15:16)
[2022-09-28 14:00] VITALS: BP 134/63
[2022-09-28] MEDS ORDERED: LORazepam 0.5 MG TAB PO ONE (14:35)
[2022-09-28] MEDS: MONTELUKAST 10 MG TAB PO SCH (20:44)
[2022-09-28] MEDS: CETIRIZINE (ZyrTEC) 10 MG TAB PO SCH (20:45)
[2022-09-28] MEDS: SIMVASTATIN 40 MG TAB PO SCH (20:45)
[2022-09-28 21:00] VITALS: BP 138/72
[2022-09-29] MEDS: AMPICILLIN SOD/SULBACTAM SOD 3 GM in D5W MINI-BAG PLUS 100 ML IV SCH ×4 (05:03→22:56)
[2022-09-29 05:38] VITALS: BP 141/69
[2022-09-29] MEDS: LEVOTHYROXINE 75MCG TABLET (0.075MG) PO SCH (06:13)
[2022-09-29 06:54] LABS: ALBUMIN 2.9 G/DL (3.2-5.2); ALKALINE PHOSPHATASE 47 U/L (46-116); ALT/SGPT 23 U/L (7.0-40); AST/SGOT < 8 U/L (<34); BILIRUBIN,TOTAL 0.2 MG/DL (0.3-1.2); BLOOD UREA NITROGEN 19 MG/DL (9-23); CALCIUM LEVEL 8.3 MG/DL (8.3-10.6); CARBON DIOXIDE LEVEL 24 MMOL/L (20-31); CHLORIDE LEVEL 105 MMOL/L (98-107); CREATININE FOR GFR 1.03 MG/DL (0.70-1.30); GLOMERULAR FILTRATION RATE > 60.0 (>35); GLUCOSE, FASTING 99 MG/DL (74-106); MAGNESIUM LEVEL 1.9 MG/DL (1.8-2.4); POTASSIUM SERUM 4.7 MMOL/L (3.5-5.1); SODIUM LEVEL 137 MMOL/L (136-145); TOTAL PROTEIN 5.6 G/DL (5.7-8.2)
[2022-09-29 07:00] LABS: HEMATOCRIT 32.8 % (42.0-52.0); HEMOGLOBIN 10.6 g/dl (13.5-17.5); MEAN CORPUSCULAR HEMOGLOBIN 30.4 pg (27.0-33.0); MEAN CORPUSCULAR HGB CONC 32.3 g/dl (32.0-36.5); PLATELET COUNT, AUTOMATED 169 10^3/uL (150-450); RED BLOOD COUNT 3.49 10^6/uL (4.30-6.10); WHITE BLOOD COUNT 19.9 10^3/uL (4.0-10.0)
[2022-09-29] MEDS: TIOTROPIUM INHALER/CAPSULE (SPIRIVA) INH SCH (07:49)
[2022-09-29] MEDS: ADVAIR HFA 45/21MCG INHALER INH SCH ×2 (07:50→19:36)
[2022-09-29] MEDS ORDERED: LORazepam 0.5 MG TAB PO ONE (08:00)
[2022-09-29 08:14] LABS: ATYPICAL LYMPH 7 % (0-5); EOSINOPHILS 1 % (0-3); LYMPHOCYTES 46 % (16-44); MONOCYTES 5 % (0-5); NEUTROPHILS 41 % (28-66); PLATELET ESTIMATE NORMAL (NORMAL); SMUDGE CELLS 2+
[2022-09-29 08:28] LABS: ERYTHROCYTE SEDIMENTATION RATE 66 mm/hr (0-20)
[2022-09-29] MEDS ORDERED: PROHANCE 279.3MG/ML 15ML VIAL As Ordered ONE (08:32)
[2022-09-29] MEDS: AZITHROMYCIN 250MG TABLET PO SCH (09:50)
[2022-09-29] MEDS: OMEPRAZOLE 20MG CAP PO SCH (09:50)
[2022-09-29] MEDS: ASPIRIN 81MG ENTERIC TABLET PO SCH (09:50)
[2022-09-29] MEDS: SPIRONOLACTONE 50 MG TAB PO SCH ×2 (09:50→20:57)
[2022-09-29] MEDS: GABAPENTIN 300 MG CAP PO SCH ×3 (09:50→21:00)
[2022-09-29] MEDS: DOXAZOSIN MESYLATE 4 MG TAB PO SCH ×2 (09:51→20:59)
[2022-09-29] MEDS: ENOXAPARIN 40MG/0.4ML SYRINGE (J1650 PER 10MG) SC SCH (09:51)
[2022-09-29] MEDS: IPRATROPIUM 0.5MG/ALBUTEROL 2.5MG INH SOL UD 3ML (DUONEB) INH PRN ×3 (10:24→23:52)
[2022-09-29 14:00] VITALS: BP 144/67
[2022-09-29] MEDS: SIMVASTATIN 40 MG TAB PO SCH (20:56)
[2022-09-29] MEDS: MONTELUKAST 10 MG TAB PO SCH (20:57)
[2022-09-29] MEDS: CETIRIZINE (ZyrTEC) 10 MG TAB PO SCH (20:57)
[2022-09-29 21:00] VITALS: BP 147/67
[2022-09-30] MEDS: AMPICILLIN SOD/SULBACTAM SOD 3 GM in D5W MINI-BAG PLUS 100 ML IV SCH ×4 (05:17→22:56)
[2022-09-30] MEDS: LEVOTHYROXINE 75MCG TABLET (0.075MG) PO SCH (05:20)
[2022-09-30 06:00] VITALS: BP 143/64
[2022-09-30 06:13] LABS: HEMOGLOBIN 10.5 g/dl (13.5-17.5); MEAN CORPUSCULAR HEMOGLOBIN 29.7 pg (27.0-33.0); MEAN CORPUSCULAR HGB CONC 30.9 g/dl (32.0-36.5); MEAN CORPUSCULAR VOLUME 96.3 fl (80.0-96.0); PLATELET COUNT, AUTOMATED 183 10^3/uL (150-450); RED BLOOD COUNT 3.53 10^6/uL (4.30-6.10); WHITE BLOOD COUNT 18.5 10^3/uL (4.0-10.0)
[2022-09-30 06:45] LABS: ALBUMIN 2.9 G/DL (3.2-5.2); ALKALINE PHOSPHATASE 45 U/L (46-116); ALT/SGPT 25 U/L (7.0-40); AST/SGOT 22 U/L (<34); BILIRUBIN,TOTAL 0.3 MG/DL (0.3-1.2); BLOOD UREA NITROGEN 15 MG/DL (9-23); CALCIUM LEVEL 8.7 MG/DL (8.3-10.6); CARBON DIOXIDE LEVEL 24 MMOL/L (20-31); CHLORIDE LEVEL 104 MMOL/L (98-107); CREATININE FOR GFR 1.08 MG/DL (0.70-1.30); GLOMERULAR FILTRATION RATE > 60.0 (>35); GLUCOSE, FASTING 94 MG/DL (74-106); MAGNESIUM LEVEL 1.8 MG/DL (1.8-2.4); POTASSIUM SERUM 4.8 MMOL/L (3.5-5.1); SODIUM LEVEL 136 MMOL/L (136-145); TOTAL PROTEIN 5.9 G/DL (5.7-8.2)
[2022-09-30 07:15] LABS: ATYPICAL LYMPH 15 % (0-5); EOSINOPHILS 4 % (0-3); LYMPHOCYTES 29 % (16-44); MONOCYTES 7 % (0-5); NEUTROPHILS 45 % (28-66)
[2022-09-30 07:17] LABS: HYPOCHROMASIA 1+; SMUDGE CELLS 1+
[2022-09-30 07:18] LABS: PLATELET ESTIMATE NORMAL (NORMAL)
[2022-09-30] MEDS: TIOTROPIUM INHALER/CAPSULE (SPIRIVA) INH SCH (07:34)
[2022-09-30] MEDS: IPRATROPIUM 0.5MG/ALBUTEROL 2.5MG INH SOL UD 3ML (DUONEB) INH PRN ×4 (07:35→19:09)
[2022-09-30] MEDS: ADVAIR HFA 45/21MCG INHALER INH SCH ×2 (07:35→19:08)
[2022-09-30] MEDS: SPIRONOLACTONE 50 MG TAB PO SCH ×2 (08:51→21:11)
[2022-09-30] MEDS: DOXAZOSIN MESYLATE 4 MG TAB PO SCH ×2 (08:51→21:11)
[2022-09-30] MEDS: OMEPRAZOLE 20MG CAP PO SCH (08:51)
[2022-09-30] MEDS: ENOXAPARIN 40MG/0.4ML SYRINGE (J1650 PER 10MG) SC SCH (08:52)
[2022-09-30] MEDS: ASPIRIN 81MG ENTERIC TABLET PO SCH (08:52)
[2022-09-30] MEDS: GABAPENTIN 300 MG CAP PO SCH ×3 (08:52→21:11)
[2022-09-30 14:00] VITALS: BP 130/88
[2022-09-30 20:40] VITALS: BP 134/61
[2022-09-30] MEDS: CETIRIZINE (ZyrTEC) 10 MG TAB PO SCH (21:11)
[2022-09-30] MEDS: SIMVASTATIN 40 MG TAB PO SCH (21:11)
[2022-09-30] MEDS: MONTELUKAST 10 MG TAB PO SCH (21:11)
[2022-10-01] MEDS: IPRATROPIUM 0.5MG/ALBUTEROL 2.5MG INH SOL UD 3ML (DUONEB) INH PRN ×5 (00:41→19:26)
[2022-10-01] MEDS: LEVOTHYROXINE 75MCG TABLET (0.075MG) PO SCH (05:11)
[2022-10-01] MEDS: AMPICILLIN SOD/SULBACTAM SOD 3 GM in D5W MINI-BAG PLUS 100 ML IV SCH ×2 (05:12→11:25)
[2022-10-01 06:00] VITALS: BP 134/79
[2022-10-01 06:45] LABS: HEMATOCRIT 32.9 % (42.0-52.0); HEMOGLOBIN 10.4 g/dl (13.5-17.5); MEAN CORPUSCULAR HEMOGLOBIN 30.2 pg (27.0-33.0); MEAN CORPUSCULAR HGB CONC 31.6 g/dl (32.0-36.5); MEAN CORPUSCULAR VOLUME 95.6 fl (80.0-96.0); PLATELET COUNT, AUTOMATED 200 10^3/uL (150-450); RED BLOOD COUNT 3.44 10^6/uL (4.30-6.10); WHITE BLOOD COUNT 18.8 10^3/uL (4.0-10.0)
[2022-10-01 07:07] LABS: ALBUMIN 2.9 G/DL (3.2-5.2); ALKALINE PHOSPHATASE 51 U/L (46-116); ALT/SGPT 28 U/L (7.0-40); AST/SGOT 24 U/L (<34); BILIRUBIN,TOTAL 0.3 MG/DL (0.3-1.2); BLOOD UREA NITROGEN 15 MG/DL (9-23); CALCIUM LEVEL 8.4 MG/DL (8.3-10.6); CARBON DIOXIDE LEVEL 25 MMOL/L (20-31); CHLORIDE LEVEL 103 MMOL/L (98-107); CREATININE FOR GFR 1.11 MG/DL (0.70-1.30); GLOMERULAR FILTRATION RATE > 60.0 (>35); GLUCOSE, FASTING 98 MG/DL (74-106); MAGNESIUM LEVEL 1.8 MG/DL (1.8-2.4); POTASSIUM SERUM 4.8 MMOL/L (3.5-5.1); SODIUM LEVEL 136 MMOL/L (136-145); TOTAL PROTEIN 5.9 G/DL (5.7-8.2)
[2022-10-01] MEDS: TIOTROPIUM INHALER/CAPSULE (SPIRIVA) INH SCH (07:19)
[2022-10-01] MEDS: ADVAIR HFA 45/21MCG INHALER INH SCH ×2 (07:19→19:26)
[2022-10-01 08:01] LABS: ANISOCYTOSIS 1+; ATYPICAL LYMPH 6 % (0-5); EOSINOPHILS 2 % (0-3); LYMPHOCYTES 43 % (16-44); MONOCYTES 3 % (0-5); NEUTROPHILS 46 % (28-66); SMUDGE CELLS 1+
[2022-10-01 08:02] LABS: PLATELET ESTIMATE NORMAL (NORMAL)
[2022-10-01] MEDS: GABAPENTIN 300 MG CAP PO SCH ×3 (08:28→20:59)
[2022-10-01] MEDS: AZITHROMYCIN 250MG TABLET PO SCH (08:28)
[2022-10-01] MEDS: ASPIRIN 81MG ENTERIC TABLET PO SCH (08:28)
[2022-10-01] MEDS: SPIRONOLACTONE 50 MG TAB PO SCH ×2 (08:28→20:58)
[2022-10-01] MEDS: ENOXAPARIN 40MG/0.4ML SYRINGE (J1650 PER 10MG) SC SCH (08:28)
[2022-10-01] MEDS: OMEPRAZOLE 20MG CAP PO SCH (08:28)
[2022-10-01] MEDS: DOXAZOSIN MESYLATE 4 MG TAB PO SCH ×2 (08:29→20:58)
[2022-10-01 14:00] VITALS: BP 142/76
[2022-10-01 20:36] VITALS: BP 139/66
[2022-10-01] MEDS ORDERED: BENZONATATE 100MG CAPSULE PO PRN (20:45)
[2022-10-01 20:58] VITALS: BP 139/66
[2022-10-01] MEDS: MONTELUKAST 10 MG TAB PO SCH (20:58)
[2022-10-01] MEDS: CETIRIZINE (ZyrTEC) 10 MG TAB PO SCH (20:58)
[2022-10-01] MEDS: AUGMENTIN 875 MG TAB PO SCH (20:59)
[2022-10-01] MEDS: SIMVASTATIN 40 MG TAB PO SCH (20:59)
[2022-10-02] MEDS: IPRATROPIUM 0.5MG/ALBUTEROL 2.5MG INH SOL UD 3ML (DUONEB) INH PRN ×2 (00:45→08:48)
[2022-10-02 05:51] VITALS: BP 137/66
[2022-10-02 06:27] LABS: HEMOGLOBIN 10.5 g/dl (13.5-17.5); MEAN CORPUSCULAR HEMOGLOBIN 30.3 pg (27.0-33.0); MEAN CORPUSCULAR HGB CONC 31.8 g/dl (32.0-36.5); MEAN CORPUSCULAR VOLUME 95.4 fl (80.0-96.0); PLATELET COUNT, AUTOMATED 229 10^3/uL (150-450); RED BLOOD COUNT 3.46 10^6/uL (4.30-6.10); WHITE BLOOD COUNT 18.9 10^3/uL (4.0-10.0)
[2022-10-02] MEDS: LEVOTHYROXINE 75MCG TABLET (0.075MG) PO SCH (06:31)
[2022-10-02 07:03] LABS: ALBUMIN 3.3 G/DL (3.2-5.2); ALKALINE PHOSPHATASE 55 U/L (46-116); ALT/SGPT 33 U/L (7.0-40); AST/SGOT 25 U/L (<34); BILIRUBIN,TOTAL 0.3 MG/DL (0.3-1.2); BLOOD UREA NITROGEN 16 MG/DL (9-23); CALCIUM LEVEL 8.7 MG/DL (8.3-10.6); CARBON DIOXIDE LEVEL 26 MMOL/L (20-31); CHLORIDE LEVEL 104 MMOL/L (98-107); CREATININE FOR GFR 1.11 MG/DL (0.70-1.30); GLOMERULAR FILTRATION RATE > 60.0 (>35); GLUCOSE, FASTING 86 MG/DL (74-106); MAGNESIUM LEVEL 1.8 MG/DL (1.8-2.4); POTASSIUM SERUM 4.9 MMOL/L (3.5-5.1); SODIUM LEVEL 136 MMOL/L (136-145); TOTAL PROTEIN 5.9 G/DL (5.7-8.2)
[2022-10-02 07:10] LABS: EOSINOPHILS 2 % (0-3); LYMPHOCYTES 52 % (16-44); MONOCYTES 6 % (0-5); NEUTROPHILS 40 % (28-66); PLATELET ESTIMATE NORMAL (NORMAL)
[2022-10-02] MEDS: SPIRONOLACTONE 50 MG TAB PO SCH (08:11)
[2022-10-02] MEDS: AUGMENTIN 875 MG TAB PO SCH (08:11)
[2022-10-02] MEDS: GABAPENTIN 300 MG CAP PO SCH (08:11)
[2022-10-02] MEDS: OMEPRAZOLE 20MG CAP PO SCH (08:11)
[2022-10-02] MEDS: DOXAZOSIN MESYLATE 4 MG TAB PO SCH (08:12)
[2022-10-02] MEDS: ENOXAPARIN 40MG/0.4ML SYRINGE (J1650 PER 10MG) SC SCH ×2 (08:12→08:14)
[2022-10-02] MEDS: ASPIRIN 81MG ENTERIC TABLET PO SCH (08:12)
[2022-10-02] MEDS: TIOTROPIUM INHALER/CAPSULE (SPIRIVA) INH SCH (08:47)
[2022-10-02] MEDS: ADVAIR HFA 45/21MCG INHALER INH SCH (08:54)
[2022-10-02] MEDS ORDERED: FURO20TA2 PO (09:56)
[2022-10-02] MEDS ORDERED: AMOX875T2 PO (09:56)
[2022-10-02] MEDS ORDERED: PROBCAP14 PO (09:56)
== END 2022-10-02 10:32 | disposition home or self-care (01) | DRG 603 ==
LOC: M ED 15:24 → M ED INP 19:13 → ENRESERV 20:46 → M MSPAV 21:32
PROVIDERS: ADMIT Family Medicine; ATTEND Internal Medicine Nephrology
DX: L03.114 Cellulitis of left upper limb (principal); E87.1 Hypo-osmolality and hyponatremia; J96.11 Chronic respiratory failure with hypoxia; E03.9 Hypothyroidism, unspecified; J44.9 Chronic obstructive pulmonary disease, unspecified; E88.01 Alpha-1-antitrypsin deficiency; Z79.82 Long term (current) use of aspirin; I11.0 Hypertensive heart disease with heart failure; Y93.9 Activity, unspecified; E87.5 Hyperkalemia; I27.20 Pulmonary hypertension, unspecified; E78.5 Hyperlipidemia, unspecified; M65.142 Other infective (teno)synovitis, left hand; S61.452D Open bite of left hand, subsequent encounter; M51.36 Other intervertebral disc degeneration, lumbar region; N40.0 Benign prostatic hyperplasia without lower urinary tract symptoms; K21.9 Gastro-esophageal reflux disease without esophagitis; I50.810 Right heart failure, unspecified; Z99.81 Dependence on supplemental oxygen; Z79.890 Hormone replacement therapy; Z79.899 Other long term (current) drug therapy; Z88.2 Allergy status to sulfonamides; Z88.8 Allergy status to other drugs, medicaments and biological substances; Z98.41 Cataract extraction status, right eye; Z98.42 Cataract extraction status, left eye

== ENCOUNTER 2022-10-02 10:58 | Outpatient (CLI) | payer MEDICARE ==
[~2022-10-02] VITALS: Ht 170.2 cm; Wt 77.0 kg
[~2022-10-02 10:58] MED LIST changes: +AMOX875T2 PO; +CETI10TA PO; +CLEO150C PO; +CLEO300C2 PO; +FLUT50SP17; +GABA-282 PO; +MUCI600T31 PO; +PROBCAP14 PO; +SFHIBU200 PO; +SODIUM CHLORIDE 0.9% INJ 10 ML SYR IV SCH; +TIZA10TA PO
[2022-10-02 11:00] VITALS: BP 135/87
[2022-10-02] MEDS ORDERED: ALPHA PROTEINASE INHIBITOR IV ONE (12:00)
[2022-10-02 12:15] VITALS: BP 147/60
== END 2022-10-02 12:15 | disposition home or self-care (01) ==
LOC: M INFU 10:58
PROVIDERS: ATTEND Internal Medicine Pulmonary Disease
DX: E88.01 Alpha-1-antitrypsin deficiency (principal); Z88.2 Allergy status to sulfonamides
CPT/HCPCS: 96365; J0256

== ENCOUNTER 2022-10-09 11:00 | Outpatient (CLI) | payer MEDICARE ==
[~2022-10-09] VITALS: Ht 170.2 cm; Wt 77.0 kg
[~2022-10-09 11:00] MED LIST changes: +ALPHA PROTEINASE INHIBITOR IV ONE
[2022-10-09 11:17] VITALS: BP 138/66
[2022-10-09 12:03] VITALS: BP 124/70
== END 2022-10-09 12:05 | disposition home or self-care (01) ==
LOC: M INFU 11:00
PROVIDERS: ATTEND Internal Medicine Pulmonary Disease
DX: E88.01 Alpha-1-antitrypsin deficiency (principal); E88.2 Lipomatosis, not elsewhere classified
CPT/HCPCS: 96365; J0256

== ENCOUNTER → 2022-10-12 | Outpatient (CLI) | payer MEDICARE ==
[~2022-10-12] MED LIST changes: -ALPHA PROTEINASE INHIBITOR IV ONE; -SODIUM CHLORIDE 0.9% INJ 10 ML SYR IV SCH
[2022-10-12 15:30] LABS: CALCIUM LEVEL 8.9 MG/DL (8.3-10.6); CREATININE FOR GFR 1.23 MG/DL (0.70-1.30); POTASSIUM SERUM 5.4 MMOL/L (3.5-5.1)
== END ==
LOC: M WUC 11:24
PROVIDERS: ATTEND Nurse Practitioner Adult Health
DX: I50.9 Heart failure, unspecified (principal)

== ENCOUNTER 2022-10-16 10:05 | Outpatient (CLI) | payer MEDICARE ==
[~2022-10-16] VITALS: Ht 170.2 cm; Wt 77.0 kg
[2022-10-16 10:17] VITALS: BP 111/66
[2022-10-16] MEDS ORDERED: SODIUM CHLORIDE 0.9% INJ 10 ML SYR IV SCH (11:00)
[2022-10-16] MEDS ORDERED: ALPHA PROTEINASE INHIBITOR IV ONE ×2 (11:00)
[2022-10-16 11:02] VITALS: BP 94/69
== END 2022-10-16 11:05 | disposition home or self-care (01) ==
LOC: M INFU 10:05
PROVIDERS: ATTEND Internal Medicine Pulmonary Disease
DX: E88.01 Alpha-1-antitrypsin deficiency (principal); Z88.2 Allergy status to sulfonamides; Z88.8 Allergy status to other drugs, medicaments and biological substances; Z91.048 Other nonmedicinal substance allergy status
CPT/HCPCS: 96365; J0256

== ENCOUNTER 2022-10-23 10:54 | Outpatient (CLI) | payer MEDICARE ==
[~2022-10-23] VITALS: Ht 172.7 cm; Wt 77.0 kg
[~2022-10-23 10:54] MED LIST changes: +SODIUM CHLORIDE 0.9% INJ 10 ML SYR IV SCH
[2022-10-23] MEDS ORDERED: ALPHA PROTEINASE INHIBITOR IV ONE (11:00)
[2022-10-23 11:31] VITALS: BP 149/64
[2022-10-23 12:30] LABS: CALCIUM LEVEL 8.8 MG/DL (8.3-10.6); CREATININE FOR GFR 1.44 MG/DL (0.70-1.30); POTASSIUM SERUM 4.5 MMOL/L (3.5-5.1)
== END 2022-10-23 12:25 | disposition home or self-care (01) ==
LOC: M INFU 10:54
PROVIDERS: ATTEND Internal Medicine Pulmonary Disease
DX: E88.01 Alpha-1-antitrypsin deficiency (principal); Z88.2 Allergy status to sulfonamides
CPT/HCPCS: 36591; 80048; 96365; J0256

== ENCOUNTER → 2022-10-23 | Outpatient (CLI) | payer MEDICARE | LOC: M LAB 11:01 | PROVIDERS: ATTEND Nurse Practitioner Adult Health | DX: I50.9 Heart failure, unspecified (principal) ==

== ENCOUNTER 2022-10-30 11:00 | Outpatient (CLI) | payer MEDICARE ==
[~2022-10-30] VITALS: Ht 170.2 cm; Wt 77.0 kg
[2022-10-30 11:00] VITALS: BP 144/65
[~2022-10-30 11:00] MED LIST changes: +ALPHA PROTEINASE INHIBITOR IV ONE
[2022-10-30 11:54] VITALS: BP 148/70
== END 2022-10-30 11:55 | disposition home or self-care (01) ==
LOC: M INFU 11:00
PROVIDERS: ATTEND Internal Medicine Pulmonary Disease
DX: E88.01 Alpha-1-antitrypsin deficiency (principal); Z88.2 Allergy status to sulfonamides; Z91.048 Other nonmedicinal substance allergy status
CPT/HCPCS: 96365; J0256

== ENCOUNTER → 2022-10-31 | Outpatient (REF) | payer MEDICARE ==
[~2022-10-31] MED LIST changes: -ALPHA PROTEINASE INHIBITOR IV ONE; -SODIUM CHLORIDE 0.9% INJ 10 ML SYR IV SCH
[2022-10-31 13:51] LABS: HEMATOCRIT 35.1 % (42.0-52.0); MEAN CORPUSCULAR HEMOGLOBIN 29.6 pg (27.0-33.0); MEAN CORPUSCULAR HGB CONC 31.3 g/dl (32.0-36.5); MEAN CORPUSCULAR VOLUME 94.6 fl (80.0-96.0); PLATELET COUNT, AUTOMATED 221 10^3/uL (150-450); RED BLOOD COUNT 3.71 10^6/uL (4.30-6.10); WHITE BLOOD COUNT 19.1 10^3/uL (4.0-10.0)
[2022-10-31 14:12] LABS: ALBUMIN 4.1 G/DL (3.2-5.2); BILIRUBIN,TOTAL 0.3 MG/DL (0.3-1.2); CALCIUM LEVEL 8.9 MG/DL (8.3-10.6); CREATININE FOR GFR 1.4 MG/DL (0.70-1.30); GLOMERULAR FILTRATION RATE 51.7 (>35); POTASSIUM SERUM 4.6 MMOL/L (3.5-5.1); TOTAL PROTEIN 6.4 G/DL (5.7-8.2)
[2022-10-31 14:14] LABS: THYROID STIMULATING HORMONE 2.176 uIU/ML (0.55-4.78)
[2022-10-31 14:15] LABS: FREE T4 1.01 NG/DL (0.89-1.76)
[2022-10-31 15:04] LABS: ATYPICAL LYMPH 1 % (0-5); EOSINOPHILS 1 % (0-3); LYMPHOCYTES 47 % (16-44); MONOCYTES 7 % (0-5); NEUTROPHILS 44 % (28-66); PLATELET ESTIMATE NORMAL (NORMAL)
== END ==
LOC: M LAB REF 12:16
PROVIDERS: ATTEND Nurse Practitioner Adult Health
DX: C91.10 Chronic lymphocytic leukemia of B-cell type not having achieved remission (principal); N18.30 Chronic kidney disease, stage 3 unspecified; E03.9 Hypothyroidism, unspecified

== ENCOUNTER 2022-11-06 10:30 | Outpatient (CLI) | payer MEDICARE ==
[~2022-11-06] VITALS: Ht 170.2 cm; Wt 77.6 kg
[~2022-11-06 10:30] MED LIST changes: +SODIUM CHLORIDE 0.9% INJ 10 ML SYR IV SCH
[2022-11-06] MEDS ORDERED: ALPHA PROTEINASE INHIBITOR IV ONE (11:00)
[2022-11-06 11:04] VITALS: BP 163/69; O2SAT 99
[2022-11-06 12:07] VITALS: BP 134/67; O2SAT 99
== END 2022-11-06 12:10 | disposition home or self-care (01) ==
LOC: M INFU 10:30
PROVIDERS: ATTEND Internal Medicine Pulmonary Disease
DX: E88.01 Alpha-1-antitrypsin deficiency (principal); Z88.2 Allergy status to sulfonamides
CPT/HCPCS: 96365; J0256

== ENCOUNTER → 2022-11-13 | Outpatient (CLI) | payer MEDICARE ==
[~2022-11-13] VITALS: Ht 170.2 cm; Wt 77.6 kg
[~2022-11-13] MED LIST changes: +ALPHA PROTEINASE INHIBITOR IV ONE
[2022-11-13 10:05] VITALS: BP 137/63; O2SAT 96
[2022-11-13 10:55] VITALS: BP 135/83; O2SAT 100
== END ==
LOC: M INFU 09:54
PROVIDERS: ATTEND Internal Medicine Pulmonary Disease
DX: E88.01 Alpha-1-antitrypsin deficiency (principal); Z88.2 Allergy status to sulfonamides
CPT/HCPCS: 96365; J0256

== ENCOUNTER 2022-11-20 10:55 | Outpatient (CLI) | payer MEDICARE ==
[~2022-11-20] VITALS: Ht 172.7 cm; Wt 77.0 kg
[~2022-11-20 10:55] MED LIST changes: -ALPHA PROTEINASE INHIBITOR IV ONE
[2022-11-20 10:57] VITALS: BP 125/95; O2SAT 95
[2022-11-20] MEDS ORDERED: ALPHA PROTEINASE INHIBITOR IV ONE (11:00)
[2022-11-20 12:05] VITALS: BP 140/65; O2SAT 99
== END 2022-11-20 12:05 ==
LOC: M INFU 10:55
PROVIDERS: ATTEND Internal Medicine Pulmonary Disease
DX: E88.01 Alpha-1-antitrypsin deficiency (principal); Z88.2 Allergy status to sulfonamides
CPT/HCPCS: 96365; J0256

== ENCOUNTER 2022-11-27 09:59 | Outpatient (CLI) | payer MEDICARE ==
[2022-11-27 10:25] VITALS: BP 124/58; O2SAT 99
[2022-11-27 11:00] VITALS: BP 133/59; O2SAT 99
[2022-11-27] MEDS ORDERED: ALPHA PROTEINASE INHIBITOR IV ONE (11:00)
== END 2022-11-27 11:00 | disposition home or self-care (01) ==
LOC: M INFU 09:59
PROVIDERS: ATTEND Internal Medicine Pulmonary Disease
DX: E88.01 Alpha-1-antitrypsin deficiency (principal); Z88.2 Allergy status to sulfonamides
CPT/HCPCS: 96365; J0256

== ENCOUNTER 2022-12-05 10:02 | Outpatient (CLI) | payer MEDICARE ==
[~2022-12-05] VITALS: Ht 172.7 cm; Wt 73.0 kg
[~2022-12-05 10:02] MED LIST changes: +ALPHA PROTEINASE INHIBITOR IV ONE
[2022-12-05 10:05] VITALS: BP 137/58; O2SAT 94
[2022-12-05 10:33] LABS: HEMATOCRIT 34.3 % (42.0-52.0); HEMOGLOBIN 11.1 g/dl (13.5-17.5); MEAN CORPUSCULAR HEMOGLOBIN 29.9 pg (27.0-33.0); MEAN CORPUSCULAR HGB CONC 32.4 g/dl (32.0-36.5); MEAN CORPUSCULAR VOLUME 92.5 fl (80.0-96.0); PLATELET COUNT, AUTOMATED 268 10^3/uL (150-450); RED BLOOD COUNT 3.71 10^6/uL (4.30-6.10)
[2022-12-05 11:06] LABS: ATYPICAL LYMPH 7 % (0-5); LYMPHOCYTES 34 % (16-44); MONOCYTES 6 % (0-5); NEUTROPHILS 53 % (28-66)
[2022-12-05 11:07] LABS: PLATELET ESTIMATE NORMAL (NORMAL)
[2022-12-05 11:13] VITALS: BP 142/84; O2SAT 97
[2022-12-05 11:13] LABS: BILIRUBIN,TOTAL 0.3 MG/DL (0.3-1.2); CALCIUM LEVEL 9.5 MG/DL (8.3-10.6); CREATININE FOR GFR 1.33 MG/DL (0.70-1.30); GLOMERULAR FILTRATION RATE 54.7 (>35); POTASSIUM SERUM 3.8 MMOL/L (3.5-5.1); TOTAL PROTEIN 6.5 G/DL (5.7-8.2)
== END 2022-12-05 11:15 ==
LOC: M INFU 10:02
PROVIDERS: ATTEND Internal Medicine Pulmonary Disease
DX: E88.01 Alpha-1-antitrypsin deficiency (principal); J44.9 Chronic obstructive pulmonary disease, unspecified; Z88.2 Allergy status to sulfonamides
CPT/HCPCS: 36591; 80053; 85025; 96365; J0256

== ENCOUNTER 2022-12-18 11:29 | Outpatient (CLI) | payer MEDICARE ==
[~2022-12-18] VITALS: Ht 170.2 cm; Wt 77.0 kg
[2022-12-18 11:25] VITALS: BP 124/97; O2SAT 99
[~2022-12-18 11:29] MED LIST changes: -ALPHA PROTEINASE INHIBITOR IV ONE
[2022-12-18] MEDS ORDERED: ALPHA PROTEINASE INHIBITOR IV ONE (12:00)
[2022-12-18 13:00] VITALS: BP 131/65; O2SAT 100
== END 2022-12-18 13:00 ==
LOC: M INFU 11:29
PROVIDERS: ATTEND Internal Medicine Pulmonary Disease
DX: E88.01 Alpha-1-antitrypsin deficiency (principal); Z88.2 Allergy status to sulfonamides
CPT/HCPCS: 96365; J0256

== ENCOUNTER 2022-12-25 10:55 | Outpatient (CLI) | payer MEDICARE ==
[~2022-12-25] VITALS: Ht 172.7 cm; Wt 70.5 kg
[2022-12-25 10:55] VITALS: BP 151/64; O2SAT 99
[~2022-12-25 10:55] MED LIST changes: +CURRENT HEIGHT AND WEIGHT NEEDED ON PATIENT XX SCH; -SODIUM CHLORIDE 0.9% INJ 10 ML SYR IV SCH
[2022-12-25] MEDS: SODIUM CHLORIDE 0.9% INJ 10 ML SYR IV SCH ×2 (11:07→11:24)
[2022-12-25] MEDS ORDERED: ALPHA PROTEINASE INHIBITOR IV ONE (11:15)
[2022-12-25 12:00] VITALS: BP 135/65; O2SAT 98
== END 2022-12-25 12:00 ==
LOC: M INFU 10:55
PROVIDERS: ATTEND Internal Medicine Pulmonary Disease
DX: E88.01 Alpha-1-antitrypsin deficiency (principal); Z88.2 Allergy status to sulfonamides
CPT/HCPCS: 96365; J0256

== ENCOUNTER 2023-01-01 11:00 | Outpatient (CLI) | payer MEDICARE ==
[~2023-01-01] VITALS: Ht 170.2 cm; Wt 72.1 kg
[2023-01-01 11:00] VITALS: BP 121/61; O2SAT 96
[~2023-01-01 11:00] MED LIST changes: -CURRENT HEIGHT AND WEIGHT NEEDED ON PATIENT XX SCH
[2023-01-01] MEDS ORDERED: ALPHA PROTEINASE INHIBITOR IV ONE (11:30)
[2023-01-01] MEDS ORDERED: SODIUM CHLORIDE 0.9% INJ 10 ML SYR IV PRN (12:05)
[2023-01-01 12:10] VITALS: BP 119/56; O2SAT 97
== END 2023-01-01 12:15 | disposition home or self-care (01) ==
LOC: M INFU 11:00
PROVIDERS: ATTEND Internal Medicine Pulmonary Disease
DX: E88.01 Alpha-1-antitrypsin deficiency (principal); Z88.2 Allergy status to sulfonamides
CPT/HCPCS: 17000; 17003; 96374; G0463; J0256

== ENCOUNTER 2023-01-08 11:00 | Outpatient (CLI) | payer MEDICARE ==
[~2023-01-08] VITALS: Ht 172.7 cm; Wt 73.6 kg
[~2023-01-08 11:00] MED LIST changes: +SODIUM CHLORIDE 0.9% INJ 10 ML SYR IV PRN
[2023-01-08] MEDS ORDERED: ALPHA PROTEINASE INHIBITOR IV ONE (11:20)
[2023-01-08 12:07] VITALS: BP 142/65; O2SAT 100
== END 2023-01-08 12:15 | disposition home or self-care (01) ==
LOC: M INFU 11:00
PROVIDERS: ATTEND Internal Medicine Pulmonary Disease
DX: E88.01 Alpha-1-antitrypsin deficiency (principal); Z88.2 Allergy status to sulfonamides
CPT/HCPCS: 96365; J0256

== ENCOUNTER 2023-01-15 10:50 | Outpatient (CLI) | payer MEDICARE ==
[~2023-01-15] VITALS: Ht 170.2 cm; Wt 77.0 kg
[~2023-01-15 10:50] MED LIST changes: -SODIUM CHLORIDE 0.9% INJ 10 ML SYR IV PRN; +SODIUM CHLORIDE 0.9% INJ 10 ML SYR IV SCH
[2023-01-15] MEDS ORDERED: ALPHA PROTEINASE INHIBITOR IV ONE (11:00)
[2023-01-15] MEDS ORDERED: SODIUM CHLORIDE 0.9% INJ 10 ML SYR IV PRN (11:00)
[2023-01-15 11:15] VITALS: BP 134/66; O2SAT 99
[2023-01-15 11:59] VITALS: BP 124/70; O2SAT 100
== END 2023-01-15 12:15 ==
LOC: M INFU 10:50
PROVIDERS: ATTEND Internal Medicine Pulmonary Disease
DX: E88.01 Alpha-1-antitrypsin deficiency (principal); Z88.2 Allergy status to sulfonamides
CPT/HCPCS: 96365; J0256

== ENCOUNTER 2023-01-22 10:55 | Outpatient (CLI) | payer MEDICARE ==
[~2023-01-22] VITALS: Ht 170.2 cm; Wt 77.0 kg
[~2023-01-22 10:55] MED LIST changes: +CURRENT HEIGHT AND WEIGHT NEEDED ON PATIENT XX SCH; -SODIUM CHLORIDE 0.9% INJ 10 ML SYR IV SCH
[2023-01-22] MEDS ORDERED: SODIUM CHLORIDE 0.9% INJ 10 ML SYR IV SCH (11:00)
[2023-01-22] MEDS ORDERED: ALPHA PROTEINASE INHIBITOR IV ONE (11:00)
[2023-01-22 11:02] VITALS: BP 142/63; O2SAT 94
[2023-01-22 12:01] VITALS: BP 136/61; O2SAT 94
== END 2023-01-22 12:00 ==
LOC: M INFU 10:55
PROVIDERS: ATTEND Internal Medicine Pulmonary Disease
DX: E88.01 Alpha-1-antitrypsin deficiency (principal); Z88.2 Allergy status to sulfonamides
CPT/HCPCS: 96365; J0256

== ENCOUNTER 2023-01-29 10:55 | Outpatient (CLI) | payer MEDICARE ==
[~2023-01-29] VITALS: Ht 170.2 cm; Wt 77.8 kg
[2023-01-29 10:55] VITALS: BP 129/63; O2SAT 94
[~2023-01-29 10:55] MED LIST changes: -CURRENT HEIGHT AND WEIGHT NEEDED ON PATIENT XX SCH; +SODIUM CHLORIDE 0.9% INJ 10 ML SYR IV SCH
[2023-01-29] MEDS ORDERED: ALPHA PROTEINASE INHIBITOR IV ONE (11:00)
[2023-01-29 12:00] VITALS: BP 147/103; O2SAT 98
[2023-01-29 12:35] VITALS: BP 113/61; O2SAT 97
== END 2023-01-29 12:35 | disposition home or self-care (01) ==
LOC: M INFU 10:55
PROVIDERS: ATTEND Internal Medicine Pulmonary Disease
DX: E88.01 Alpha-1-antitrypsin deficiency (principal); Z88.2 Allergy status to sulfonamides
CPT/HCPCS: 96365; J0256

== ENCOUNTER 2023-02-05 11:00 | Outpatient (CLI) | payer MEDICARE ==
[~2023-02-05] VITALS: Ht 170.2 cm; Wt 77.8 kg
[2023-02-05 11:00] VITALS: BP 123/57; O2SAT 99
[~2023-02-05 11:00] MED LIST changes: +ALPHA PROTEINASE INHIBITOR IV ONE; +SODIUM CHLORIDE 0.9% INJ 10 ML SYR IV PRN; -SODIUM CHLORIDE 0.9% INJ 10 ML SYR IV SCH
[2023-02-05 12:20] VITALS: BP 132/63; O2SAT 99
[2023-02-06] MEDS ORDERED: SODIUM CHLORIDE 0.9% INJ 10 ML SYR IV SCH (09:00)
== END 2023-02-05 12:23 | disposition home or self-care (01) ==
LOC: M INFU 11:00
PROVIDERS: ATTEND Internal Medicine Pulmonary Disease
DX: E88.01 Alpha-1-antitrypsin deficiency (principal); Z88.2 Allergy status to sulfonamides
CPT/HCPCS: 96365; J0256

== ENCOUNTER 2023-02-12 11:05 | Outpatient (CLI) | payer MEDICARE ==
[2023-02-12 11:05] VITALS: BP 123/61; O2SAT 98
[~2023-02-12 11:05] MED LIST changes: -ALPHA PROTEINASE INHIBITOR IV ONE; -SODIUM CHLORIDE 0.9% INJ 10 ML SYR IV PRN; +SODIUM CHLORIDE 0.9% INJ 10 ML SYR IV SCH
[2023-02-12] MEDS ORDERED: ALPHA PROTEINASE INHIBITOR IV ONE (11:10)
[2023-02-12 11:55] VITALS: BP 129/60; O2SAT 97
== END 2023-02-12 12:20 | disposition home or self-care (01) ==
LOC: M INFU 11:05
PROVIDERS: ATTEND Internal Medicine Pulmonary Disease
DX: E88.01 Alpha-1-antitrypsin deficiency (principal); Z88.2 Allergy status to sulfonamides; Z88.8 Allergy status to other drugs, medicaments and biological substances; Z91.048 Other nonmedicinal substance allergy status
CPT/HCPCS: 96365; J0256

== ENCOUNTER 2023-02-19 11:00 | Outpatient (CLI) | payer MEDICARE ==
[~2023-02-19] VITALS: Ht 172.7 cm; Wt 77.7 kg
[~2023-02-19 11:00] MED LIST changes: +ALPHA PROTEINASE INHIBITOR IV ONE; +SODIUM CHLORIDE 0.9% INJ 10 ML SYR IV PRN; -SODIUM CHLORIDE 0.9% INJ 10 ML SYR IV SCH
[2023-02-19 11:05] VITALS: BP 126/58; O2SAT 96
[2023-02-19 12:30] VITALS: BP 136/89; O2SAT 95
== END 2023-02-19 12:35 ==
LOC: M INFU 11:00
PROVIDERS: ATTEND Internal Medicine Pulmonary Disease
DX: E88.01 Alpha-1-antitrypsin deficiency (principal); Z88.2 Allergy status to sulfonamides; Z91.048 Other nonmedicinal substance allergy status
CPT/HCPCS: 96365; J0256

== ENCOUNTER 2023-03-05 11:00 | Outpatient (CLI) | payer MEDICARE ==
[~2023-03-05] VITALS: Ht 172.7 cm; Wt 77.0 kg
[~2023-03-05 11:00] MED LIST changes: -SODIUM CHLORIDE 0.9% INJ 10 ML SYR IV PRN; +SODIUM CHLORIDE 0.9% INJ 10 ML SYR IV SCH
[2023-03-05 11:11] VITALS: BP 137/74; O2SAT 99
[2023-03-05 12:31] VITALS: BP 108/85; O2SAT 100
== END 2023-03-05 12:35 | disposition home or self-care (01) ==
LOC: M INFU 11:00
PROVIDERS: ATTEND Internal Medicine Pulmonary Disease
DX: E88.01 Alpha-1-antitrypsin deficiency (principal); Z88.2 Allergy status to sulfonamides
CPT/HCPCS: 96365; J0256

== ENCOUNTER → 2023-03-11 | Outpatient (CLI) | payer MEDICARE ==
[~2023-03-11] MED LIST changes: -ALPHA PROTEINASE INHIBITOR IV ONE; -SODIUM CHLORIDE 0.9% INJ 10 ML SYR IV SCH
[2023-03-11 18:06] LABS: ALBUMIN 3.9 G/DL (3.2-5.2); BILIRUBIN,TOTAL 0.2 MG/DL (0.3-1.2); CALCIUM LEVEL 9.6 MG/DL (8.3-10.6); CREATININE FOR GFR 1.48 MG/DL (0.70-1.30); GLOMERULAR FILTRATION RATE 48.3 (>35); POTASSIUM SERUM 4.7 MMOL/L (3.5-5.1); THYROID STIMULATING HORMONE 2.914 uIU/ML (0.55-4.78); TOTAL PROTEIN 6.9 G/DL (5.7-8.2)
[2023-03-11 18:13] LABS: HEMATOCRIT 34.9 % (42.0-52.0); HEMOGLOBIN 11.2 g/dl (13.5-17.5); MEAN CORPUSCULAR HEMOGLOBIN 30.1 pg (27.0-33.0); MEAN CORPUSCULAR HGB CONC 32.1 g/dl (32.0-36.5); MEAN CORPUSCULAR VOLUME 93.8 fl (80.0-96.0); PLATELET COUNT, AUTOMATED 254 10^3/uL (150-450); RED BLOOD COUNT 3.72 10^6/uL (4.30-6.10); WHITE BLOOD COUNT 16.7 10^3/uL (4.0-10.0)
[2023-03-11 18:37] LABS: LYMPHOCYTES 38 % (16-44); MONOCYTES 6 % (0-5); NEUTROPHILS 56 % (28-66); PLATELET ESTIMATE NORMAL (NORMAL)
== END ==
LOC: M WUC 11:30
PROVIDERS: ATTEND Family Medicine
DX: J44.9 Chronic obstructive pulmonary disease, unspecified (principal); N18.30 Chronic kidney disease, stage 3 unspecified; E03.9 Hypothyroidism, unspecified

== ENCOUNTER 2023-03-12 11:00 | Outpatient (CLI) | payer MEDICARE ==
[~2023-03-12] VITALS: Ht 172.7 cm; Wt 77.0 kg
[~2023-03-12 11:00] MED LIST changes: +ALPHA PROTEINASE INHIBITOR IV ONE; +SODIUM CHLORIDE 0.9% INJ 10 ML SYR IV PRN; +SODIUM CHLORIDE 0.9% INJ 10 ML SYR IV SCH
[2023-03-12 11:37] VITALS: BP 138/65; O2SAT 93
[2023-03-12 12:32] VITALS: BP 141/64; O2SAT 93
== END 2023-03-12 12:35 ==
LOC: M INFU 11:00
PROVIDERS: ATTEND Internal Medicine Pulmonary Disease
DX: E88.01 Alpha-1-antitrypsin deficiency (principal); Z88.2 Allergy status to sulfonamides
CPT/HCPCS: 96365; J0256

== ENCOUNTER 2023-03-19 11:00 | Outpatient (CLI) | payer MEDICARE ==
[~2023-03-19] VITALS: Ht 177.8 cm; Wt 77.0 kg
[2023-03-19 11:00] VITALS: BP 136/76; O2SAT 98
[~2023-03-19 11:00] MED LIST changes: -ALPHA PROTEINASE INHIBITOR IV ONE; -SODIUM CHLORIDE 0.9% INJ 10 ML SYR IV PRN; -SODIUM CHLORIDE 0.9% INJ 10 ML SYR IV SCH
[2023-03-19] MEDS ORDERED: ALPHA PROTEINASE INHIBITOR IV ONE (11:05)
[2023-03-19] MEDS: SODIUM CHLORIDE 0.9% INJ 10 ML SYR IV SCH ×2 (11:16→12:10)
[2023-03-19 12:43] VITALS: BP 127/69; O2SAT 100
== END 2023-03-19 12:45 | disposition home or self-care (01) ==
LOC: M INFU 11:00
PROVIDERS: ATTEND Internal Medicine Pulmonary Disease
DX: E88.01 Alpha-1-antitrypsin deficiency (principal); Z88.2 Allergy status to sulfonamides
CPT/HCPCS: 96365; J0256

== ENCOUNTER 2023-03-26 11:01 | Outpatient (CLI) | payer MEDICARE ==
[~2023-03-26] VITALS: Ht 172.7 cm; Wt 77.0 kg
[~2023-03-26 11:01] MED LIST changes: +ALPHA PROTEINASE INHIBITOR IV ONE; +SODIUM CHLORIDE 0.9% INJ 10 ML SYR IV PRN
[2023-03-26 11:10] VITALS: BP 141/71; O2SAT 99
[2023-03-26 12:40] VITALS: BP 152/70; O2SAT 99
[2023-03-27] MEDS ORDERED: SODIUM CHLORIDE 0.9% INJ 10 ML SYR IV SCH (09:00)
== END 2023-03-26 12:40 | disposition home or self-care (01) ==
LOC: M INFU 11:01
PROVIDERS: ATTEND Internal Medicine Pulmonary Disease
DX: E88.01 Alpha-1-antitrypsin deficiency (principal); Z88.2 Allergy status to sulfonamides; Z88.8 Allergy status to other drugs, medicaments and biological substances; Z91.048 Other nonmedicinal substance allergy status
CPT/HCPCS: 96365; J0256

== ENCOUNTER 2023-04-02 11:04 | Outpatient (CLI) | payer MEDICARE ==
[~2023-04-02] VITALS: Ht 172.7 cm; Wt 77.0 kg
[~2023-04-02 11:04] MED LIST changes: +SODIUM CHLORIDE 0.9% INJ 10 ML SYR IV SCH
[2023-04-02 11:10] VITALS: BP 137/68; O2SAT 100
[2023-04-02 12:10] VITALS: BP 136/64; O2SAT 97
== END 2023-04-02 12:10 ==
LOC: M INFU 11:04
PROVIDERS: ATTEND Internal Medicine Pulmonary Disease
DX: E88.01 Alpha-1-antitrypsin deficiency (principal); Z88.2 Allergy status to sulfonamides
CPT/HCPCS: 96365; J0256

== ENCOUNTER 2023-04-09 10:53 | Outpatient (CLI) | payer MEDICARE ==
[~2023-04-09] VITALS: Ht 172.7 cm; Wt 77.0 kg
[~2023-04-09 10:53] MED LIST changes: -ALPHA PROTEINASE INHIBITOR IV ONE
[2023-04-09] MEDS ORDERED: ALPHA PROTEINASE INHIBITOR IV ONE (11:00)
[2023-04-09 11:09] VITALS: BP 125/62; O2SAT 98
== END 2023-04-09 12:30 ==
LOC: M INFU 10:53
PROVIDERS: ATTEND Internal Medicine Pulmonary Disease
DX: E88.01 Alpha-1-antitrypsin deficiency (principal); Z88.2 Allergy status to sulfonamides
CPT/HCPCS: 96365; J0256

== ENCOUNTER 2023-04-13 12:09 | Observation (INO) | payer MEDICARE ==
[~2023-04-13] VITALS: Ht 172.7 cm; Wt 74.0 kg
[~2023-04-13 12:09] MED LIST changes: -SODIUM CHLORIDE 0.9% INJ 10 ML SYR IV PRN; -SODIUM CHLORIDE 0.9% INJ 10 ML SYR IV SCH
[2023-04-13 13:04] LABS: BASO % 0.3 % (0.0-1.0); EOS # 0.2 10^3/uL (0.0-0.5); EOS % 1.3 % (0.0-3.0); HEMATOCRIT 32.4 % (42.0-52.0); HEMOGLOBIN 10.4 g/dl (13.5-17.5); LYMPH # 5.4 10^3/uL (1.5-5.0); LYMPH % 33.6 % (24.0-44.0); MEAN CORPUSCULAR HEMOGLOBIN 29.4 pg (27.0-33.0); MEAN CORPUSCULAR HGB CONC 32.1 g/dl (32.0-36.5); MEAN CORPUSCULAR VOLUME 91.5 fl (80.0-96.0); MONO # 1.4 10^3/uL (0.0-0.8); NEUTROPHILS # 8.8 10^3/uL (1.5-8.5); NEUTROPHILS % 55.2 % (36.0-66.0); PLATELET COUNT, AUTOMATED 306 10^3/uL (150-450); RED BLOOD COUNT 3.54 10^6/uL (4.30-6.10)
[2023-04-13] MEDS ORDERED: methylPREDNISolone 125MG 2ML VIAL IV ONE (13:10)
[2023-04-13] MEDS: IPRATROPIUM 0.5MG/ALBUTEROL 2.5MG INH SOL UD 3ML (DUONEB) NEB PRN ×2 (13:15→13:18)
[2023-04-13 13:26] LABS: CK-MB VALUE MASS 1.8 NG/ML (<3.6)
[2023-04-13 13:28] LABS: ALBUMIN 3.4 G/DL (3.2-5.2); ALKALINE PHOSPHATASE 63 U/L (46-116); ALT/SGPT 23 U/L (7.0-40); AST/SGOT 22 U/L (<34); BILIRUBIN,DIRECT < 0.1 MG/DL (<0.4); BILIRUBIN,TOTAL 0.2 MG/DL (0.3-1.2); BLOOD UREA NITROGEN 28 MG/DL (9-23); CALCIUM LEVEL 9.8 MG/DL (8.3-10.6); CARBON DIOXIDE LEVEL 27 MMOL/L (20-31); CHLORIDE LEVEL 104 MMOL/L (98-107); CPK CREATINE PHOSPHOKINASE 56 U/L (46-171); GLOMERULAR FILTRATION RATE 56.1 (>35); GLUCOSE, FASTING 108 MG/DL (74-106); MB/CK RELATIVE INDEX 3.21 (< OR =4); POTASSIUM SERUM 5.3 MMOL/L (3.5-5.1); SODIUM LEVEL 139 MMOL/L (136-145)
[2023-04-13 13:29] LABS: ABG HCO3 21.4 MMOL/L (22.0-26.0); ABG O2 SATURATION 96.8 % (95.0-99.0); ABG PARTIAL PRESSURE CO2 31.9 mmHg (35.0-45.0); ABG PARTIAL PRESSURE O2 86.8 mmHg (75.0-100.0); ABG STANDARD HCO3 22.8 MMOL/L. (22.0-26.0); ABG TOTAL CO2 22.4 MMOL/L (23.0-31.0); ABG pH (ARTERIAL) 7.445 UNITS (7.350-7.450)
[2023-04-13] MEDS ORDERED: SOD POLYSTYRENE SULFONATE SUSP 15GM 60ML UD PO ONE (13:50)
[2023-04-13 14:30] LABS: CK-MB VALUE MASS 1.6 NG/ML (<3.6); MB/CK RELATIVE INDEX 2.66 (< OR =4)
[2023-04-13] MEDS ORDERED: ISOVUE-370 76% 100ML VIAL As Ordered ONE (14:31)
[2023-04-13 15:22] VITALS: O2SAT 95
[2023-04-13 16:34] LABS: CK-MB VALUE MASS 2.2 NG/ML (<3.6)
[2023-04-13 16:39] LABS: MB/CK RELATIVE INDEX 4.78 (< OR =4)
[2023-04-13] MEDS ORDERED: IPRATROPIUM 0.5MG/ALBUTEROL 2.5MG INH SOL UD 3ML (DUONEB) NEB PRN (17:10)
[2023-04-13] MEDS ORDERED: PROBCAP14 PO (17:59)
[2023-04-13] MEDS ORDERED: TORS20TA2 PO (18:01)
[2023-04-13 18:06] LABS: PROCALCITONIN 0.17 ng/ml
[2023-04-13] MEDS ORDERED: TIZA10TA PO (18:09)
[2023-04-13] MEDS ORDERED: ESOM1CAP5 PO (18:09)
[2023-04-13] MEDS ORDERED: HOME MED LIST COMPLETE! XX SCH (18:10)
[2023-04-13] MEDS ORDERED: NITROGLYCERIN 0.4MG SUBL TABLET SL PRN (18:30)
[2023-04-13] MEDS ORDERED: FLUTICASONE PROP 0.05% NASAL SPRAY 16 GM (FLONASE) PRN (18:30)
[2023-04-13] MEDS ORDERED: tiZANidine 4 MG TAB PO PRN (18:30)
[2023-04-13] MEDS ORDERED: guaiFENesin ER TABLET 600 MG TAB PO PRN (18:30)
[2023-04-13] MEDS ORDERED: TORSEMIDE 20 MG TAB PO PRN (18:30)
[2023-04-13] MEDS ORDERED: AZITHROMYCIN INJ 500 MG, VIAL MATE ADAPTER 1 EACH in NS 250 ML IV SCH (19:00)
[2023-04-13] MEDS: IPRATROPIUM 0.5MG/ALBUTEROL 2.5MG INH SOL UD 3ML (DUONEB) NEB SCH (19:51)
[2023-04-13] MEDS: SYMBICORT 160/4.5MCG INHALER 6GM INH SCH (20:01)
[2023-04-13] MEDS: SIMVASTATIN 40 MG TAB PO SCH (21:22)
[2023-04-13] MEDS: MONTELUKAST 10 MG TAB PO SCH (21:22)
[2023-04-13] MEDS: GABAPENTIN 300 MG CAP PO SCH (21:22)
[2023-04-13] MEDS: CETIRIZINE (ZyrTEC) 10 MG TAB PO SCH (21:23)
[2023-04-13] MEDS: predniSONE 20 MG TAB PO SCH (21:23)
[2023-04-13 21:56] VITALS: BP 134/68; TEMP 97.2; O2SAT 96
[2023-04-13] MEDS: DOXAZOSIN MESYLATE 4 MG TAB PO SCH (22:30)
[2023-04-13 23:53] LABS: CALCIUM LEVEL 9.2 MG/DL (8.3-10.6); CREATININE FOR GFR 1.27 MG/DL (0.70-1.30); GLOMERULAR FILTRATION RATE 57.7 (>35); POTASSIUM SERUM 5.3 MMOL/L (3.5-5.1)
[2023-04-14] MEDS ORDERED: LACTATED RINGER'S 1000 ML IV ONE
[2023-04-14] MEDS ORDERED: LR 1,000 ML IV ONE (00:30)
[2023-04-14 04:38] LABS: ALBUMIN 2.8 G/DL (3.2-5.2); BILIRUBIN,TOTAL 0.2 MG/DL (0.3-1.2); CREATININE FOR GFR 1.24 MG/DL (0.70-1.30); GLOMERULAR FILTRATION RATE 59.3 (>35); POTASSIUM SERUM 5.6 MMOL/L (3.5-5.1); TOTAL PROTEIN 6.1 G/DL (5.7-8.2)
[2023-04-14] MEDS: IPRATROPIUM 0.5MG/ALBUTEROL 2.5MG INH SOL UD 3ML (DUONEB) NEB SCH ×4 (04:49→19:28)
[2023-04-14 05:37] VITALS: BP 124/59; TEMP 98.2; O2SAT 92
[2023-04-14] MEDS: LEVOTHYROXINE 75MCG TABLET (0.075MG) PO SCH (05:54)
[2023-04-14] MEDS ORDERED: CALCIUM GLUCONATE 1,000 MG in D5W MINI-BAG PLUS 100 ML IV ONE ×2 (06:45→08:00)
[2023-04-14] MEDS ORDERED: DEXTROSE 50% 50ML SYRINGE IV STA (06:45)
[2023-04-14] MEDS ORDERED: HumuLIN R (REGULAR) INSULIN (NovoLIN R) **100U/ML** PER UNIT IV STA (06:45)
[2023-04-14] MEDS ORDERED: FUROSEMIDE 40MG/4ML VIAL IV ONE (06:45)
[2023-04-14] MEDS: SYMBICORT 160/4.5MCG INHALER 6GM INH SCH ×2 (08:02→19:28)
[2023-04-14] MEDS: TIOTROPIUM INHALER/CAPSULE (SPIRIVA) INH SCH (08:02)
[2023-04-14] MEDS ORDERED: predniSONE 20 MG TAB PO SCH (09:00)
[2023-04-14] MEDS: ASPIRIN 81MG ENTERIC TABLET PO SCH (09:13)
[2023-04-14] MEDS: predniSONE 20 MG TAB PO SCH ×2 (09:13→20:35)
[2023-04-14] MEDS: ENOXAPARIN 40MG/0.4ML SYRINGE (J1650 PER 10MG) SC SCH (09:13)
[2023-04-14] MEDS: DOXAZOSIN MESYLATE 4 MG TAB PO SCH ×2 (09:15→20:35)
[2023-04-14] MEDS: GABAPENTIN 300 MG CAP PO SCH ×3 (09:16→20:32)
[2023-04-14 11:07] LABS: HEMATOCRIT 31.2 % (42.0-52.0); HEMOGLOBIN 9.9 g/dl (13.5-17.5); MEAN CORPUSCULAR HEMOGLOBIN 28.9 pg (27.0-33.0); MEAN CORPUSCULAR HGB CONC 31.7 g/dl (32.0-36.5); PLATELET COUNT, AUTOMATED 310 10^3/uL (150-450); RED BLOOD COUNT 3.43 10^6/uL (4.30-6.10); WHITE BLOOD COUNT 18.7 10^3/uL (4.0-10.0)
[2023-04-14] MEDS ORDERED: POLYVINYL ALCOHOL OPHTH SOLN 15ML (LIQUITEARS) OU PRN (11:35)
[2023-04-14] MEDS ORDERED: SODIUM CHLORIDE NASAL 0.65% SPRAY BTL (OCEAN) PRN (11:35)
[2023-04-14 11:38] LABS: CALCIUM LEVEL 9.5 MG/DL (8.3-10.6); CREATININE FOR GFR 1.25 MG/DL (0.70-1.30); GLOMERULAR FILTRATION RATE 58.7 (>35); POTASSIUM SERUM 4.4 MMOL/L (3.5-5.1)
[2023-04-14] MEDS: PANTOPRAZOLE 40MG TAB (PROTONIX) PO SCH (11:44)
[2023-04-14 14:00] VITALS: BP 110/54; TEMP 98.1; O2SAT 94
[2023-04-14] MEDS ORDERED: AZITHROMYCIN 250MG TABLET PO SCH (19:00)
[2023-04-14 20:00] VITALS: BP 110/55; TEMP 98.6; O2SAT 96
[2023-04-14] MEDS: MONTELUKAST 10 MG TAB PO SCH (20:35)
[2023-04-14] MEDS: CETIRIZINE (ZyrTEC) 10 MG TAB PO SCH (20:35)
[2023-04-14] MEDS: SIMVASTATIN 40 MG TAB PO SCH (20:36)
[2023-04-15] MEDS: IPRATROPIUM 0.5MG/ALBUTEROL 2.5MG INH SOL UD 3ML (DUONEB) NEB SCH ×2 (01:08→08:04)
[2023-04-15] MEDS: LEVOTHYROXINE 75MCG TABLET (0.075MG) PO SCH (05:49)
[2023-04-15 06:00] VITALS: BP 107/55; TEMP 98.2; O2SAT 96
[2023-04-15 07:35] LABS: HEMATOCRIT 31.3 % (42.0-52.0); HEMOGLOBIN 9.8 g/dl (13.5-17.5); MEAN CORPUSCULAR HEMOGLOBIN 28.5 pg (27.0-33.0); MEAN CORPUSCULAR HGB CONC 31.3 g/dl (32.0-36.5); PLATELET COUNT, AUTOMATED 319 10^3/uL (150-450); RED BLOOD COUNT 3.44 10^6/uL (4.30-6.10); WHITE BLOOD COUNT 22.6 10^3/uL (4.0-10.0)
[2023-04-15 07:50] LABS: ATYPICAL LYMPH 7 % (0-5); LYMPHOCYTES 28 % (16-44); MONOCYTES 2 % (0-5); NEUTROPHILS 63 % (28-66); PLATELET ESTIMATE NORMAL (NORMAL)
[2023-04-15 07:51] LABS: ANISOCYTOSIS 1+; HYPOCHROMASIA 1+
[2023-04-15 07:53] LABS: CALCIUM LEVEL 9.3 MG/DL (8.3-10.6); CREATININE FOR GFR 1.32 MG/DL (0.70-1.30); GLOMERULAR FILTRATION RATE 55.1 (>35); POTASSIUM SERUM 5.2 MMOL/L (3.5-5.1)
[2023-04-15] MEDS ORDERED: FUROSEMIDE 40MG/4ML VIAL IV ONE (08:00)
[2023-04-15] MEDS: SYMBICORT 160/4.5MCG INHALER 6GM INH SCH (08:04)
[2023-04-15] MEDS: TIOTROPIUM INHALER/CAPSULE (SPIRIVA) INH SCH (08:04)
[2023-04-15] MEDS ORDERED: TORS20TA2 PO (08:33)
[2023-04-15] MEDS ORDERED: PRED10TA2 PO (08:33)
[2023-04-15] MEDS: ENOXAPARIN 40MG/0.4ML SYRINGE (J1650 PER 10MG) SC SCH (09:00)
[2023-04-15] MEDS: PANTOPRAZOLE 40MG TAB (PROTONIX) PO SCH (09:44)
[2023-04-15] MEDS: GABAPENTIN 300 MG CAP PO SCH (09:44)
[2023-04-15] MEDS: ASPIRIN 81MG ENTERIC TABLET PO SCH (09:44)
[2023-04-15 09:46] VITALS: BP 126/65
[2023-04-15] MEDS: predniSONE 20 MG TAB PO SCH (09:46)
[2023-04-15] MEDS: DOXAZOSIN MESYLATE 4 MG TAB PO SCH (09:46)
[2023-04-15 09:56] VITALS: BP 126/65
[2023-04-17 14:09] LABS: BODY FLUID CULTURE Not indicated. (.); LEGIONELLA ANTIGEN URINE Negative (Negative); ORGANISM ID Not indicated. (.); SPECIMEN SOURCE Urine (.); URINE STREP PNEUMONIAE ANTIGEN Negative (Negative)
== END 2023-04-15 11:14 | disposition home or self-care (01) ==
LOC: M ED 12:09 → M ED INP 12:10 → M MSPAV 21:58
PROVIDERS: ADMIT Internal Medicine; ATTEND Internal Medicine
DX: J44.1 Chronic obstructive pulmonary disease with (acute) exacerbation (principal); J96.11 Chronic respiratory failure with hypoxia; E88.01 Alpha-1-antitrypsin deficiency; E87.5 Hyperkalemia; D72.829 Elevated white blood cell count, unspecified; C91.10 Chronic lymphocytic leukemia of B-cell type not having achieved remission; E87.20 Acidosis, unspecified; Z99.81 Dependence on supplemental oxygen; R94.31 Abnormal electrocardiogram [ECG] [EKG]; E03.9 Hypothyroidism, unspecified; K21.9 Gastro-esophageal reflux disease without esophagitis; I11.0 Hypertensive heart disease with heart failure; N40.0 Benign prostatic hyperplasia without lower urinary tract symptoms; M54.9 Dorsalgia, unspecified; G89.29 Other chronic pain; J30.1 Allergic rhinitis due to pollen; E78.9 Disorder of lipoprotein metabolism, unspecified; Z88.2 Allergy status to sulfonamides; Z79.899 Other long term (current) drug therapy; Z79.82 Long term (current) use of aspirin; Z79.2 Long term (current) use of antibiotics; Z79.890 Hormone replacement therapy
CPT/HCPCS: 36415; 36600; 71046; 71275; 80048; 80053; 80076; 80503; 82550; 82553; 82803; 83605; 83735; 83880; 84145; 84443; 84484; 85025; 85027; 87040; 87205; 87449; 87486; 87581; 87633; 87641; 87798; 87899; 93005; 93041; 94640; 94760; 96365; 96366; 96372; 96375; 96376; 99285; G0378; J0456; J0612; J1650; J1815; J1940; J2930; J7512; Q9967

== ENCOUNTER 2023-04-16 11:00 | Outpatient (CLI) | payer MEDICARE ==
[~2023-04-16] VITALS: Ht 172.7 cm; Wt 74.0 kg
[~2023-04-16 11:00] MED LIST changes: +PRED10TA2 PO; +TORS20TA2 PO
[2023-04-16 11:05] VITALS: BP 130/67; O2SAT 98
[2023-04-16] MEDS ORDERED: ALPHA PROTEINASE INHIBITOR IV ONE ×2 (11:15→11:20)
[2023-04-16] MEDS ORDERED: SODIUM CHLORIDE 0.9% INJ 10 ML SYR IV PRN (11:15)
[2023-04-16 12:10] VITALS: BP 142/70; O2SAT 99
[2023-04-17] MEDS ORDERED: SODIUM CHLORIDE 0.9% INJ 10 ML SYR IV SCH (09:00)
== END 2023-04-16 12:15 ==
LOC: M INFU 11:00
PROVIDERS: ATTEND Internal Medicine Pulmonary Disease
DX: E88.01 Alpha-1-antitrypsin deficiency (principal); Z88.2 Allergy status to sulfonamides; Z91.048 Other nonmedicinal substance allergy status
CPT/HCPCS: 96365; J0256

== ENCOUNTER → 2023-04-17 | Outpatient (CLI) | payer MEDICARE ==
[2023-04-17 17:55] LABS: HEMATOCRIT 33.2 % (42.0-52.0); HEMOGLOBIN 10.3 g/dl (13.5-17.5); MEAN CORPUSCULAR HEMOGLOBIN 29.1 pg (27.0-33.0); MEAN CORPUSCULAR VOLUME 93.8 fl (80.0-96.0); PLATELET COUNT, AUTOMATED 342 10^3/uL (150-450); RED BLOOD COUNT 3.54 10^6/uL (4.30-6.10); WHITE BLOOD COUNT 22.5 10^3/uL (4.0-10.0)
[2023-04-17 18:12] LABS: FERRITIN 255.8 NG/ML (10.5-307.3)
[2023-04-17 18:13] LABS: CALCIUM LEVEL 9.2 MG/DL (8.3-10.6); CREATININE FOR GFR 1.35 MG/DL (0.70-1.30); GLOMERULAR FILTRATION RATE 53.7 (>35); PERCENT SATURATION 24.7 % (19.7-50.0); POTASSIUM SERUM 5.2 MMOL/L (3.5-5.1)
[2023-04-17 19:28] LABS: LYMPHOCYTES 41 % (16-44); MONOCYTES 1 % (0-5); NEUTROPHILS 57 % (28-66)
[2023-04-17 19:29] LABS: HYPERSEGMENTED POLYS 2+; PLATELET ESTIMATE NORMAL (NORMAL)
== END ==
LOC: M WUC 12:04
PROVIDERS: ATTEND Nurse Practitioner Adult Health
DX: D50.9 Iron deficiency anemia, unspecified (principal); I50.32 Chronic diastolic (congestive) heart failure

== ENCOUNTER 2023-04-23 10:55 | Outpatient (CLI) | payer MEDICARE ==
[~2023-04-23] VITALS: Ht 172.7 cm; Wt 77.0 kg
[~2023-04-23 10:55] MED LIST changes: +SODIUM CHLORIDE 0.9% INJ 10 ML SYR IV PRN; +SODIUM CHLORIDE 0.9% INJ 10 ML SYR IV SCH
[2023-04-23 11:00] VITALS: BP 121/61; O2SAT 100
[2023-04-23] MEDS ORDERED: ALPHA PROTEINASE INHIBITOR IV ONE (11:00)
== END 2023-04-23 12:10 ==
LOC: M INFU 10:55
PROVIDERS: ATTEND Internal Medicine Pulmonary Disease
DX: E88.01 Alpha-1-antitrypsin deficiency (principal); Z88.2 Allergy status to sulfonamides
CPT/HCPCS: 96365; J0256

== ENCOUNTER 2023-04-30 10:55 | Outpatient (CLI) | payer MEDICARE ==
[~2023-04-30] VITALS: Ht 170.2 cm; Wt 77.0 kg
[~2023-04-30 10:55] MED LIST changes: -SODIUM CHLORIDE 0.9% INJ 10 ML SYR IV PRN
[2023-04-30 10:58] VITALS: BP 131/62; O2SAT 93
[2023-04-30] MEDS ORDERED: ALPHA PROTEINASE INHIBITOR IV ONE (11:10)
[2023-04-30 12:00] VITALS: BP 133/63; O2SAT 96
== END 2023-04-30 12:05 ==
LOC: M INFU 10:55
PROVIDERS: ATTEND Internal Medicine Pulmonary Disease
DX: E88.01 Alpha-1-antitrypsin deficiency (principal); Z88.2 Allergy status to sulfonamides
CPT/HCPCS: 96365; J0256

== ENCOUNTER 2023-05-07 11:00 | Outpatient (CLI) | payer MEDICARE ==
[~2023-05-07] VITALS: Ht 170.2 cm; Wt 77.0 kg
[2023-05-07 11:00] VITALS: BP 150/87; O2SAT 100
[~2023-05-07 11:00] MED LIST changes: -FLUT50SP17; +FLUTISP; +SODIUM CHLORIDE 0.9% INJ 10 ML SYR IV PRN; -SODIUM CHLORIDE 0.9% INJ 10 ML SYR IV SCH
[2023-05-07] MEDS ORDERED: ALPHA PROTEINASE INHIBITOR IV ONE (11:30)
[2023-05-07 12:20] VITALS: BP 155/66; O2SAT 100
== END 2023-05-07 12:22 | disposition home or self-care (01) ==
LOC: M INFU 11:00
PROVIDERS: ATTEND Internal Medicine Pulmonary Disease
DX: E88.01 Alpha-1-antitrypsin deficiency (principal); Z88.2 Allergy status to sulfonamides
CPT/HCPCS: 96365; J0256

== ENCOUNTER → 2023-05-08 | Outpatient (REF) | payer MEDICARE ==
[~2023-05-08] MED LIST changes: -SODIUM CHLORIDE 0.9% INJ 10 ML SYR IV PRN
[2023-05-08 14:12] LABS: BLOOD UREA NITROGEN 25 MG/DL (9-23); CALCIUM LEVEL 8.9 MG/DL (8.3-10.6); CARBON DIOXIDE LEVEL 33 MMOL/L (20-31); CHLORIDE LEVEL 100 MMOL/L (98-107); CREATININE FOR GFR 1.22 MG/DL (0.70-1.30); GLOMERULAR FILTRATION RATE > 60.0 (>35); GLUCOSE, FASTING 95 MG/DL (74-106); POTASSIUM SERUM 4.1 MMOL/L (3.5-5.1); SODIUM LEVEL 141 MMOL/L (136-145)
== END ==
LOC: M WUC 13:43 → M LAB REF 13:43
PROVIDERS: ATTEND Nurse Practitioner Adult Health
DX: E87.5 Hyperkalemia (principal)

== ENCOUNTER 2023-05-14 11:00 | Outpatient (CLI) | payer MEDICARE ==
[~2023-05-14] VITALS: Ht 177.8 cm; Wt 76.0 kg
[~2023-05-14 11:00] MED LIST changes: +ALPHA PROTEINASE INHIBITOR IV ONE; +SODIUM CHLORIDE 0.9% INJ 10 ML SYR IV PRN
[2023-05-14 11:08] VITALS: BP 129/71; O2SAT 99
[2023-05-14 12:25] VITALS: BP 124/60; O2SAT 94
== END 2023-05-14 12:27 | disposition home or self-care (01) ==
LOC: M INFU 11:00
PROVIDERS: ATTEND Internal Medicine Pulmonary Disease
DX: E88.01 Alpha-1-antitrypsin deficiency (principal); Z88.2 Allergy status to sulfonamides
CPT/HCPCS: 96365; J0256

== ENCOUNTER 2023-05-21 10:55 | Outpatient (CLI) | payer MEDICARE ==
[2023-05-21 10:55] VITALS: BP 134/68; O2SAT 100
[~2023-05-21 10:55] MED LIST changes: -ALPHA PROTEINASE INHIBITOR IV ONE; -SODIUM CHLORIDE 0.9% INJ 10 ML SYR IV PRN
[2023-05-21] MEDS ORDERED: ALPHA PROTEINASE INHIBITOR IV ONE (11:00)
[2023-05-21] MEDS ORDERED: SODIUM CHLORIDE 0.9% INJ 10 ML SYR IV PRN (11:00)
[2023-05-21 11:50] VITALS: BP 162/74; O2SAT 97
== END 2023-05-21 12:24 | disposition home or self-care (01) ==
LOC: M INFU 10:55
PROVIDERS: ATTEND Internal Medicine Pulmonary Disease
DX: E88.01 Alpha-1-antitrypsin deficiency (principal); Z88.2 Allergy status to sulfonamides
CPT/HCPCS: 96365; J0256

== ENCOUNTER 2023-05-29 10:15 | Outpatient (CLI) | payer MEDICARE ==
[~2023-05-29] VITALS: Ht 170.2 cm; Wt 76.0 kg
[~2023-05-29 10:15] MED LIST changes: +SODIUM CHLORIDE 0.9% INJ 10 ML SYR IV PRN; +SODIUM CHLORIDE 0.9% INJ 10 ML SYR IV SCH
[2023-05-29 10:30] VITALS: BP 133/63; O2SAT 94
[2023-05-29] MEDS ORDERED: ALPHA PROTEINASE INHIBITOR IV ONE (10:30)
[2023-05-29 11:30] VITALS: BP 141/68; O2SAT 99
[2023-05-30] MEDS ORDERED: SODIUM CHLORIDE 0.9% INJ 10 ML SYR IV SCH (09:00)
== END 2023-05-29 11:30 | disposition home or self-care (01) ==
LOC: M INFU 10:15
PROVIDERS: ATTEND Internal Medicine Pulmonary Disease
DX: E88.01 Alpha-1-antitrypsin deficiency (principal); Z88.2 Allergy status to sulfonamides
CPT/HCPCS: 96365; J0256

== ENCOUNTER 2023-06-04 10:58 | Outpatient (CLI) | payer MEDICARE ==
[~2023-06-04] VITALS: Ht 172.7 cm; Wt 79.3 kg
[~2023-06-04 10:58] MED LIST changes: -SODIUM CHLORIDE 0.9% INJ 10 ML SYR IV PRN; -SODIUM CHLORIDE 0.9% INJ 10 ML SYR IV SCH
[2023-06-04 11:15] VITALS: BP 135/73; O2SAT 97
[2023-06-04] MEDS ORDERED: ALPHA PROTEINASE INHIBITOR IV ONE (11:20)
[2023-06-04] MEDS ORDERED: SODIUM CHLORIDE 0.9% INJ 10 ML SYR IV PRN (11:25)
[2023-06-04 12:25] VITALS: BP 149/67; O2SAT 98
== END 2023-06-04 12:33 | disposition home or self-care (01) ==
LOC: M INFU 10:58
PROVIDERS: ATTEND Internal Medicine Pulmonary Disease
DX: E88.01 Alpha-1-antitrypsin deficiency (principal); Z88.2 Allergy status to sulfonamides; Z88.8 Allergy status to other drugs, medicaments and biological substances; Z91.048 Other nonmedicinal substance allergy status
CPT/HCPCS: 96365; 96523; J0256

== ENCOUNTER 2023-06-11 10:55 | Outpatient (CLI) | payer MEDICARE ==
[~2023-06-11] VITALS: Ht 170.2 cm; Wt 79.1 kg
[~2023-06-11 10:55] MED LIST changes: +SODIUM CHLORIDE 0.9% INJ 10 ML SYR XX PRN
[2023-06-11] MEDS ORDERED: ALPHA PROTEINASE INHIBITOR IV ONE (11:00)
[2023-06-11 11:03] VITALS: BP 145/63; O2SAT 100
[2023-06-11 12:00] VITALS: BP 148/69; O2SAT 100
[2023-06-18] MEDS ORDERED: SODIUM CHLORIDE 0.9% INJ 10 ML SYR XX PRN (11:00)
== END 2023-06-11 12:20 | disposition home or self-care (01) ==
LOC: M INFU 10:55
PROVIDERS: ATTEND Internal Medicine Pulmonary Disease
DX: E88.01 Alpha-1-antitrypsin deficiency (principal); Z88.2 Allergy status to sulfonamides
CPT/HCPCS: 96365; J0256

== ENCOUNTER 2023-06-18 10:56 | Outpatient (CLI) | payer MEDICARE ==
[~2023-06-18] VITALS: Ht 170.2 cm; Wt 79.1 kg
[2023-06-18] MEDS ORDERED: ALPHA PROTEINASE INHIBITOR IV ONE (11:00)
[2023-06-18 11:10] VITALS: BP 115/71; O2SAT 100
[2023-06-18 12:15] VITALS: BP 146/72; O2SAT 97
== END 2023-06-18 11:23 | disposition home or self-care (01) ==
LOC: M INFU 10:56
PROVIDERS: ATTEND Internal Medicine Pulmonary Disease
DX: E88.01 Alpha-1-antitrypsin deficiency (principal); Z88.2 Allergy status to sulfonamides
CPT/HCPCS: 96365; J0256

== ENCOUNTER → 2023-06-24 | Outpatient (REF) | payer MEDICARE, BC ==
[~2023-06-24] MED LIST changes: -SODIUM CHLORIDE 0.9% INJ 10 ML SYR XX PRN
== END ==
LOC: M SFHCDERM 13:55
PROVIDERS: ATTEND Physician Assistant
DX: L57.8 Other skin changes due to chronic exposure to nonionizing radiation (principal)

== ENCOUNTER 2023-07-02 11:00 | Outpatient (CLI) | payer MEDICARE ==
[~2023-07-02 11:00] MED LIST changes: +ALPHA PROTEINASE INHIBITOR IV ONE; +SODIUM CHLORIDE 0.9% INJ 10 ML SYR XX PRN
== END 2023-07-02 12:00 ==
LOC: M INFU 11:00
PROVIDERS: ATTEND Internal Medicine Pulmonary Disease
DX: E88.01 Alpha-1-antitrypsin deficiency (principal); Z88.2 Allergy status to sulfonamides
CPT/HCPCS: 96365; J0256

== ENCOUNTER 2023-07-09 11:10 | Outpatient (CLI) | payer MEDICARE ==
[~2023-07-09] VITALS: Ht 172.7 cm; Wt 80.0 kg
[2023-07-09 11:05] VITALS: BP 135/64; O2SAT 94
[~2023-07-09 11:10] MED LIST changes: -ALPHA PROTEINASE INHIBITOR IV ONE
[2023-07-09] MEDS: ALPHA PROTEINASE INHIBITOR IV ONE (11:46)
== END 2023-07-09 12:45 ==
LOC: M INFU 11:10
PROVIDERS: ATTEND Internal Medicine Pulmonary Disease
DX: E88.01 Alpha-1-antitrypsin deficiency (principal); Z88.2 Allergy status to sulfonamides

== ENCOUNTER 2023-07-16 10:55 | Outpatient (CLI) | payer MEDICARE ==
[~2023-07-16] VITALS: Ht 170.2 cm; Wt 80.0 kg
[2023-07-16 10:55] VITALS: BP 152/68; O2SAT 97
[2023-07-16] MEDS: ALPHA PROTEINASE INHIBITOR IV ONE (11:42)
[2023-07-16] MEDS: SODIUM CHLORIDE 0.9% INJ 10 ML SYR IV PRN (12:09)
[2023-07-16 12:15] VITALS: BP 134/7; O2SAT 97
== END 2023-07-16 12:15 ==
LOC: M INFU 10:55
PROVIDERS: ATTEND Internal Medicine Pulmonary Disease
DX: E88.01 Alpha-1-antitrypsin deficiency (principal); Z88.2 Allergy status to sulfonamides
CPT/HCPCS: 96365; J0256

== ENCOUNTER 2023-07-23 11:00 | Outpatient (CLI) | payer MEDICARE ==
[~2023-07-23] VITALS: Ht 167.6 cm; Wt 82.0 kg
[~2023-07-23 11:00] MED LIST changes: -SODIUM CHLORIDE 0.9% INJ 10 ML SYR XX PRN
[2023-07-23] MEDS: SODIUM CHLORIDE 0.9% INJ 10 ML SYR XX PRN (11:21)
[2023-07-23] MEDS: ALPHA PROTEINASE INHIBITOR IV ONE (11:22)
[2023-07-23 11:31] VITALS: BP 146/77; O2SAT 97
[2023-07-23 12:07] VITALS: BP 149/77; O2SAT 99
== END 2023-07-23 12:25 ==
LOC: M INFU 11:00
PROVIDERS: ATTEND Internal Medicine Pulmonary Disease
DX: E88.01 Alpha-1-antitrypsin deficiency (principal); Z88.2 Allergy status to sulfonamides; Z88.8 Allergy status to other drugs, medicaments and biological substances; Z91.048 Other nonmedicinal substance allergy status
CPT/HCPCS: 96365; 96523; J0256

== ENCOUNTER 2023-07-30 11:00 | Outpatient (CLI) | payer MEDICARE ==
[~2023-07-30] VITALS: Ht 167.6 cm; Wt 82.0 kg
[2023-07-30 11:00] VITALS: BP 152/72; O2SAT 93
[2023-07-30] MEDS: ALPHA PROTEINASE INHIBITOR IV ONE (11:35)
[2023-07-30] MEDS: SODIUM CHLORIDE 0.9% INJ 10 ML SYR XX PRN (12:13)
[2023-07-30 12:15] VITALS: BP 140/72; O2SAT 100
== END 2023-07-30 12:20 | disposition home or self-care (01) ==
LOC: M INFU 11:00
PROVIDERS: ATTEND Internal Medicine Pulmonary Disease
DX: E88.01 Alpha-1-antitrypsin deficiency (principal); Z88.2 Allergy status to sulfonamides
CPT/HCPCS: 96365; J0256

== ENCOUNTER 2023-08-06 10:50 | Outpatient (CLI) | payer MEDICARE ==
[~2023-08-06] VITALS: Ht 172.7 cm; Wt 76.3 kg
[2023-08-06 10:50] VITALS: BP 130/64; O2SAT 99
[~2023-08-06 10:50] MED LIST changes: +SODIUM CHLORIDE 0.9% INJ 10 ML SYR XX PRN
[2023-08-06] MEDS: ALPHA PROTEINASE INHIBITOR IV ONE (11:29)
[2023-08-06 12:00] VITALS: BP 150/67; O2SAT 98
== END 2023-08-06 12:20 | disposition home or self-care (01) ==
LOC: M INFU 10:50
PROVIDERS: ATTEND Internal Medicine Pulmonary Disease
DX: E88.01 Alpha-1-antitrypsin deficiency (principal); Z88.2 Allergy status to sulfonamides
CPT/HCPCS: 96365; J0256

== ENCOUNTER → 2023-08-09 | Outpatient (CLI) | payer MEDICARE ==
[~2023-08-09] MED LIST changes: -SODIUM CHLORIDE 0.9% INJ 10 ML SYR XX PRN
== END ==
LOC: M PLAIMG 10:13
PROVIDERS: ATTEND Physician Assistant
DX: J44.9 Chronic obstructive pulmonary disease, unspecified (principal); R91.8 Other nonspecific abnormal finding of lung field; R91.1 Solitary pulmonary nodule

== ENCOUNTER 2023-08-13 10:50 | Outpatient (CLI) | payer MEDICARE ==
[~2023-08-13] VITALS: Ht 172.7 cm; Wt 76.0 kg
[2023-08-13 11:07] VITALS: BP 143/63; O2SAT 93
[2023-08-13] MEDS: SODIUM CHLORIDE 0.9% INJ 10 ML SYR XX PRN (11:15)
[2023-08-13] MEDS: ALPHA PROTEINASE INHIBITOR IV ONE (11:16)
== END 2023-08-13 12:15 | disposition home or self-care (01) ==
LOC: M INFU 10:50
PROVIDERS: ATTEND Internal Medicine Pulmonary Disease
DX: E88.01 Alpha-1-antitrypsin deficiency (principal); Z88.2 Allergy status to sulfonamides
CPT/HCPCS: 96365; J0256

== ENCOUNTER 2023-08-20 09:02 | Outpatient (CLI) | payer MEDICARE ==
[2023-08-20 12:20] LABS: HEMATOCRIT 38.3 % (42.0-52.0); HEMOGLOBIN 11.8 g/dl (13.5-17.5); MEAN CORPUSCULAR HEMOGLOBIN 27.2 pg (27.0-33.0); MEAN CORPUSCULAR HGB CONC 30.8 g/dl (32.0-36.5); MEAN CORPUSCULAR VOLUME 88.2 fl (80.0-96.0); PLATELET COUNT, AUTOMATED 261 10^3/uL (150-450); RED BLOOD COUNT 4.34 10^6/uL (4.30-6.10); WHITE BLOOD COUNT 16.2 10^3/uL (4.0-10.0)
[2023-08-20 12:47] LABS: ALBUMIN 4.1 G/DL (3.2-5.2); BILIRUBIN,TOTAL 0.4 MG/DL (0.3-1.2); CALCIUM LEVEL 9.4 MG/DL (8.3-10.6); CREATININE FOR GFR 1.32 MG/DL (0.70-1.30); GLOMERULAR FILTRATION RATE 55.1 (>35); POTASSIUM SERUM 3.8 MMOL/L (3.5-5.1)
[2023-08-20 12:50] LABS: THYROID STIMULATING HORMONE 2.082 uIU/ML (0.55-4.78)
[2023-08-20 12:51] LABS: FREE T4 1.1 NG/DL (0.89-1.76)
[2023-08-20 13:26] LABS: ATYPICAL LYMPH 14 % (0-5); BASOPHILS 1 % (0-1); EOSINOPHILS 1 % (0-3); LYMPHOCYTES 23 % (16-44); MONOCYTES 7 % (0-5); NEUTROPHILS 54 % (28-66)
[2023-08-20 13:27] LABS: HYPOCHROMASIA 1+; PLATELET ESTIMATE NORMAL (NORMAL)
== END 2023-08-20 12:35 | disposition home or self-care (01) ==
LOC: M WUC 09:02
PROVIDERS: ATTEND Nurse Practitioner Adult Health
DX: C91.10 Chronic lymphocytic leukemia of B-cell type not having achieved remission (principal); D50.9 Iron deficiency anemia, unspecified; E03.9 Hypothyroidism, unspecified; E87.5 Hyperkalemia

== ENCOUNTER 2023-08-20 10:55 | Outpatient (CLI) | payer MEDICARE ==
[~2023-08-20] VITALS: Ht 172.7 cm; Wt 77.0 kg
[2023-08-20 11:00] VITALS: BP 143/67; O2SAT 98
[2023-08-20] MEDS: ALPHA PROTEINASE INHIBITOR IV ONE (11:59)
[2023-08-20] MEDS: SODIUM CHLORIDE 0.9% INJ 10 ML SYR XX PRN (11:59)
[2023-08-20 12:34] VITALS: BP 140/70; O2SAT 97
[2023-09-05] MEDS ORDERED: TORS10TA3 PO (13:23)
== END 2023-08-20 12:35 | disposition home or self-care (01) ==
LOC: M INFU 10:55
PROVIDERS: ATTEND Internal Medicine Pulmonary Disease
DX: E88.01 Alpha-1-antitrypsin deficiency (principal); Z88.2 Allergy status to sulfonamides
CPT/HCPCS: 96365; J0256

== ENCOUNTER 2023-08-27 11:00 | Outpatient (CLI) | payer MEDICARE ==
[~2023-08-27] VITALS: Ht 172.7 cm; Wt 75.0 kg
[2023-08-27 11:00] VITALS: BP 134/74; O2SAT 96
[2023-08-27] MEDS: ALPHA PROTEINASE INHIBITOR IV ONE (11:45)
[2023-08-27] MEDS: SODIUM CHLORIDE 0.9% INJ 10 ML SYR XX PRN (11:45)
[2023-08-27 12:25] VITALS: BP 146/69; O2SAT 100
== END 2023-08-27 12:25 ==
LOC: M INFU 11:00
PROVIDERS: ATTEND Internal Medicine Pulmonary Disease
DX: E88.01 Alpha-1-antitrypsin deficiency (principal); Z88.2 Allergy status to sulfonamides
CPT/HCPCS: 96365; J0256

== ENCOUNTER 2023-09-03 11:00 | Outpatient (CLI) | payer MEDICARE ==
[~2023-09-03] VITALS: Ht 172.7 cm; Wt 75.0 kg
[~2023-09-03 11:00] MED LIST changes: +SODIUM CHLORIDE 0.9% INJ 10 ML SYR XX PRN
[2023-09-03 11:04] VITALS: BP 128/64; O2SAT 100
[2023-09-03] MEDS: ALPHA PROTEINASE INHIBITOR IV ONE (11:23)
[2023-09-03 12:30] VITALS: BP 159/70; O2SAT 98
[2023-09-05] MEDS ORDERED: TORS10TA3 PO (13:23)
== END 2023-09-03 12:30 | disposition home or self-care (01) ==
LOC: M INFU 11:00
PROVIDERS: ATTEND Internal Medicine Pulmonary Disease
DX: E88.01 Alpha-1-antitrypsin deficiency (principal); Z88.2 Allergy status to sulfonamides
CPT/HCPCS: 96365; J0256

== ENCOUNTER → 2023-09-10 | Outpatient (CLI) | payer MEDICARE ==
[~2023-09-10] VITALS: Ht 172.7 cm; Wt 79.7 kg
[~2023-09-10] MED LIST changes: -SODIUM CHLORIDE 0.9% INJ 10 ML SYR XX PRN; +TORS10TA3 PO
[2023-09-10 11:00] VITALS: BP 125/65; O2SAT 90
[2023-09-10] MEDS: ALPHA PROTEINASE INHIBITOR IV ONE (12:11)
[2023-09-10] MEDS: SODIUM CHLORIDE 0.9% INJ 10 ML SYR XX PRN (12:13)
[2023-09-10 12:48] VITALS: BP 144/71; O2SAT 99
== END ==
LOC: M INFU 11:00
PROVIDERS: ATTEND Internal Medicine Pulmonary Disease
DX: E88.01 Alpha-1-antitrypsin deficiency (principal); Z88.2 Allergy status to sulfonamides
CPT/HCPCS: 96365; J0256

== ENCOUNTER 2023-09-17 10:55 | Outpatient (CLI) | payer MEDICARE ==
[~2023-09-17] VITALS: Ht 177.8 cm; Wt 75.0 kg
[2023-09-17 10:55] VITALS: BP 133/63; O2SAT 97
[2023-09-17] MEDS: ALPHA PROTEINASE INHIBITOR IV ONE (11:20)
[2023-09-17] MEDS: SODIUM CHLORIDE 0.9% INJ 10 ML SYR XX PRN (11:53)
[2023-09-17 12:05] VITALS: BP 168/66; O2SAT 99
== END 2023-09-17 12:05 | disposition home or self-care (01) ==
LOC: M INFU 10:55
PROVIDERS: ATTEND Internal Medicine Pulmonary Disease
DX: E88.01 Alpha-1-antitrypsin deficiency (principal); Z88.2 Allergy status to sulfonamides
CPT/HCPCS: 96365; J0256

== ENCOUNTER 2023-09-24 10:55 | Outpatient (CLI) | payer MEDICARE ==
[~2023-09-24] VITALS: Ht 170.2 cm; Wt 79.7 kg
[2023-09-24 11:00] VITALS: BP 145/71; O2SAT 98
[2023-09-24] MEDS: ALPHA PROTEINASE INHIBITOR IV ONE (11:46)
[2023-09-24] MEDS: SODIUM CHLORIDE 0.9% INJ 10 ML SYR XX PRN (11:48)
[2023-09-24 12:56] VITALS: BP 178/86; O2SAT 99
== END 2023-09-24 12:30 ==
LOC: M INFU 10:55
PROVIDERS: ATTEND Internal Medicine Pulmonary Disease
DX: E88.01 Alpha-1-antitrypsin deficiency (principal); Z88.2 Allergy status to sulfonamides
CPT/HCPCS: 96365; J0256

== ENCOUNTER 2023-10-01 11:05 | Outpatient (CLI) | payer MEDICARE ==
[2023-10-01 11:00] VITALS: BP 129/90; O2SAT 96
[~2023-10-01 11:05] MED LIST changes: +SODIUM CHLORIDE 0.9% INJ 10 ML SYR XX PRN
[2023-10-01] MEDS: ALPHA PROTEINASE INHIBITOR IV ONE (11:28)
[2023-10-01 12:21] VITALS: BP 178/76; O2SAT 96
== END 2023-10-01 12:22 | disposition home or self-care (01) ==
LOC: M INFU 11:05
PROVIDERS: ATTEND Internal Medicine Pulmonary Disease
DX: E88.01 Alpha-1-antitrypsin deficiency (principal); Z88.2 Allergy status to sulfonamides
CPT/HCPCS: 96365; J0256

== ENCOUNTER 2023-10-08 10:50 | Outpatient (CLI) | payer MEDICARE ==
[~2023-10-08] VITALS: Ht 170.2 cm; Wt 75.0 kg
[2023-10-08 10:55] VITALS: BP 122/60; O2SAT 94
[2023-10-08] MEDS ORDERED: SODIUM CHLORIDE 0.9% INJ 10 ML SYR IV SCH (11:00)
[2023-10-08] MEDS ORDERED: SODIUM CHLORIDE 0.9% INJ 10 ML SYR IV PRN (11:00)
[2023-10-08] MEDS: ALPHA PROTEINASE INHIBITOR IV ONE (11:39)
[2023-10-08 12:20] VITALS: BP 130/68; O2SAT 98
== END 2023-10-08 12:20 | disposition home or self-care (01) ==
LOC: M INFU 10:50
PROVIDERS: ATTEND Internal Medicine Pulmonary Disease
DX: E88.01 Alpha-1-antitrypsin deficiency (principal); Z88.2 Allergy status to sulfonamides
CPT/HCPCS: 96365; J0256

== ENCOUNTER 2023-10-15 10:15 | Outpatient (CLI) | payer MEDICARE ==
[2023-10-15 10:15] VITALS: BP 143/64; O2SAT 96
[~2023-10-15 10:15] MED LIST changes: -SODIUM CHLORIDE 0.9% INJ 10 ML SYR XX PRN
[2023-10-15] MEDS: ALPHA PROTEINASE INHIBITOR IV ONE (10:48)
[2023-10-15] MEDS: SODIUM CHLORIDE 0.9% INJ 10 ML SYR IV SCH (10:54)
[2023-10-15] MEDS ORDERED: SODIUM CHLORIDE 0.9% INJ 10 ML SYR IV PRN (11:00)
[2023-10-15] MEDS ORDERED: SODIUM CHLORIDE 0.9% INJ 10 ML SYR XX PRN (11:00)
[2023-10-15 11:10] VITALS: BP 129/70; O2SAT 98
== END 2023-10-15 11:10 | disposition home or self-care (01) ==
LOC: M INFU 10:15
PROVIDERS: ATTEND Internal Medicine Pulmonary Disease
DX: E88.01 Alpha-1-antitrypsin deficiency (principal); Z88.2 Allergy status to sulfonamides; Z91.048 Other nonmedicinal substance allergy status
CPT/HCPCS: 96365; J0256

== ENCOUNTER 2023-10-22 11:05 | Outpatient (CLI) | payer MEDICARE ==
[2023-10-22 11:00] VITALS: BP 115/61; O2SAT 100
[~2023-10-22 11:05] MED LIST changes: +ALPHA PROTEINASE INHIBITOR IV ONE; +SODIUM CHLORIDE 0.9% INJ 10 ML SYR XX PRN
[2023-10-22] MEDS: ALPHA PROTEINASE INHIBITOR IV ONE (11:34)
== END 2023-10-22 12:15 | disposition home or self-care (01) ==
LOC: M INFU 11:05
PROVIDERS: ATTEND Internal Medicine Pulmonary Disease
DX: E88.01 Alpha-1-antitrypsin deficiency (principal); Z88.2 Allergy status to sulfonamides
CPT/HCPCS: 96365; J0256

== ENCOUNTER 2023-10-29 10:55 | Outpatient (CLI) | payer MEDICARE ==
[~2023-10-29 10:55] MED LIST changes: -ALPHA PROTEINASE INHIBITOR IV ONE
[2023-10-29 11:00] VITALS: BP 134/66; O2SAT 97
[2023-10-29] MEDS: ALPHA PROTEINASE INHIBITOR IV ONE (11:33)
[2023-10-29 12:00] VITALS: BP 138/64; O2SAT 97
== END 2023-10-29 12:20 | disposition home or self-care (01) ==
LOC: M INFU 10:55
PROVIDERS: ATTEND Internal Medicine Pulmonary Disease
DX: E88.01 Alpha-1-antitrypsin deficiency (principal); Z88.2 Allergy status to sulfonamides
CPT/HCPCS: 96365; J0256

== ENCOUNTER 2023-11-05 11:00 | Outpatient (CLI) | payer MEDICARE ==
[~2023-11-05] VITALS: Ht 175.3 cm; Wt 75.0 kg
[2023-11-05 11:00] VITALS: BP 130/60; O2SAT 97
[~2023-11-05 11:00] MED LIST changes: +ESOM1CAP20 PO; -ESOM1CAP5 PO
[2023-11-05] MEDS: ALPHA PROTEINASE INHIBITOR IV ONE (11:31)
[2023-11-05 12:00] VITALS: BP 126/65; O2SAT 95
== END 2023-11-05 12:00 | disposition home or self-care (01) ==
LOC: M INFU 11:00
PROVIDERS: ATTEND Internal Medicine Pulmonary Disease
DX: E88.01 Alpha-1-antitrypsin deficiency (principal); Z88.2 Allergy status to sulfonamides; Z88.8 Allergy status to other drugs, medicaments and biological substances; Z91.09 Other allergy status, other than to drugs and biological substances
CPT/HCPCS: 96365; J0256

== ENCOUNTER 2023-11-12 10:55 | Outpatient (CLI) | payer MEDICARE ==
[~2023-11-12] VITALS: Ht 170.2 cm; Wt 74.8 kg
[~2023-11-12 10:55] MED LIST changes: -SODIUM CHLORIDE 0.9% INJ 10 ML SYR XX PRN
[2023-11-12 11:00] VITALS: BP 140/62; O2SAT 100
[2023-11-12] MEDS: SODIUM CHLORIDE 0.9% INJ 10 ML SYR XX PRN (11:47)
[2023-11-12] MEDS: ALPHA PROTEINASE INHIBITOR IV ONE (11:48)
[2023-11-12 12:25] VITALS: BP 154/72; O2SAT 99
== END 2023-11-12 12:25 | disposition home or self-care (01) ==
LOC: M INFU 10:55
PROVIDERS: ATTEND Internal Medicine Pulmonary Disease
DX: E88.01 Alpha-1-antitrypsin deficiency (principal); Z88.2 Allergy status to sulfonamides; Z88.8 Allergy status to other drugs, medicaments and biological substances; Z91.09 Other allergy status, other than to drugs and biological substances
CPT/HCPCS: 96365; J0256

== ENCOUNTER 2023-11-19 11:00 | Outpatient (CLI) | payer MEDICARE ==
[~2023-11-19] VITALS: Ht 172.7 cm; Wt 75.0 kg
[~2023-11-19 11:00] MED LIST changes: +SODIUM CHLORIDE 0.9% INJ 10 ML SYR IV PRN
[2023-11-19 11:05] VITALS: BP 122/56; O2SAT 97
[2023-11-19] MEDS: SODIUM CHLORIDE 0.9% INJ 10 ML SYR IV SCH (11:28)
[2023-11-19] MEDS: ALPHA PROTEINASE INHIBITOR IV ONE (11:30)
[2023-11-19 12:05] VITALS: BP 143/70; O2SAT 100
== END 2023-11-19 12:05 ==
LOC: M INFU 11:00
PROVIDERS: ATTEND Internal Medicine Pulmonary Disease
DX: E88.01 Alpha-1-antitrypsin deficiency (principal); N18.30 Chronic kidney disease, stage 3 unspecified; Z88.2 Allergy status to sulfonamides; Z88.8 Allergy status to other drugs, medicaments and biological substances; Z91.09 Other allergy status, other than to drugs and biological substances
CPT/HCPCS: 36415; 80048; 96365; J0256

== ENCOUNTER → 2023-11-19 | Outpatient (REF) | payer MEDICARE ==
[2023-11-19 12:51] LABS: CREATININE FOR GFR 1.26 MG/DL (0.70-1.30); GLOMERULAR FILTRATION RATE 58.2 (>35); POTASSIUM SERUM 4.2 MMOL/L (3.5-5.1)
== END ==
LOC: M LABWUC 11:42 → M LAB REF 11:42
PROVIDERS: ATTEND Nurse Practitioner Adult Health
DX: N18.30 Chronic kidney disease, stage 3 unspecified (principal)

== ENCOUNTER 2023-11-26 11:00 | Outpatient (CLI) | payer MEDICARE ==
[~2023-11-26] VITALS: Ht 170.2 cm; Wt 76.3 kg
[~2023-11-26 11:00] MED LIST changes: -SODIUM CHLORIDE 0.9% INJ 10 ML SYR IV PRN; +SODIUM CHLORIDE 0.9% INJ 10 ML SYR XX PRN
[2023-11-26 11:18] VITALS: BP 146/69; O2SAT 97
[2023-11-26] MEDS: ALPHA PROTEINASE INHIBITOR IV ONE (11:40)
[2023-11-26 12:09] VITALS: BP 167/78; O2SAT 99
== END 2023-11-26 12:13 ==
LOC: M INFU 11:00
PROVIDERS: ATTEND Internal Medicine Pulmonary Disease
DX: E88.01 Alpha-1-antitrypsin deficiency (principal); Z88.2 Allergy status to sulfonamides; Z88.8 Allergy status to other drugs, medicaments and biological substances; Z91.09 Other allergy status, other than to drugs and biological substances
CPT/HCPCS: 96365; J0256

== ENCOUNTER 2023-11-30 09:32 | Emergency (ER) | payer MEDICARE ==
[~2023-11-30] VITALS: Ht 172.7 cm; Wt 77.3 kg
[~2023-11-30 09:32] MED LIST changes: -SODIUM CHLORIDE 0.9% INJ 10 ML SYR XX PRN
[2023-11-30] MEDS: NS 500 ML IV ONE (10:26)
[2023-11-30] MEDS: ONDANSETRON 4MG 2ML VIAL IV ONE (10:26)
[2023-11-30 10:31] LABS: BASO % 0.2 % (0.0-1.0); EOS % 0.1 % (0.0-3.0); HEMATOCRIT 37.8 % (42.0-52.0); HEMOGLOBIN 11.7 g/dl (13.5-17.5); LYMPH # 4.8 10^3/uL (1.5-5.0); LYMPH % 25.5 % (24.0-44.0); MEAN CORPUSCULAR HEMOGLOBIN 26.4 pg (27.0-33.0); MEAN CORPUSCULAR VOLUME 85.1 fl (80.0-96.0); MONO # 1.1 10^3/uL (0.0-0.8); MONO % 5.9 % (2.0-8.0); NEUTROPHILS # 12.7 10^3/uL (1.5-8.5); NEUTROPHILS % 67.8 % (36.0-66.0); PLATELET COUNT, AUTOMATED 246 10^3/uL (150-450); RED BLOOD COUNT 4.44 10^6/uL (4.30-6.10); WHITE BLOOD COUNT 18.8 10^3/uL (4.0-10.0)
[2023-11-30 11:03] LABS: ALBUMIN 3.9 G/DL (3.2-5.2); BILIRUBIN,DIRECT 0.1 MG/DL (<0.4); BILIRUBIN,TOTAL 0.5 MG/DL (0.3-1.2); CALCIUM LEVEL 10.4 MG/DL (8.3-10.6); CREATININE FOR GFR 1.27 MG/DL (0.70-1.30); GLOMERULAR FILTRATION RATE 57.5 (>35); TOTAL PROTEIN 6.8 G/DL (5.7-8.2)
[2023-11-30] MEDS ORDERED: SODIUM CHLORIDE 0.9% INJ 10 ML SYR IV PRN (11:10)
[2023-11-30 12:01] LABS: PROCALCITONIN 0.17 ng/ml
[2023-11-30] MEDS ORDERED: ONDA-282 PO (15:01)
[2023-11-30 15:15] VITALS: BP 116/54; TEMP 98.3; O2SAT 98
== END 2023-11-30 15:15 | disposition home or self-care (01) ==
LOC: M ED 09:32
DX: R11.0 Nausea (principal); E88.01 Alpha-1-antitrypsin deficiency; I50.22 Chronic systolic (congestive) heart failure; K21.9 Gastro-esophageal reflux disease without esophagitis; E78.5 Hyperlipidemia, unspecified; J44.9 Chronic obstructive pulmonary disease, unspecified; Z88.2 Allergy status to sulfonamides; Z88.8 Allergy status to other drugs, medicaments and biological substances; Z91.09 Other allergy status, other than to drugs and biological substances; Z79.51 Long term (current) use of inhaled steroids; Z79.1 Long term (current) use of non-steroidal anti-inflammatories (NSAID); Z79.899 Other long term (current) drug therapy
CPT/HCPCS: 74021; 80047; 80048; 80076; 83605; 83690; 84145; 85025; 87040; 87486; 87581; 87633; 87798; 96361; 96374; 99284; J2405

== ENCOUNTER 2023-12-08 15:07 | Inpatient (IN) | payer MEDICARE ==
[2023-12-08] VITALS (7 sets, daily range): BP systolic 90–164; BP diastolic 48–88; TEMP 96.3–96.8; O2SAT 92–100
[~2023-12-08] VITALS: Ht 172.7 cm; Wt 76.0 kg
[~2023-12-08 15:07] MED LIST changes: +ONDA-282 PO
[2023-12-08] MEDS ORDERED: PRED10PA2 PO (15:19)
[2023-12-08 16:09] LABS: VENOUS BASE EXCESS -1.6 (-2.0-2.0); VENOUS HCO3 24.3 MMOL/L (23.0-27.0); VENOUS O2 SATURATION 56.6 % (60.0-80.0); VENOUS PARTIAL PRESSURE CO2 47.3 mmHg (38.0-50.0); VENOUS PH 7.329 UNITS (7.330-7.430); VENOUS STANDARD HCO3 22.7 MMOL/L; VENOUS TOTAL CO2 25.8 MMOL/L (24.0-28.0)
[2023-12-08 16:20] LABS: MEAN CORPUSCULAR HEMOGLOBIN 27.6 pg (27.0-33.0); MEAN CORPUSCULAR HGB CONC 31.3 g/dl (32.0-36.5); MEAN CORPUSCULAR VOLUME 88.5 fl (80.0-96.0); PLATELET COUNT, AUTOMATED 317 10^3/uL (150-450); RED BLOOD COUNT 2.17 10^6/uL (4.30-6.10)
[2023-12-08 16:23] LABS: HEMATOCRIT 19.2 % (42.0-52.0); WHITE BLOOD COUNT 44.6 10^3/uL (4.0-10.0)
[2023-12-08 16:38] LABS: CK-MB VALUE MASS 3.6 NG/ML (<3.6)
[2023-12-08 16:40] LABS: CPK CREATINE PHOSPHOKINASE 32 U/L (46-171); MB/CK RELATIVE INDEX 11.25 (< OR =4)
[2023-12-08 16:42] LABS: THYROID STIMULATING HORMONE 1.555 uIU/ML (0.55-4.78)
[2023-12-08 16:56] LABS: ALBUMIN 3.3 G/DL (3.2-5.2); ALKALINE PHOSPHATASE 49 U/L (46-116); ALT/SGPT 20 U/L (7.0-40); AST/SGOT 14 U/L (<34); BILIRUBIN,DIRECT < 0.1 MG/DL (<0.4); BILIRUBIN,TOTAL < 0.2 MG/DL (0.3-1.2); BLOOD UREA NITROGEN 105 MG/DL (9-23); CALCIUM LEVEL 8.9 MG/DL (8.3-10.6); CARBON DIOXIDE LEVEL 25 MMOL/L (20-31); CHLORIDE LEVEL 104 MMOL/L (98-107); CREATININE FOR GFR 1.87 MG/DL (0.70-1.30); GLOMERULAR FILTRATION RATE 36.8 (>35); GLUCOSE, FASTING 165 MG/DL (74-106); POTASSIUM SERUM 4.1 MMOL/L (3.5-5.1); SODIUM LEVEL 140 MMOL/L (136-145); TOTAL PROTEIN 5.5 G/DL (5.7-8.2)
[2023-12-08 17:13] LABS: HYPOCHROMASIA 1+; LYMPHOCYTES 28 % (16-44); MYELOCYTES 1 % (0-0); NEUTROPHILS 71 % (28-66); PLATELET ESTIMATE NORMAL (NORMAL)
[2023-12-08 17:14] LABS: HYPERSEGMENTED POLYS 1+
[2023-12-08] MEDS: NS 500 ML IV ONE (17:20)
[2023-12-08] MEDS: PANTOPRAZOLE 40MG VIAL IV ONE (17:20)
[2023-12-08 17:32] LABS: MB/CK RELATIVE INDEX 11.11 (< OR =4)
[2023-12-08 18:03] LABS: ABG BASE EXCESS -8.2 (-2.0-2.0); ABG HCO3 17.1 MMOL/L (22.0-26.0); ABG O2 SATURATION 37.1 % (95.0-99.0); ABG PARTIAL PRESSURE CO2 33.8 mmHg (35.0-45.0); ABG PARTIAL PRESSURE O2 24.7 mmHg (75.0-100.0); ABG STANDARD HCO3 17.1 MMOL/L. (22.0-26.0); ABG TOTAL CO2 18.2 MMOL/L (23.0-31.0); ABG pH (ARTERIAL) 7.323 UNITS (7.350-7.450)
[2023-12-08 18:56] LABS: IONIZED CALCIUM 4.1 MG/DL (4.5-5.3)
[2023-12-08 19:04] LABS: BASO # 0.1 10^3/uL (0.0-0.2); BASO % 0.1 % (0.0-1.0); HEMATOCRIT 21.9 % (42.0-52.0); LYMPH # 18.1 10^3/uL (1.5-5.0); MONO # 1.8 10^3/uL (0.0-0.8); MONO % 3.9 % (2.0-8.0); RED BLOOD COUNT 2.33 10^6/uL (4.30-6.10)
[2023-12-08 19:14] LABS: PLATELET COUNT, AUTOMATED 210 10^3/uL (150-450); WHITE BLOOD COUNT 45.4 10^3/uL (4.0-10.0)
[2023-12-08] MEDS: ONDANSETRON 4MG 2ML VIAL IV ONE (19:31)
[2023-12-08 19:42] LABS: CALCIUM LEVEL 6.8 MG/DL (8.3-10.6); CREATININE FOR GFR 1.78 MG/DL (0.70-1.30); POTASSIUM SERUM 4.1 MMOL/L (3.5-5.1)
[2023-12-08] MEDS: DIGOXIN INJ 0.5 MG/2 ML AMP IV STA ×2 (19:59→21:43)
[2023-12-08] MEDS: CALCIUM GLUCONATE 1,000 MG in D5W MINI-BAG PLUS 100 ML IV ONE ×2 (21:35→23:40)
[2023-12-08] MEDS: cefTRIAXone SOD 2 GM in D5W MINI-BAG PLUS 50 ML IV ONE (22:57)
[2023-12-08] MEDS ORDERED: ONDA-284 PO (23:26)
[2023-12-08] MEDS ORDERED: PRED10TA2 PO (23:26)
[2023-12-08 23:27] LABS: HEMATOCRIT 28.6 % (42.0-52.0); MEAN CORPUSCULAR HEMOGLOBIN 28.8 pg (27.0-33.0); MEAN CORPUSCULAR HGB CONC 31.5 g/dl (32.0-36.5); MEAN CORPUSCULAR VOLUME 91.4 fl (80.0-96.0); PLATELET COUNT, AUTOMATED 188 10^3/uL (150-450); RED BLOOD COUNT 3.13 10^6/uL (4.30-6.10)
[2023-12-08] MEDS ORDERED: AZIT-10 PO (23:27)
[2023-12-08 23:30] LABS: WHITE BLOOD COUNT 68.9 10^3/uL (4.0-10.0)
[2023-12-08] MEDS ORDERED: HOME MED LIST COMPLETE! XX SCH (23:30)
[2023-12-08 23:40] LABS: CALCIUM LEVEL 7.9 MG/DL (8.3-10.6); CREATININE FOR GFR 1.94 MG/DL (0.70-1.30); GLOMERULAR FILTRATION RATE 35.3 (>35); POTASSIUM SERUM 4.6 MMOL/L (3.5-5.1)
[2023-12-09] VITALS (16 sets, daily range): BP systolic 105–186; BP diastolic 49–105; TEMP 96.6–98; O2SAT 74–100
[2023-12-09] MEDS: NS 1,710 ML in IV 1 EA IV ONE
[2023-12-09 00:31] LABS: INR 1.34; PARTIAL THROMBOPLASTIN TIME 22.1 SECONDS (24.8-34.2); PROTHROMBIN TIME 16.1 SECONDS (12.5-14.5)
[2023-12-09] MEDS ORDERED: MOM 30ML SUSPENSION UDC PO PRN (00:45)
[2023-12-09] MEDS ORDERED: ALBUTEROL 90 MCG/ACT 8GM HFA INHALER INH PRN (00:45)
[2023-12-09] MEDS ORDERED: ACETAMINOPHEN TAB 650MG DOSE (2X325MG) PO PRN (00:45)
[2023-12-09 01:32] LABS: PROCALCITONIN 0.51 ng/ml
[2023-12-09] MEDS: VANCOMYCIN HCL 750 MG, VIAL MATE ADAPTER 1 EACH in D5W 250 ML IV ONE ×2 (02:39→04:18)
[2023-12-09] MEDS: methylPREDNISolone 125MG 2ML VIAL IV SCH (02:39)
[2023-12-09] MEDS: DIGOXIN INJ 0.5 MG/2 ML AMP IV STA (02:39)
[2023-12-09] MEDS: PANTOPRAZOLE 40MG VIAL IV SCH (02:46)
[2023-12-09] MEDS: IPRATROPIUM 0.5MG/ALBUTEROL 2.5MG INH SOL UD 3ML (DUONEB) NEB SCH (02:47)
[2023-12-09] MEDS: OCTREOTIDE ACETATE 1,200 MCG in NS 238.8 ML IV SCH (04:11)
[2023-12-09] MEDS: OCTREOTIDE ACETATE 100MCG/ML VIAL **IV ADMINISTRATION ONLY IV ONE (04:16)
[2023-12-09 04:39] LABS: HEMOGLOBIN 9.4 g/dl (13.5-17.5)
[2023-12-09] MEDS: LEVOTHYROXINE 75MCG TABLET (0.075MG) PO SCH (05:28)
[2023-12-09] MEDS: PIPERACILLIN/TAZOBACTAM SOD 3.375 GM in D5W MINI-BAG PLUS 50 ML IV SCH (05:28)
[2023-12-09 07:15] LABS: HEMATOCRIT 28.6 % (42.0-52.0); HEMOGLOBIN 9.6 g/dl (13.5-17.5); MEAN CORPUSCULAR HEMOGLOBIN 29.8 pg (27.0-33.0); MEAN CORPUSCULAR HGB CONC 33.6 g/dl (32.0-36.5); MEAN CORPUSCULAR VOLUME 88.8 fl (80.0-96.0); PLATELET COUNT, AUTOMATED 198 10^3/uL (150-450); RED BLOOD COUNT 3.22 10^6/uL (4.30-6.10)
[2023-12-09 07:21] LABS: WHITE BLOOD COUNT 65.1 10^3/uL (4.0-10.0)
[2023-12-09 07:32] LABS: ALBUMIN 2.7 G/DL (3.2-5.2); BILIRUBIN,TOTAL 0.5 MG/DL (0.3-1.2); CALCIUM LEVEL 7.9 MG/DL (8.3-10.6); CREATININE FOR GFR 1.73 MG/DL (0.70-1.30); GLOMERULAR FILTRATION RATE 40.3 (>35); POTASSIUM SERUM 4.7 MMOL/L (3.5-5.1); TOTAL PROTEIN 4.6 G/DL (5.7-8.2)
[2023-12-09] MEDS: SYMBICORT 160/4.5MCG INHALER 6GM INH SCH (07:53)
[2023-12-09 07:58] LABS: ABG BASE EXCESS -6.5 (-2.0-2.0); ABG HCO3 18.3 MMOL/L (22.0-26.0); ABG O2 SATURATION 98.4 % (95.0-99.0); ABG PARTIAL PRESSURE CO2 33.7 mmHg (35.0-45.0); ABG PARTIAL PRESSURE O2 142.4 mmHg (75.0-100.0); ABG STANDARD HCO3 19.2 MMOL/L. (22.0-26.0); ABG TOTAL CO2 19.3 MMOL/L (23.0-31.0); ABG pH (ARTERIAL) 7.353 UNITS (7.350-7.450)
[2023-12-09] MEDS ORDERED: METOPROLOL TART 12.5 MG PER 1/2 TAB PO SCH (09:00)
[2023-12-09] MEDS ORDERED: EPINEPHrine 1MG/10ML SYRINGE 1.5IN ONE (09:36)
[2023-12-09] MEDS ORDERED: SIMVASTATIN 40 MG TAB PO SCH (21:00)
[2023-12-09] MEDS ORDERED: MONTELUKAST 10 MG TAB PO SCH (21:00)
[2023-12-09] MEDS ORDERED: VANCOMYCIN HCL 1,000 MG, VIAL MATE ADAPTER 1 EACH in NS 250 ML IV SCH (22:00)
== END 2023-12-09 10:03 | disposition expired | DRG 871 ==
LOC: M ED 15:07 → M ED INP 23:16 → M ICU 12-09 01:57
PROVIDERS: ADMIT Family Medicine; ATTEND Internal Medicine Pulmonary Disease
PROC: 30233N1 Transfusion of Nonautologous Red Blood Cells into Peripheral Vein, Percutaneous Approach (ICD-10-PCS; principal; 2023-12-08)
PROC: 0BH17EZ Insertion of Endotracheal Airway into Trachea, Via Natural or Artificial Opening (ICD-10-PCS; 2023-12-09)
DX: A41.9 Sepsis, unspecified organism (principal); J96.21 Acute and chronic respiratory failure with hypoxia; I21.A1 Myocardial infarction type 2; K92.2 Gastrointestinal hemorrhage, unspecified; D62 Acute posthemorrhagic anemia; N17.9 Acute kidney failure, unspecified; J44.1 Chronic obstructive pulmonary disease with (acute) exacerbation; C91.10 Chronic lymphocytic leukemia of B-cell type not having achieved remission; E03.9 Hypothyroidism, unspecified; I11.0 Hypertensive heart disease with heart failure; N40.0 Benign prostatic hyperplasia without lower urinary tract symptoms; I27.20 Pulmonary hypertension, unspecified; I46.9 Cardiac arrest, cause unspecified; K21.9 Gastro-esophageal reflux disease without esophagitis; I50.9 Heart failure, unspecified; I48.91 Unspecified atrial fibrillation; Z79.82 Long term (current) use of aspirin; Z79.2 Long term (current) use of antibiotics; Z79.890 Hormone replacement therapy; Z79.899 Other long term (current) drug therapy; Z88.2 Allergy status to sulfonamides; Z88.8 Allergy status to other drugs, medicaments and biological substances; Z91.048 Other nonmedicinal substance allergy status; Z11.52 Encounter for screening for COVID-19; Z99.81 Dependence on supplemental oxygen